=== PATIENT | female | born 1950 | race Caucasian/White ===

== ENCOUNTER 2017-11-04 18:48 | Inpatient (IN) | payer MEDICARE ==
[~2017-11-04] VITALS: Ht 162.6 cm; Wt 65.8 kg
[2017-11-04] MEDS ORDERED: ASPIRIN EC325 MG ORAL (19:16)
[2017-11-04] MEDS ORDERED: TRADJENTA5 MG PO (19:16)
[2017-11-04] MEDS ORDERED: DOCUSATE SODIU100 MG ORAL (19:16)
[2017-11-04] MEDS ORDERED: COREG3.125 MG ORAL (19:16)
[2017-11-04] MEDS ORDERED: LEXAPRO20 MG ORAL (19:16)
[2017-11-04] MEDS ORDERED: ATORVASTATIN CA20 MG ORAL (19:16)
[2017-11-04] MEDS ORDERED: HYDRALAZINE HCL25 M1 ORAL (19:16)
[2017-11-04] MEDS ORDERED: MAGNESIUM OXID400 M1 ORAL (19:16)
[2017-11-04] MEDS ORDERED: ADALAT10 MG ORAL (19:16)
[2017-11-04] MEDS ORDERED: ABILIFY2 MG ORAL (19:16)
[2017-11-04] MEDS ORDERED: FUROSEMIDE40 MG ORAL (19:16)
[2017-11-04] MEDS ORDERED: GLIPIZIDE5 MG ORAL (19:16)
[2017-11-04 19:30] VITALS: BP 182/81
[2017-11-04] MEDS ORDERED: Haloperidol 5mg/ml Inj IM ONE (19:45)
--- NOTE | 2017-11-04 19:51 | Emergency Room Report ---
History of Present Illness General Chief Complaint: Abnormal Labs Source: Patient Present Illness HPI Patient is a 67-year-old female sent in by primary care physician for increased blood sugar and agitation. Patient had been noted to have prior history of psychosis. Patient was markedly had been given Haldol Ativan Benadryl prior to arrival. Patient is normally poorly oriented. Allergies: Coded Allergies: No Known Allergies (Unverified , 11/04/17) Patient History Past Medical History: see triage record Reviewed Nursing Documentation: PMH: Agreed; PSxH: Agreed Nursing Documentation-PMH Hx Cardiac Problems: Yes Hx Hypertension: Yes Hx Diabetes: Yes Hx Cancer: No - UTI Hx Gastrointestinal Problems: No - MUSCLE WEAKNESS History Of Psychiatric Problem: Yes Hx Neurological Problems: Yes - DYSPHAGIA Review of Systems All Other Systems: limited - by mental status Physical Exam Vital Signs Date Time Temp Pulse Resp B/P (MAP) Pulse Ox O2 Delivery O2 Flow Rate FiO2 11/04/17 18:50 97.0 83 20 142/69 99 Room Air 97.0 Sp02 EP Interpretation: reviewed, normal General Appearance: normal inspection, Chronically Ill Head: atraumatic ENT: normal ENT inspection, hearing grossly normal, normal voice Neck: normal inspection, full range of motion, supple, no bony tend Respiratory: normal inspection, lungs clear, normal breath sounds, no respiratory distress, no retraction, no wheezing Cardiovascular #1: regular rate, rhythm, no edema Gastrointestinal: normal inspection, normal bowel sounds, non tender, soft, no guarding, no hernia Genitourinary: no CVA tenderness Musculoskeletal: normal inspection, back normal, normal range of motion Neurologic: alert, responsive, motor weakness Psychiatric: anxious Skin: normal inspection, normal color, no rash Medical Decision Making Diagnostic Impression: Primary Impression: Lactic acidosis Additional Impressions: Urinary tract infection Psychosis ER Course Patient present for abnormal laboratory testing. Differential diagnosis included wasn't limited to uncontrolled diabetes, sepsis, dehydration among others.Because of complexity of patient's case laboratory testing and imaging studies were ordered.Laboratory testing and old for elevated lactic acid level. The patient was noted to have some evidence of urinary tract infection was started on IV antibiotics as well as IV fluids. Dr. Zak Guaman was contacted for inpatient managment. Labs Test 11/04/17 19:40 White Blood Count 10.6 K/UL (4.8-10.8) Red Blood Count 4.15 M/UL (4.20-5.40) Hemoglobin 11.5 G/DL (12.0-16.0) Hematocrit 35.2 % (37.0-47.0) Mean Corpuscular Volume 85 FL (80-99) Mean Corpuscular Hemoglobin 27.6 PG (27.0-31.0) Mean Corpuscular Hemoglobin Concent 32.6 G/DL (32.0-36.0) Red Cell Distribution Width 13.7 % (11.6-14.8) Platelet Count 207 K/UL (150-450) Mean Platelet Volume 9.0 FL (6.5-10.1) Neutrophils (%) (Auto) 56.1 % (45.0-75.0) Lymphocytes (%) (Auto) 31.7 % (20.0-45.0) Monocytes (%) (Auto) 9.1 % (1.0-10.0) Eosinophils (%) (Auto) 1.8 % (0.0-3.0) Basophils (%) (Auto) 1.3 % (0.0-2.0) Urine Color Yellow Urine Appearance Slightly cloudy Urine pH 5 (4.5-8.0) Urine Specific [place] 1.020 (1.005-1.035) Urine Protein 4+ (NEGATIVE) Urine Glucose (UA) 3+ (NEGATIVE) Urine Ketones 1+ (NEGATIVE) Urine Occult Blood 3+ (NEGATIVE) Urine Nitrite Negative (NEGATIVE) Urine Bilirubin Negative (NEGATIVE) Urine Urobilinogen Normal MG/DL (0.0-1.0) Urine Leukocyte Esterase 3+ (NEGATIVE) Urine RBC 5-10 /HPF (0 - 2) Urine WBC 2-4 /HPF (0 - 2) Urine Squamous Epithelial Cells Few /LPF (NONE/OCC) Urine Bacteria Many /HPF (NONE) Sodium Level 140 MMOL/L (136-145) Potassium Level 4.8 MMOL/L (3.5-5.1) Chloride Level 102 MMOL/L (98-107) Carbon Dioxide Level 29 MMOL/L (21-32) Anion Gap 9 mmol/L (5-15) Blood Urea Nitrogen 42 mg/dL (7-18) Creatinine 1.9 MG/DL (0.55-1.30) Estimat Glomerular Filtration Rate 26.3 mL/min (>60) Glucose Level 242 MG/DL (74-106) Lactic Acid Level 2.10 mmol/L (0.66-2.22) Calcium Level 10.7 MG/DL (8.5-10.1) Total Bilirubin 0.7 MG/DL (0.2-1.0) Aspartate Amino Transf (AST/SGOT) 32 U/L (15-37) Alanine Aminotransferase (ALT/SGPT) 40 U/L (12-78) Alkaline Phosphatase 110 U/L (46-116) Total Creatine Kinase 532 U/L (26-308) Creatine Kinase MB 2.7 NG/ML (0.0-3.6) Creatine Kinase MB Relative Index 0.5 Troponin I 0.016 ng/mL (0.000-0.056) Total Protein 7.3 G/DL (6.4-8.2) Albumin 3.8 G/DL (3.4-5.0) Globulin 3.5 g/dL Albumin/Globulin Ratio 1.1 (1.0-2.7) Last Vital Signs Date Time Temp Pulse Resp B/P (MAP) Pulse Ox O2 Delivery O2 Flow Rate FiO2 11/04/17 18:50 97.0 83 20 142/69 99 Room Air 97.0 Status: unchanged Disposition: ADMITTED INPATIENT Condition: Serious AngelCamilo November 04, 2017 19:51
[2017-11-04 20:20] LABS: BASOPHILS % (AUTO) 1.3 % (0.0-2.0); EOSINOPHILS % (AUTO) 1.8 % (0.0-3.0); HEMATOCRIT 35.2 % (37.0-47.0); HEMOGLOBIN 11.5 G/DL (12.0-16.0); LYMPHOCYTES % (AUTO) 31.7 % (20.0-45.0); MEAN CORPUSCULAR VOLUME 85 FL (80-99); MONOCYTES % (AUTO) 9.1 % (1.0-10.0); NEUTROPHILS % (AUTO) 56.1 % (45.0-75.0); PLATELET COUNT 207 K/UL (150-450); RED BLOOD COUNT 4.15 M/UL (4.20-5.40); RED CELL DISTRIBUTION WIDTH 13.7 % (11.6-14.8); WHITE BLOOD COUNT 10.6 K/UL (4.8-10.8)
[2017-11-04 20:21] LABS: APPEARANCE,URINE SLIGHTLY CLOUDY; BILIRUBIN, URINE NEGATIVE (NEGATIVE); GLUCOSE, URINE (UA) 3+ (NEGATIVE); KETONES,URINE 1+ (NEGATIVE); LEUKOCYTE ESTERASE ,URINE 3+ (NEGATIVE); NITRITE,URINE NEGATIVE (NEGATIVE); PH,URINE 5 (4.5-8.0); PROTEIN,URINE 4+ (NEGATIVE); UROBILINOGEN,URINE NORMAL MG/DL (0.0-1.0)
[2017-11-04 20:22] LABS: COLOR,URINE YELLOW
[2017-11-04 20:25] VITALS: BP 135/65
[2017-11-04 20:25] LABS: ANION GAP 9 mmol/L (5-15); BLOOD UREA NITROGEN 42 mg/dL (7-18); CALCIUM 10.7 MG/DL (8.5-10.1); CARBON DIOXIDE 29 MMOL/L (21-32); CHLORIDE 102 MMOL/L (98-107); CREATININE 1.9 MG/DL (0.55-1.30); POTASSIUM 4.8 MMOL/L (3.5-5.1); SODIUM 140 MMOL/L (136-145)
[2017-11-04 20:39] LABS: ALANINE AMINOTRANSFERASE 40 U/L (12-78); ALBUMIN 3.8 G/DL (3.4-5.0); ALBUMIN/GLOBULIN RATIO 1.1 (1.0-2.7); ALKALINE PHOSPHATASE 110 U/L (46-116); ASPARTATE AMINO TRANSFERASE 32 U/L (15-37); BILIRUBIN,TOTAL 0.7 MG/DL (0.2-1.0); CKMB 2.7 NG/ML (0.0-3.6); CREATINE KINASE 532 U/L (26-308)
[2017-11-04] MEDS ORDERED: cefTRIAXone 1 GM in NS 55 ML IVPB ONE (21:15)
[2017-11-04] MEDS ORDERED: cefTRIAXone 1 GM in D5W 55 ML IVPB ONE (21:15)
[2017-11-04 21:25] VITALS: BP 141/52
[2017-11-04 22:25] VITALS: BP 123/51
[2017-11-04] MEDS ORDERED: Miralax 17gm pkt ORAL PRN (22:45)
[2017-11-04] MEDS ORDERED: Nitroglycerin Subl 0.4mg tab SL PRN (22:45)
[2017-11-04] MEDS ORDERED: Mylanta II UD 30ml ORAL PRN (22:45)
[2017-11-04] MEDS ORDERED: Albuterol/Ipratropium 3ml neb HHN PRN (22:45)
[2017-11-04] MEDS: HydrALAZINE 25mg tab ORAL SCH (23:35)
[2017-11-05] VITALS: BP 131/61
[2017-11-05] MEDS ORDERED: ATIVAN1 MG ORAL (01:22)
[2017-11-05 04:00] VITALS: BP 148/75
[2017-11-05] MEDS: NovoLOG Insulin Flexpen SUBQ SCH ×4 (06:30→21:40)
[2017-11-05 07:29] LABS: BASOPHILS % (AUTO) 0.9 % (0.0-2.0); EOSINOPHILS % (AUTO) 4.8 % (0.0-3.0); HEMATOCRIT 31.7 % (37.0-47.0); HEMOGLOBIN 10.6 G/DL (12.0-16.0); LYMPHOCYTES % (AUTO) 31.5 % (20.0-45.0); MEAN CORPUSCULAR VOLUME 85 FL (80-99); MONOCYTES % (AUTO) 9.4 % (1.0-10.0); NEUTROPHILS % (AUTO) 53.4 % (45.0-75.0); PLATELET COUNT 176 K/UL (150-450); RED BLOOD COUNT 3.72 M/UL (4.20-5.40); WHITE BLOOD COUNT 6.9 K/UL (4.8-10.8)
[2017-11-05 07:44] LABS: ALANINE AMINOTRANSFERASE 27 U/L (12-78); ALBUMIN 2.7 G/DL (3.4-5.0); ALBUMIN/GLOBULIN RATIO 0.8 (1.0-2.7); ALKALINE PHOSPHATASE 85 U/L (46-116); ANION GAP 9 mmol/L (5-15); ASPARTATE AMINO TRANSFERASE 33 U/L (15-37); BILIRUBIN,TOTAL 0.6 MG/DL (0.2-1.0); BLOOD UREA NITROGEN 36 mg/dL (7-18); CALCIUM 9.5 MG/DL (8.5-10.1); CARBON DIOXIDE 25 MMOL/L (21-32); CHLORIDE 110 MMOL/L (98-107); CHOLESTEROL 178 MG/DL (< 200); CREATININE 1.5 MG/DL (0.55-1.30); HDL CHOLESTEROL 55 MG/DL (40-60); POTASSIUM 3.9 MMOL/L (3.5-5.1); SODIUM 144 MMOL/L (136-145); TRIGLYCERIDES 102 MG/DL (30-150)
[2017-11-05 08:00] VITALS: BP 138/67
--- NOTE | 2017-11-05 08:40 | General Progress Note ---
Progress Note Progress Note [id number] full note dictated BELTRAN CISNEROS November 05, 2017 08:40
[2017-11-05] MEDS ORDERED: Aspirin EC 325mg tab ORAL SCH (09:00)
--- NOTE | 2017-11-05 09:50 | Diagnostic Imaging Report ---
Indication: Dyspnea Comparison: None A single view chest radiograph was obtained. Findings: Suggestion of mild bronchial wall thickening and slightly increased reticular markings in the perihilar regions of both lungs. No consolidation or pneumonia identified. Heart size is normal. The bones are osteopenic. Aorta is calcified. IMPRESSION: Bronchitis
[2017-11-05] MEDS: GlipiZIDE 10mg tab ORAL SCH ×2 (10:25→17:30)
[2017-11-05] MEDS: HydrALAZINE 25mg tab ORAL SCH ×2 (10:26→17:30)
[2017-11-05] MEDS: sitaGLIPtin 50mg tab ORAL SCH (10:26)
[2017-11-05] MEDS: Heparin 5000 units/ml inj SUBQ SCH ×2 (10:29→21:30)
[2017-11-05] MEDS: Aspirin EC 81mg tab ORAL SCH (10:30)
--- NOTE | 2017-11-05 11:15 | Consultation ---
DATE OF CONSULTATION: 11/05/2017 NEPHROLOGY CONSULTATION CONSULTING PHYSICIAN: Cindy Damon M.D. REFERRING PHYSICIAN: Zak Guaman D.O. REASON FOR CONSULTATION: Acute renal failure. HISTORY OF PRESENT ILLNESS: The patient is an unfortunate 67-year-old female with past medical history significant for history of schizophrenia, hypertension, diabetes, diabetic neuropathy, and history of agitation, who was brought in to [facility] for evaluation of the blood sugar and acute renal failure. The patient also had an increased agitation, so the patient was heavily dosed with Haldol, Ativan, and Benadryl upon arrival, so she was not able to provide any history in the ER. At this point, this morning, the patient is opening her eyes with verbal stimuli, following simple commands, but not able to provide appropriate answer to my question. Upon arrival in the ER, the patient found to have blood pressure of 142/69, pulse of 83, the patient also found to have a creatinine of 1.9. Consequently, the patient was admitted and I was called for management of renal disease and electrolyte imbalance. PAST MEDICAL HISTORY: 1. History of hypertension. 2. History of diabetes. 3. History of schizophrenia. 4. History of muscle weakness. FAMILY HISTORY: Unable to obtain. SOCIAL HISTORY: She lives at shelter. There is no known history of tobacco, alcohol, or drug use. MEDICATION: Medication reconciliation was reviewed. REVIEW OF SYSTEMS: Unable to obtain due to the patient's condition and mental status. PHYSICAL EXAMINATION: VITAL SIGNS: The patient has temperature of 98, blood pressure 141/52, pulse rate of 66, and respiratory rate of 18. HEAD AND NECK: No JVP. No LAD. No thyromegaly. Extraocular movement intact. Pupils are reactive to light and accommodation. LUNGS: Clear to auscultation. CARDIAC: Regular rate and rhythm. S1 and S2. No murmur. No rub. ABDOMEN: Soft, nontender, and nondistended. EXTREMITIES: Trace edema. No clubbing. No cyanosis. LABORATORY AND DIAGNOSTIC DATA: Laboratory values revealed WBC count of 6.9, hemoglobin of 10.6, hematocrit of 31, and platelet count of 176. Chemistry on admission revealed sodium 140, potassium 4.8, chloride 102, bicarbonate 29, BUN was 42, creatinine 1.9, glucose was 242, and calcium was 10.7. AST of 32, ALT of . Total CPK of 532. Troponin was negative. Albumin was 3.8. UA revealed specific gravity of 1.020, protein 4+, glucose 3+, ketone 1+, blood 3+, leukocyte esterase 3+, rbc of 5 to 10, and wbc 2 to 4. ASSESSMENT: 1. Acute renal failure. The etiology of acute renal failure is ATN and prerenal azotemia. The patient may have some degree of chronic kidney disease due to diabetic nephropathy. Had 4+ protein in the urine, which need to be evaluated for nephrotic-range proteinuria. 2. Uncontrolled diabetes. 3. Hypercalcemia. 4. Hematuria and urinary tract infection. 5. Uncontrolled hypertension. PLAN: Plan for the patient to obtain UA. Check the random urine protein creatinine ratio to calculate the proteinuria. Check the microalbumin level and I would also continue with current IV. I would continue monitor renal function. May need to have an ultrasound of the kidneys to rule out obstruction. I would recommend to check the A1c. Recommended A1c 6 to 7. Avoid any NSAID and nephrotoxic. At the end, I would like to thank, Dr. Zak Guaman, for allowing me to participate in the care of this patient. Joanna Chamorro JOB#: [id number] CC:
[2017-11-05 12:00] VITALS: BP 154/77
--- NOTE | 2017-11-05 13:07 | Consultation ---
History of Present Illness General Date patient seen: November 05, 2017 Chief Complaint: Abnormal Labs Present Illness HPI 67-year-old female with hx of DM, schizophrenia, skilled nursing resident sent in to ER for increased blood sugar and agitation. Patient was markedly sedated on arrival since she had been given Haldol Ativan Benadryl. She is admitted for acute encephalopathy, uncontrolled DM and UTI. Apparently pt sleeps most of the day. She wakes up to eat and falls back to sleep again. Allergies: Coded Allergies: No Known Allergies (Unverified , 11/04/17) Medication History Scheduled Aripiprazole* (Abilify*), 30 MG ORAL DAILY, (Reported) Aspirin* (Aspirin Ec*), 81 MG ORAL DAILY, (Reported) Atorvastatin Calcium* (Atorvastatin Calcium*), 20 MG ORAL BEDTIME, (Reported) Carvedilol (Coreg), 3.125 MG ORAL EVERY 12 HOURS, (Reported) Docusate Sodium* (Docusate Sodium*), 100 MG ORAL TWICE A DAY, (Reported) Escitalopram Oxalate* (Lexapro*), 20 MG ORAL DAILY, (Reported) Furosemide* (Lasix*), 40 MG ORAL TWICE A DAY, (Reported) Glipizide* (Glipizide*), 10 MG ORAL BIDAC, (Reported) Hydralazine Hcl* (Hydralazine Hcl*), 25 MG ORAL BID, (Reported) Linagliptin (Tradjenta), 5 MG PO DAILY, (Reported) Magnesium Oxide (Magnesium Oxide), 400 MG ORAL BID, (Reported) Nifedipine (Nifedipine*), 30 MG ORAL DAILY, (Reported) Scheduled PRN Lorazepam* (Ativan*), 1 MG ORAL Q8HR PRN for For Anxiety, (Reported) Patient History Healthcare decision maker Resuscitation status Full Code Advanced Directive on File Past Medical/Surgical History Past Medical/Surgical History: (1) Diabetes mellitus (2) Psychosis Review of Systems Constitutional: Reports: malaise, weakness All Other Systems: negative except mentioned in HPI Physical Exam General Appearance: WD/WN Lines, tubes and drains: peripheral HEENT: normocephalic, atraumatic Neck: non-tender, normal alignment Respiratory/Chest: chest wall non-tender, lungs clear Cardiovascular/Chest: normal peripheral pulses, normal rate Abdomen: normal bowel sounds Genitourinary/Rectal: normal genital exam Last 24 Hour Vital Signs Date Time Temp Pulse Resp B/P (MAP) Pulse Ox O2 Delivery O2 Flow Rate FiO2 11/05/17 12:00 97.2 75 20 154/77 96 97.2 11/05/17 10:26 138/67 11/05/17 10:26 73 138/67 11/05/17 10:25 73 138/67 11/05/17 08:00 97.5 73 17 138/67 95 97.5 11/05/17 04:00 Room Air 11/05/17 04:00 97.3 68 18 148/75 99 97.3 11/05/17 00:00 Room Air 11/05/17 00:00 97.4 58 18 131/61 100 97.4 11/04/17 23:35 131/61 11/04/17 23:10 98.0 61 17 123/51 98 Room Air 98.0 11/04/17 22:25 98.0 61 17 123/51 98 Room Air 98.0 11/04/17 21:25 98.0 66 18 141/52 98 Room Air 98.0 11/04/17 20:25 97.8 82 16 135/65 97 Room Air 97.8 11/04/17 19:30 97.0 93 20 182/81 97 Room Air 97.0 11/04/17 18:50 97.0 83 20 142/69 99 Room Air 97.0 Intake and Output 11/04/17 11/05/17 19:00 07:00 Intake Total 1705 ml Balance 1705 ml Intake IV Total 1705 ml # Voids 2 Laboratory Tests Test 11/04/17 19:40 11/04/17 22:30 11/05/17 06:00 White Blood Count 10.6 K/UL (4.8-10.8) 6.9 K/UL (4.8-10.8) Red Blood Count 4.15 M/UL (4.20-5.40) L 3.72 M/UL (4.20-5.40) L Hemoglobin 11.5 G/DL (12.0-16.0) L 10.6 G/DL (12.0-16.0) L Hematocrit 35.2 % (37.0-47.0) L 31.7 % (37.0-47.0) L Mean Corpuscular Volume 85 FL (80-99) 85 FL (80-99) Mean Corpuscular Hemoglobin 27.6 PG (27.0-31.0) 28.4 PG (27.0-31.0) Mean Corpuscular Hemoglobin Concent 32.6 G/DL (32.0-36.0) 33.3 G/DL (32.0-36.0) Red Cell Distribution Width 13.7 % (11.6-14.8) 14.0 % (11.6-14.8) Platelet Count 207 K/UL (150-450) 176 K/UL (150-450) Mean Platelet Volume 9.0 FL (6.5-10.1) 9.4 FL (6.5-10.1) Neutrophils (%) (Auto) 56.1 % (45.0-75.0) 53.4 % (45.0-75.0) Lymphocytes (%) (Auto) 31.7 % (20.0-45.0) 31.5 % (20.0-45.0) Monocytes (%) (Auto) 9.1 % (1.0-10.0) 9.4 % (1.0-10.0) Eosinophils (%) (Auto) 1.8 % (0.0-3.0) 4.8 % (0.0-3.0) H Basophils (%) (Auto) 1.3 % (0.0-2.0) 0.9 % (0.0-2.0) Urine Color Yellow Urine Appearance Slightly cloudy Urine pH 5 (4.5-8.0) Urine Specific [place] 1.020 (1.005-1.035) Urine Protein 4+ (NEGATIVE) H Urine Glucose (UA) 3+ (NEGATIVE) H Urine Ketones 1+ (NEGATIVE) H Urine Occult Blood 3+ (NEGATIVE) H Urine Nitrite Negative (NEGATIVE) Urine Bilirubin Negative (NEGATIVE) Urine Urobilinogen Normal MG/DL (0.0-1.0) Urine Leukocyte Esterase 3+ (NEGATIVE) H Urine RBC 5-10 /HPF (0 - 2) H Urine WBC 2-4 /HPF (0 - 2) Urine Squamous Epithelial Cells Few /LPF (NONE/OCC) Urine Bacteria Many /HPF (NONE) H Sodium Level 140 MMOL/L (136-145) 144 MMOL/L (136-145) Potassium Level 4.8 MMOL/L (3.5-5.1) 3.9 MMOL/L (3.5-5.1) Chloride Level 102 MMOL/L (98-107) 110 MMOL/L (98-107) H Carbon Dioxide Level 29 MMOL/L (21-32) 25 MMOL/L (21-32) Anion Gap 9 mmol/L (5-15) 9 mmol/L (5-15) Blood Urea Nitrogen 42 mg/dL (7-18) H 36 mg/dL (7-18) H Creatinine 1.9 MG/DL (0.55-1.30) H 1.5 MG/DL (0.55-1.30) H Estimat Glomerular Filtration Rate 26.3 mL/min (>60) 34.7 mL/min (>60) Glucose Level 242 MG/DL (74-106) H 112 MG/DL (74-106) #H Lactic Acid Level 2.10 mmol/L (0.66-2.22) 0.90 mmol/L (0.66-2.22) Calcium Level 10.7 MG/DL (8.5-10.1) H 9.5 MG/DL (8.5-10.1) Total Bilirubin 0.7 MG/DL (0.2-1.0) 0.6 MG/DL (0.2-1.0) Aspartate Amino Transf (AST/SGOT) 32 U/L (15-37) 33 U/L (15-37) Alanine Aminotransferase (ALT/SGPT) 40 U/L (12-78) 27 U/L (12-78) Alkaline Phosphatase 110 U/L (46-116) 85 U/L (46-116) Total Creatine Kinase 532 U/L (26-308) H Creatine Kinase MB 2.7 NG/ML (0.0-3.6) Creatine Kinase MB Relative Index 0.5 Troponin I 0.016 ng/mL (0.000-0.056) Total Protein 7.3 G/DL (6.4-8.2) 6.1 G/DL (6.4-8.2) L Albumin 3.8 G/DL (3.4-5.0) 2.7 G/DL (3.4-5.0) L Globulin 3.5 g/dL 3.4 g/dL Albumin/Globulin Ratio 1.1 (1.0-2.7) 0.8 (1.0-2.7) L Hemoglobin A1c 8.1 % (4.3-6.0) H Triglycerides Level 102 MG/DL (30-150) Cholesterol Level 178 MG/DL (< 200) LDL Cholesterol 109 mg/dL (<100) H HDL Cholesterol 55 MG/DL (40-60) Cholesterol/HDL Ratio 3.2 (3.3-4.4) L Thyroid Stimulating Hormone (TSH) 0.595 uiU/mL (0.358-3.740) Height (Feet): 5 Height (Inches): 4.00 Weight (Pounds): 145 Medications Current Medications Medications (Trade) Dose Ordered Sig/Arely Route PRN Reason Start Time Stop Time Status Last Admin Dose Admin Acetaminophen (Tylenol) 650 mg Q4H PRN ORAL fever 11/04/17 22:45 12/04/17 22:44 Al Hydroxide/Mg Hydroxide (Mylanta II) 30 ml Q6H PRN ORAL dyspepsia 11/04/17 22:45 12/04/17 22:44 Albuterol/ Ipratropium (Albuterol/ Ipratropium) 3 ml EVERY 4 HOURS PRN HHN Shortness of Breath 11/04/17 22:45 11/09/17 22:44 Aripiprazole (Abilify) 30 mg DAILY ORAL 11/05/17 09:00 12/05/17 08:59 11/05/17 10:26 Aspirin (Ecotrin) 81 mg DAILY ORAL 11/05/17 10:30 12/05/17 10:29 Atorvastatin Calcium (Lipitor) 20 mg BEDTIME ORAL 11/05/17 21:00 12/05/17 20:59 Carvedilol (Coreg) 3.125 mg EVERY 12 HOURS ORAL 11/05/17 09:00 12/05/17 08:59 11/05/17 10:26 Clonidine HCl (Catapres Tab) 0.1 mg EVERY 4 HOURS PRN ORAL sbp more than 160 11/04/17 22:45 12/04/17 22:44 Dextrose (Dextrose 50%) 25 ml STAT PRN IV Hypoglycemia 11/04/17 22:45 12/04/17 22:44 Dextrose (Dextrose 50%) 50 ml STAT PRN IV Hypoglycemia 11/04/17 22:45 12/04/17 22:44 Glipizide (Glucotrol) 10 mg BIAC ORAL 11/05/17 08:30 12/05/17 08:29 11/05/17 10:25 Heparin Sodium (Porcine) (Heparin 5000 units/ml) 5,000 units EVERY 12 HOURS SUBQ 11/05/17 09:00 12/05/17 08:59 11/05/17 10:29 Hydralazine HCl (Apresoline) 25 mg BID ORAL 11/04/17 23:35 12/04/17 23:34 11/05/17 10:26 Insulin Aspart (NovoLOG) BEFORE MEALS AND HS SUBQ 11/05/17 06:30 12/05/17 06:29 11/05/17 12:39 Nifedipine (Procardia XL) 30 mg DAILY ORAL 11/05/17 09:00 12/05/17 08:59 11/05/17 10:25 Nitroglycerin (Ntg) 0.4 mg Q5M X 3 DOSES PRN SL Prn Chest Pain 11/04/17 22:45 12/04/17 22:44 Ondansetron HCl (Zofran) 4 mg Q6H PRN IVP Nausea & Vomiting 11/04/17 22:45 12/04/17 22:44 Polyethylene Glycol (Miralax) 17 gm HSPRN PRN ORAL Constipation 11/04/17 22:45 12/04/17 22:44 Sitagliptin Phosphate (Januvia) 50 mg ACBREAKFAST ORAL 11/05/17 08:30 12/05/17 08:29 11/05/17 10:26 Sodium Chloride 1,000 ml @ 100 mls/hr Q10H IVLG 11/04/17 22:40 12/04/17 22:39 11/05/17 10:01 Temazepam (Restoril) 15 mg HSPRN PRN ORAL Insomnia 11/04/17 22:45 11/11/17 22:44 Assessment/Plan Problem List: (1) Acute encephalopathy ICD Codes: G93.40 - Encephalopathy, unspecified SNOMED: 06142588, 028547193 (2) ATN (acute tubular necrosis) ICD Codes: N17.0 - Acute kidney failure with tubular necrosis SNOMED: 07629254 (3) Urinary tract infection ICD Codes: N39.0 - Urinary tract infection, site not specified SNOMED: 97627853 (4) Diabetes mellitus ICD Codes: E11.9 - Type 2 diabetes mellitus without complications SNOMED: 86089890 Assessment/Plan iv fluids sliding scale renal w/u psych f/u check electrolytes check urine cultures symptomatic treatment dvt prophylaxis. Randa Vigil MD November 05, 2017 13:06
--- NOTE | 2017-11-05 14:59 | Consultation ---
History of Present Illness General Date patient seen: November 05, 2017 Chief Complaint: Abnormal Labs Present Illness HPI 67 y/o F with hx of HTN, DM2 w/ neuropathy, dysphagia, schizophrenia/psychosis, [facility] resident presents to ED on 11/04 with agitation and hyperglycemia. She was found to have BART. Afebrile, no leukocytosis, u/a with no pyuria and CXR with no consolidations Allergies: Coded Allergies: No Known Allergies (Unverified , 11/04/17) Medication History Scheduled Aripiprazole* (Abilify*), 30 MG ORAL DAILY, (Reported) Aspirin* (Aspirin Ec*), 81 MG ORAL DAILY, (Reported) Atorvastatin Calcium* (Atorvastatin Calcium*), 20 MG ORAL BEDTIME, (Reported) Carvedilol (Coreg), 3.125 MG ORAL EVERY 12 HOURS, (Reported) Docusate Sodium* (Docusate Sodium*), 100 MG ORAL TWICE A DAY, (Reported) Escitalopram Oxalate* (Lexapro*), 20 MG ORAL DAILY, (Reported) Furosemide* (Lasix*), 40 MG ORAL TWICE A DAY, (Reported) Glipizide* (Glipizide*), 10 MG ORAL BIDAC, (Reported) Hydralazine Hcl* (Hydralazine Hcl*), 25 MG ORAL BID, (Reported) Linagliptin (Tradjenta), 5 MG PO DAILY, (Reported) Magnesium Oxide (Magnesium Oxide), 400 MG ORAL BID, (Reported) Nifedipine (Nifedipine*), 30 MG ORAL DAILY, (Reported) Scheduled PRN Lorazepam* (Ativan*), 1 MG ORAL Q8HR PRN for For Anxiety, (Reported) Patient History Healthcare decision maker Resuscitation status Full Code Advanced Directive on File Patient History Narrative PMHx: as above Shx: She lives at [facility]. There is no known history of tobacco, alcohol, or drug use Fhx: non contributory Physical Exam Physical Exam Narrative HEAD AND NECK: No JVP. No LAD. No thyromegaly. Extraocular movement intact. Pupils are reactive to light and accommodation. LUNGS: Clear to auscultation. CARDIAC: Regular rate and rhythm. S1 and S2. No murmur. No rub. ABDOMEN: Soft, nontender, and nondistended. EXTREMITIES: Trace edema. No clubbing. No cyanosis. Skin: multiple bruises- refer to wound care notes and pics Last 24 Hour Vital Signs Date Time Temp Pulse Resp B/P (MAP) Pulse Ox O2 Delivery O2 Flow Rate FiO2 11/05/17 12:00 97.2 75 20 154/77 96 97.2 11/05/17 10:26 138/67 11/05/17 10:26 73 138/67 11/05/17 10:25 73 138/67 11/05/17 08:00 97.5 73 17 138/67 95 97.5 11/05/17 04:00 Room Air 11/05/17 04:00 97.3 68 18 148/75 99 97.3 11/05/17 00:00 Room Air 11/05/17 00:00 97.4 58 18 131/61 100 97.4 11/04/17 23:35 131/61 11/04/17 23:10 98.0 61 17 123/51 98 Room Air 98.0 11/04/17 22:25 98.0 61 17 123/51 98 Room Air 98.0 11/04/17 21:25 98.0 66 18 141/52 98 Room Air 98.0 11/04/17 20:25 97.8 82 16 135/65 97 Room Air 97.8 11/04/17 19:30 97.0 93 20 182/81 97 Room Air 97.0 11/04/17 18:50 97.0 83 20 142/69 99 Room Air 97.0 Intake and Output 11/04/17 11/05/17 19:00 07:00 Intake Total 1705 ml Balance 1705 ml Intake IV Total 1705 ml # Voids 2 Laboratory Tests Test 11/04/17 19:40 11/04/17 22:30 11/05/17 06:00 White Blood Count 10.6 K/UL (4.8-10.8) 6.9 K/UL (4.8-10.8) Red Blood Count 4.15 M/UL (4.20-5.40) L 3.72 M/UL (4.20-5.40) L Hemoglobin 11.5 G/DL (12.0-16.0) L 10.6 G/DL (12.0-16.0) L Hematocrit 35.2 % (37.0-47.0) L 31.7 % (37.0-47.0) L Mean Corpuscular Volume 85 FL (80-99) 85 FL (80-99) Mean Corpuscular Hemoglobin 27.6 PG (27.0-31.0) 28.4 PG (27.0-31.0) Mean Corpuscular Hemoglobin Concent 32.6 G/DL (32.0-36.0) 33.3 G/DL (32.0-36.0) Red Cell Distribution Width 13.7 % (11.6-14.8) 14.0 % (11.6-14.8) Platelet Count 207 K/UL (150-450) 176 K/UL (150-450) Mean Platelet Volume 9.0 FL (6.5-10.1) 9.4 FL (6.5-10.1) Neutrophils (%) (Auto) 56.1 % (45.0-75.0) 53.4 % (45.0-75.0) Lymphocytes (%) (Auto) 31.7 % (20.0-45.0) 31.5 % (20.0-45.0) Monocytes (%) (Auto) 9.1 % (1.0-10.0) 9.4 % (1.0-10.0) Eosinophils (%) (Auto) 1.8 % (0.0-3.0) 4.8 % (0.0-3.0) H Basophils (%) (Auto) 1.3 % (0.0-2.0) 0.9 % (0.0-2.0) Urine Color Yellow Urine Appearance Slightly cloudy Urine pH 5 (4.5-8.0) Urine Specific Cecil 1.020 (1.005-1.035) Urine Protein 4+ (NEGATIVE) H Urine Glucose (UA) 3+ (NEGATIVE) H Urine Ketones 1+ (NEGATIVE) H Urine Occult Blood 3+ (NEGATIVE) H Urine Nitrite Negative (NEGATIVE) Urine Bilirubin Negative (NEGATIVE) Urine Urobilinogen Normal MG/DL (0.0-1.0) Urine Leukocyte Esterase 3+ (NEGATIVE) H Urine RBC 5-10 /HPF (0 - 2) H Urine WBC 2-4 /HPF (0 - 2) Urine Squamous Epithelial Cells Few /LPF (NONE/OCC) Urine Bacteria Many /HPF (NONE) H Sodium Level 140 MMOL/L (136-145) 144 MMOL/L (136-145) Potassium Level 4.8 MMOL/L (3.5-5.1) 3.9 MMOL/L (3.5-5.1) Chloride Level 102 MMOL/L (98-107) 110 MMOL/L (98-107) H Carbon Dioxide Level 29 MMOL/L (21-32) 25 MMOL/L (21-32) Anion Gap 9 mmol/L (5-15) 9 mmol/L (5-15) Blood Urea Nitrogen 42 mg/dL (7-18) H 36 mg/dL (7-18) H Creatinine 1.9 MG/DL (0.55-1.30) H 1.5 MG/DL (0.55-1.30) H Estimat Glomerular Filtration Rate 26.3 mL/min (>60) 34.7 mL/min (>60) Glucose Level 242 MG/DL (74-106) H 112 MG/DL (74-106) #H Lactic Acid Level 2.10 mmol/L (0.66-2.22) 0.90 mmol/L (0.66-2.22) Calcium Level 10.7 MG/DL (8.5-10.1) H 9.5 MG/DL (8.5-10.1) Total Bilirubin 0.7 MG/DL (0.2-1.0) 0.6 MG/DL (0.2-1.0) Aspartate Amino Transf (AST/SGOT) 32 U/L (15-37) 33 U/L (15-37) Alanine Aminotransferase (ALT/SGPT) 40 U/L (12-78) 27 U/L (12-78) Alkaline Phosphatase 110 U/L (46-116) 85 U/L (46-116) Total Creatine Kinase 532 U/L (26-308) H Creatine Kinase MB 2.7 NG/ML (0.0-3.6) Creatine Kinase MB Relative Index 0.5 Troponin I 0.016 ng/mL (0.000-0.056) Total Protein 7.3 G/DL (6.4-8.2) 6.1 G/DL (6.4-8.2) L Albumin 3.8 G/DL (3.4-5.0) 2.7 G/DL (3.4-5.0) L Globulin 3.5 g/dL 3.4 g/dL Albumin/Globulin Ratio 1.1 (1.0-2.7) 0.8 (1.0-2.7) L Hemoglobin A1c 8.1 % (4.3-6.0) H Triglycerides Level 102 MG/DL (30-150) Cholesterol Level 178 MG/DL (< 200) LDL Cholesterol 109 mg/dL (<100) H HDL Cholesterol 55 MG/DL (40-60) Cholesterol/HDL Ratio 3.2 (3.3-4.4) L Thyroid Stimulating Hormone (TSH) 0.595 uiU/mL (0.358-3.740) Height (Feet): 5 Height (Inches): 4.00 Weight (Pounds): 145 Medications Current Medications Medications (Trade) Dose Ordered Sig/Arely Route PRN Reason Start Time Stop Time Status Last Admin Dose Admin Acetaminophen (Tylenol) 650 mg Q4H PRN ORAL fever 11/04/17 22:45 12/04/17 22:44 Al Hydroxide/Mg Hydroxide (Mylanta II) 30 ml Q6H PRN ORAL dyspepsia 11/04/17 22:45 12/04/17 22:44 Albuterol/ Ipratropium (Albuterol/ Ipratropium) 3 ml EVERY 4 HOURS PRN HHN Shortness of Breath 11/04/17 22:45 11/09/17 22:44 Aripiprazole (Abilify) 30 mg DAILY ORAL 11/05/17 09:00 12/05/17 08:59 11/05/17 10:26 Aspirin (Ecotrin) 81 mg DAILY ORAL 11/05/17 10:30 12/05/17 10:29 Atorvastatin Calcium (Lipitor) 20 mg BEDTIME ORAL 11/05/17 21:00 12/05/17 20:59 Carvedilol (Coreg) 3.125 mg EVERY 12 HOURS ORAL 11/05/17 09:00 12/05/17 08:59 11/05/17 10:26 Clonidine HCl (Catapres Tab) 0.1 mg EVERY 4 HOURS PRN ORAL sbp more than 160 11/04/17 22:45 12/04/17 22:44 Dextrose (Dextrose 50%) 25 ml STAT PRN IV Hypoglycemia 11/04/17 22:45 12/04/17 22:44 Dextrose (Dextrose 50%) 50 ml STAT PRN IV Hypoglycemia 11/04/17 22:45 12/04/17 22:44 Glipizide (Glucotrol) 10 mg BIAC ORAL 11/05/17 08:30 12/05/17 08:29 11/05/17 10:25 Heparin Sodium (Porcine) (Heparin 5000 units/ml) 5,000 units EVERY 12 HOURS SUBQ 11/05/17 09:00 12/05/17 08:59 11/05/17 10:29 Hydralazine HCl (Apresoline) 25 mg BID ORAL 11/04/17 23:35 12/04/17 23:34 11/05/17 10:26 Insulin Aspart (NovoLOG) BEFORE MEALS AND HS SUBQ 11/05/17 06:30 12/05/17 06:29 11/05/17 12:39 Nifedipine (Procardia XL) 30 mg DAILY ORAL 11/05/17 09:00 12/05/17 08:59 11/05/17 10:25 Nitroglycerin (Ntg) 0.4 mg Q5M X 3 DOSES PRN SL Prn Chest Pain 11/04/17 22:45 12/04/17 22:44 Ondansetron HCl (Zofran) 4 mg Q6H PRN IVP Nausea & Vomiting 11/04/17 22:45 12/04/17 22:44 Polyethylene Glycol (Miralax) 17 gm HSPRN PRN ORAL Constipation 11/04/17 22:45 12/04/17 22:44 Sitagliptin Phosphate (Januvia) 50 mg ACBREAKFAST ORAL 11/05/17 08:30 12/05/17 08:29 11/05/17 10:26 Sodium Chloride 1,000 ml @ 100 mls/hr Q10H IVLG 11/04/17 22:40 12/04/17 22:39 11/05/17 10:01 Temazepam (Restoril) 15 mg HSPRN PRN ORAL Insomnia 11/04/17 22:45 11/11/17 22:44 Assessment/Plan Assessment/Plan Abx: Ceftriaxone x1 11/04 Assessment: Acute encephalopathy- no evidence of infectious process -CXR: Suggestion of mild bronchial wall thickening and slightly increased reticular markings in the perihilar regions of both lungs. No consolidation or pneumonia identified. -u/a no pyuria Afebrile, no leukocytosis Hyperglycemia, improving BART, improving HTN DM2 w/ neuropathy dysphagia schizophrenia/psychosis [facility] resident Plan: -Continue to monitor off abx unless febrile, increasing leukocytosis, and/or HD instability. -f/u cx -Monitor CBC/BMP, temperatures -aspiration precautions -wound care/prevention per hosp protocol. Thank you for this consultation. Will continue to follow along with you. Discussed with SALVADOR. Lana Noble M.D. November 05, 2017 14:59
[2017-11-05 16:00] VITALS: BP 106/49
[2017-11-05 20:10] VITALS: BP 145/65
--- NOTE | 2017-11-05 21:30 | History and Physical Report ---
DATE OF ADMISSION: 11/04/2017 TIME: At 2 p.m. CONSULTANTS: 1. Ramya Vieira M.D. 2. Randa Vigil M.D. 3. Ruddy Story M.D. 4. Cindy Damon M.D. CHIEF COMPLAINT: Increased confusion, UTI, hyperglycemia, and renal insufficiency. BRIEF HISTORY: This is a 67-year-old female from [facility], presented to [facility] yesterday with increased confusion and lethargy, diagnosed with UTI, sepsis, and hyperglycemia, and admitted to the medical floor for further treatment. Currently, confused in bed, sleepy, refusing to answer questions. PAST MEDICAL HISTORY: Diabetes, schizophrenia, and renal insufficiency. PAST SURGICAL HISTORY: Unknown. MEDICATIONS: Lipitor, Ecotrin, Abilify, Coreg, Procardia, Glucotrol, heparin, Januvia, NovoLog, albuterol, MiraLAX, Zofran, Zestril, nitroglycerin, and Catapres. ALLERGIES: Denies. SOCIAL HISTORY: Unable to obtain secondary to the patient's condition. REVIEW OF SYSTEMS: Unavailable. PHYSICAL EXAMINATION: GENERAL: Lethargic in bed, refusing to answer questions. VITAL SIGNS: Temperature is 97 degrees, pulse 75, respirations 20, and blood pressure 154/77. CARDIOVASCULAR: No murmurs. LUNGS: Poor exchange. ABDOMEN: Bowel sounds distant. EXTREMITIES: No cyanosis, clubbing, or edema. NEUROLOGIC: The patient moves all extremities, but slightly weak. LABORATORY AND DIAGNOSTIC DATA: Labs at this time show hemoglobin 10.6, otherwise CBC is normal. BMP shows chloride 110, BUN and creatinine are 36 and 1.5, and glucose 112. Total protein 2.7. Urinalysis show 3+ leukocyte esterase. ASSESSMENT: 1. Urinary tract infection. 2. Sepsis. 3. Renal insufficiency. 4. Weakness. 5. Schizophrenia. 6. Anemia. 7. Diabetes. 8. Hyperglycemia. 9. Encephalopathy. PLAN: 1. Continue previous meds. 2. OT, PT, and dietary evaluation. 3. CBC and BMP in the morning. 4. Resume home medications. 5. Blood pressure and blood sugar control. 6. Dietary followup. 7. We will continue to follow the patient. Zak Guaman D.O. DR: SHAINA JOB#: [id number] CC:
[2017-11-06 00:03] VITALS: BP 118/56
[2017-11-06 04:00] VITALS: BP 151/63
[2017-11-06 04:48] LABS: BASOPHILS % (AUTO) 1.1 % (0.0-2.0); EOSINOPHILS % (AUTO) 3.9 % (0.0-3.0); HEMATOCRIT 30.1 % (37.0-47.0); HEMOGLOBIN 10.1 G/DL (12.0-16.0); LYMPHOCYTES % (AUTO) 39.1 % (20.0-45.0); MEAN CORPUSCULAR VOLUME 86 FL (80-99); MONOCYTES % (AUTO) 7.9 % (1.0-10.0); NEUTROPHILS % (AUTO) 48.1 % (45.0-75.0); PLATELET COUNT 175 K/UL (150-450); RED BLOOD COUNT 3.49 M/UL (4.20-5.40); RED CELL DISTRIBUTION WIDTH 13.9 % (11.6-14.8); WHITE BLOOD COUNT 6.6 K/UL (4.8-10.8)
[2017-11-06 05:20] LABS: ANION GAP 7 mmol/L (5-15); BLOOD UREA NITROGEN 26 mg/dL (7-18); CALCIUM 9.2 MG/DL (8.5-10.1); CARBON DIOXIDE 23 MMOL/L (21-32); CHLORIDE 111 MMOL/L (98-107); CREATININE 1.1 MG/DL (0.55-1.30); POTASSIUM 3.9 MMOL/L (3.5-5.1); SODIUM 141 MMOL/L (136-145)
[2017-11-06] MEDS: NovoLOG Insulin Flexpen SUBQ SCH ×4 (06:30→21:18)
[2017-11-06] MEDS: sitaGLIPtin 50mg tab ORAL SCH (06:30)
--- NOTE | 2017-11-06 07:11 | General Progress Note ---
Assessment/Plan Problem List: (1) Diabetes mellitus ICD Codes: E11.9 - Type 2 diabetes mellitus without complications SNOMED: 21496578 (2) Acute encephalopathy ICD Codes: G93.40 - Encephalopathy, unspecified SNOMED: 06215803, 315040102 Assessment/Plan DC Glipizide continue Januvia continue NISS Subjective ROS Limited/Unobtainable: Yes Allergies: Coded Allergies: No Known Allergies (Unverified , 11/04/17) Subjective events noted hypoglycemia last night - I was notified by RN - Glipizide was DC'ed Objective Last 24 Hour Vital Signs Date Time Temp Pulse Resp B/P (MAP) Pulse Ox O2 Delivery O2 Flow Rate FiO2 11/06/17 04:00 98.2 57 16 151/63 98 98.2 11/06/17 00:03 98.2 59 16 118/56 100 98.2 11/05/17 21:31 76 145/65 11/05/17 20:10 99.4 76 17 145/65 96 99.4 11/05/17 19:08 76 22 Room Air 21 11/05/17 17:30 126/83 11/05/17 16:00 98.6 68 16 106/49 97 98.6 11/05/17 12:00 97.2 75 20 154/77 96 97.2 11/05/17 10:26 138/67 11/05/17 10:26 73 138/67 11/05/17 10:25 73 138/67 11/05/17 08:00 97.5 73 17 138/67 95 97.5 Intake and Output 11/05/17 11/06/17 19:00 07:00 Intake Total 300 ml 900 ml Balance 300 ml 900 ml Intake Oral 200 ml IV Total 100 ml 900 ml # Voids 1 1 Laboratory Tests 11/05/17 17:10: Urine Eosinophils None seen, Urine Random Creatinine [Pending], Urine Random Microalbumin [Pending], Urine Random Total Protein 118H, Urine Random Sodium 36 , Urine Creatinine 106.4, Urine Microalbumin/Creatinine Ratio [Pending] 11/06/17 04:10: White Blood Count 6.6, Red Blood Count 3.49L, Hemoglobin 10.1L, Hematocrit 30.1L , Mean Corpuscular Volume 86, Mean Corpuscular Hemoglobin 28.8, Mean Corpuscular Hemoglobin Concent 33.4, Red Cell Distribution Width 13.9, Platelet Count 175, Mean Platelet Volume 9.2, Neutrophils (%) (Auto) 48.1, Lymphocytes (% ) (Auto) 39.1, Monocytes (%) (Auto) 7.9, Eosinophils (%) (Auto) 3.9H, Basophils (%) (Auto) 1.1, Sodium Level 141, Potassium Level 3.9, Chloride Level 111H, Carbon Dioxide Level 23, Anion Gap 7, Blood Urea Nitrogen 26H, Creatinine 1.1, Estimat Glomerular Filtration Rate 49.6, Glucose Level 52L, Calcium Level 9.2 Height (Feet): 5 Height (Inches): 4.00 Weight (Pounds): 145 General Appearance: no apparent distress Neck: normal alignment Cardiovascular: normal rate Respiratory/Chest: lungs clear Abdomen: normal bowel sounds Pelvis: normal external exam Objective Current Medications Medications (Trade) Dose Ordered Sig/Arely Route PRN Reason Start Time Stop Time Status Last Admin Dose Admin Acetaminophen (Tylenol) 650 mg Q4H PRN ORAL fever 11/04/17 22:45 12/04/17 22:44 Al Hydroxide/Mg Hydroxide (Mylanta II) 30 ml Q6H PRN ORAL dyspepsia 11/04/17 22:45 12/04/17 22:44 Albuterol/ Ipratropium (Albuterol/ Ipratropium) 3 ml EVERY 4 HOURS PRN HHN Shortness of Breath 11/04/17 22:45 11/09/17 22:44 Aripiprazole (Abilify) 30 mg DAILY ORAL 11/05/17 09:00 12/05/17 08:59 11/05/17 10:26 Aspirin (Ecotrin) 81 mg DAILY ORAL 11/05/17 10:30 12/05/17 10:29 Atorvastatin Calcium (Lipitor) 20 mg BEDTIME ORAL 11/05/17 21:00 12/05/17 20:59 11/05/17 21:29 Carvedilol (Coreg) 3.125 mg EVERY 12 HOURS ORAL 11/05/17 09:00 12/05/17 08:59 11/05/17 21:31 Clonidine HCl (Catapres Tab) 0.1 mg EVERY 4 HOURS PRN ORAL sbp more than 160 11/04/17 22:45 12/04/17 22:44 Dextrose (Dextrose 50%) 25 ml STAT PRN IV Hypoglycemia 11/04/17 22:45 12/04/17 22:44 11/05/17 21:39 Dextrose (Dextrose 50%) 50 ml STAT PRN IV Hypoglycemia 11/04/17 22:45 12/04/17 22:44 Heparin Sodium (Porcine) (Heparin 5000 units/ml) 5,000 units EVERY 12 HOURS SUBQ 11/05/17 09:00 12/05/17 08:59 11/05/17 21:30 Hydralazine HCl (Apresoline) 25 mg BID ORAL 11/04/17 23:35 12/04/17 23:34 11/05/17 17:30 Insulin Aspart (NovoLOG) BEFORE MEALS AND HS SUBQ 11/05/17 06:30 12/05/17 06:29 11/05/17 16:53 Nifedipine (Procardia XL) 30 mg DAILY ORAL 11/05/17 09:00 12/05/17 08:59 11/05/17 10:25 Nitroglycerin (Ntg) 0.4 mg Q5M X 3 DOSES PRN SL Prn Chest Pain 11/04/17 22:45 12/04/17 22:44 Ondansetron HCl (Zofran) 4 mg Q6H PRN IVP Nausea & Vomiting 11/04/17 22:45 12/04/17 22:44 Polyethylene Glycol (Miralax) 17 gm HSPRN PRN ORAL Constipation 11/04/17 22:45 12/04/17 22:44 Sitagliptin Phosphate (Januvia) 50 mg ACBREAKFAST ORAL 11/05/17 08:30 12/05/17 08:29 11/05/17 10:26 Sodium Chloride 1,000 ml @ 100 mls/hr Q10H IVLG 11/04/17 22:40 12/04/17 22:39 11/06/17 04:02 Temazepam (Restoril) 15 mg HSPRN PRN ORAL Insomnia 11/04/17 22:45 11/11/17 22:44 Item Value Date Time Bedside Blood Glucose 69 mg/dl L 11/06/17 0630 Bedside Blood Glucose 129 mg/dl H 11/05/17 2150 Bedside Blood Glucose 205 mg/dl H 11/05/17 1653 Bedside Blood Glucose 221 mg/dl H 11/05/17 1239 LEANNA BOWDEN November 06, 2017 07:11
[2017-11-06 07:43] VITALS: BP 118/71
--- NOTE | 2017-11-06 08:15 | Consultation ---
DATE OF CONSULTATION: 11/05/2017 ENDOCRINOLOGY CONSULTATION CONSULTING PHYSICIAN: Ryley Vasquez M.D. REFERRING PHYSICIAN: Zak Guaman D.O. REASON FOR CONSULTATION: Diabetes management . HISTORY OF PRESENT ILLNESS: It is important to note that history was obtained mostly from review of the chart and medical records since the patient is a poor historian. The patient is a 67-year-old female sent to the emergency room with increased blood sugar, and agitation. She has prior history of psychosis. The patient was markedly agitated and given Haldol, Ativan, and Benadryl prior to the arrival, which made her somnolent, poorly oriented. PAST MEDICAL HISTORY: 1. Type 2 diabetes. 2. Psychiatric illness. 3. Hypertension. 4. Hyperlipidemia. MEDICATIONS: As an outpatient: 1. Abilify. 2. Aspirin. 3. Atorvastatin. 4. Carvedilol. 5. Colace. 6. Lexapro. 7. Lasix. 8. Glipizide. 9. Hydralazine. 10. Linagliptin. 11. Lorazepam. 12. Magnesium. 13. Nifedipine. PAST SURGICAL HISTORY: Unknown. SOCIAL HISTORY: No smoking, alcohol, or drug use. REVIEW OF SYSTEMS: Difficult to obtain. FAMILY HISTORY: Noncontributory. LABORATORY VALUES: Sodium 140, potassium 4.6, chloride 102, bicarbonate 29, BUN 42, creatinine 1.9, and glucose of 342. Calcium 10.7. CK of 532. TSH is pending. CBC shows a WBC of 10.6, hemoglobin 11.5, hematocrit 35.2, and platelets of 207,000. PHYSICAL EXAMINATION: GENERAL: The patient is somnolent. VITAL SIGNS: Blood pressure is 148/75, heart rate 68, temperature 97.3 degrees, respiratory rate of 18. HEENT: Pupils are equal and reactive to light. Sclerae anicteric. NECK: No JVD. No thyromegaly. LUNGS: Clear. HEART: Regular rate and rhythm. ABDOMEN: Positive bowel sounds. EXTREMITIES: Positive for trace edema. DIAGNOSES: 1. Diabetes, out of control. 2. Acute kidney injury. 3. Psychosis. PLAN: 1. Resume glipizide 10 mg b.i.d. 2. Will start with Januvia 50 mg daily. 3. NovoLog insulin sliding scale before meals and at bedtime. 4. Further adjustment of glucose according to blood glucose values. 5. Follow hemoglobin A1c. Thank you, Dr. Guaman, for the courtesy of this consultation. I will follow along the patient during this stay. Ryley Vasquez M.D. DR: MARKEL JOB#: [id number] CC: JAMES
[2017-11-06] MEDS: HydrALAZINE 25mg tab ORAL SCH ×2 (09:11→18:00)
[2017-11-06] MEDS: Aspirin EC 81mg tab ORAL SCH (09:11)
[2017-11-06] MEDS: Heparin 5000 units/ml inj SUBQ SCH ×2 (09:12→21:17)
[2017-11-06 12:06] VITALS: BP 131/61
--- NOTE | 2017-11-06 12:10 | Nephrology Progress Note ---
Assessment/Plan Assessment 1. Acute renal failure. 2. Uncontrolled diabetes. 3. Hypercalcemia. 4. Hematuria and urinary tract infection. 5. Uncontrolled hypertension. Plan plan continue ivf monitoring renal function avoid nsaid replace electrolyte Subjective ROS Limited/Unobtainable: Yes Constitutional: Reports: no symptoms HEENT: Reports: no symptoms Genitourinary: Reports: no symptoms Neurologic/Psychiatric: Reports: no symptoms Subjective continue to be confused Objective Objective Last 24 Hour Vital Signs Date Time Temp Pulse Resp B/P (MAP) Pulse Ox O2 Delivery O2 Flow Rate FiO2 11/06/17 09:11 118/71 11/06/17 09:11 84 118/71 11/06/17 07:43 97.3 84 18 118/71 97.3 11/06/17 04:00 98.2 57 16 151/63 98 98.2 11/06/17 00:03 98.2 59 16 118/56 100 98.2 11/05/17 21:31 76 145/65 11/05/17 20:10 99.4 76 17 145/65 96 99.4 11/05/17 19:08 76 22 Room Air 21 11/05/17 17:30 126/83 11/05/17 16:00 98.6 68 16 106/49 97 98.6 Intake and Output 11/05/17 11/06/17 19:00 07:00 Intake Total 300 ml 900 ml Balance 300 ml 900 ml Intake Oral 200 ml IV Total 100 ml 900 ml # Voids 1 1 Laboratory Tests 11/05/17 17:10: Urine Eosinophils None seen, Urine Random Creatinine [Pending], Urine Random Microalbumin [Pending], Urine Random Total Protein 118H, Urine Random Sodium 36 , Urine Creatinine 106.4, Urine Microalbumin/Creatinine Ratio [Pending] 11/06/17 04:10: White Blood Count 6.6, Red Blood Count 3.49L, Hemoglobin 10.1L, Hematocrit 30.1L , Mean Corpuscular Volume 86, Mean Corpuscular Hemoglobin 28.8, Mean Corpuscular Hemoglobin Concent 33.4, Red Cell Distribution Width 13.9, Platelet Count 175, Mean Platelet Volume 9.2, Neutrophils (%) (Auto) 48.1, Lymphocytes (% ) (Auto) 39.1, Monocytes (%) (Auto) 7.9, Eosinophils (%) (Auto) 3.9H, Basophils (%) (Auto) 1.1, Sodium Level 141, Potassium Level 3.9, Chloride Level 111H, Carbon Dioxide Level 23, Anion Gap 7, Blood Urea Nitrogen 26H, Creatinine 1.1, Estimat Glomerular Filtration Rate 49.6, Glucose Level 52L, Calcium Level 9.2 Height (Feet): 5 Height (Inches): 4.00 Weight (Pounds): 145 Objective HEAD AND NECK: No JVP. No LAD. No thyromegaly. Extraocular movement intact. Pupils are reactive to light and accommodation. LUNGS: Clear to auscultation. CARDIAC: Regular rate and rhythm. S1 and S2. No murmur. No rub. ABDOMEN: Soft, nontender, and nondistended. EXTREMITIES: Trace edema. No clubbing. No cyanosis. BELTRAN CISNEROS November 06, 2017 12:09
[2017-11-06] MEDS ORDERED: LORazepam 0.5mg tab ORAL PRN (12:15)
--- NOTE | 2017-11-06 12:25 | Consultation ---
History of Present Illness General Date patient seen: November 05, 2017 Chief Complaint: Abnormal Labs Present Illness Allergies: Coded Allergies: No Known Allergies (Unverified , 11/04/17) Medication History Scheduled Aripiprazole* (Abilify*), 30 MG ORAL DAILY, (Reported) Aspirin* (Aspirin Ec*), 81 MG ORAL DAILY, (Reported) Atorvastatin Calcium* (Atorvastatin Calcium*), 20 MG ORAL BEDTIME, (Reported) Carvedilol (Coreg), 3.125 MG ORAL EVERY 12 HOURS, (Reported) Docusate Sodium* (Docusate Sodium*), 100 MG ORAL TWICE A DAY, (Reported) Escitalopram Oxalate* (Lexapro*), 20 MG ORAL DAILY, (Reported) Furosemide* (Lasix*), 40 MG ORAL TWICE A DAY, (Reported) Glipizide* (Glipizide*), 10 MG ORAL BIDAC, (Reported) Hydralazine Hcl* (Hydralazine Hcl*), 25 MG ORAL BID, (Reported) Linagliptin (Tradjenta), 5 MG PO DAILY, (Reported) Magnesium Oxide (Magnesium Oxide), 400 MG ORAL BID, (Reported) Nifedipine (Nifedipine*), 30 MG ORAL DAILY, (Reported) Scheduled PRN Lorazepam* (Ativan*), 1 MG ORAL Q8HR PRN for For Anxiety, (Reported) Patient History Healthcare decision maker Resuscitation status Full Code Advanced Directive on File Physical Exam Last 24 Hour Vital Signs Date Time Temp Pulse Resp B/P (MAP) Pulse Ox O2 Delivery O2 Flow Rate FiO2 11/06/17 12:06 98.1 64 18 131/61 98.1 11/06/17 09:11 118/71 11/06/17 09:11 84 118/71 11/06/17 07:43 97.3 84 18 118/71 97.3 11/06/17 04:00 98.2 57 16 151/63 98 98.2 11/06/17 00:03 98.2 59 16 118/56 100 98.2 11/05/17 21:31 76 145/65 11/05/17 20:10 99.4 76 17 145/65 96 99.4 11/05/17 19:08 76 22 Room Air 21 11/05/17 17:30 126/83 11/05/17 16:00 98.6 68 16 106/49 97 98.6 Intake and Output 11/05/17 11/06/17 19:00 07:00 Intake Total 300 ml 900 ml Balance 300 ml 900 ml Intake Oral 200 ml IV Total 100 ml 900 ml # Voids 1 1 Laboratory Tests Test 11/05/17 17:10 11/06/17 04:10 Urine Eosinophils None seen Urine Random Creatinine Pending Urine Random Microalbumin Pending Urine Random Total Protein 118 MG/DL (< 11.9) H Urine Random Sodium 36 mmol/L (20-110) Urine Creatinine 106.4 MG/DL (30.0-125.0) Urine Microalbumin/Creatinine Ratio Pending White Blood Count 6.6 K/UL (4.8-10.8) Red Blood Count 3.49 M/UL (4.20-5.40) L Hemoglobin 10.1 G/DL (12.0-16.0) L Hematocrit 30.1 % (37.0-47.0) L Mean Corpuscular Volume 86 FL (80-99) Mean Corpuscular Hemoglobin 28.8 PG (27.0-31.0) Mean Corpuscular Hemoglobin Concent 33.4 G/DL (32.0-36.0) Red Cell Distribution Width 13.9 % (11.6-14.8) Platelet Count 175 K/UL (150-450) Mean Platelet Volume 9.2 FL (6.5-10.1) Neutrophils (%) (Auto) 48.1 % (45.0-75.0) Lymphocytes (%) (Auto) 39.1 % (20.0-45.0) Monocytes (%) (Auto) 7.9 % (1.0-10.0) Eosinophils (%) (Auto) 3.9 % (0.0-3.0) H Basophils (%) (Auto) 1.1 % (0.0-2.0) Sodium Level 141 MMOL/L (136-145) Potassium Level 3.9 MMOL/L (3.5-5.1) Chloride Level 111 MMOL/L (98-107) H Carbon Dioxide Level 23 MMOL/L (21-32) Anion Gap 7 mmol/L (5-15) Blood Urea Nitrogen 26 mg/dL (7-18) H Creatinine 1.1 MG/DL (0.55-1.30) Estimat Glomerular Filtration Rate 49.6 mL/min (>60) Glucose Level 52 MG/DL (74-106) L Calcium Level 9.2 MG/DL (8.5-10.1) Height (Feet): 5 Height (Inches): 4.00 Weight (Pounds): 145 Medications Current Medications Medications (Trade) Dose Ordered Sig/Arely Route PRN Reason Start Time Stop Time Status Last Admin Dose Admin Acetaminophen (Tylenol) 650 mg Q4H PRN ORAL fever 11/04/17 22:45 12/04/17 22:44 Al Hydroxide/Mg Hydroxide (Mylanta II) 30 ml Q6H PRN ORAL dyspepsia 11/04/17 22:45 12/04/17 22:44 Albuterol/ Ipratropium (Albuterol/ Ipratropium) 3 ml EVERY 4 HOURS PRN HHN Shortness of Breath 11/04/17 22:45 11/09/17 22:44 Aripiprazole (Abilify) 30 mg DAILY ORAL 11/05/17 09:00 12/05/17 08:59 11/06/17 09:11 Aspirin (Ecotrin) 81 mg DAILY ORAL 11/05/17 10:30 12/05/17 10:29 11/06/17 09:11 Atorvastatin Calcium (Lipitor) 20 mg BEDTIME ORAL 11/05/17 21:00 12/05/17 20:59 11/05/17 21:29 Carvedilol (Coreg) 3.125 mg EVERY 12 HOURS ORAL 11/06/17 21:00 12/05/17 08:59 Clonidine HCl (Catapres Tab) 0.1 mg EVERY 4 HOURS PRN ORAL sbp more than 160 11/04/17 22:45 12/04/17 22:44 Dextrose (Dextrose 50%) 25 ml STAT PRN IV Hypoglycemia 11/04/17 22:45 12/04/17 22:44 11/05/17 21:39 Dextrose (Dextrose 50%) 50 ml STAT PRN IV Hypoglycemia 11/04/17 22:45 12/04/17 22:44 Haloperidol Lactate 5 mg/ Dextrose 56 ml @ 224 mls/hr EVERY 6 HOURS PRN IVPB agitation 11/06/17 12:30 12/06/17 12:29 UNV Heparin Sodium (Porcine) (Heparin 5000 units/ml) 5,000 units EVERY 12 HOURS SUBQ 11/05/17 09:00 12/05/17 08:59 11/06/17 09:12 Hydralazine HCl (Apresoline) 25 mg BID ORAL 11/06/17 18:00 12/04/17 23:34 Insulin Aspart (NovoLOG) BEFORE MEALS AND HS SUBQ 11/05/17 06:30 12/05/17 06:29 11/05/17 16:53 Lorazepam (Ativan 2mg/ml 1ml) 0.5 mg Q4H PRN IVP For Anxiety 11/06/17 12:15 11/13/17 12:14 Nifedipine (Procardia XL) 30 mg DAILY ORAL 11/07/17 09:00 12/05/17 08:59 Nitroglycerin (Ntg) 0.4 mg Q5M X 3 DOSES PRN SL Prn Chest Pain 11/04/17 22:45 12/04/17 22:44 Ondansetron HCl (Zofran) 4 mg Q6H PRN IVP Nausea & Vomiting 11/04/17 22:45 12/04/17 22:44 Polyethylene Glycol (Miralax) 17 gm HSPRN PRN ORAL Constipation 11/04/17 22:45 12/04/17 22:44 Quetiapine Fumarate (SEROquel) 25 mg Q12HR ORAL 11/06/17 12:30 12/06/17 12:29 UNV Sitagliptin Phosphate (Januvia) 50 mg ACBREAKFAST ORAL 11/05/17 08:30 12/05/17 08:29 11/05/17 10:26 Temazepam (Restoril) 15 mg HSPRN PRN ORAL Insomnia 11/04/17 22:45 11/11/17 22:44 Nalini Miller M.D. November 06, 2017 12:25
[2017-11-06] MEDS ORDERED: Haloperidol Lactate 5 MG in D5W 55 ML IVPB PRN (12:30)
[2017-11-06] MEDS: LORazepam Inj 2mg/ml 1ml IVP PRN ×2 (12:40→17:40)
--- NOTE | 2017-11-06 13:21 | General Progress Note ---
Assessment/Plan Problem List: (1) HTN (hypertension) ICD Codes: I10 - Essential (primary) hypertension SNOMED: 19769782 (2) Renal insufficiency ICD Codes: N28.9 - Disorder of kidney and ureter, unspecified SNOMED: 453835385, 172908689 (3) Anemia ICD Codes: D64.9 - Anemia, unspecified SNOMED: 910778521 (4) Weak ICD Codes: R53.1 - Weakness SNOMED: 82515466 (5) Urinary tract infection ICD Codes: N39.0 - Urinary tract infection, site not specified SNOMED: 12169494 (6) Psychosis ICD Codes: F29 - Unspecified psychosis not due to a substance or known physiological condition SNOMED: 90308712 (7) Diabetes mellitus ICD Codes: E11.9 - Type 2 diabetes mellitus without complications SNOMED: 06995723 (8) Acute encephalopathy ICD Codes: G93.40 - Encephalopathy, unspecified SNOMED: 53009715, 959767335 Status: unchanged Assessment/Plan ot pt diet abx psyc tx cbc bmp am Subjective Allergies: Coded Allergies: No Known Allergies (Unverified , 11/04/17) All Systems: reviewed and negative except above Subjective calm confused Objective Last 24 Hour Vital Signs Date Time Temp Pulse Resp B/P (MAP) Pulse Ox O2 Delivery O2 Flow Rate FiO2 11/06/17 12:06 98.1 64 18 131/61 98.1 11/06/17 09:11 118/71 11/06/17 09:11 84 118/71 11/06/17 07:43 97.3 84 18 118/71 97.3 11/06/17 04:00 98.2 57 16 151/63 98 98.2 11/06/17 00:03 98.2 59 16 118/56 100 98.2 11/05/17 21:31 76 145/65 11/05/17 20:10 99.4 76 17 145/65 96 99.4 11/05/17 19:08 76 22 Room Air 21 11/05/17 17:30 126/83 11/05/17 16:00 98.6 68 16 106/49 97 98.6 Intake and Output 11/05/17 11/06/17 19:00 07:00 Intake Total 300 ml 900 ml Balance 300 ml 900 ml Intake Oral 200 ml IV Total 100 ml 900 ml # Voids 1 1 Laboratory Tests 11/05/17 17:10: Urine Eosinophils None seen, Urine Random Creatinine [Pending], Urine Random Microalbumin [Pending], Urine Random Total Protein 118H, Urine Random Sodium 36 , Urine Creatinine 106.4, Urine Microalbumin/Creatinine Ratio [Pending] 11/06/17 04:10: White Blood Count 6.6, Red Blood Count 3.49L, Hemoglobin 10.1L, Hematocrit 30.1L , Mean Corpuscular Volume 86, Mean Corpuscular Hemoglobin 28.8, Mean Corpuscular Hemoglobin Concent 33.4, Red Cell Distribution Width 13.9, Platelet Count 175, Mean Platelet Volume 9.2, Neutrophils (%) (Auto) 48.1, Lymphocytes (% ) (Auto) 39.1, Monocytes (%) (Auto) 7.9, Eosinophils (%) (Auto) 3.9H, Basophils (%) (Auto) 1.1, Sodium Level 141, Potassium Level 3.9, Chloride Level 111H, Carbon Dioxide Level 23, Anion Gap 7, Blood Urea Nitrogen 26H, Creatinine 1.1, Estimat Glomerular Filtration Rate 49.6, Glucose Level 52L, Calcium Level 9.2 Height (Feet): 5 Height (Inches): 4.00 Weight (Pounds): 145 General Appearance: lethargic, confused EENT: normal ENT inspection Neck: normal alignment Cardiovascular: normal peripheral pulses, normal rate, regular rhythm Respiratory/Chest: chest wall non-tender, lungs clear, normal breath sounds Abdomen: normal bowel sounds, non tender, soft Extremities: normal inspection Edema: no edema noted Arm (L), no edema noted Arm (R), no edema noted Leg (L), no edema noted Leg (R), no edema noted Pedal (L), no edema noted Pedal (R), no edema noted Generalized Neurologic: motor weakness Skin: normal pigmentation, warm/dry AGUSTÍN CHUA November 06, 2017 13:21
--- NOTE | 2017-11-06 15:02 | Infectious Diseases Prog Note ---
Assessment/Plan Assessment/Plan Abx: Ceftriaxone x1 11/04 Assessment: Acute encephalopathy- no evidence of infectious process -CXR: Suggestion of mild bronchial wall thickening and slightly increased reticular markings in the perihilar regions of both lungs. No consolidation or pneumonia identified. -u/a no pyuria; UCx >100K GNR (assymptomatic bacteriuria) Afebrile, no leukocytosis Hyperglycemia, improving BART, improving HTN DM2 w/ neuropathy dysphagia schizophrenia/psychosis snf resident Plan: -Continue to monitor off abx unless febrile, increasing leukocytosis, and/or HD instability. -f/u cx -Monitor CBC/BMP, temperatures -aspiration precautions -wound care/prevention per hosp protocol. Thank you for this consultation. Will continue to follow along with you. Discussed with RN. Subjective Allergies: Coded Allergies: No Known Allergies (Unverified , 11/04/17) Subjective afebrile no leukocytosis off abx Objective Vital Signs Last 24 Hour Vital Signs Date Time Temp Pulse Resp B/P (MAP) Pulse Ox O2 Delivery O2 Flow Rate FiO2 11/06/17 12:06 98.1 64 18 131/61 98.1 11/06/17 09:11 118/71 11/06/17 09:11 84 118/71 11/06/17 07:43 97.3 84 18 118/71 97.3 11/06/17 04:00 98.2 57 16 151/63 98 98.2 11/06/17 00:03 98.2 59 16 118/56 100 98.2 11/05/17 21:31 76 145/65 11/05/17 20:10 99.4 76 17 145/65 96 99.4 11/05/17 19:08 76 22 Room Air 21 11/05/17 17:30 126/83 11/05/17 16:00 98.6 68 16 106/49 97 98.6 Height (Feet): 5 Height (Inches): 4.00 Weight (Pounds): 145 Objective HEAD AND NECK: No thyromegaly. Extraocular movement intact. Pupils are reactive to light and accommodation. LUNGS: Clear to auscultation. CARDIAC: Regular rate and rhythm. S1 and S2. No murmur. No rub. ABDOMEN: Soft, nontender, and nondistended. EXTREMITIES: Trace edema. No clubbing. No cyanosis. Skin: multiple bruises- refer to wound care notes and pics Microbiology Date/Time Source Procedure Growth Status 11/04/17 19:40 Blood Blood Culture - Preliminary NO GROWTH AFTER 24 HOURS Resulted 11/04/17 19:25 Blood Blood Culture - Preliminary NO GROWTH AFTER 24 HOURS Resulted 11/04/17 19:40 Urine,Clean Catch Urine Culture - Preliminary Gram Negative Bacillus 1 Resulted Laboratory Tests Test 11/05/17 17:10 11/06/17 04:10 Urine Eosinophils None seen Urine Random Creatinine Pending Urine Random Microalbumin Pending Urine Random Total Protein 118 MG/DL (< 11.9) H Urine Random Sodium 36 mmol/L (20-110) Urine Creatinine 106.4 MG/DL (30.0-125.0) Urine Microalbumin/Creatinine Ratio Pending White Blood Count 6.6 K/UL (4.8-10.8) Red Blood Count 3.49 M/UL (4.20-5.40) L Hemoglobin 10.1 G/DL (12.0-16.0) L Hematocrit 30.1 % (37.0-47.0) L Mean Corpuscular Volume 86 FL (80-99) Mean Corpuscular Hemoglobin 28.8 PG (27.0-31.0) Mean Corpuscular Hemoglobin Concent 33.4 G/DL (32.0-36.0) Red Cell Distribution Width 13.9 % (11.6-14.8) Platelet Count 175 K/UL (150-450) Mean Platelet Volume 9.2 FL (6.5-10.1) Neutrophils (%) (Auto) 48.1 % (45.0-75.0) Lymphocytes (%) (Auto) 39.1 % (20.0-45.0) Monocytes (%) (Auto) 7.9 % (1.0-10.0) Eosinophils (%) (Auto) 3.9 % (0.0-3.0) H Basophils (%) (Auto) 1.1 % (0.0-2.0) Sodium Level 141 MMOL/L (136-145) Potassium Level 3.9 MMOL/L (3.5-5.1) Chloride Level 111 MMOL/L (98-107) H Carbon Dioxide Level 23 MMOL/L (21-32) Anion Gap 7 mmol/L (5-15) Blood Urea Nitrogen 26 mg/dL (7-18) H Creatinine 1.1 MG/DL (0.55-1.30) Estimat Glomerular Filtration Rate 49.6 mL/min (>60) Glucose Level 52 MG/DL (74-106) L Calcium Level 9.2 MG/DL (8.5-10.1) Current Medications Medications (Trade) Dose Ordered Sig/Arely Route PRN Reason Start Time Stop Time Status Last Admin Dose Admin Acetaminophen (Tylenol) 650 mg Q4H PRN ORAL fever 11/04/17 22:45 12/04/17 22:44 Al Hydroxide/Mg Hydroxide (Mylanta II) 30 ml Q6H PRN ORAL dyspepsia 11/04/17 22:45 12/04/17 22:44 Albuterol/ Ipratropium (Albuterol/ Ipratropium) 3 ml EVERY 4 HOURS PRN HHN Shortness of Breath 11/04/17 22:45 11/09/17 22:44 Aripiprazole (Abilify) 30 mg DAILY ORAL 11/05/17 09:00 12/05/17 08:59 11/06/17 09:11 Aspirin (Ecotrin) 81 mg DAILY ORAL 11/05/17 10:30 12/05/17 10:29 11/06/17 09:11 Atorvastatin Calcium (Lipitor) 20 mg BEDTIME ORAL 11/05/17 21:00 12/05/17 20:59 11/05/17 21:29 Carvedilol (Coreg) 3.125 mg EVERY 12 HOURS ORAL 11/06/17 21:00 12/05/17 08:59 Clonidine HCl (Catapres Tab) 0.1 mg EVERY 4 HOURS PRN ORAL sbp more than 160 11/04/17 22:45 12/04/17 22:44 Dextrose (Dextrose 50%) 25 ml STAT PRN IV Hypoglycemia 11/04/17 22:45 12/04/17 22:44 11/05/17 21:39 Dextrose (Dextrose 50%) 50 ml STAT PRN IV Hypoglycemia 11/04/17 22:45 12/04/17 22:44 Haloperidol Lactate 5 mg/ Dextrose 56 ml @ 224 mls/hr EVERY 6 HOURS PRN IVPB agitation 11/06/17 12:30 12/06/17 12:29 UNV Heparin Sodium (Porcine) (Heparin 5000 units/ml) 5,000 units EVERY 12 HOURS SUBQ 11/05/17 09:00 12/05/17 08:59 11/06/17 09:12 Hydralazine HCl (Apresoline) 25 mg BID ORAL 11/06/17 18:00 12/04/17 23:34 Insulin Aspart (NovoLOG) BEFORE MEALS AND HS SUBQ 11/05/17 06:30 12/05/17 06:29 11/05/17 16:53 Lorazepam (Ativan 2mg/ml 1ml) 0.5 mg Q4H PRN IVP For Anxiety 11/06/17 12:15 11/13/17 12:14 11/06/17 12:40 Nifedipine (Procardia XL) 30 mg DAILY ORAL 11/07/17 09:00 12/05/17 08:59 Nitroglycerin (Ntg) 0.4 mg Q5M X 3 DOSES PRN SL Prn Chest Pain 11/04/17 22:45 12/04/17 22:44 Ondansetron HCl (Zofran) 4 mg Q6H PRN IVP Nausea & Vomiting 11/04/17 22:45 12/04/17 22:44 Polyethylene Glycol (Miralax) 17 gm HSPRN PRN ORAL Constipation 11/04/17 22:45 12/04/17 22:44 Quetiapine Fumarate (SEROquel) 25 mg Q12HR ORAL 11/06/17 13:00 12/06/17 12:59 Sitagliptin Phosphate (Januvia) 50 mg ACBREAKFAST ORAL 11/05/17 08:30 12/05/17 08:29 11/05/17 10:26 Temazepam (Restoril) 15 mg HSPRN PRN ORAL Insomnia 11/04/17 22:45 11/11/17 22:44 Lana Noble M.D. November 06, 2017 15:02
--- NOTE | 2017-11-06 15:16 | Pulmonology Progress Note ---
Assessment/Plan Problems: (1) Acute encephalopathy (2) ATN (acute tubular necrosis) (3) Urinary tract infection (4) Diabetes mellitus Assessment/Plan improving psych f/u check urine cultures, GNB so far continue abx Subjective ROS Limited/Unobtainable: No HEENT: Repors: no symptoms Respiratory: Reports: no symptoms Allergies: Coded Allergies: No Known Allergies (Unverified , 11/04/17) Objective Last 24 Hour Vital Signs Date Time Temp Pulse Resp B/P (MAP) Pulse Ox O2 Delivery O2 Flow Rate FiO2 11/06/17 12:06 98.1 64 18 131/61 98.1 11/06/17 09:11 118/71 11/06/17 09:11 84 118/71 11/06/17 07:43 97.3 84 18 118/71 97.3 11/06/17 04:00 98.2 57 16 151/63 98 98.2 11/06/17 00:03 98.2 59 16 118/56 100 98.2 11/05/17 21:31 76 145/65 11/05/17 20:10 99.4 76 17 145/65 96 99.4 11/05/17 19:08 76 22 Room Air 21 11/05/17 17:30 126/83 11/05/17 16:00 98.6 68 16 106/49 97 98.6 Intake and Output 11/05/17 11/06/17 19:00 07:00 Intake Total 300 ml 900 ml Balance 300 ml 900 ml Intake Oral 200 ml IV Total 100 ml 900 ml # Voids 1 1 General Appearance: WD/WN, no acute distress HEENT: normocephalic Respiratory/Chest: chest wall non-tender, lungs clear Breasts: no masses Cardiovascular: normal peripheral pulses Abdomen: normal bowel sounds, soft, non tender Genitourinary: normal external genitalia Extremities: no cyanosis 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/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 Microbiology Date/Time Source Procedure Growth Status 11/04/17 19:40 Blood Blood Culture - Preliminary NO GROWTH AFTER 24 HOURS Resulted 11/04/17 19:25 Blood Blood Culture - Preliminary NO GROWTH AFTER 24 HOURS Resulted 11/04/17 19:40 Urine,Clean Catch Urine Culture - Preliminary Gram Negative Bacillus 1 Resulted Laboratory Tests 11/05/17 17:10: Urine Eosinophils None seen, Urine Random Creatinine [Pending], Urine Random Microalbumin [Pending], Urine Random Total Protein 118H, Urine Random Sodium 36 , Urine Creatinine 106.4, Urine Microalbumin/Creatinine Ratio [Pending] 11/06/17 04:10: White Blood Count 6.6, Red Blood Count 3.49L, Hemoglobin 10.1L, Hematocrit 30.1L , Mean Corpuscular Volume 86, Mean Corpuscular Hemoglobin 28.8, Mean Corpuscular Hemoglobin Concent 33.4, Red Cell Distribution Width 13.9, Platelet Count 175, Mean Platelet Volume 9.2, Neutrophils (%) (Auto) 48.1, Lymphocytes (% ) (Auto) 39.1, Monocytes (%) (Auto) 7.9, Eosinophils (%) (Auto) 3.9H, Basophils (%) (Auto) 1.1, Sodium Level 141, Potassium Level 3.9, Chloride Level 111H, Carbon Dioxide Level 23, Anion Gap 7, Blood Urea Nitrogen 26H, Creatinine 1.1, Estimat Glomerular Filtration Rate 49.6, Glucose Level 52L, Calcium Level 9.2 Current Medications Medications (Trade) Dose Ordered Sig/Arely Route PRN Reason Start Time Stop Time Status Last Admin Dose Admin Acetaminophen (Tylenol) 650 mg Q4H PRN ORAL fever 11/04/17 22:45 12/04/17 22:44 Al Hydroxide/Mg Hydroxide (Mylanta II) 30 ml Q6H PRN ORAL dyspepsia 11/04/17 22:45 12/04/17 22:44 Albuterol/ Ipratropium (Albuterol/ Ipratropium) 3 ml EVERY 4 HOURS PRN HHN Shortness of Breath 11/04/17 22:45 11/09/17 22:44 Aripiprazole (Abilify) 30 mg DAILY ORAL 11/05/17 09:00 12/05/17 08:59 11/06/17 09:11 Aspirin (Ecotrin) 81 mg DAILY ORAL 11/05/17 10:30 12/05/17 10:29 11/06/17 09:11 Atorvastatin Calcium (Lipitor) 20 mg BEDTIME ORAL 11/05/17 21:00 12/05/17 20:59 11/05/17 21:29 Carvedilol (Coreg) 3.125 mg EVERY 12 HOURS ORAL 11/06/17 21:00 12/05/17 08:59 Clonidine HCl (Catapres Tab) 0.1 mg EVERY 4 HOURS PRN ORAL sbp more than 160 11/04/17 22:45 12/04/17 22:44 Dextrose (Dextrose 50%) 25 ml STAT PRN IV Hypoglycemia 11/04/17 22:45 12/04/17 22:44 11/05/17 21:39 Dextrose (Dextrose 50%) 50 ml STAT PRN IV Hypoglycemia 11/04/17 22:45 12/04/17 22:44 Haloperidol Lactate 5 mg/ Dextrose 56 ml @ 224 mls/hr EVERY 6 HOURS PRN IVPB agitation 11/06/17 12:30 12/06/17 12:29 UNV Heparin Sodium (Porcine) (Heparin 5000 units/ml) 5,000 units EVERY 12 HOURS SUBQ 11/05/17 09:00 12/05/17 08:59 11/06/17 09:12 Hydralazine HCl (Apresoline) 25 mg BID ORAL 11/06/17 18:00 12/04/17 23:34 Insulin Aspart (NovoLOG) BEFORE MEALS AND HS SUBQ 11/05/17 06:30 12/05/17 06:29 11/05/17 16:53 Lorazepam (Ativan 2mg/ml 1ml) 0.5 mg Q4H PRN IVP For Anxiety 11/06/17 12:15 11/13/17 12:14 11/06/17 12:40 Nifedipine (Procardia XL) 30 mg DAILY ORAL 11/07/17 09:00 12/05/17 08:59 Nitroglycerin (Ntg) 0.4 mg Q5M X 3 DOSES PRN SL Prn Chest Pain 11/04/17 22:45 12/04/17 22:44 Ondansetron HCl (Zofran) 4 mg Q6H PRN IVP Nausea & Vomiting 11/04/17 22:45 12/04/17 22:44 Polyethylene Glycol (Miralax) 17 gm HSPRN PRN ORAL Constipation 11/04/17 22:45 12/04/17 22:44 Quetiapine Fumarate (SEROquel) 25 mg Q12HR ORAL 11/06/17 13:00 12/06/17 12:59 Sitagliptin Phosphate (Januvia) 50 mg ACBREAKFAST ORAL 5/3/18 08:30 12/05/17 08:29 11/05/17 10:26 Temazepam (Restoril) 15 mg HSPRN PRN ORAL Insomnia 11/04/17 22:45 11/11/17 22:44 Randa Vigil MD November 06, 2017 15:16
--- NOTE | 2017-11-06 15:22 | Cardiology Report ---
APPROVED REPORT EKG Measurement Heart [id number] Sinus tachycardia with 1st degree AV block Incomplete right bundle branch block Left anterior fascicular block Possible Anterior infarct, age undetermined Abnormal ECG
[2017-11-06 16:15] VITALS: BP 123/92
[2017-11-06 20:24] VITALS: BP 125/80
--- NOTE | 2017-11-06 23:30 | Consultation ---
DATE OF CONSULTATION: 11/05/2017 PSYCHOTHERAPY CONSULTATION PROGRESS NOTE CONSULTING PHYSICIAN: Luis Ty M.D. TREATING ATTENDING PHYSICIAN: Zak Guaman D.O. HISTORY OF PRESENT ILLNESS: This patient is a 67-year-old female patient from [facility]. The patient brought into the hospital with confusion and UTI as well as sepsis. The patient has been disorganized and for these reasons, she was referred for psychotherapeutic services. The patient has a history of schizoaffective disorder. This clinician assessed this patient. The patient is a very poor historian and is very withdrawn, lethargic, tired, keeping to herself, smiling, yes or no. Denies having any suicidal or homicidal thoughts of ideation, auditory or visual hallucinations. She is very helpless, hopeless, and depressed. PAST MEDICAL HISTORY: Includes renal insufficiency and diabetes. ALLERGIES: The patient has no known drug allergies. SUBSTANCE ABUSE HISTORY: There is no indication of alcohol use or illicit substance use. PSYCHIATRIC HISTORY: The patient has a history of schizophrenia, treated with psychotropic medications in the past. SOCIAL HISTORY: The patient is a 67-year-old female patient from [facility],, financially sustained through [employer]. MENTAL STATUS EXAMINATION: The patient is alert and oriented to person and place. Mood is dysphoric. Affect is blunted. Thought process is disorganized. Assessed this patient and provided the patient with reality orientation, provided the patient with supportive psychotherapy. DIAGNOSES: [place] I Schizoaffective disorder, bipolar type. [place] II Deferred. [place] III Per History and Physical. [place] IV Psychosocial stressors. [place] V PLAN: Continue with behavioral management. This clinician has reviewed the patient's chart and discussed the treatment with the nursing staff. Luis Ty PsyD. DR: GAMAL JOB#: [id number] CC:
[2017-11-07] VITALS (7 sets, daily range): BP systolic 127–155; BP diastolic 55–74
[2017-11-07] MEDS: NovoLOG Insulin Flexpen SUBQ SCH ×4 (06:32→21:33)
[2017-11-07] MEDS: sitaGLIPtin 50mg tab ORAL SCH (06:33)
--- NOTE | 2017-11-07 07:50 | Pulmonology Progress Note ---
Assessment/Plan Assessment/Plan ASSESSMENT acute encephalopathy likely secondary to urinary tract infection and acute renal failure Acute renal failure secondary to acute tubular necrosis and prerenal azotemia due to dehydration, resolved Urinary tract infection with Escherichia coli ESBL Diabetes mellitus Bronchitis Anemia diabetic nephropathy Hypertension schizoaffective disorde PLAN OF CARE Medical surgical floor status post IV fluids general counsel follows closely monitor renal parameters and electrolytes closely monitored. correct electrolytes as needed. 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 blood sugar management with the Januvia and sliding scale of insulin Hemoglobin A1c -8.1 ,not at goal patient needs further optimization of anti-glycemic regimen as outpatient Urine culture with Escherichia coli ESBL blood culture negative ID consult as per primary care provider for antibiotics ( needs Ertapenem, only ID can prescribe) CXR with suggestion of mild bronchial wall thickening , slightly increased reticular markings in the perihilar regions both lungs , no consolidation or pneumonia identified findings consistent with bronchitis Supplemental oxygen as needed to keep pulse oximetry above 92% Pulmonary toilet as needed no cough, likely chronic bronchitis no evidence of resp distress Blood pressure management with beta gus, calcium channel gus and hydralazine, currently stable Continue aspirin and statin lipid panel with LDL of 109 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 diabetic low-fat low-cholesterol diet bowel regimen instituted DVT prophylaxis monitor counts with goal to keep hemoglobin above 7, currently stable psychiatrist followed Psychiatric medication as per psychiatrist Sitter at the bedside for safety case discussed and evaluated by supervising physician Subjective Allergies: Coded Allergies: No Known Allergies (Unverified , 11/04/17) Subjective denies SOB, chest pain, no cough afebrile, no leukocytosis Objective Last 24 Hour Vital Signs Date Time Temp Pulse Resp B/P (MAP) Pulse Ox O2 Delivery O2 Flow Rate FiO2 11/07/17 04:02 97.2 65 19 134/65 99 97.2 11/07/17 00:00 97.2 68 19 135/65 100 97.2 11/06/17 21:00 70 125/80 11/06/17 20:24 97.9 70 17 125/80 96 97.9 11/06/17 19:20 69 18 Room Air 21 11/06/17 18:00 86/74 11/06/17 16:15 69 18 123/92 Room Air 11/06/17 12:06 98.1 64 18 131/61 98.1 11/06/17 09:11 118/71 11/06/17 09:11 84 118/71 Intake and Output 11/06/17 11/07/17 19:00 07:00 Intake Total 1580 ml 680 ml Balance 1580 ml 680 ml Intake Oral 580 ml 180 ml Other 1000 ml 500 ml # Voids 5 2 # Bowel Movements 2 1 General Appearance: no acute distress, other - bedridden HEENT: normocephalic, atraumatic, anicteric Respiratory/Chest: chest wall non-tender, normal breath sounds, no accessory muscle use Cardiovascular: normal peripheral pulses, normal rate Abdomen: normal bowel sounds Extremities: no edema, pedal pulses normal Neurologic/Psychiatric: abnormal gait - bedridden Microbiology Date/Time Source Procedure Growth Status 11/04/17 19:40 Blood Blood Culture - Preliminary NO GROWTH AFTER 48 HOURS Resulted 11/04/17 19:25 Blood Blood Culture - Preliminary NO GROWTH AFTER 48 HOURS Resulted 11/04/17 19:40 Urine,Clean Catch Urine Culture - Final Escherichia Coli - Esbl Complete Current Medications Medications (Trade) Dose Ordered Sig/Arely Route PRN Reason Start Time Stop Time Status Last Admin Dose Admin Acetaminophen (Tylenol) 650 mg Q4H PRN ORAL fever 11/04/17 22:45 12/04/17 22:44 Al Hydroxide/Mg Hydroxide (Mylanta II) 30 ml Q6H PRN ORAL dyspepsia 11/04/17 22:45 12/04/17 22:44 Albuterol/ Ipratropium (Albuterol/ Ipratropium) 3 ml EVERY 4 HOURS PRN HHN Shortness of Breath 11/04/17 22:45 11/09/17 22:44 Aripiprazole (Abilify) 30 mg DAILY ORAL 11/05/17 09:00 12/05/17 08:59 11/06/17 09:11 Aspirin (Ecotrin) 81 mg DAILY ORAL 11/05/17 10:30 12/05/17 10:29 11/06/17 09:11 Atorvastatin Calcium (Lipitor) 20 mg BEDTIME ORAL 11/05/17 21:00 12/05/17 20:59 11/06/17 21:12 Carvedilol (Coreg) 3.125 mg EVERY 12 HOURS ORAL 11/06/17 21:00 12/05/17 08:59 Clonidine HCl (Catapres Tab) 0.1 mg EVERY 4 HOURS PRN ORAL sbp more than 160 11/04/17 22:45 12/04/17 22:44 Dextrose (Dextrose 50%) 25 ml STAT PRN IV Hypoglycemia 11/04/17 22:45 12/04/17 22:44 11/05/17 21:39 Dextrose (Dextrose 50%) 50 ml STAT PRN IV Hypoglycemia 11/04/17 22:45 12/04/17 22:44 Haloperidol Lactate 5 mg/ Dextrose 56 ml @ 224 mls/hr EVERY 6 HOURS PRN IVPB agitation 11/06/17 12:30 12/06/17 12:29 UNV Heparin Sodium (Porcine) (Heparin 5000 units/ml) 5,000 units EVERY 12 HOURS SUBQ 11/05/17 09:00 12/05/17 08:59 11/06/17 21:17 Hydralazine HCl (Apresoline) 25 mg BID ORAL 11/06/17 18:00 12/04/17 23:34 Insulin Aspart (NovoLOG) BEFORE MEALS AND HS SUBQ 11/05/17 06:30 12/05/17 06:29 11/07/17 06:32 Lorazepam (Ativan 2mg/ml 1ml) 0.5 mg Q4H PRN IVP For Anxiety 11/06/17 12:15 11/13/17 12:14 11/06/17 17:40 Nifedipine (Procardia XL) 30 mg DAILY ORAL 11/07/17 09:00 12/05/17 08:59 Nitroglycerin (Ntg) 0.4 mg Q5M X 3 DOSES PRN SL Prn Chest Pain 11/04/17 22:45 12/04/17 22:44 Ondansetron HCl (Zofran) 4 mg Q6H PRN IVP Nausea & Vomiting 11/04/17 22:45 12/04/17 22:44 Polyethylene Glycol (Miralax) 17 gm HSPRN PRN ORAL Constipation 11/04/17 22:45 12/04/17 22:44 Quetiapine Fumarate (SEROquel) 25 mg Q12HR ORAL 11/06/17 13:00 12/06/17 12:59 11/06/17 21:12 Sitagliptin Phosphate (Januvia) 50 mg ACBREAKFAST ORAL 11/05/17 08:30 12/05/17 08:29 11/07/17 06:33 Temazepam (Restoril) 15 mg HSPRN PRN ORAL Insomnia 11/04/17 22:45 11/11/17 22:44 Carl ([facility])Joann NP November 07, 2017 07:50
[2017-11-07 08:36] LABS: BASOPHILS % (AUTO) 0.9 % (0.0-2.0); EOSINOPHILS % (AUTO) 4.8 % (0.0-3.0); HEMATOCRIT 30.5 % (37.0-47.0); LYMPHOCYTES % (AUTO) 39.5 % (20.0-45.0); MEAN CORPUSCULAR VOLUME 86 FL (80-99); MONOCYTES % (AUTO) 9.5 % (1.0-10.0); NEUTROPHILS % (AUTO) 45.3 % (45.0-75.0); PLATELET COUNT 178 K/UL (150-450); RED BLOOD COUNT 3.53 M/UL (4.20-5.40); RED CELL DISTRIBUTION WIDTH 14.2 % (11.6-14.8); WHITE BLOOD COUNT 5.7 K/UL (4.8-10.8)
[2017-11-07] MEDS: Aspirin EC 81mg tab ORAL SCH (08:41)
[2017-11-07] MEDS: Heparin 5000 units/ml inj SUBQ SCH ×2 (08:44→21:32)
[2017-11-07 08:52] LABS: ANION GAP 6 mmol/L (5-15); BLOOD UREA NITROGEN 16 mg/dL (7-18); CALCIUM 9.5 MG/DL (8.5-10.1); CARBON DIOXIDE 25 MMOL/L (21-32); CHLORIDE 111 MMOL/L (98-107); POTASSIUM 4.2 MMOL/L (3.5-5.1); SODIUM 142 MMOL/L (136-145)
--- NOTE | 2017-11-07 08:59 | General Progress Note ---
Assessment/Plan Problem List: (1) HTN (hypertension) ICD Codes: I10 - Essential (primary) hypertension SNOMED: 87747641 (2) Renal insufficiency ICD Codes: N28.9 - Disorder of kidney and ureter, unspecified SNOMED: 490539832, 524643772 (3) Anemia ICD Codes: D64.9 - Anemia, unspecified SNOMED: 110675604 (4) Weak ICD Codes: R53.1 - Weakness SNOMED: 90752651 (5) Urinary tract infection ICD Codes: N39.0 - Urinary tract infection, site not specified SNOMED: 03153799 (6) Psychosis ICD Codes: F29 - Unspecified psychosis not due to a substance or known physiological condition SNOMED: 64197396 (7) Diabetes mellitus ICD Codes: E11.9 - Type 2 diabetes mellitus without complications SNOMED: 84315826 (8) Acute encephalopathy ICD Codes: G93.40 - Encephalopathy, unspecified SNOMED: 77806838, 783379036 Status: stable, progressing, tolerating diet Assessment/Plan ot pt diet abx psyc tx cbc bmp am psyc transfer if clear Subjective Constitutional: Reports: weakness Allergies: Coded Allergies: No Known Allergies (Unverified , 11/04/17) All Systems: reviewed and negative except above Subjective calm confused Objective Last 24 Hour Vital Signs Date Time Temp Pulse Resp B/P (MAP) Pulse Ox O2 Delivery O2 Flow Rate FiO2 11/07/17 08:21 73 16 Room Air 21 11/07/17 07:51 97.7 71 18 127/68 Room Air 97.7 11/07/17 04:02 97.2 65 19 134/65 99 97.2 11/07/17 00:00 97.2 68 19 135/65 100 97.2 11/06/17 21:00 70 125/80 11/06/17 20:24 97.9 70 17 125/80 96 97.9 11/06/17 19:20 69 18 Room Air 21 11/06/17 18:00 86/74 11/06/17 16:15 69 18 123/92 Room Air 11/06/17 12:06 98.1 64 18 131/61 98.1 11/06/17 09:11 118/71 11/06/17 09:11 84 118/71 Intake and Output 11/06/17 11/07/17 19:00 07:00 Intake Total 1580 ml 680 ml Balance 1580 ml 680 ml Intake Oral 580 ml 180 ml Other 1000 ml 500 ml # Voids 5 2 # Bowel Movements 2 1 Laboratory Tests 11/07/17 06:08: White Blood Count 5.7, Red Blood Count 3.53L, Hemoglobin 10.0L, Hematocrit 30.5L , Mean Corpuscular Volume 86, Mean Corpuscular Hemoglobin 28.4, Mean Corpuscular Hemoglobin Concent 32.9, Red Cell Distribution Width 14.2, Platelet Count 178, Mean Platelet Volume 9.2, Neutrophils (%) (Auto) 45.3, Lymphocytes (% ) (Auto) 39.5, Monocytes (%) (Auto) 9.5, Eosinophils (%) (Auto) 4.8H, Basophils (%) (Auto) 0.9, Sodium Level 142, Potassium Level 4.2, Chloride Level 111H, Carbon Dioxide Level 25, Anion Gap 6, Blood Urea Nitrogen 16, Creatinine 1.0, Estimat Glomerular Filtration Rate 55.3, Glucose Level 122H, Calcium Level 9.5 Height (Feet): 5 Height (Inches): 4.00 Weight (Pounds): 145 General Appearance: lethargic EENT: normal ENT inspection Neck: normal alignment Cardiovascular: normal peripheral pulses, normal rate, regular rhythm Respiratory/Chest: chest wall non-tender, lungs clear, normal breath sounds Abdomen: normal bowel sounds, non tender, soft Extremities: normal inspection Edema: no edema noted Arm (L), no edema noted Arm (R), no edema noted Leg (L), no edema noted Leg (R), no edema noted Pedal (L), no edema noted Pedal (R), no edema noted Generalized Neurologic: motor weakness Skin: normal pigmentation, warm/dry AGUSTÍN CHUA November 07, 2017 08:59
[2017-11-07] MEDS: HydrALAZINE 25mg tab ORAL SCH ×2 (09:00→18:28)
--- NOTE | 2017-11-07 10:32 | General Progress Note ---
Assessment/Plan Problem List: (1) Diabetes mellitus ICD Codes: E11.9 - Type 2 diabetes mellitus without complications SNOMED: 83440454 (2) Acute encephalopathy ICD Codes: G93.40 - Encephalopathy, unspecified SNOMED: 21320898, 706840341 Assessment/Plan continue Januvia continue NISS Subjective ROS Limited/Unobtainable: Yes Allergies: Coded Allergies: No Known Allergies (Unverified , 11/04/17) Subjective events noted BG values are stable eating well Objective Last 24 Hour Vital Signs Date Time Temp Pulse Resp B/P (MAP) Pulse Ox O2 Delivery O2 Flow Rate FiO2 11/07/17 09:00 73 127/68 11/07/17 09:00 127/68 11/07/17 09:00 73 127/68 11/07/17 08:21 73 16 Room Air 21 11/07/17 07:51 97.7 71 18 127/68 Room Air 97.7 11/07/17 04:02 97.2 65 19 134/65 99 97.2 11/07/17 00:00 97.2 68 19 135/65 100 97.2 11/06/17 21:00 70 125/80 11/06/17 20:24 97.9 70 17 125/80 96 97.9 11/06/17 19:20 69 18 Room Air 21 11/06/17 18:00 86/74 11/06/17 16:15 69 18 123/92 Room Air 11/06/17 12:06 98.1 64 18 131/61 98.1 Intake and Output 11/06/17 11/07/17 19:00 07:00 Intake Total 1580 ml 680 ml Balance 1580 ml 680 ml Intake Oral 580 ml 180 ml Other 1000 ml 500 ml # Voids 5 2 # Bowel Movements 2 1 Laboratory Tests 11/07/17 06:08: White Blood Count 5.7, Red Blood Count 3.53L, Hemoglobin 10.0L, Hematocrit 30.5L , Mean Corpuscular Volume 86, Mean Corpuscular Hemoglobin 28.4, Mean Corpuscular Hemoglobin Concent 32.9, Red Cell Distribution Width 14.2, Platelet Count 178, Mean Platelet Volume 9.2, Neutrophils (%) (Auto) 45.3, Lymphocytes (% ) (Auto) 39.5, Monocytes (%) (Auto) 9.5, Eosinophils (%) (Auto) 4.8H, Basophils (%) (Auto) 0.9, Sodium Level 142, Potassium Level 4.2, Chloride Level 111H, Carbon Dioxide Level 25, Anion Gap 6, Blood Urea Nitrogen 16, Creatinine 1.0, Estimat Glomerular Filtration Rate 55.3, Glucose Level 122H, Calcium Level 9.5 Height (Feet): 5 Height (Inches): 4.00 Weight (Pounds): 145 General Appearance: no apparent distress Neck: normal alignment Cardiovascular: normal rate Respiratory/Chest: lungs clear Abdomen: normal bowel sounds Objective Current Medications Medications (Trade) Dose Ordered Sig/Arely Route PRN Reason Start Time Stop Time Status Last Admin Dose Admin Acetaminophen (Tylenol) 650 mg Q4H PRN ORAL fever 11/04/17 22:45 12/04/17 22:44 Al Hydroxide/Mg Hydroxide (Mylanta II) 30 ml Q6H PRN ORAL dyspepsia 11/04/17 22:45 12/04/17 22:44 Albuterol/ Ipratropium (Albuterol/ Ipratropium) 3 ml EVERY 4 HOURS PRN HHN Shortness of Breath 11/04/17 22:45 11/09/17 22:44 Aripiprazole (Abilify) 30 mg DAILY ORAL 11/05/17 09:00 12/05/17 08:59 11/07/17 08:41 Aspirin (Ecotrin) 81 mg DAILY ORAL 11/05/17 10:30 12/05/17 10:29 11/07/17 08:41 Atorvastatin Calcium (Lipitor) 20 mg BEDTIME ORAL 11/05/17 21:00 12/05/17 20:59 11/06/17 21:12 Carvedilol (Coreg) 3.125 mg EVERY 12 HOURS ORAL 11/06/17 21:00 12/05/17 08:59 Clonidine HCl (Catapres Tab) 0.1 mg EVERY 4 HOURS PRN ORAL sbp more than 160 11/04/17 22:45 12/04/17 22:44 Dextrose (Dextrose 50%) 25 ml STAT PRN IV Hypoglycemia 11/04/17 22:45 12/04/17 22:44 11/05/17 21:39 Dextrose (Dextrose 50%) 50 ml STAT PRN IV Hypoglycemia 11/04/17 22:45 12/04/17 22:44 Haloperidol Lactate 5 mg/ Dextrose 56 ml @ 224 mls/hr EVERY 6 HOURS PRN IVPB agitation 11/06/17 12:30 12/06/17 12:29 UNV Heparin Sodium (Porcine) (Heparin 5000 units/ml) 5,000 units EVERY 12 HOURS SUBQ 11/05/17 09:00 12/05/17 08:59 11/07/17 08:44 Hydralazine HCl (Apresoline) 25 mg BID ORAL 11/06/17 18:00 12/04/17 23:34 Insulin Aspart (NovoLOG) BEFORE MEALS AND HS SUBQ 11/05/17 06:30 12/05/17 06:29 11/07/17 06:32 Lorazepam (Ativan 2mg/ml 1ml) 0.5 mg Q4H PRN IVP For Anxiety 11/06/17 12:15 11/13/17 12:14 11/06/17 17:40 Nifedipine (Procardia XL) 30 mg DAILY ORAL 11/07/17 09:00 12/05/17 08:59 Nitroglycerin (Ntg) 0.4 mg Q5M X 3 DOSES PRN SL Prn Chest Pain 11/04/17 22:45 12/04/17 22:44 Ondansetron HCl (Zofran) 4 mg Q6H PRN IVP Nausea & Vomiting 11/04/17 22:45 12/04/17 22:44 Polyethylene Glycol (Miralax) 17 gm HSPRN PRN ORAL Constipation 11/04/17 22:45 12/04/17 22:44 Quetiapine Fumarate (SEROquel) 25 mg Q12HR ORAL 11/06/17 13:00 12/06/17 12:59 11/07/17 08:40 Sitagliptin Phosphate (Januvia) 50 mg ACBREAKFAST ORAL 11/05/17 08:30 12/05/17 08:29 11/07/17 06:33 Temazepam (Restoril) 15 mg HSPRN PRN ORAL Insomnia 11/04/17 22:45 11/11/17 22:44 Item Value Date Time Bedside Blood Glucose 120 mg/dl 11/07/17 0632 Bedside Blood Glucose 168 mg/dl H 11/06/178 Bedside Blood Glucose 69 mg/dl L 11/06/17 0630 LEANNA BOWDEN November 07, 2017 10:31
--- NOTE | 2017-11-07 11:59 | Infectious Diseases Prog Note ---
Assessment/Plan Assessment/Plan Abx: Ceftriaxone x1 11/04 Assessment: Acute encephalopathy- no evidence of infectious process -CXR: Suggestion of mild bronchial wall thickening and slightly increased reticular markings in the perihilar regions of both lungs. No consolidation or pneumonia identified. -u/a no pyuria; UCx >100K E.coli ESBL, S zosyn,nitrofrauntoni (assymptomatic bacteriuria)- no pyuria, afebrile, no leukocytosis, no symptoms Afebrile, no leukocytosis Hyperglycemia, improving BART, improving HTN DM2 w/ neuropathy dysphagia schizophrenia/psychosis senior living resident Plan: -Continue to monitor off abx unless febrile, increasing leukocytosis, and/or HD instability. -will not treat ESBL E,coli in urine as is colonizer unless any of above -f/u cx -Monitor CBC/BMP, temperatures -aspiration precautions -wound care/prevention per hosp protocol. Thank you for this consultation. Will continue to follow along with you. Discussed with RN and pulmonary team. Subjective Allergies: Coded Allergies: No Known Allergies (Unverified , 11/04/17) Subjective afebrile no leukocytosis off abx Objective Vital Signs Last 24 Hour Vital Signs Date Time Temp Pulse Resp B/P (MAP) Pulse Ox O2 Delivery O2 Flow Rate FiO2 11/07/17 09:00 73 127/68 11/07/17 09:00 127/68 11/07/17 09:00 73 127/68 11/07/17 08:21 73 16 Room Air 21 11/07/17 07:51 97.7 71 18 127/68 Room Air 97.7 11/07/17 04:02 97.2 65 19 134/65 99 97.2 11/07/17 00:00 97.2 68 19 135/65 100 97.2 11/06/17 21:00 70 125/80 11/06/17 20:24 97.9 70 17 125/80 96 97.9 11/06/17 19:20 69 18 Room Air 21 11/06/17 18:00 86/74 11/06/17 16:15 69 18 123/92 Room Air 11/06/17 12:06 98.1 64 18 131/61 98.1 Height (Feet): 5 Height (Inches): 4.00 Weight (Pounds): 145 Objective HEAD AND NECK: No thyromegaly. Extraocular movement intact. Pupils are reactive to light and accommodation. LUNGS: Clear to auscultation. CARDIAC: Regular rate and rhythm. S1 and S2. No murmur. No rub. ABDOMEN: Soft, nontender, and nondistended. EXTREMITIES: Trace edema. No clubbing. No cyanosis. Skin: multiple bruises- refer to wound care notes and pics Microbiology Date/Time Source Procedure Growth Status 11/04/17 19:40 Blood Blood Culture - Preliminary NO GROWTH AFTER 48 HOURS Resulted 11/04/17 19:25 Blood Blood Culture - Preliminary NO GROWTH AFTER 48 HOURS Resulted 11/04/17 19:40 Urine,Clean Catch Urine Culture - Final Escherichia Coli - Esbl Complete Laboratory Tests Test 11/07/17 06:08 White Blood Count 5.7 K/UL (4.8-10.8) Red Blood Count 3.53 M/UL (4.20-5.40) L Hemoglobin 10.0 G/DL (12.0-16.0) L Hematocrit 30.5 % (37.0-47.0) L Mean Corpuscular Volume 86 FL (80-99) Mean Corpuscular Hemoglobin 28.4 PG (27.0-31.0) Mean Corpuscular Hemoglobin Concent 32.9 G/DL (32.0-36.0) Red Cell Distribution Width 14.2 % (11.6-14.8) Platelet Count 178 K/UL (150-450) Mean Platelet Volume 9.2 FL (6.5-10.1) Neutrophils (%) (Auto) 45.3 % (45.0-75.0) Lymphocytes (%) (Auto) 39.5 % (20.0-45.0) Monocytes (%) (Auto) 9.5 % (1.0-10.0) Eosinophils (%) (Auto) 4.8 % (0.0-3.0) H Basophils (%) (Auto) 0.9 % (0.0-2.0) Sodium Level 142 MMOL/L (136-145) Potassium Level 4.2 MMOL/L (3.5-5.1) Chloride Level 111 MMOL/L (98-107) H Carbon Dioxide Level 25 MMOL/L (21-32) Anion Gap 6 mmol/L (5-15) Blood Urea Nitrogen 16 mg/dL (7-18) Creatinine 1.0 MG/DL (0.55-1.30) Estimat Glomerular Filtration Rate 55.3 mL/min (>60) Glucose Level 122 MG/DL (74-106) H Calcium Level 9.5 MG/DL (8.5-10.1) Current Medications Medications (Trade) Dose Ordered Sig/Arely Route PRN Reason Start Time Stop Time Status Last Admin Dose Admin Acetaminophen (Tylenol) 650 mg Q4H PRN ORAL fever 11/04/17 22:45 12/04/17 22:44 Al Hydroxide/Mg Hydroxide (Mylanta II) 30 ml Q6H PRN ORAL dyspepsia 11/04/17 22:45 12/04/17 22:44 Albuterol/ Ipratropium (Albuterol/ Ipratropium) 3 ml EVERY 4 HOURS PRN HHN Shortness of Breath 11/04/17 22:45 11/09/17 22:44 Aripiprazole (Abilify) 30 mg DAILY ORAL 11/05/17 09:00 12/05/17 08:59 11/07/17 08:41 Aspirin (Ecotrin) 81 mg DAILY ORAL 11/05/17 10:30 12/05/17 10:29 11/07/17 08:41 Atorvastatin Calcium (Lipitor) 20 mg BEDTIME ORAL 11/05/17 21:00 12/05/17 20:59 11/06/17 21:12 Carvedilol (Coreg) 3.125 mg EVERY 12 HOURS ORAL 11/06/17 21:00 12/05/17 08:59 Clonidine HCl (Catapres Tab) 0.1 mg EVERY 4 HOURS PRN ORAL sbp more than 160 11/04/17 22:45 12/04/17 22:44 Dextrose (Dextrose 50%) 25 ml STAT PRN IV Hypoglycemia 11/04/17 22:45 12/04/17 22:44 11/05/17 21:39 Dextrose (Dextrose 50%) 50 ml STAT PRN IV Hypoglycemia 11/04/17 22:45 12/04/17 22:44 Haloperidol Lactate 5 mg/ Dextrose 56 ml @ 224 mls/hr EVERY 6 HOURS PRN IVPB agitation 11/06/17 12:30 12/06/17 12:29 UNV Heparin Sodium (Porcine) (Heparin 5000 units/ml) 5,000 units EVERY 12 HOURS SUBQ 11/05/17 09:00 12/05/17 08:59 11/07/17 08:44 Hydralazine HCl (Apresoline) 25 mg BID ORAL 11/06/17 18:00 12/04/17 23:34 Insulin Aspart (NovoLOG) BEFORE MEALS AND HS SUBQ 11/05/17 06:30 12/05/17 06:29 11/07/17 06:32 Lorazepam (Ativan 2mg/ml 1ml) 0.5 mg Q4H PRN IVP For Anxiety 11/06/17 12:15 11/13/17 12:14 11/06/17 17:40 Nifedipine (Procardia XL) 30 mg DAILY ORAL 11/07/17 09:00 12/05/17 08:59 Nitroglycerin (Ntg) 0.4 mg Q5M X 3 DOSES PRN SL Prn Chest Pain 11/04/17 22:45 12/04/17 22:44 Ondansetron HCl (Zofran) 4 mg Q6H PRN IVP Nausea & Vomiting 11/04/17 22:45 12/04/17 22:44 Polyethylene Glycol (Miralax) 17 gm HSPRN PRN ORAL Constipation 11/04/17 22:45 12/04/17 22:44 Quetiapine Fumarate (SEROquel) 25 mg Q12HR ORAL 11/06/17 13:00 12/06/17 12:59 11/07/17 08:40 Sitagliptin Phosphate (Januvia) 50 mg ACBREAKFAST ORAL 11/05/17 08:30 12/05/17 08:29 11/07/17 06:33 Temazepam (Restoril) 15 mg HSPRN PRN ORAL Insomnia 11/04/17 22:45 11/11/17 22:44 Lana Noble M.D. November 07, 2017 11:59
[2017-11-07] MEDS ORDERED: Haloperidol 5mg/ml Inj IM PRN (13:01)
--- NOTE | 2017-11-07 17:19 | Nephrology Progress Note ---
Assessment/Plan Assessment 1. Acute renal failure. 2. Uncontrolled diabetes. 3. Hypercalcemia. 4. Hematuria and urinary tract infection. 5. Uncontrolled hypertension. Plan plan monitoring renal function avoid nsaid replace electrolyte Subjective Constitutional: Reports: no symptoms HEENT: Reports: no symptoms Genitourinary: Reports: no symptoms Neurologic/Psychiatric: Reports: no symptoms Subjective no acute events over night Objective Objective Last 24 Hour Vital Signs Date Time Temp Pulse Resp B/P (MAP) Pulse Ox O2 Delivery O2 Flow Rate FiO2 11/07/17 16:37 98.2 73 20 135/55 95 Room Air 98.2 11/07/17 12:00 98.0 77 18 135/70 93 Room Air 98.0 11/07/17 09:00 73 127/68 11/07/17 09:00 127/68 11/07/17 09:00 73 127/68 11/07/17 08:21 73 16 Room Air 21 11/07/17 07:51 97.7 71 18 127/68 Room Air 97.7 11/07/17 04:02 97.2 65 19 134/65 99 97.2 11/07/17 00:00 97.2 68 19 135/65 100 97.2 11/06/17 21:00 70 125/80 11/06/17 20:24 97.9 70 17 125/80 96 97.9 11/06/17 19:20 69 18 Room Air 21 11/06/17 18:00 86/74 Intake and Output 11/06/17 11/07/17 19:00 07:00 Intake Total 1580 ml 680 ml Balance 1580 ml 680 ml Intake Oral 580 ml 180 ml Other 1000 ml 500 ml # Voids 5 2 # Bowel Movements 2 1 Laboratory Tests 11/07/17 06:08: White Blood Count 5.7, Red Blood Count 3.53L, Hemoglobin 10.0L, Hematocrit 30.5L , Mean Corpuscular Volume 86, Mean Corpuscular Hemoglobin 28.4, Mean Corpuscular Hemoglobin Concent 32.9, Red Cell Distribution Width 14.2, Platelet Count 178, Mean Platelet Volume 9.2, Neutrophils (%) (Auto) 45.3, Lymphocytes (% ) (Auto) 39.5, Monocytes (%) (Auto) 9.5, Eosinophils (%) (Auto) 4.8H, Basophils (%) (Auto) 0.9, Sodium Level 142, Potassium Level 4.2, Chloride Level 111H, Carbon Dioxide Level 25, Anion Gap 6, Blood Urea Nitrogen 16, Creatinine 1.0, Estimat Glomerular Filtration Rate 55.3, Glucose Level 122H, Calcium Level 9.5 Height (Feet): 5 Height (Inches): 4.00 Weight (Pounds): 145 Objective HEAD AND NECK: No JVP. No LAD. No thyromegaly. Extraocular movement intact. Pupils are reactive to light and accommodation. LUNGS: Clear to auscultation. CARDIAC: Regular rate and rhythm. S1 and S2. No murmur. No rub. ABDOMEN: Soft, nontender, and nondistended. EXTREMITIES: Trace edema. No clubbing. No cyanosis. BELTRAN CISNEROS November 07, 2017 17:19
[2017-11-08] VITALS: BP 116/53
--- NOTE | 2017-11-08 01:00 | Consultation ---
DATE OF CONSULTATION: 11/07/2017 CONSULTING PHYSICIAN: Ramya Vieira M.D. HISTORY OF PRESENT ILLNESS: This is a 67-year-old female patient. She was admitted to the hospital at [facility] secondary to she has uncontrolled blood sugar or hyperglycemia and it caused her to have altered mental status and confusion. Because of her decline in cognition, agitation, mood lability, and decline in cognition, her attending physician has requested daily psychiatric consultation. That is why we are seeing the patient daily to prevent any further decline in her cognition. She was seen at bedside today. She has a sitter at bedside. She is confused and disorganized, seemed to be disoriented. I have seen this patient many times as she is also my patient at the longterm and multiple psychiatric admissions. She is very confused and disorganized. She medications, but realistically her medication regimen has been reduced significantly from prior hospitalizations. She has been having episodes of refusing treatment, refusing blood draw, and intermittent bouts of agitation as well, but she is actually relatively calmer on interview today. SOCIAL HISTORY: Lives in a longterm. Financially supported by [employer] and Medicare. SUBSTANCE ABUSE HISTORY: Denies any use of any drug or alcohol use. MEDICAL HISTORY: She does have a history of uncontrolled blood sugar, and also in addition to that, the patient does have a history of COPD, hyperlipidemia, and hypertension. ALLERGIES: No known drug allergies. PSYCHIATRIC HISTORY: Paranoid schizophrenia, rule out schizoaffective bipolar type, multiple psychiatric admissions. Last admission to [facility] under my service. FAMILY PSYCHIATRIC HISTORY: Denies. STRENGTHS: She is motivated to get better and she has a place to live. WEAKNESSES: She is impulsive and has no reliable support system. MENTAL STATUS EXAMINATION: This is a 67-year-old female. Appearance is disheveled. Attitude is irritable and agitated. Affect is guarded and restricted. Intellect is poor. Mood is depressed and anxious. Motor activity, psychomotor agitation. Attention span is poor. Orientation x2. Memory 2/3 able on three-word recall, so poor short-term memory. Long-term memory is poor. . Insight and judgment is poor. Denies suicidal or homicidal thoughts, but has auditory hallucinations and some paranoia. DIAGNOSES: 1. Paranoid schizophrenia with acute exacerbation, rule out dementia with psychosis. 2. Medical problems, chronic obstructive pulmonary disease, hyperglycemia, and hypertension. 3. Psychosocial stressors, financial. PLAN: I am going to continue treating this patient with a medication regimen consisting of Seroquel 25 mg p.o. q.12 hours as well as Abilify 30 mg p.o. daily as mood stabilizer, antipsychotics. A 20 minutes of supportive psychotherapy provided. Encouraged to interact appropriately with staff and other patients. Chart was reviewed and discussed with staff. Seen and assessed at bedside. The patient will continue to be followed daily throughout her hospital course to prevent any altered mental status and mood lability, which has worsened by the stress of her medical illness. I would like to thank, Dr. Zak Guaman, for this interesting consultation. Ramya Vieira M.D. DR: Petros JOB#: [id number] CC:
[2017-11-08 04:00] VITALS: BP 134/54
[2017-11-08] MEDS: sitaGLIPtin 50mg tab ORAL SCH (06:25)
[2017-11-08] MEDS: NovoLOG Insulin Flexpen SUBQ SCH ×4 (06:28→21:23)
--- NOTE | 2017-11-08 06:54 | General Progress Note ---
Assessment/Plan Problem List: (1) HTN (hypertension) ICD Codes: I10 - Essential (primary) hypertension SNOMED: 24709801 (2) Renal insufficiency ICD Codes: N28.9 - Disorder of kidney and ureter, unspecified SNOMED: 388844501, 560704356 (3) Anemia ICD Codes: D64.9 - Anemia, unspecified SNOMED: 361174110 (4) Weak ICD Codes: R53.1 - Weakness SNOMED: 82278583 (5) Urinary tract infection ICD Codes: N39.0 - Urinary tract infection, site not specified SNOMED: 38949723 (6) Psychosis ICD Codes: F29 - Unspecified psychosis not due to a substance or known physiological condition SNOMED: 24946556 (7) Diabetes mellitus ICD Codes: E11.9 - Type 2 diabetes mellitus without complications SNOMED: 35294583 (8) Acute encephalopathy ICD Codes: G93.40 - Encephalopathy, unspecified SNOMED: 33474117, 574186637 Status: stable, progressing, tolerating diet Assessment/Plan ot pt diet abx psyc tx cbc bmp am dc plan snf Subjective Constitutional: Reports: weakness Allergies: Coded Allergies: No Known Allergies (Unverified , 11/04/17) All Systems: reviewed and negative except above Subjective calm sleepy Objective Last 24 Hour Vital Signs Date Time Temp Pulse Resp B/P (MAP) Pulse Ox O2 Delivery O2 Flow Rate FiO2 11/08/17 04:00 96.9 67 16 134/54 95 Room Air 96.9 11/08/17 00:00 97.9 65 16 116/53 95 Room Air 97.9 11/07/17 21:30 83 152/73 11/07/17 20:00 97.7 82 20 155/73 96 Room Air 97.7 11/07/17 19:30 62 20 Room Air 21 11/07/17 18:28 155/74 11/07/17 18:19 62 155/74 11/07/17 16:37 98.2 73 20 135/55 95 Room Air 98.2 11/07/17 12:00 98.0 77 18 135/70 93 Room Air 98.0 11/07/17 09:00 73 127/68 11/07/17 09:00 127/68 11/07/17 09:00 73 127/68 11/07/17 08:21 73 16 Room Air 21 11/07/17 07:51 97.7 71 18 127/68 Room Air 97.7 Intake and Output 11/07/17 11/08/17 19:00 07:00 Intake Total 400 ml 1660 ml Output Total 0 ml 0 ml Balance 400 ml 1660 ml Intake Oral 400 ml 660 ml Other 1000 ml Output Stool Total 0 ml 0 ml # Voids 1 7 # Bowel Movements 1 1 Height (Feet): 5 Height (Inches): 4.00 Weight (Pounds): 145 General Appearance: lethargic EENT: normal ENT inspection Neck: normal alignment Cardiovascular: normal peripheral pulses, normal rate, regular rhythm Respiratory/Chest: chest wall non-tender, lungs clear, normal breath sounds Abdomen: normal bowel sounds, non tender, soft Extremities: normal inspection Edema: no edema noted Arm (L), no edema noted Arm (R), no edema noted Leg (L), no edema noted Leg (R), no edema noted Pedal (L), no edema noted Pedal (R), no edema noted Generalized Neurologic: motor weakness Skin: normal pigmentation, warm/dry AGUSTÍN CHUA November 08, 2017 06:54
[2017-11-08 07:58] VITALS: BP 132/65
[2017-11-08] MEDS: Aspirin EC 81mg tab ORAL SCH (09:04)
[2017-11-08] MEDS: HydrALAZINE 25mg tab ORAL SCH ×2 (09:05→17:30)
[2017-11-08] MEDS: Heparin 5000 units/ml inj SUBQ SCH ×2 (09:06→21:23)
[2017-11-08 09:37] LABS: BASOPHILS % (AUTO) 0.9 % (0.0-2.0); EOSINOPHILS % (AUTO) 4.5 % (0.0-3.0); HEMATOCRIT 31.2 % (37.0-47.0); HEMOGLOBIN 10.2 G/DL (12.0-16.0); LYMPHOCYTES % (AUTO) 39.9 % (20.0-45.0); MEAN CORPUSCULAR VOLUME 86 FL (80-99); MONOCYTES % (AUTO) 9.1 % (1.0-10.0); NEUTROPHILS % (AUTO) 45.6 % (45.0-75.0); PLATELET COUNT 191 K/UL (150-450); RED BLOOD COUNT 3.61 M/UL (4.20-5.40); RED CELL DISTRIBUTION WIDTH 14.1 % (11.6-14.8); WHITE BLOOD COUNT 5.6 K/UL (4.8-10.8)
[2017-11-08 10:30] LABS: ANION GAP 8 mmol/L (5-15); BLOOD UREA NITROGEN 17 mg/dL (7-18); CALCIUM 9.4 MG/DL (8.5-10.1); CARBON DIOXIDE 24 MMOL/L (21-32); CHLORIDE 108 MMOL/L (98-107); CREATININE 1.1 MG/DL (0.55-1.30); POTASSIUM 4.4 MMOL/L (3.5-5.1); SODIUM 140 MMOL/L (136-145)
--- NOTE | 2017-11-08 10:39 | Pulmonology Progress Note ---
Assessment/Plan Assessment/Plan ASSESSMENT acute encephalopathy likely secondary to acute renal failure Acute renal failure secondary to acute tubular necrosis and prerenal azotemia due to dehydration, resolved Asymptomatic bacteriuria with Escherichia coli ESBL Diabetes mellitus OOC Bronchitis, likely chronic Anemia diabetic nephropathy Hypertension paranoid schizophrenia with acute exacerbation PLAN OF CARE Medical surgical floor status post IV fluids line service technician follows closely monitor renal parameters and electrolytes closely monitored. correct electrolytes as needed. avoid nephrotoxics renal parameters down to normal, acute renal failure resolved with hydration Waste Disposal Leakage Tester follows blood sugar management with the Januvia and sliding scale of insulin Hemoglobin A1c -8.1 ,not at goal patient needs further optimization of anti-glycemic regimen as outpatient Urine culture with Escherichia coli ESBL blood culture negative ID follows, no treatment necessary as per ID, no urinary complaints, asymptomatic bacteriuria CXR with suggestion of mild bronchial wall thickening , slightly increased reticular markings in the perihilar regions both lungs , no consolidation or pneumonia identified findings consistent with bronchitis Supplemental oxygen as needed to keep pulse oximetry above 92% Pulmonary toilet as needed no cough, likely chronic bronchitis no evidence of resp distress Blood pressure management with beta gus, calcium channel gus and hydralazine, currently stable Continue aspirin and statin lipid panel with LDL of 109 psychotherapist counselor on diabetic low-fat low-cholesterol diet bowel regimen instituted DVT prophylaxis monitor counts with goal to keep hemoglobin above 7, currently stable psychiatrist followed Psychiatric medication as per psychiatrist Sitter at the bedside for safety case discussed and evaluated by supervising physician Subjective Allergies: Coded Allergies: No Known Allergies (Unverified , 11/04/17) Subjective denies SOB, chest pain, no cough afebrile, no leukocytosis Objective Last 24 Hour Vital Signs Date Time Temp Pulse Resp B/P (MAP) Pulse Ox O2 Delivery O2 Flow Rate FiO2 11/08/17 09:05 132/65 11/08/17 09:04 75 132/65 11/08/17 09:04 75 132/65 11/08/17 07:58 97.5 75 20 132/65 95 97.5 11/08/17 04:00 96.9 67 16 134/54 95 Room Air 96.9 11/08/17 00:00 97.9 65 16 116/53 95 Room Air 97.9 11/07/17 21:30 83 152/73 11/07/17 20:00 97.7 82 20 155/73 96 Room Air 97.7 11/07/17 19:30 62 20 Room Air 21 11/07/17 18:28 155/74 11/07/17 18:19 62 155/74 11/07/17 16:37 98.2 73 20 135/55 95 Room Air 98.2 11/07/17 12:00 98.0 77 18 135/70 93 Room Air 98.0 Intake and Output 11/07/17 11/08/17 19:00 07:00 Intake Total 400 ml 1660 ml Output Total 0 ml 0 ml Balance 400 ml 1660 ml Intake Oral 400 ml 660 ml Other 1000 ml Output Stool Total 0 ml 0 ml # Voids 1 7 # Bowel Movements 1 1 Objective General Appearance: no acute distress, bedridden HEENT: normocephalic, atraumatic, anicteric Respiratory/Chest: chest wall non-tender, normal breath sounds, no accessory muscle use Cardiovascular: normal peripheral pulses, normal rate Abdomen: normal bowel sounds Extremities: no edema, pedal pulses normal Neurologic/Psychiatric: abnormal gait/ bedridden Laboratory Tests 11/08/17 07:46: White Blood Count 5.6, Red Blood Count 3.61L, Hemoglobin 10.2L, Hematocrit 31.2L , Mean Corpuscular Volume 86, Mean Corpuscular Hemoglobin 28.3, Mean Corpuscular Hemoglobin Concent 32.7, Red Cell Distribution Width 14.1, Platelet Count 191, Mean Platelet Volume 9.2, Neutrophils (%) (Auto) 45.6, Lymphocytes (% ) (Auto) 39.9, Monocytes (%) (Auto) 9.1, Eosinophils (%) (Auto) 4.5H, Basophils (%) (Auto) 0.9, Sodium Level 140, Potassium Level 4.4, Chloride Level 108H, Carbon Dioxide Level 24, Anion Gap 8, Blood Urea Nitrogen 17, Creatinine 1.1, Estimat Glomerular Filtration Rate 49.6, Glucose Level 208H, Calcium Level 9.4 Current Medications Medications (Trade) Dose Ordered Sig/Arely Route PRN Reason Start Time Stop Time Status Last Admin Dose Admin Acetaminophen (Tylenol) 650 mg Q4H PRN ORAL fever 11/04/17 22:45 12/04/17 22:44 Al Hydroxide/Mg Hydroxide (Mylanta II) 30 ml Q6H PRN ORAL dyspepsia 11/04/17 22:45 12/04/17 22:44 Albuterol/ Ipratropium (Albuterol/ Ipratropium) 3 ml EVERY 4 HOURS PRN HHN Shortness of Breath 11/04/17 22:45 11/09/17 22:44 Aripiprazole (Abilify) 30 mg DAILY ORAL 11/05/17 09:00 12/05/17 08:59 11/08/17 09:05 Aspirin (Ecotrin) 81 mg DAILY ORAL 11/05/17 10:30 12/05/17 10:29 11/08/17 09:04 Atorvastatin Calcium (Lipitor) 20 mg BEDTIME ORAL 11/05/17 21:00 12/05/17 20:59 11/07/17 21:29 Carvedilol (Coreg) 3.125 mg EVERY 12 HOURS ORAL 11/06/17 21:00 12/05/17 08:59 11/08/17 09:04 Clonidine HCl (Catapres Tab) 0.1 mg EVERY 4 HOURS PRN ORAL sbp more than 160 11/04/17 22:45 12/04/17 22:44 Dextrose (Dextrose 50%) 25 ml STAT PRN IV Hypoglycemia 11/04/17 22:45 12/04/17 22:44 11/05/17 21:39 Dextrose (Dextrose 50%) 50 ml STAT PRN IV Hypoglycemia 11/04/17 22:45 12/04/17 22:44 Haloperidol Lactate (Haldol) 5 mg Q6H PRN IM Agitation 11/07/17 13:01 12/07/17 13:00 Heparin Sodium (Porcine) (Heparin 5000 units/ml) 5,000 units EVERY 12 HOURS SUBQ 11/05/17 09:00 12/05/17 08:59 11/08/17 09:06 Hydralazine HCl (Apresoline) 25 mg BID ORAL 11/06/17 18:00 12/04/17 23:34 11/08/17 09:05 Insulin Aspart (NovoLOG) BEFORE MEALS AND HS SUBQ 11/05/17 06:30 12/05/17 06:29 11/08/17 06:28 Lorazepam (Ativan 2mg/ml 1ml) 0.5 mg Q4H PRN IVP For Anxiety 11/06/17 12:15 11/13/17 12:14 11/06/17 17:40 Nifedipine (Procardia XL) 30 mg DAILY ORAL 11/07/17 09:00 12/05/17 08:59 11/08/17 09:04 Nitroglycerin (Ntg) 0.4 mg Q5M X 3 DOSES PRN SL Prn Chest Pain 11/04/17 22:45 12/04/17 22:44 Ondansetron HCl (Zofran) 4 mg Q6H PRN IVP Nausea & Vomiting 11/04/17 22:45 12/04/17 22:44 Polyethylene Glycol (Miralax) 17 gm HSPRN PRN ORAL Constipation 11/04/17 22:45 12/04/17 22:44 Quetiapine Fumarate (SEROquel) 25 mg Q12HR ORAL 11/06/17 13:00 12/06/17 12:59 11/08/17 09:04 Sitagliptin Phosphate (Januvia) 50 mg ACBREAKFAST ORAL 11/05/17 08:30 12/05/17 08:29 11/08/17 06:25 Temazepam (Restoril) 15 mg HSPRN PRN ORAL Insomnia 11/04/17 22:45 11/11/17 22:44 Carl ([facility])Joann NP November 08, 2017 10:38
--- NOTE | 2017-11-08 11:07 | General Progress Note ---
Assessment/Plan Problem List: (1) Diabetes mellitus ICD Codes: E11.9 - Type 2 diabetes mellitus without complications SNOMED: 01654585 (2) Acute encephalopathy ICD Codes: G93.40 - Encephalopathy, unspecified SNOMED: 13747855, 139656254 Assessment/Plan continue Januvia add Starlix 60 mg ac tid continue NISS Subjective ROS Limited/Unobtainable: Yes Allergies: Coded Allergies: No Known Allergies (Unverified , 11/04/17) Subjective events noted BG values are stable Objective Last 24 Hour Vital Signs Date Time Temp Pulse Resp B/P (MAP) Pulse Ox O2 Delivery O2 Flow Rate FiO2 11/08/17 09:05 132/65 11/08/17 09:04 75 132/65 11/08/17 09:04 75 132/65 11/08/17 07:58 97.5 75 20 132/65 95 97.5 11/08/17 04:00 96.9 67 16 134/54 95 Room Air 96.9 11/08/17 00:00 97.9 65 16 116/53 95 Room Air 97.9 11/07/17 21:30 83 152/73 11/07/17 20:00 97.7 82 20 155/73 96 Room Air 97.7 11/07/17 19:30 62 20 Room Air 21 11/07/17 18:28 155/74 11/07/17 18:19 62 155/74 11/07/17 16:37 98.2 73 20 135/55 95 Room Air 98.2 11/07/17 12:00 98.0 77 18 135/70 93 Room Air 98.0 Intake and Output 11/07/17 11/08/17 19:00 07:00 Intake Total 400 ml 1660 ml Output Total 0 ml 0 ml Balance 400 ml 1660 ml Intake Oral 400 ml 660 ml Other 1000 ml Output Stool Total 0 ml 0 ml # Voids 1 7 # Bowel Movements 1 1 Laboratory Tests 11/08/17 07:46: White Blood Count 5.6, Red Blood Count 3.61L, Hemoglobin 10.2L, Hematocrit 31.2L , Mean Corpuscular Volume 86, Mean Corpuscular Hemoglobin 28.3, Mean Corpuscular Hemoglobin Concent 32.7, Red Cell Distribution Width 14.1, Platelet Count 191, Mean Platelet Volume 9.2, Neutrophils (%) (Auto) 45.6, Lymphocytes (% ) (Auto) 39.9, Monocytes (%) (Auto) 9.1, Eosinophils (%) (Auto) 4.5H, Basophils (%) (Auto) 0.9, Sodium Level 140, Potassium Level 4.4, Chloride Level 108H, Carbon Dioxide Level 24, Anion Gap 8, Blood Urea Nitrogen 17, Creatinine 1.1, Estimat Glomerular Filtration Rate 49.6, Glucose Level 208H, Calcium Level 9.4 Height (Feet): 5 Height (Inches): 4.00 Weight (Pounds): 145 General Appearance: no apparent distress Neck: normal alignment Cardiovascular: regular rhythm Respiratory/Chest: lungs clear Abdomen: normal bowel sounds Objective Current Medications Medications (Trade) Dose Ordered Sig/Arely Route PRN Reason Start Time Stop Time Status Last Admin Dose Admin Acetaminophen (Tylenol) 650 mg Q4H PRN ORAL fever 11/04/17 22:45 12/04/17 22:44 Al Hydroxide/Mg Hydroxide (Mylanta II) 30 ml Q6H PRN ORAL dyspepsia 11/04/17 22:45 12/04/17 22:44 Albuterol/ Ipratropium (Albuterol/ Ipratropium) 3 ml EVERY 4 HOURS PRN HHN Shortness of Breath 11/04/17 22:45 11/09/17 22:44 Aripiprazole (Abilify) 30 mg DAILY ORAL 11/05/17 09:00 12/05/17 08:59 11/08/17 09:05 Aspirin (Ecotrin) 81 mg DAILY ORAL 11/05/17 10:30 12/05/17 10:29 11/08/17 09:04 Atorvastatin Calcium (Lipitor) 20 mg BEDTIME ORAL 11/05/17 21:00 12/05/17 20:59 11/07/17 21:29 Carvedilol (Coreg) 3.125 mg EVERY 12 HOURS ORAL 11/06/17 21:00 12/05/17 08:59 11/08/17 09:04 Clonidine HCl (Catapres Tab) 0.1 mg EVERY 4 HOURS PRN ORAL sbp more than 160 11/04/17 22:45 12/04/17 22:44 Dextrose (Dextrose 50%) 25 ml STAT PRN IV Hypoglycemia 11/04/17 22:45 12/04/17 22:44 11/05/17 21:39 Dextrose (Dextrose 50%) 50 ml STAT PRN IV Hypoglycemia 11/04/17 22:45 12/04/17 22:44 Haloperidol Lactate (Haldol) 5 mg Q6H PRN IM Agitation 11/07/17 13:01 12/07/17 13:00 Heparin Sodium (Porcine) (Heparin 5000 units/ml) 5,000 units EVERY 12 HOURS SUBQ 11/05/17 09:00 12/05/17 08:59 11/08/17 09:06 Hydralazine HCl (Apresoline) 25 mg BID ORAL 11/06/17 18:00 12/04/17 23:34 11/08/17 09:05 Insulin Aspart (NovoLOG) BEFORE MEALS AND HS SUBQ 11/05/17 06:30 12/05/17 06:29 11/08/17 06:28 Lorazepam (Ativan 2mg/ml 1ml) 0.5 mg Q4H PRN IVP For Anxiety 11/06/17 12:15 11/13/17 12:14 11/06/17 17:40 Nifedipine (Procardia XL) 30 mg DAILY ORAL 11/07/17 09:00 12/05/17 08:59 11/08/17 09:04 Nitroglycerin (Ntg) 0.4 mg Q5M X 3 DOSES PRN SL Prn Chest Pain 11/04/17 22:45 12/04/17 22:44 Ondansetron HCl (Zofran) 4 mg Q6H PRN IVP Nausea & Vomiting 11/04/17 22:45 12/04/17 22:44 Polyethylene Glycol (Miralax) 17 gm HSPRN PRN ORAL Constipation 11/04/17 22:45 12/04/17 22:44 Quetiapine Fumarate (SEROquel) 25 mg Q12HR ORAL 11/06/17 13:00 12/06/17 12:59 11/08/17 09:04 Sitagliptin Phosphate (Januvia) 50 mg ACBREAKFAST ORAL 11/05/17 08:30 12/05/17 08:29 11/08/17 06:25 Temazepam (Restoril) 15 mg HSPRN PRN ORAL Insomnia 11/04/17 22:45 11/11/17 22:44 Item Value Date Time Bedside Blood Glucose 125 mg/dl H 11/08/17 0628 Bedside Blood Glucose 197 mg/dl H 11/07/17 2133 Bedside Blood Glucose 172 mg/dl H 11/07/17 1624 Bedside Blood Glucose 222 mg/dl H 11/07/17 1207 LEANNA BOWDEN November 08, 2017 11:07
[2017-11-08 12:00] VITALS: BP 155/84
[2017-11-08] MEDS: Nateglinide 60mg tab ORAL SCH ×2 (12:05→17:28)
[2017-11-08 16:00] VITALS: BP 150/74
[2017-11-08] MEDS: LORazepam Inj 2mg/ml 1ml IVP PRN (17:44)
[2017-11-08 19:57] VITALS: BP 141/59
--- NOTE | 2017-11-08 21:00 | Progress Note ---
DATE: 11/08/2017 NOTE: INCOMPLETE DICTATION. SUBJECTIVE: This is a 67-year-old female patient. She has elevated blood sugar, but she still has altered mental status and confusion, one-to-one sitter. Still has altered mental status and confusion. . Ramya Vieira M.D. DR: MADELEINE JOB#: [id number] CC:
[2017-11-09] VITALS: BP 142/65
[2017-11-09 04:01] VITALS: BP 139/66
[2017-11-09] MEDS: sitaGLIPtin 50mg tab ORAL SCH (06:33)
[2017-11-09] MEDS: Nateglinide 60mg tab ORAL SCH ×3 (06:33→16:43)
[2017-11-09] MEDS: NovoLOG Insulin Flexpen SUBQ SCH ×3 (06:41→16:30)
--- NOTE | 2017-11-09 07:02 | General Progress Note ---
Assessment/Plan Problem List: (1) Diabetes mellitus ICD Codes: E11.9 - Type 2 diabetes mellitus without complications SNOMED: 44722483 (2) Acute encephalopathy ICD Codes: G93.40 - Encephalopathy, unspecified SNOMED: 99480258, 366649593 Assessment/Plan continue Januvia increase Starlix 60 to 120 mg ac tid continue NISS Subjective Allergies: Coded Allergies: No Known Allergies (Unverified , 11/04/17) All Systems: reviewed and negative except above Subjective events noted BG values are elevated Objective Last 24 Hour Vital Signs Date Time Temp Pulse Resp B/P (MAP) Pulse Ox O2 Delivery O2 Flow Rate FiO2 11/09/17 04:01 97.4 72 20 139/66 97 Room Air 97.4 11/09/17 00:00 98.2 65 18 142/65 96 Room Air 98.2 11/08/17 21:19 70 147/60 11/08/17 19:57 97.9 70 20 141/59 96 Room Air 97.9 11/08/17 19:30 70 20 Room Air 21 11/08/17 17:30 150/74 11/08/17 16:00 98.0 66 20 150/74 98 98.0 11/08/17 12:00 98.2 64 20 155/84 97 98.2 11/08/17 09:05 132/65 11/08/17 09:04 75 132/65 11/08/17 09:04 75 132/65 11/08/17 07:58 97.5 75 20 132/65 95 97.5 Intake and Output 11/08/17 11/09/17 19:00 07:00 Intake Total 1500 ml 240 ml Output Total 0 ml Balance 1500 ml 240 ml Intake Oral 1500 ml 240 ml Output Stool Total 0 ml # Voids 4 3 Laboratory Tests 11/08/17 07:46: White Blood Count 5.6, Red Blood Count 3.61L, Hemoglobin 10.2L, Hematocrit 31.2L , Mean Corpuscular Volume 86, Mean Corpuscular Hemoglobin 28.3, Mean Corpuscular Hemoglobin Concent 32.7, Red Cell Distribution Width 14.1, Platelet Count 191, Mean Platelet Volume 9.2, Neutrophils (%) (Auto) 45.6, Lymphocytes (% ) (Auto) 39.9, Monocytes (%) (Auto) 9.1, Eosinophils (%) (Auto) 4.5H, Basophils (%) (Auto) 0.9, Sodium Level 140, Potassium Level 4.4, Chloride Level 108H, Carbon Dioxide Level 24, Anion Gap 8, Blood Urea Nitrogen 17, Creatinine 1.1, Estimat Glomerular Filtration Rate 49.6, Glucose Level 208H, Calcium Level 9.4 Height (Feet): 5 Height (Inches): 4.00 Weight (Pounds): 145 General Appearance: no apparent distress Neck: normal alignment Cardiovascular: normal rate Respiratory/Chest: lungs clear Abdomen: non tender Pelvis: normal external exam Objective Current Medications Medications (Trade) Dose Ordered Sig/Arely Route PRN Reason Start Time Stop Time Status Last Admin Dose Admin Acetaminophen (Tylenol) 650 mg Q4H PRN ORAL fever 11/04/17 22:45 12/04/17 22:44 Al Hydroxide/Mg Hydroxide (Mylanta II) 30 ml Q6H PRN ORAL dyspepsia 11/04/17 22:45 12/04/17 22:44 Albuterol/ Ipratropium (Albuterol/ Ipratropium) 3 ml EVERY 4 HOURS PRN HHN Shortness of Breath 11/04/17 22:45 11/09/17 22:44 Aripiprazole (Abilify) 30 mg DAILY ORAL 11/05/17 09:00 12/05/17 08:59 11/08/17 09:05 Aspirin (Ecotrin) 81 mg DAILY ORAL 11/05/17 10:30 12/05/17 10:29 11/08/17 09:04 Atorvastatin Calcium (Lipitor) 20 mg BEDTIME ORAL 11/05/17 21:00 12/05/17 20:59 11/08/17 21:19 Carvedilol (Coreg) 3.125 mg EVERY 12 HOURS ORAL 11/06/17 21:00 12/05/17 08:59 11/08/17 21:19 Clonidine HCl (Catapres Tab) 0.1 mg EVERY 4 HOURS PRN ORAL sbp more than 160 11/04/17 22:45 12/04/17 22:44 Dextrose (Dextrose 50%) 25 ml STAT PRN IV Hypoglycemia 11/04/17 22:45 12/04/17 22:44 11/05/17 21:39 Dextrose (Dextrose 50%) 50 ml STAT PRN IV Hypoglycemia 11/04/17 22:45 12/04/17 22:44 Haloperidol Lactate (Haldol) 5 mg Q6H PRN IM Agitation 11/07/17 13:01 12/07/17 13:00 Heparin Sodium (Porcine) (Heparin 5000 units/ml) 5,000 units EVERY 12 HOURS SUBQ 11/05/17 09:00 12/05/17 08:59 11/08/17 21:23 Hydralazine HCl (Apresoline) 25 mg BID ORAL 11/06/17 18:00 12/04/17 23:34 11/08/17 17:30 Insulin Aspart (NovoLOG) BEFORE MEALS AND HS SUBQ 11/05/17 06:30 12/05/17 06:29 11/09/17 06:41 Lorazepam (Ativan 2mg/ml 1ml) 0.5 mg Q4H PRN IVP For Anxiety 11/06/17 12:15 11/13/17 12:14 11/08/17 17:44 Nateglinide (Starlix) 60 mg TIAC ORAL 11/08/17 11:30 12/08/17 11:29 11/09/17 06:33 Nifedipine (Procardia XL) 30 mg DAILY ORAL 11/07/17 09:00 12/05/17 08:59 11/08/17 09:04 Nitroglycerin (Ntg) 0.4 mg Q5M X 3 DOSES PRN SL Prn Chest Pain 11/04/17 22:45 12/04/17 22:44 Ondansetron HCl (Zofran) 4 mg Q6H PRN IVP Nausea & Vomiting 11/04/17 22:45 12/04/17 22:44 Polyethylene Glycol (Miralax) 17 gm HSPRN PRN ORAL Constipation 11/04/17 22:45 12/04/17 22:44 Quetiapine Fumarate (SEROquel) 25 mg Q12HR ORAL 11/06/17 13:00 12/06/17 12:59 11/08/17 21:19 Sitagliptin Phosphate (Januvia) 50 mg ACBREAKFAST ORAL 11/05/17 08:30 12/05/17 08:29 11/09/17 06:33 Temazepam (Restoril) 15 mg HSPRN PRN ORAL Insomnia 11/04/17 22:45 11/11/17 22:44 Item Value Date Time Bedside Blood Glucose 166 mg/dl H 11/09/17 0641 Bedside Blood Glucose 264 mg/dl H 11/08/17 2124 Bedside Blood Glucose 172 mg/dl H 11/08/17 1731 Bedside Blood Glucose 273 mg/dl H 11/08/17 1204 Bedside Blood Glucose 125 mg/dl H 11/08/17 0628 LEANNA BOWDEN November 09, 2017 07:02
[2017-11-09 08:00] VITALS: BP 134/54
[2017-11-09 08:27] LABS: BASOPHILS % (AUTO) 0.7 % (0.0-2.0); EOSINOPHILS % (AUTO) 4.3 % (0.0-3.0); HEMATOCRIT 29.5 % (37.0-47.0); HEMOGLOBIN 9.7 G/DL (12.0-16.0); LYMPHOCYTES % (AUTO) 40.1 % (20.0-45.0); MEAN CORPUSCULAR VOLUME 86 FL (80-99); NEUTROPHILS % (AUTO) 45.9 % (45.0-75.0); PLATELET COUNT 203 K/UL (150-450); RED BLOOD COUNT 3.43 M/UL (4.20-5.40); RED CELL DISTRIBUTION WIDTH 13.9 % (11.6-14.8); WHITE BLOOD COUNT 6.8 K/UL (4.8-10.8)
[2017-11-09 08:48] LABS: ANION GAP 8 mmol/L (5-15); BLOOD UREA NITROGEN 16 mg/dL (7-18); CALCIUM 9.6 MG/DL (8.5-10.1); CARBON DIOXIDE 24 MMOL/L (21-32); CHLORIDE 107 MMOL/L (98-107); POTASSIUM 4.7 MMOL/L (3.5-5.1); SODIUM 139 MMOL/L (136-145)
[2017-11-09] MEDS: HydrALAZINE 25mg tab ORAL SCH (09:07)
[2017-11-09] MEDS: Aspirin EC 81mg tab ORAL SCH (09:08)
[2017-11-09] MEDS: Heparin 5000 units/ml inj SUBQ SCH (09:12)
[2017-11-09 11:54] VITALS: BP 152/94
--- NOTE | 2017-11-09 12:20 | Nephrology Progress Note ---
Assessment/Plan Assessment 1. Acute renal failure. 2. Uncontrolled diabetes. 3. Hypercalcemia. 4. Hematuria and urinary tract infection. 5. Uncontrolled hypertension. Plan plan monitoring renal function avoid nsaid replace electrolyte Subjective Subjective no acute events over night Objective Objective Last 24 Hour Vital Signs Date Time Temp Pulse Resp B/P (MAP) Pulse Ox O2 Delivery O2 Flow Rate FiO2 11/09/17 11:54 97.3 78 20 152/94 96 Room Air 97.3 11/09/17 09:08 88 134/54 11/09/17 09:07 134/54 11/09/17 09:07 88 134/54 11/09/17 08:00 97.2 88 20 134/54 Room Air 97.2 11/09/17 04:01 97.4 72 20 139/66 97 Room Air 97.4 11/09/17 00:00 98.2 65 18 142/65 96 Room Air 98.2 11/08/17 21:19 70 147/60 11/08/17 19:57 97.9 70 20 141/59 96 Room Air 97.9 11/08/17 19:30 70 20 Room Air 21 11/08/17 17:30 150/74 11/08/17 16:00 98.0 66 20 150/74 98 98.0 Intake and Output 11/08/17 11/09/17 19:00 07:00 Intake Total 1500 ml 240 ml Output Total 0 ml Balance 1500 ml 240 ml Intake Oral 1500 ml 240 ml Output Stool Total 0 ml # Voids 4 3 Laboratory Tests 11/09/17 05:10: White Blood Count 6.8, Red Blood Count 3.43L, Hemoglobin 9.7L, Hematocrit 29.5L , Mean Corpuscular Volume 86, Mean Corpuscular Hemoglobin 28.4, Mean Corpuscular Hemoglobin Concent 33.1, Red Cell Distribution Width 13.9, Platelet Count 203, Mean Platelet Volume 8.8, Neutrophils (%) (Auto) 45.9, Lymphocytes (% ) (Auto) 40.1, Monocytes (%) (Auto) 9.0, Eosinophils (%) (Auto) 4.3H, Basophils (%) (Auto) 0.7, Sodium Level 139, Potassium Level 4.7, Chloride Level 107, Carbon Dioxide Level 24, Anion Gap 8, Blood Urea Nitrogen 16, Creatinine 1.0, Estimat Glomerular Filtration Rate 55.3, Glucose Level 162H, Calcium Level 9.6 Height (Feet): 5 Height (Inches): 4.00 Weight (Pounds): 145 Objective HEAD AND NECK: No JVP. No LAD. No thyromegaly. Extraocular movement intact. Pupils are reactive to light and accommodation. LUNGS: Clear to auscultation. CARDIAC: Regular rate and rhythm. S1 and S2. No murmur. No rub. ABDOMEN: Soft, nontender, and nondistended. EXTREMITIES: Trace edema. No clubbing. No cyanosis. BELTRAN CISNEROS November 09, 2017 12:20
--- NOTE | 2017-11-09 12:21 | Infectious Diseases Prog Note ---
Assessment/Plan Assessment/Plan Abx: Ceftriaxone x1 11/04 Assessment: Acute encephalopathy- no evidence of infectious process -CXR: Suggestion of mild bronchial wall thickening and slightly increased reticular markings in the perihilar regions of both lungs. No consolidation or pneumonia identified. -u/a no pyuria; UCx >100K E.coli ESBL, S zosyn,nitrofrauntoni (assymptomatic bacteriuria)- no pyuria, afebrile, no leukocytosis, no symptoms Afebrile, no leukocytosis Hyperglycemia, improving BART, improving HTN DM2 w/ neuropathy dysphagia schizophrenia/psychosis senior care resident Plan: -Continue to monitor off abx unless febrile, increasing leukocytosis, and/or HD instability. -will not treat ESBL E,coli in urine as is colonizer unless any of above -f/u cx -Monitor CBC/BMP, temperatures -aspiration precautions -wound care/prevention per hosp protocol. Thank you for this consultation. Will continue to follow along with you. Discussed with RN and pulmonary team. Subjective Allergies: Coded Allergies: No Known Allergies (Unverified , 11/04/17) Subjective afebrile no leukocytosis off abx Objective Vital Signs Last 24 Hour Vital Signs Date Time Temp Pulse Resp B/P (MAP) Pulse Ox O2 Delivery O2 Flow Rate FiO2 11/09/17 11:54 97.3 78 20 152/94 96 Room Air 97.3 11/09/17 09:08 88 134/54 11/09/17 09:07 134/54 11/09/17 09:07 88 134/54 11/09/17 08:00 97.2 88 20 134/54 Room Air 97.2 11/09/17 04:01 97.4 72 20 139/66 97 Room Air 97.4 11/09/17 00:00 98.2 65 18 142/65 96 Room Air 98.2 11/08/17 21:19 70 147/60 11/08/17 19:57 97.9 70 20 141/59 96 Room Air 97.9 11/08/17 19:30 70 20 Room Air 21 11/08/17 17:30 150/74 11/08/17 16:00 98.0 66 20 150/74 98 98.0 Height (Feet): 5 Height (Inches): 4.00 Weight (Pounds): 145 Objective HEAD AND NECK: No thyromegaly. Extraocular movement intact. Pupils are reactive to light and accommodation. LUNGS: Clear to auscultation. CARDIAC: Regular rate and rhythm. S1 and S2. No murmur. No rub. ABDOMEN: Soft, nontender, and nondistended. EXTREMITIES: Trace edema. No clubbing. No cyanosis. Skin: multiple bruises- refer to wound care notes and pics Laboratory Tests Test 11/09/17 05:10 White Blood Count 6.8 K/UL (4.8-10.8) Red Blood Count 3.43 M/UL (4.20-5.40) L Hemoglobin 9.7 G/DL (12.0-16.0) L Hematocrit 29.5 % (37.0-47.0) L Mean Corpuscular Volume 86 FL (80-99) Mean Corpuscular Hemoglobin 28.4 PG (27.0-31.0) Mean Corpuscular Hemoglobin Concent 33.1 G/DL (32.0-36.0) Red Cell Distribution Width 13.9 % (11.6-14.8) Platelet Count 203 K/UL (150-450) Mean Platelet Volume 8.8 FL (6.5-10.1) Neutrophils (%) (Auto) 45.9 % (45.0-75.0) Lymphocytes (%) (Auto) 40.1 % (20.0-45.0) Monocytes (%) (Auto) 9.0 % (1.0-10.0) Eosinophils (%) (Auto) 4.3 % (0.0-3.0) H Basophils (%) (Auto) 0.7 % (0.0-2.0) Sodium Level 139 MMOL/L (136-145) Potassium Level 4.7 MMOL/L (3.5-5.1) Chloride Level 107 MMOL/L (98-107) Carbon Dioxide Level 24 MMOL/L (21-32) Anion Gap 8 mmol/L (5-15) Blood Urea Nitrogen 16 mg/dL (7-18) Creatinine 1.0 MG/DL (0.55-1.30) Estimat Glomerular Filtration Rate 55.3 mL/min (>60) Glucose Level 162 MG/DL (74-106) H Calcium Level 9.6 MG/DL (8.5-10.1) Current Medications Medications (Trade) Dose Ordered Sig/Arely Route PRN Reason Start Time Stop Time Status Last Admin Dose Admin Acetaminophen (Tylenol) 650 mg Q4H PRN ORAL fever 11/04/17 22:45 12/04/17 22:44 Al Hydroxide/Mg Hydroxide (Mylanta II) 30 ml Q6H PRN ORAL dyspepsia 11/04/17 22:45 12/04/17 22:44 Albuterol/ Ipratropium (Albuterol/ Ipratropium) 3 ml EVERY 4 HOURS PRN HHN Shortness of Breath 11/04/17 22:45 11/09/17 22:44 Aripiprazole (Abilify) 30 mg DAILY ORAL 11/05/17 09:00 12/05/17 08:59 11/09/17 09:08 Aspirin (Ecotrin) 81 mg DAILY ORAL 11/05/17 10:30 12/05/17 10:29 11/09/17 09:08 Atorvastatin Calcium (Lipitor) 20 mg BEDTIME ORAL 11/05/17 21:00 12/05/17 20:59 11/08/17 21:19 Carvedilol (Coreg) 3.125 mg EVERY 12 HOURS ORAL 11/06/17 21:00 12/05/17 08:59 11/09/17 09:07 Clonidine HCl (Catapres Tab) 0.1 mg EVERY 4 HOURS PRN ORAL sbp more than 160 11/04/17 22:45 12/04/17 22:44 Dextrose (Dextrose 50%) 25 ml STAT PRN IV Hypoglycemia 11/04/17 22:45 12/04/17 22:44 11/05/17 21:39 Dextrose (Dextrose 50%) 50 ml STAT PRN IV Hypoglycemia 11/04/17 22:45 12/04/17 22:44 Haloperidol Lactate (Haldol) 5 mg Q6H PRN IM Agitation 11/07/17 13:01 12/07/17 13:00 11/09/17 12:12 Heparin Sodium (Porcine) (Heparin 5000 units/ml) 5,000 units EVERY 12 HOURS SUBQ 11/05/17 09:00 12/05/17 08:59 11/09/17 09:12 Hydralazine HCl (Apresoline) 25 mg BID ORAL 11/06/17 18:00 12/04/17 23:34 11/09/17 09:07 Insulin Aspart (NovoLOG) BEFORE MEALS AND HS SUBQ 11/05/17 06:30 12/05/17 06:29 11/09/17 12:11 Lorazepam (Ativan 2mg/ml 1ml) 0.5 mg Q4H PRN IVP For Anxiety 11/06/17 12:15 11/13/17 12:14 11/08/17 17:44 Nateglinide (Starlix) 120 mg TIAC ORAL 11/09/17 11:30 12/08/17 11:29 11/09/17 12:09 Nifedipine (Procardia XL) 30 mg DAILY ORAL 11/07/17 09:00 12/05/17 08:59 11/09/17 09:08 Nitroglycerin (Ntg) 0.4 mg Q5M X 3 DOSES PRN SL Prn Chest Pain 11/04/17 22:45 12/04/17 22:44 Ondansetron HCl (Zofran) 4 mg Q6H PRN IVP Nausea & Vomiting 11/04/17 22:45 12/04/17 22:44 Polyethylene Glycol (Miralax) 17 gm HSPRN PRN ORAL Constipation 11/04/17 22:45 12/04/17 22:44 Quetiapine Fumarate (SEROquel) 25 mg Q12HR ORAL 11/06/17 13:00 12/06/17 12:59 11/09/17 09:08 Sitagliptin Phosphate (Januvia) 50 mg ACBREAKFAST ORAL 11/05/17 08:30 12/05/17 08:29 11/09/17 06:33 Temazepam (Restoril) 15 mg HSPRN PRN ORAL Insomnia 11/04/17 22:45 11/11/17 22:44 Lana Noble M.D. November 09, 2017 12:21
--- NOTE | 2017-11-09 13:01 | Consultation ---
DATE OF CONSULTATION: 11/08/2017 CONSULTING PHYSICIAN: Ramya Vieira M.D. HISTORY: The patient is a 67-year-old female 00:03 mood labile, confused, disorganized. No logical plan for own self-care, 00:07. Attending physician has requested daily psychiatric consultation. 00:15 agitation. Decline in her cognition, has declined below baseline. 00:18 the patient appeared disheveled, agitated. Affect guarded and restricted. Intellect poor. Mood, depressed and anxious. Motor activity, psychomotor agitation. Attention span is poor. Orientation x2. Speech is pressured. Thought process, disorganized and illogical. Thought content, auditory hallucinations and paranoid delusions. Insight and judgment is poor. DIAGNOSIS: As far as the diagnosis 00:41. PLAN: Continue treatment with Abilify 00:43 mg at bedtime. 00:47. Chart is reviewed. Discussed with staff. The patient seen and assessed at the bedside. Ramya Vieira M.D. DR: ARNAUD JOB#: [id number] CC:
[2017-11-09] MEDS: LORazepam Inj 2mg/ml 1ml IVP PRN (13:52)
--- NOTE | 2017-11-09 14:16 | General Progress Note ---
Assessment/Plan Problem List: (1) HTN (hypertension) ICD Codes: I10 - Essential (primary) hypertension SNOMED: 29313284 (2) Renal insufficiency ICD Codes: N28.9 - Disorder of kidney and ureter, unspecified SNOMED: 790478333, 539903239 (3) Anemia ICD Codes: D64.9 - Anemia, unspecified SNOMED: 999061630 (4) Weak ICD Codes: R53.1 - Weakness SNOMED: 86658987 (5) Urinary tract infection ICD Codes: N39.0 - Urinary tract infection, site not specified SNOMED: 65293665 (6) Psychosis ICD Codes: F29 - Unspecified psychosis not due to a substance or known physiological condition SNOMED: 51517057 (7) Diabetes mellitus ICD Codes: E11.9 - Type 2 diabetes mellitus without complications SNOMED: 17499665 (8) Acute encephalopathy ICD Codes: G93.40 - Encephalopathy, unspecified SNOMED: 57589131, 040265515 Status: stable Assessment/Plan ot pt diet abx psyc tx dc to snf if clear Subjective Constitutional: Reports: weakness Allergies: Coded Allergies: No Known Allergies (Unverified , 11/04/17) All Systems: reviewed and negative except above Subjective calm sleepy Objective Last 24 Hour Vital Signs Date Time Temp Pulse Resp B/P (MAP) Pulse Ox O2 Delivery O2 Flow Rate FiO2 11/09/17 11:54 97.3 78 20 152/94 96 Room Air 97.3 11/09/17 09:29 60 20 Room Air 21 11/09/17 09:08 88 134/54 11/09/17 09:07 134/54 11/09/17 09:07 88 134/54 11/09/17 08:00 97.2 88 20 134/54 Room Air 97.2 11/09/17 04:01 97.4 72 20 139/66 97 Room Air 97.4 11/09/17 00:00 98.2 65 18 142/65 96 Room Air 98.2 11/08/17 21:19 70 147/60 11/08/17 19:57 97.9 70 20 141/59 96 Room Air 97.9 11/08/17 19:30 70 20 Room Air 21 11/08/17 17:30 150/74 11/08/17 16:00 98.0 66 20 150/74 98 98.0 Intake and Output 11/08/17 11/09/17 19:00 07:00 Intake Total 1500 ml 240 ml Output Total 0 ml Balance 1500 ml 240 ml Intake Oral 1500 ml 240 ml Output Stool Total 0 ml # Voids 4 3 Laboratory Tests 11/09/17 05:10: White Blood Count 6.8, Red Blood Count 3.43L, Hemoglobin 9.7L, Hematocrit 29.5L , Mean Corpuscular Volume 86, Mean Corpuscular Hemoglobin 28.4, Mean Corpuscular Hemoglobin Concent 33.1, Red Cell Distribution Width 13.9, Platelet Count 203, Mean Platelet Volume 8.8, Neutrophils (%) (Auto) 45.9, Lymphocytes (% ) (Auto) 40.1, Monocytes (%) (Auto) 9.0, Eosinophils (%) (Auto) 4.3H, Basophils (%) (Auto) 0.7, Sodium Level 139, Potassium Level 4.7, Chloride Level 107, Carbon Dioxide Level 24, Anion Gap 8, Blood Urea Nitrogen 16, Creatinine 1.0, Estimat Glomerular Filtration Rate 55.3, Glucose Level 162H, Calcium Level 9.6 Height (Feet): 5 Height (Inches): 4.00 Weight (Pounds): 145 General Appearance: lethargic, confused EENT: normal ENT inspection Neck: normal alignment Cardiovascular: normal peripheral pulses, normal rate, regular rhythm Respiratory/Chest: chest wall non-tender, lungs clear, normal breath sounds Abdomen: normal bowel sounds, non tender, soft Extremities: normal inspection Edema: no edema noted Arm (L), no edema noted Arm (R), no edema noted Leg (L), no edema noted Leg (R), no edema noted Pedal (L), no edema noted Pedal (R), no edema noted Generalized Neurologic: motor weakness Skin: normal pigmentation, warm/dry AGUSTÍN CHUA November 09, 2017 14:16
[2017-11-09] MEDS ORDERED: ACETAMINOPHEN325 M1 ORAL (14:39)
[2017-11-09] MEDS ORDERED: MYLANTA30 M1 GT (14:40)
[2017-11-09] MEDS ORDERED: DUONEB 0.5-3(2.53 ML HHN (14:40)
[2017-11-09] MEDS ORDERED: HEPARIN SO5000 UNIT2 SUBQ (14:41)
[2017-11-09] MEDS ORDERED: HALOPERIDOL1 MG ORAL (14:41)
[2017-11-09] MEDS ORDERED: HALOPERIDOL5 MG/1 ML IM (14:41)
[2017-11-09] MEDS ORDERED: ZOFRAN ODT8 MG ORAL (14:42)
[2017-11-09] MEDS ORDERED: STARLIX60 MG ORAL (14:42)
[2017-11-09] MEDS ORDERED: MIRALAX17 G2 ORAL (14:43)
[2017-11-09] MEDS ORDERED: ONDANSETRON ODT4 MG ORAL (14:43)
[2017-11-09] MEDS ORDERED: QUETIAPINE FUMA25 MG ORAL (14:43)
[2017-11-09] MEDS ORDERED: RESTORIL15 MG ORAL (14:43)
[2017-11-09] MEDS ORDERED: JANUVIA25 MG ORAL (14:44)
[2017-11-09] MEDS ORDERED: CATAPRES0.1 MG ORAL (14:44)
[2017-11-09] MEDS ORDERED: ATIVAN1 MG ORAL (14:47)
--- NOTE | 2017-11-09 15:45 | Progress Note ---
DATE: 11/09/2017 SUBJECTIVE: The patient is 67-year-old female patient. She admits . She has confusion and disorganized thought process. Mood lability also. Agitation, irritability and anxiety as well. Her cognition has declined below her baseline. That is why her attending has requested daily psychiatric consultation because of her mood lability and her overall decline in cognition. MENTAL STATUS EXAMINATION: This is a 67-year-old female. Appearance disheveled. Attitude is irritable and agitated. Affect is guarded and restricted. Intellect poor. Mood depressed and anxious. Motor activity, psychomotor agitation. Attention span is poor. Orientation x2. Speech is pressured. Thought process, disorganized. Thought content, auditory hallucinations and paranoid delusions. Insight and judgment are poor. DIAGNOSIS: Paranoid schizophrenia with acute exacerbation. PLAN: Plan is to continue treatment with Seroquel, but also Abilify 30 mg nightly. Provide 18 to 20 minutes supportive psychotherapy. Encouraged her to participate in groups. Encouraged her to participate in treatment and interact appropriately with staff. Chart reviewed and discussed with staff. Ramya Vieira M.D. DR: VIKTOR JOB#: [id number] CC:
[2017-11-09 15:48] VITALS: BP 143/68
[2017-11-09] MEDS ORDERED: NOVOLOG100 UNIT/3 SUBQ (16:18)
--- NOTE | 2017-11-09 19:29 | Pulmonology Progress Note ---
Assessment/Plan Problems: (1) Acute encephalopathy (2) ATN (acute tubular necrosis) (3) Urinary tract infection (4) Diabetes mellitus Assessment/Plan improving psych f/u ESBL uti improving sliding scale diabetic diet dc planing in progress Subjective ROS Limited/Unobtainable: No Constitutional: Reports: no symptoms HEENT: Repors: no symptoms Respiratory: Reports: no symptoms Allergies: Coded Allergies: No Known Allergies (Unverified , 11/04/17) Objective Last 24 Hour Vital Signs Date Time Temp Pulse Resp B/P (MAP) Pulse Ox O2 Delivery O2 Flow Rate FiO2 11/09/17 16:00 Room Air 11/09/17 15:48 97.9 56 20 143/68 96 97.9 11/09/17 11:54 97.3 78 20 152/94 96 Room Air 97.3 11/09/17 09:29 60 20 Room Air 21 11/09/17 09:08 88 134/54 11/09/17 09:07 134/54 11/09/17 09:07 88 134/54 11/09/17 08:00 97.2 88 20 134/54 Room Air 97.2 11/09/17 04:01 97.4 72 20 139/66 97 Room Air 97.4 11/09/17 00:00 98.2 65 18 142/65 96 Room Air 98.2 11/08/17 21:19 70 147/60 11/08/17 19:57 97.9 70 20 141/59 96 Room Air 97.9 11/08/17 19:30 70 20 Room Air 21 Intake and Output 11/08/17 11/09/17 19:00 07:00 Intake Total 1500 ml 240 ml Output Total 0 ml Balance 1500 ml 240 ml Intake Oral 1500 ml 240 ml Output Stool Total 0 ml # Voids 4 3 General Appearance: WD/WN HEENT: normocephalic, atraumatic Respiratory/Chest: chest wall non-tender, lungs clear Breasts: no masses Cardiovascular: normal peripheral pulses Abdomen: normal bowel sounds, soft, non tender Genitourinary: normal external genitalia Extremities: no cyanosis Skin: no rash Neurologic/Psychiatric: modeling agency manager II-XII grossly normal, no motor/sensory deficits Laboratory Tests 11/09/17 05:10: White Blood Count 6.8, Red Blood Count 3.43L, Hemoglobin 9.7L, Hematocrit 29.5L , Mean Corpuscular Volume 86, Mean Corpuscular Hemoglobin 28.4, Mean Corpuscular Hemoglobin Concent 33.1, Red Cell Distribution Width 13.9, Platelet Count 203, Mean Platelet Volume 8.8, Neutrophils (%) (Auto) 45.9, Lymphocytes (% ) (Auto) 40.1, Monocytes (%) (Auto) 9.0, Eosinophils (%) (Auto) 4.3H, Basophils (%) (Auto) 0.7, Sodium Level 139, Potassium Level 4.7, Chloride Level 107, Carbon Dioxide Level 24, Anion Gap 8, Blood Urea Nitrogen 16, Creatinine 1.0, Estimat Glomerular Filtration Rate 55.3, Glucose Level 162H, Calcium Level 9.6 Randa Vigil MD November 09, 2017 19:29
--- NOTE | 2017-11-09 23:22 | Geriatric Progress Note ---
Geriatric Geriatric Last 24 Hour Vital Signs Date Time Temp Pulse Resp B/P (MAP) Pulse Ox O2 Delivery O2 Flow Rate FiO2 11/09/17 16:00 Room Air 11/09/17 15:48 97.9 56 20 143/68 96 97.9 11/09/17 11:54 97.3 78 20 152/94 96 Room Air 97.3 11/09/17 09:29 60 20 Room Air 21 11/09/17 09:08 88 134/54 11/09/17 09:07 134/54 11/09/17 09:07 88 134/54 11/09/17 08:00 97.2 88 20 134/54 Room Air 97.2 11/09/17 04:01 97.4 72 20 139/66 97 Room Air 97.4 11/09/17 00:00 98.2 65 18 142/65 96 Room Air 98.2 Intake and Output 11/08/17 11/09/17 19:00 07:00 Intake Total 1500 ml 240 ml Output Total 0 ml Balance 1500 ml 240 ml Intake Oral 1500 ml 240 ml Output Stool Total 0 ml # Voids 4 3 Laboratory Tests Test 11/09/17 05:10 White Blood Count 6.8 K/UL (4.8-10.8) Red Blood Count 3.43 M/UL (4.20-5.40) L Hemoglobin 9.7 G/DL (12.0-16.0) L Hematocrit 29.5 % (37.0-47.0) L Mean Corpuscular Volume 86 FL (80-99) Mean Corpuscular Hemoglobin 28.4 PG (27.0-31.0) Mean Corpuscular Hemoglobin Concent 33.1 G/DL (32.0-36.0) Red Cell Distribution Width 13.9 % (11.6-14.8) Platelet Count 203 K/UL (150-450) Mean Platelet Volume 8.8 FL (6.5-10.1) Neutrophils (%) (Auto) 45.9 % (45.0-75.0) Lymphocytes (%) (Auto) 40.1 % (20.0-45.0) Monocytes (%) (Auto) 9.0 % (1.0-10.0) Eosinophils (%) (Auto) 4.3 % (0.0-3.0) H Basophils (%) (Auto) 0.7 % (0.0-2.0) Sodium Level 139 MMOL/L (136-145) Potassium Level 4.7 MMOL/L (3.5-5.1) Chloride Level 107 MMOL/L (98-107) Carbon Dioxide Level 24 MMOL/L (21-32) Anion Gap 8 mmol/L (5-15) Blood Urea Nitrogen 16 mg/dL (7-18) Creatinine 1.0 MG/DL (0.55-1.30) Estimat Glomerular Filtration Rate 55.3 mL/min (>60) Glucose Level 162 MG/DL (74-106) H Calcium Level 9.6 MG/DL (8.5-10.1) Height (Feet): 5 Height (Inches): 4.00 Weight (Pounds): 145 Nalini Miller M.D. November 09, 2017 23:22
--- NOTE | 2017-11-09 23:22 | General Progress Note ---
Assessment/Plan Status: stable, progressing Assessment/Plan anxiety d/o insomnia -Ativan prn Subjective Date patient seen: November 09, 2017 Neurologic/Psychiatric: Reports: anxiety, depressed, emotional problems Allergies: Coded Allergies: No Known Allergies (Unverified , 11/04/17) Objective Last 24 Hour Vital Signs Date Time Temp Pulse Resp B/P (MAP) Pulse Ox O2 Delivery O2 Flow Rate FiO2 11/09/17 16:00 Room Air 11/09/17 15:48 97.9 56 20 143/68 96 97.9 11/09/17 11:54 97.3 78 20 152/94 96 Room Air 97.3 11/09/17 09:29 60 20 Room Air 21 11/09/17 09:08 88 134/54 11/09/17 09:07 134/54 11/09/17 09:07 88 134/54 11/09/17 08:00 97.2 88 20 134/54 Room Air 97.2 11/09/17 04:01 97.4 72 20 139/66 97 Room Air 97.4 11/09/17 00:00 98.2 65 18 142/65 96 Room Air 98.2 Intake and Output 11/08/17 11/09/17 19:00 07:00 Intake Total 1500 ml 240 ml Output Total 0 ml Balance 1500 ml 240 ml Intake Oral 1500 ml 240 ml Output Stool Total 0 ml # Voids 4 3 Laboratory Tests 11/09/17 05:10: White Blood Count 6.8, Red Blood Count 3.43L, Hemoglobin 9.7L, Hematocrit 29.5L , Mean Corpuscular Volume 86, Mean Corpuscular Hemoglobin 28.4, Mean Corpuscular Hemoglobin Concent 33.1, Red Cell Distribution Width 13.9, Platelet Count 203, Mean Platelet Volume 8.8, Neutrophils (%) (Auto) 45.9, Lymphocytes (% ) (Auto) 40.1, Monocytes (%) (Auto) 9.0, Eosinophils (%) (Auto) 4.3H, Basophils (%) (Auto) 0.7, Sodium Level 139, Potassium Level 4.7, Chloride Level 107, Carbon Dioxide Level 24, Anion Gap 8, Blood Urea Nitrogen 16, Creatinine 1.0, Estimat Glomerular Filtration Rate 55.3, Glucose Level 162H, Calcium Level 9.6 Height (Feet): 5 Height (Inches): 4.00 Weight (Pounds): 145 General Appearance: no apparent distress, alert Neurologic: oriented x 3, responsive, depressed affect Nalini Miller M.D. November 09, 2017 23:22
--- NOTE | 2017-11-11 10:20 | Discharge Summary ---
Discharge Summary Discharge Summary Discharge Summary DATE OF ADMISSION: 11/05/2017 DATE OF DISCHARGE: 11/09/2017 REASON FOR ADMISSION: 67 years old female with a history of hypertension, diabetes , psychosis, was sent to emergency room for increased blood sugar and agitation. Prior to arrival patient was given cocktail with Haldol, Ativan and Benadryl. Upon evaluation in ED, noted no leukocytosis , mild anemia hemoglobin 11.5 hematocrit 35.2. Evidence of renal failure BUN 42 ,creatinine 1.9, lactic acid 2.1. Glucose 242. Calcium 10.7. Troponin negative, urinalysis with evidence of UTI. Patient was admitted with diagnosis of renal failure, encephalopathy , possible urinary tract infection, diabetes, anemia. CONSULTANTS: pulmonary Dr. Vigil ID specialist Dr. Story director digital catalogue Dr. Damon psychiatrist Dr. Vieira, Digital Circuit Designer Dr. Vasquez [facility] COURSE: Patient admitted. Patient started on the IV fluids. Renal parameters and electrolytes were closely monitored. Electrolytes were corrected as needed. Nephrotoxics were avoided. Newspaper Correspondent closely followed. After IV hydration renal parameters down to normal. Acute renal failure resolved with hydration. According to director digital catalogue, acute renal failure was secondary to acute tubular necrosis and prerenal azotemia due to dehydration. Patient also noted to have +4 protein in the urine, probable diabetic nephropathy. Random protein in the urine elevated, 118. Hypercalcemia resolved. Digital Circuit Designer followed. Hemoglobin A1c 8.1, not at goal. Blood sugar was managed with Januvia, Starlix and sliding scale of insulin as needed. Patient will need further optimization of anti-glycemic regimen as outpatient. Urine culture revealed Escherichia coli ESBL. Patient had no urinary complaints. Blood culture were negative. Infectious disease specialist followed. No treatment was necessary as per ID specialist Patient had asymptomatic bacteriuria ,urine culture colonized. No evidence of infectious process. No fever, no leukocytosis. Infectious disease specialist recommended to keep patient off antibiotic. Chest x-ray suggested mild bronchial wall thickening, slightly increased reticular markings in the perihilar regions bilateral lung, no consolidation. no pneumonia. Findings were consistent with bronchitis. Supplemental oxygen provided as needed to keep pulse oximetry above 92% , pulmonary toilet provided as needed. No cough, likely chronic bronchitis. No evidence of respiratory distress. Blood pressure was managed with beta gus, calcium channel gus and hydralazine. Aspirin and statins were continued. Lipid panel with LDL 109. Patient was counseled on diabetic low-fat low-cholesterol diet. Bowel regimen instituted. DVT prophylaxis provided. Counts were closely monitored with goal to keep hemoglobin above 7 . Hemoglobin and hematocrit remained at the baseline, no need for transfusion. Psychiatrist closely followed. Psychiatric medication regimen was optimized as per psychiatrist. Sitter was at the bedside for patient safety. Patient clinically improved, and subsequently was transferred to [facility] for further management FINAL DIAGNOSES: Acute encephalopathy likely secondary to acute renal failure Acute renal failure secondary to acute tubular necrosis and prerenal phosphatemia due to dehydration, resolved Asymptomatic bacteriuria with Escherichia coli ESBL Diabetes mellitus out of control Probable diabetic nephropathy Bronchitis, likely chronic Anemia Hypertension Paranoid schizophrenia with acute exacerbation Hypercalcemia Anxiety disorder DISCHARGE MEDICATIONS: See Medication Reconciliation list. DISCHARGE INSTRUCTIONS: Patient was discharged to long term facility. Follow up with medical doctor at the facility. Joann Henry NP ([place]) November 11, 2017 10:20
== END 2017-11-09 17:00 | DRG 682 ==
LOC: EDBD 18:48 → EMR 19:56 → 3E 20:05 → EDBEDREQ 21:10 → 3E 23:12 → 4W 11-07 16:54
DX: N17.0 Acute kidney failure with tubular necrosis (principal); G93.40 Encephalopathy, unspecified; F20.0 Paranoid schizophrenia; E86.0 Dehydration; E11.65 Type 2 diabetes mellitus with hyperglycemia; E11.21 Type 2 diabetes mellitus with diabetic nephropathy; J42 Unspecified chronic bronchitis; D64.9 Anemia, unspecified; I10 Essential (primary) hypertension; E83.52 Hypercalcemia; F41.9 Anxiety disorder, unspecified; R45.1 Restlessness and agitation; J44.9 Chronic obstructive pulmonary disease, unspecified
CPT/HCPCS: 36415; 71045; 80048; 80053; 80061; 81003; 82043; 82044; 82550; 82553; 82570; 82962; 83036; 83605; 84300; 84443; 84484; 85025; 87040; 87086; 87181; 89050; 93005; 94664; 97803; 99285; J1815

== ENCOUNTER 2018-08-09 13:38 | Inpatient (IN) | payer MEDICARE, OTHER ==
[~2018-08-09] VITALS: Ht 165.1 cm; Wt 61.7 kg
[~2018-08-09 13:38] MED LIST: ABILIFY2 MG ORAL; ACETAMINOPHEN325 M1 ORAL; ADALAT10 MG ORAL; ASPIRIN EC325 MG ORAL; ATIVAN1 MG ORAL; ATORVASTATIN CA20 MG ORAL; CATAPRES0.1 MG ORAL; COREG3.125 MG ORAL; DOCUSATE SODIU100 MG ORAL; DUONEB 0.5-3(2.53 ML HHN; FUROSEMIDE40 MG ORAL; GLIPIZIDE5 MG ORAL; HALOPERIDOL1 MG ORAL; HALOPERIDOL5 MG/1 ML IM; HEPARIN SO5000 UNIT2 SUBQ; HYDRALAZINE HCL25 M1 ORAL; JANUVIA25 MG ORAL; LEXAPRO20 MG ORAL; MAGNESIUM OXID400 M1 ORAL; MIRALAX17 G2 ORAL; MYLANTA30 M1 GT; NOVOLOG100 UNIT/3 SUBQ; ONDANSETRON ODT4 MG ORAL; QUETIAPINE FUMA25 MG ORAL; RESTORIL15 MG ORAL; STARLIX60 MG ORAL; TRADJENTA5 MG PO; ZOFRAN ODT8 MG ORAL
--- NOTE | 2018-08-09 14:03 | Emergency Room Report ---
History of Present Illness General Chief Complaint: Abnormal Labs Source: Medical Record, EMS Present Illness HPI Patient presents with reports of elevated white blood cell count from nursing facility Patient herself is not verbal Has significant underlying psychiatric condition Denies any chest pain there was no reports of cough there was no reports of vomiting or diarrhea Patient's white blood cell count is 14,000 Allergies: Coded Allergies: PALIPERIDONE (Unverified Allergy, Unknown, 08/09/18) Patient History Limited by: medical condition Past Medical History: see triage record Pertinent Family History: unable to obtain Reviewed Nursing Documentation: PMH: Agreed; PSxH: Agreed Nursing Documentation-PMH Hx Cardiac Problems: Yes - Heart failure Hx Hypertension: Yes - HTN Hx Diabetes: Yes - DM2 Hx Cancer: No - UTI Hx Dysphasia: Yes Hx Weakness: Yes Review of Systems All Other Systems: limited - Other than the ones mentioned in the history of present illness all others are reviewed however they do stay limited due to the patient's mental status Physical Exam Vital Signs Date Time Temp Pulse Resp B/P (MAP) Pulse Ox O2 Delivery O2 Flow Rate FiO2 08/09/18 13:32 97.5 80 20 117/70 97 Sp02 EP Interpretation: reviewed, normal General Appearance: no apparent distress Head: normocephalic, atraumatic Eyes: bilateral eye PERRL, bilateral eye EOMI ENT: normal pharynx Neck: supple, no meningismus Respiratory: lungs clear, no retraction, no accessory muscle use Cardiovascular #1: regular rate, rhythm, no edema Gastrointestinal: soft, no mass Musculoskeletal: normal inspection - No obvious focal deficit Neurologic: responsive Skin: no rash, warm/dry Lymphatic: no adenopathy Medical Decision Making Diagnostic Impression: Primary Impression: Dehydration Additional Impressions: UTI (urinary tract infection) Weak Renal insufficiency ER Course Multiple differentials considered Patient has blood work and imaging repeated for further evaluation there is evidence of kidney function disease Also UTI Patient is provided with further hydration Contact is made with primary physician who would like to admit the patient for further inpatient care Labs Test 08/09/18 14:10 White Blood Count 11.9 K/UL (4.8-10.8) Red Blood Count 4.18 M/UL (4.20-5.40) Hemoglobin 11.7 G/DL (12.0-16.0) Hematocrit 36.6 % (37.0-47.0) Mean Corpuscular Volume 88 FL (80-99) Mean Corpuscular Hemoglobin 28.0 PG (27.0-31.0) Mean Corpuscular Hemoglobin Concent 32.0 G/DL (32.0-36.0) Red Cell Distribution Width 12.6 % (11.6-14.8) Platelet Count 220 K/UL (150-450) Mean Platelet Volume 8.6 FL (6.5-10.1) Neutrophils (%) (Auto) 66.0 % (45.0-75.0) Lymphocytes (%) (Auto) 25.0 % (20.0-45.0) Monocytes (%) (Auto) 5.9 % (1.0-10.0) Eosinophils (%) (Auto) 2.3 % (0.0-3.0) Basophils (%) (Auto) 0.7 % (0.0-2.0) Urine Color Pale yellow Urine Appearance Very cloudy Urine pH 5 (4.5-8.0) Urine Specific [place] 1.020 (1.005-1.035) Urine Protein 4+ (NEGATIVE) Urine Glucose (UA) 4+ (NEGATIVE) Urine Ketones Negative (NEGATIVE) Urine Blood 3+ (NEGATIVE) Urine Nitrite Negative (NEGATIVE) Urine Bilirubin Negative (NEGATIVE) Urine Urobilinogen Normal MG/DL (0.0-1.0) Urine Leukocyte Esterase 3+ (NEGATIVE) Urine RBC 10-15 /HPF (0 - 2) Urine WBC Tntc /HPF (0 - 2) Urine Squamous Epithelial Cells Few /LPF (NONE/OCC) Urine Bacteria Moderate /HPF (NONE) Urine Yeast Many /HPF (NONE) Sodium Level 135 MMOL/L (136-145) Potassium Level 4.4 MMOL/L (3.5-5.1) Chloride Level 100 MMOL/L (98-107) Carbon Dioxide Level 27 MMOL/L (21-32) Anion Gap 8 mmol/L (5-15) Blood Urea Nitrogen 41 mg/dL (7-18) Creatinine 1.5 MG/DL (0.55-1.30) Estimat Glomerular Filtration Rate 34.5 mL/min (>60) Glucose Level 406 MG/DL (74-106) Calcium Level 10.1 MG/DL (8.5-10.1) Total Bilirubin 0.3 MG/DL (0.2-1.0) Aspartate Amino Transf (AST/SGOT) 18 U/L (15-37) Alanine Aminotransferase (ALT/SGPT) 31 U/L (12-78) Alkaline Phosphatase 124 U/L (46-116) Total Protein 6.2 G/DL (6.4-8.2) Albumin 2.8 G/DL (3.4-5.0) Globulin 3.4 g/dL Albumin/Globulin Ratio 0.8 (1.0-2.7) Rhythm Strip Diag. Results EP Interpretation: yes Rate: 88 Rhythm: NSR, no PVC's, no ectopy Chest X-Ray Diagnostic Results Chest X-Ray Diagnostic Results : Chest X-Ray Ordered: Yes # of Views/Limited/Complete: 1 View Indication: Chest Pain EP Interpretation: Yes Interpretation: no consolidation, no effusion, no pneumothorax Impression: No acute disease Electronically Signed by: Leanna Jasmine DO Last Vital Signs Date Time Temp Pulse Resp B/P (MAP) Pulse Ox O2 Delivery O2 Flow Rate FiO2 08/09/18 13:32 97.5 80 20 117/70 97 Status: improved Disposition: ADMITTED INPATIENT Condition: Serious Leanna Jasmine DO Aug 09, 2018 14:03
[2018-08-09 14:32] LABS: BASOPHILS % (AUTO) 0.7 % (0.0-2.0); EOSINOPHILS % (AUTO) 2.3 % (0.0-3.0); HEMATOCRIT 36.6 % (37.0-47.0); HEMOGLOBIN 11.7 G/DL (12.0-16.0); MEAN CORPUSCULAR VOLUME 88 FL (80-99); MONOCYTES % (AUTO) 5.9 % (1.0-10.0); PLATELET COUNT 220 K/UL (150-450); RED BLOOD COUNT 4.18 M/UL (4.20-5.40); RED CELL DISTRIBUTION WIDTH 12.6 % (11.6-14.8); WHITE BLOOD COUNT 11.9 K/UL (4.8-10.8)
[2018-08-09 14:35] LABS: APPEARANCE,URINE VERY CLOUDY; BILIRUBIN, URINE NEGATIVE (NEGATIVE); COLOR,URINE PALE YELLOW; GLUCOSE, URINE (UA) 4+ (NEGATIVE); KETONES,URINE NEGATIVE (NEGATIVE); LEUKOCYTE ESTERASE ,URINE 3+ (NEGATIVE); NITRITE,URINE NEGATIVE (NEGATIVE); PH,URINE 5 (4.5-8.0); PROTEIN,URINE 4+ (NEGATIVE); UROBILINOGEN,URINE NORMAL MG/DL (0.0-1.0)
[2018-08-09 14:47] LABS: ANION GAP 8 mmol/L (5-15); BLOOD UREA NITROGEN 41 mg/dL (7-18); CALCIUM 10.1 MG/DL (8.5-10.1); CARBON DIOXIDE 27 MMOL/L (21-32); CHLORIDE 100 MMOL/L (98-107); CREATININE 1.5 MG/DL (0.55-1.30); POTASSIUM 4.4 MMOL/L (3.5-5.1); SODIUM 135 MMOL/L (136-145)
[2018-08-09 14:52] LABS: ALANINE AMINOTRANSFERASE 31 U/L (12-78); ALBUMIN 2.8 G/DL (3.4-5.0); ALBUMIN/GLOBULIN RATIO 0.8 (1.0-2.7); ALKALINE PHOSPHATASE 124 U/L (46-116); ASPARTATE AMINO TRANSFERASE 18 U/L (15-37); BILIRUBIN,TOTAL 0.3 MG/DL (0.2-1.0)
[2018-08-09] MEDS ORDERED: cefTRIAXone 1 GM in NS 55 ML IVPB ONE (15:00)
[2018-08-09] MEDS ORDERED: FEOSOL1 TAB ORAL (15:45)
[2018-08-09] MEDS ORDERED: SENNA8.6 M2 PO ×2 (15:45→17:49)
[2018-08-09] MEDS ORDERED: PEDIA-LAX400 MG PO ×2 (15:45)
[2018-08-09] MEDS ORDERED: VITAMIN C500 M1 ORAL (15:45)
[2018-08-09] MEDS ORDERED: ZYPREXA7.5 MG ORAL (15:45)
[2018-08-09] MEDS ORDERED: LISINOPRIL5 MG ORAL (15:45)
[2018-08-09] MEDS ORDERED: PRO-STAT LIQUID30 ML ORAL (15:45)
[2018-08-09] MEDS ORDERED: LEVEMIR100 UNIT/1 SUBQ ×4 (15:45→17:49)
[2018-08-09] MEDS ORDERED: MULTIVITAMINS1 EA13 ORAL (15:45)
[2018-08-09 15:56] VITALS: BP 122/76
--- NOTE | 2018-08-09 16:24 | Diagnostic Imaging Report ---
Indication: Dyspnea Comparison: November 04, 2017 A single view chest radiograph was obtained. Findings: Lung volumes are low limiting evaluation. Heart is prominent size. Bones are slightly osteopenic. Aorta is mildly calcified IMPRESSION: No acute disease
[2018-08-09] MEDS ORDERED: ATORVASTATIN CA40 MG ORAL (17:49)
[2018-08-09] MEDS ORDERED: FERROUS SULFAT325 MG ORAL (17:49)
[2018-08-09] MEDS ORDERED: NOVOLIN R100 UNIT/1 SUBQ (17:49)
[2018-08-09] MEDS ORDERED: ACETAMINOPHEN325 M1 ORAL (17:49)
[2018-08-09] MEDS ORDERED: ZYPREXA5 MG ORAL (17:51)
[2018-08-09] MEDS: Sennosides 8.6mg tab ORAL SCH (22:00)
[2018-08-09] MEDS ORDERED: Heparin 5000 units/ml inj SUBQ SCH (23:30)
[2018-08-10 00:11] VITALS: BP 169/83
[2018-08-10 04:26] VITALS: BP 153/76
[2018-08-10] MEDS: NovoLOG Insulin Flexpen SUBQ SCH ×4 (06:30→21:22)
[2018-08-10 06:33] LABS: BASOPHILS % (AUTO) 0.7 % (0.0-2.0); EOSINOPHILS % (AUTO) 2.1 % (0.0-3.0); HEMATOCRIT 36.2 % (37.0-47.0); HEMOGLOBIN 11.7 G/DL (12.0-16.0); LYMPHOCYTES % (AUTO) 21.6 % (20.0-45.0); MEAN CORPUSCULAR VOLUME 88 FL (80-99); MONOCYTES % (AUTO) 6.2 % (1.0-10.0); NEUTROPHILS % (AUTO) 69.4 % (45.0-75.0); PLATELET COUNT 195 K/UL (150-450); RED BLOOD COUNT 4.13 M/UL (4.20-5.40); RED CELL DISTRIBUTION WIDTH 12.9 % (11.6-14.8); WHITE BLOOD COUNT 12.8 K/UL (4.8-10.8)
[2018-08-10 06:41] LABS: ANION GAP 6 mmol/L (5-15); BLOOD UREA NITROGEN 28 mg/dL (7-18); CALCIUM 9.7 MG/DL (8.5-10.1); CARBON DIOXIDE 27 MMOL/L (21-32); CHLORIDE 106 MMOL/L (98-107); CREATININE 1.2 MG/DL (0.55-1.30); POTASSIUM 4.9 MMOL/L (3.5-5.1); SODIUM 139 MMOL/L (136-145)
[2018-08-10] MEDS: Levemir Flexpen SUBQ SCH ×2 (09:00→21:23)
[2018-08-10] MEDS: Magnesium Oxide 400mg tab ORAL SCH ×2 (09:00→17:55)
[2018-08-10] MEDS: Docusate 100mg cap ORAL SCH ×2 (09:00→17:55)
[2018-08-10] MEDS: Lisinopril 10mg tab ORAL SCH (09:00)
[2018-08-10] MEDS: Ascorbic Acid 500mg tab ORAL SCH (09:00)
[2018-08-10] MEDS: Multivitamin w/Minerals tab ORAL SCH (09:00)
[2018-08-10] MEDS: Heparin 5000 units/ml inj SUBQ SCH ×2 (09:00→21:00)
[2018-08-10 12:00] VITALS: BP 144/83
--- NOTE | 2018-08-10 13:59 | History and Physical ---
History of Present Illness General Date patient seen: Aug 10, 2018 Reason for Hospitalization: Abnormal Labs Present Illness HPI 68 y/o female from snf sent last night for weakness, severe hypeglycemia and leukocytosis. Pt. noted to have pyuria and started on iv abx, hydration. She has refused most of the care today, psych eval has been requested. her appetite has been poor and she is unable to give significant history. Allergies: Coded Allergies: PALIPERIDONE (Unverified Allergy, Unknown, 08/09/18) Medication History Scheduled Amino Acids/Protein Hydrolys (Pro-Stat Liquid), 30 ML ORAL TWICE A DAY, ( Reported) Ascorbic Acid* (Vitamin C*), 500 MG ORAL DAILY, (Reported) Atorvastatin Calcium* (Atorvastatin Calcium*), 40 MG ORAL BEDTIME, (Reported) Docusate Sodium* (Docusate Sodium*), 100 MG ORAL TWICE A DAY, (Reported) Ferrous Sulfate* (Ferrous Sulfate*), 325 MG ORAL DAILY, (Reported) Insulin Detemir (Levemir), 16 UNITS SUBQ ACBREAKFAST, (Reported) Insulin Detemir (Levemir), 20 UNITS SUBQ BEDTIME, (Reported) Lisinopril (Lisinopril*), 10 MG ORAL DAILY, (Reported) Magnesium Hydroxide (Pedia-Lax), 800 MG PO BID, (Reported) Multivitamin with Minerals (Multivitamins with Minerals), 1 TAB ORAL DAILY, ( Reported) Olanzapine* (Zyprexa*), 5 MG ORAL TID, (Reported) Sennosides (Senna), 17.2 MG PO QHS, (Reported) Scheduled PRN Acetaminophen* (Acetaminophen 325MG Tablet*), 650 MG ORAL Q4H PRN for Mild Pain (Pain Scale 1-3), (Reported) Insulin Regular, Human* (Novolin R*), 0 SUBQ .SLIDING SCALE PRN for hyperglycemia, (Reported) Discontinued Medications Acetaminophen* (Acetaminophen 325MG Tablet*), 325 MG ORAL Q4H PRN for Mild Pain/ Temp > 100.5, (Reported) Discontinued Reason: Medication dose changed Al Hydroxide/mg Hydroxide (Mag-Al Liquid), 30 ML GT for HEARTBURN, (Reported) Discontinued Reason: Therapy completed Aripiprazole* (Abilify*), 30 MG ORAL DAILY, (Reported) Discontinued Reason: Therapy completed Aspirin* (Aspirin Ec*), 81 MG ORAL DAILY, (Reported) Discontinued Reason: Therapy completed Atorvastatin Calcium* (Atorvastatin Calcium*), 20 MG ORAL BEDTIME, (Reported) Discontinued Reason: Medication dose changed Carvedilol (Coreg), 3.125 MG ORAL EVERY 12 HOURS, (Reported) Discontinued Reason: Therapy completed Clonidine Hcl* (Catapres*), 0.1 MG ORAL EVERY 4 HOURS PRN for SBP>160, (Reported ) Discontinued Reason: Therapy completed Haloperidol Lactate (Haloperidol), 5 MG IM Q6HR PRN for For Anxiety, (Reported) Discontinued Reason: Therapy completed Heparin Sod (Porcine) (Heparin Sodium*), 5,000 UNITS SUBQ EVERY 12 HOURS, ( Reported) Discontinued Reason: Therapy completed Hydralazine Hcl* (Hydralazine Hcl*), 25 MG ORAL BID, (Reported) Discontinued Reason: Therapy completed Insulin Aspart* (Novolog*), 0 SUBQ AC+HS PRN for FOLLOW SLIDING SCALE, (Reported ) Discontinued Reason: Therapy completed Ipratropium/Albuterol Sulfate (DuoNeb 0.5-3(2.5)mg/3ml), 3 ML HHN Q4HR PRN for Shortness of Breath, (Reported) Discontinued Reason: Therapy completed Lorazepam* (Ativan*), 1 MG ORAL Q8HR, (Reported) Discontinued Reason: Therapy completed Magnesium Hydroxide (Pedia-Lax), 400 MG PO, (Reported) Discontinued Reason: MD discontinued med Nateglinide* (Starlix*), 120 MG ORAL BEFORE MEALS, (Reported) Discontinued Reason: Therapy completed Nifedipine (Nifedipine*), 30 MG ORAL DAILY, (Reported) Discontinued Reason: Therapy completed Olanzapine (Zyprexa), 5 MG ORAL DAILY, (Reported) Discontinued Reason: Medication dose changed Ondansetron Odt* (Zofran Odt*), 4 MG ORAL EVERY 6 HOURS PRN for Nausea & Vomiting, (Reported) Discontinued Reason: Therapy completed Polyethylene Glycol 3350* (Miralax*), 17 GM ORAL HS PRN for Constipation, ( Reported) Discontinued Reason: Therapy completed Quetiapine Fumarate* (Seroquel*), 25 MG ORAL Q12HR, (Reported) Discontinued Reason: Therapy completed Sitagliptin* (Januvia*), 50 MG ORAL ACBREAKFAST, (Reported) Discontinued Reason: Therapy completed Temazepam* (Restoril*), 15 MG ORAL BEDTIME PRN for Insomnia, (Reported) Discontinued Reason: Therapy completed Patient History Healthcare decision maker Resuscitation status Advanced Directive on File Social History Social History: (1) Non-tobacco user (2) detention resident Review of Systems Constitutional: Reports: malaise, weakness ENT: Denies: no symptoms, see HPI, ear pain, ear discharge, nose pain, nose congestion, throat pain, throat swelling, mouth pain, hearing loss, nasal discharge, other Respiratory: Reports: cough Cardiovascular: Denies: no symptoms, see HPI, chest pain, edema, palpitations, syncope, PND, other Gastrointestinal: Denies: no symptoms, see HPI, abdominal pain, constipation, diarrhea, nausea, vomiting, melena, hematemesis, other Genitourinary: Denies: no symptoms, see HPI, discharge, dysuria, frequency, hematuria, pain, retention, incontinence, urgency, vag bleed/dc, other Musculoskeletal: Reports: muscle stiffness Skin: Denies: no symptoms, see HPI, rash, change in color, change in hair/nails , dryness, lesions, other Psychiatric: Reports: anxiety, emotional problems, hallucinations Endocrine: Denies: no symptoms, see HPI, excessive sweating, flushing, intolerance to temperature, increased thirst, increased urine, unexplained weight loss, other Hematologic/Lymphatic: Denies: no symptoms, see HPI, anemia, blood clots, easy bleeding, easy bruising, swollen glands, diathesis, other Physical Exam General Appearance: lethargic, confused HEENT: normocephalic, atraumatic, EOMI, no JVD Neck: non-tender Respiratory/Chest: decreased breath sounds Breasts: no masses Cardiovascular/Chest: normal peripheral pulses Abdomen: normal bowel sounds, soft, no organomegaly, no mass Genitourinary/Rectal: normal genital exam Extremities: normal range of motion, non-tender, non-pitting, no edema, no cyanosis Skin Exam: no diaphoresis Neurologic: lapper II-XII grossly normal, no Babinski, disoriented Last 24 Hour Vital Signs Date Time Temp Pulse Resp B/P (MAP) Pulse Ox O2 Delivery O2 Flow Rate FiO2 08/10/18 09:00 Room Air 08/10/18 08:00 97.8 08/10/18 04:26 98.3 91 18 153/76 (101) 08/10/18 00:11 98.0 85 18 169/83 (111) 08/09/18 23:17 Room Air 08/09/18 23:13 Room Air 08/09/18 18:55 98.6 80 16 116/68 98 08/09/18 18:49 88 18 Room Air 08/09/18 15:56 98.0 88 18 122/76 98 Intake and Output 08/09/18 08/10/18 18:59 06:59 Intake Total 50 ml 240 ml Balance 50 ml 240 ml Intake IV Total 50 ml Other 240 ml # Voids 1 2 # Bowel Movements 2 Laboratory Tests Test 08/09/18 14:10 08/09/18 14:20 08/10/18 05:30 White Blood Count 11.9 K/UL (4.8-10.8) H 12.8 K/UL (4.8-10.8) H Red Blood Count 4.18 M/UL (4.20-5.40) L 4.13 M/UL (4.20-5.40) L Hemoglobin 11.7 G/DL (12.0-16.0) L 11.7 G/DL (12.0-16.0) L Hematocrit 36.6 % (37.0-47.0) L 36.2 % (37.0-47.0) L Mean Corpuscular Volume 88 FL (80-99) 88 FL (80-99) Mean Corpuscular Hemoglobin 28.0 PG (27.0-31.0) 28.2 PG (27.0-31.0) Mean Corpuscular Hemoglobin Concent 32.0 G/DL (32.0-36.0) 32.2 G/DL (32.0-36.0) Red Cell Distribution Width 12.6 % (11.6-14.8) 12.9 % (11.6-14.8) Platelet Count 220 K/UL (150-450) 195 K/UL (150-450) Mean Platelet Volume 8.6 FL (6.5-10.1) 8.0 FL (6.5-10.1) Neutrophils (%) (Auto) 66.0 % (45.0-75.0) 69.4 % (45.0-75.0) Lymphocytes (%) (Auto) 25.0 % (20.0-45.0) 21.6 % (20.0-45.0) Monocytes (%) (Auto) 5.9 % (1.0-10.0) 6.2 % (1.0-10.0) Eosinophils (%) (Auto) 2.3 % (0.0-3.0) 2.1 % (0.0-3.0) Basophils (%) (Auto) 0.7 % (0.0-2.0) 0.7 % (0.0-2.0) Urine Color Pale yellow Urine Appearance Very cloudy Urine pH 5 (4.5-8.0) Urine Specific [place] 1.020 (1.005-1.035) Urine Protein 4+ (NEGATIVE) H Urine Glucose (UA) 4+ (NEGATIVE) H Urine Ketones Negative (NEGATIVE) Urine Blood 3+ (NEGATIVE) H Urine Nitrite Negative (NEGATIVE) Urine Bilirubin Negative (NEGATIVE) Urine Urobilinogen Normal MG/DL (0.0-1.0) Urine Leukocyte Esterase 3+ (NEGATIVE) H Urine RBC 10-15 /HPF (0 - 2) H Urine WBC Tntc /HPF (0 - 2) H Urine Squamous Epithelial Cells Few /LPF (NONE/OCC) Urine Bacteria Moderate /HPF (NONE) H Urine Yeast Many /HPF (NONE) H Sodium Level 135 MMOL/L (136-145) L 139 MMOL/L (136-145) Potassium Level 4.4 MMOL/L (3.5-5.1) 4.9 MMOL/L (3.5-5.1) Chloride Level 100 MMOL/L (98-107) 106 MMOL/L (98-107) Carbon Dioxide Level 27 MMOL/L (21-32) 27 MMOL/L (21-32) Anion Gap 8 mmol/L (5-15) 6 mmol/L (5-15) Blood Urea Nitrogen 41 mg/dL (7-18) H 28 mg/dL (7-18) H Creatinine 1.5 MG/DL (0.55-1.30) H 1.2 MG/DL (0.55-1.30) Estimat Glomerular Filtration Rate 34.5 mL/min (>60) 44.7 mL/min (>60) Glucose Level 406 MG/DL (74-106) H 231 MG/DL (74-106) #H Calcium Level 10.1 MG/DL (8.5-10.1) 9.7 MG/DL (8.5-10.1) Total Bilirubin 0.3 MG/DL (0.2-1.0) Aspartate Amino Transf (AST/SGOT) 18 U/L (15-37) Alanine Aminotransferase (ALT/SGPT) 31 U/L (12-78) Alkaline Phosphatase 124 U/L (46-116) H Total Protein 6.2 G/DL (6.4-8.2) L Albumin 2.8 G/DL (3.4-5.0) L Globulin 3.4 g/dL Albumin/Globulin Ratio 0.8 (1.0-2.7) L Hemoglobin A1c 10.5 % (4.3-6.0) H Microbiology Date/Time Source Procedure Growth Status 08/09/18 14:10 Urine,Clean Catch Urine Culture - Preliminary NO GROWTH Resulted Height (Feet): 5 Height (Inches): 5.00 Weight (Pounds): 140 Medications Current Medications Medications (Trade) Dose Ordered Sig/Arely Route PRN Reason Start Time Stop Time Status Last Admin Dose Admin Acetaminophen (Tylenol) 650 mg Q4H PRN ORAL Mild Pain/Temp > 100.5 08/09/18 22:00 09/08/18 21:59 Ascorbic Acid (Vitamin C) 500 mg DAILY ORAL 08/10/18 09:00 09/09/18 08:59 Ceftriaxone Sodium 1 gm/ Dextrose 55 ml @ 110 mls/hr Q24H IVPB 08/10/18 15:00 08/17/18 14:59 Clonidine HCl (Catapres Tab) 0.1 mg Q6H PRN ORAL For High Blood Pressure 08/09/18 20:15 09/08/18 20:14 Dextrose (Dextrose 50%) 25 ml Q30M PRN IV Hypoglycemia 08/09/18 22:15 09/08/18 22:14 Dextrose (Dextrose 50%) 50 ml Q30M PRN IV Hypoglycemia 08/09/18 22:15 09/08/18 22:14 Docusate Sodium (Colace) 100 mg TWICE A DAY ORAL 08/10/18 09:00 09/09/18 08:59 Ferrous Sulfate (Feosol) 325 mg DAILY ORAL 08/10/18 09:00 09/09/18 08:59 Heparin Sodium (Porcine) (Heparin 5000 units/ml) 5,000 units EVERY 12 HOURS SUBQ 08/10/18 09:00 09/09/18 08:59 Insulin Aspart (NovoLOG) BEFORE MEALS AND HS SUBQ 08/10/18 06:30 09/09/18 06:29 Insulin Detemir (Levemir) 16 units DAILY SUBQ 08/10/18 09:00 09/09/18 08:59 Insulin Detemir (Levemir) 20 units BEDTIME SUBQ 08/10/18 21:00 09/09/18 20:59 Lisinopril (Zestril) 10 mg DAILY ORAL 08/10/18 09:00 09/09/18 08:59 Magnesium Oxide (Mag-Ox 400mg) 800 mg BID ORAL 08/10/18 09:00 09/09/18 08:59 Multivitamins Therapeutic (Therapeutic Multivitamin) 1 ea DAILY ORAL 08/10/18 09:00 09/09/18 08:59 Olanzapine (ZyPREXA) 5 mg TID ORAL 08/10/18 09:00 09/09/18 08:59 08/10/18 10:37 Sennosides (Senokot) 17.2 mg BEDTIME ORAL 08/09/18 22:00 09/08/18 21:59 Assessment/Plan Problem List: (1) Acute encephalopathy Assessment & Plan: -will ask for psych eval -may need meds for agitation -has metabolic causes for altered mental status ICD Codes: G93.40 - Encephalopathy, unspecified SNOMED: 98374300, 003373866 (2) Renal insufficiency Assessment & Plan: -better after ivf -likely vasomotor, adjust meds -watch volume status -check urine lytes if indicated ICD Codes: N28.9 - Disorder of kidney and ureter, unspecified SNOMED: 785388790, [id number] (3) Weak Assessment & Plan: - pt eval when more alert ICD Codes: R53.1 - Weakness SNOMED: 67800690 (4) HTN (hypertension) Assessment & Plan: -resume meds if agrees to take ICD Codes: I10 - Essential (primary) hypertension SNOMED: 24122678 (5) UTI (urinary tract infection) Assessment & Plan: -likley sepsis, watch cultures, iv abx, watch wbc count, consider id eval ICD Codes: N39.0 - Urinary tract infection, site not specified SNOMED: 20650499 (6) Diabetes mellitus Assessment & Plan: -bs better with levemir ICD Codes: E11.9 - Type 2 diabetes mellitus without complications SNOMED: 36415824 Qualifiers: Status: stable Henrry العراقي M.D. Aug 10, 2018 13:59
[2018-08-10] MEDS ORDERED: cefTRIAXone 1 GM in D5W 55 ML IVPB SCH (15:00)
[2018-08-10] MEDS: 1/2NS w/KCl 20mEq 1000ml 1,000 ML IV SCH (15:48)
[2018-08-10 16:00] VITALS: BP 160/81
[2018-08-10 20:00] VITALS: BP 128/101
[2018-08-10] MEDS: Sennosides 8.6mg tab ORAL SCH (21:00)
--- NOTE | 2018-08-10 22:04 | Consultation ---
History of Present Illness General Chief Complaint: Abnormal Labs Present Illness HPI 68 y/o female was sent to er for weakness, severe hypeglycemia and leukocytosis. the pt has severe agitation and is unable to provided any hx. the pt is unable to understand, process nor appreciate the information given to her. the pt is delusional and is not following staff redirection. the pt is yelling and pulling out IV access. Allergies: Coded Allergies: PALIPERIDONE (Unverified Allergy, Unknown, 08/09/18) Medication History Scheduled Amino Acids/Protein Hydrolys (Pro-Stat Liquid), 30 ML ORAL TWICE A DAY, ( Reported) Ascorbic Acid* (Vitamin C*), 500 MG ORAL DAILY, (Reported) Atorvastatin Calcium* (Atorvastatin Calcium*), 40 MG ORAL BEDTIME, (Reported) Docusate Sodium* (Docusate Sodium*), 100 MG ORAL TWICE A DAY, (Reported) Ferrous Sulfate* (Ferrous Sulfate*), 325 MG ORAL DAILY, (Reported) Insulin Detemir (Levemir), 16 UNITS SUBQ ACBREAKFAST, (Reported) Insulin Detemir (Levemir), 20 UNITS SUBQ BEDTIME, (Reported) Lisinopril (Lisinopril*), 10 MG ORAL DAILY, (Reported) Magnesium Hydroxide (Pedia-Lax), 800 MG PO BID, (Reported) Multivitamin with Minerals (Multivitamins with Minerals), 1 TAB ORAL DAILY, ( Reported) Olanzapine* (Zyprexa*), 5 MG ORAL TID, (Reported) Sennosides (Senna), 17.2 MG PO QHS, (Reported) Scheduled PRN Acetaminophen* (Acetaminophen 325MG Tablet*), 650 MG ORAL Q4H PRN for Mild Pain (Pain Scale 1-3), (Reported) Insulin Regular, Human* (Novolin R*), 0 SUBQ .SLIDING SCALE PRN for hyperglycemia, (Reported) Discontinued Medications Acetaminophen* (Acetaminophen 325MG Tablet*), 325 MG ORAL Q4H PRN for Mild Pain/ Temp > 100.5, (Reported) Discontinued Reason: Medication dose changed Al Hydroxide/mg Hydroxide (Mag-Al Liquid), 30 ML GT for HEARTBURN, (Reported) Discontinued Reason: Therapy completed Aripiprazole* (Abilify*), 30 MG ORAL DAILY, (Reported) Discontinued Reason: Therapy completed Aspirin* (Aspirin Ec*), 81 MG ORAL DAILY, (Reported) Discontinued Reason: Therapy completed Atorvastatin Calcium* (Atorvastatin Calcium*), 20 MG ORAL BEDTIME, (Reported) Discontinued Reason: Medication dose changed Carvedilol (Coreg), 3.125 MG ORAL EVERY 12 HOURS, (Reported) Discontinued Reason: Therapy completed Clonidine Hcl* (Catapres*), 0.1 MG ORAL EVERY 4 HOURS PRN for SBP>160, (Reported ) Discontinued Reason: Therapy completed Haloperidol Lactate (Haloperidol), 5 MG IM Q6HR PRN for For Anxiety, (Reported) Discontinued Reason: Therapy completed Heparin Sod (Porcine) (Heparin Sodium*), 5,000 UNITS SUBQ EVERY 12 HOURS, ( Reported) Discontinued Reason: Therapy completed Hydralazine Hcl* (Hydralazine Hcl*), 25 MG ORAL BID, (Reported) Discontinued Reason: Therapy completed Insulin Aspart* (Novolog*), 0 SUBQ AC+HS PRN for FOLLOW SLIDING SCALE, (Reported ) Discontinued Reason: Therapy completed Ipratropium/Albuterol Sulfate (DuoNeb 0.5-3(2.5)mg/3ml), 3 ML HHN Q4HR PRN for Shortness of Breath, (Reported) Discontinued Reason: Therapy completed Lorazepam* (Ativan*), 1 MG ORAL Q8HR, (Reported) Discontinued Reason: Therapy completed Magnesium Hydroxide (Pedia-Lax), 400 MG PO, (Reported) Discontinued Reason: MD discontinued med Nateglinide* (Starlix*), 120 MG ORAL BEFORE MEALS, (Reported) Discontinued Reason: Therapy completed Nifedipine (Nifedipine*), 30 MG ORAL DAILY, (Reported) Discontinued Reason: Therapy completed Olanzapine (Zyprexa), 5 MG ORAL DAILY, (Reported) Discontinued Reason: Medication dose changed Ondansetron Odt* (Zofran Odt*), 4 MG ORAL EVERY 6 HOURS PRN for Nausea & Vomiting, (Reported) Discontinued Reason: Therapy completed Polyethylene Glycol 3350* (Miralax*), 17 GM ORAL HS PRN for Constipation, ( Reported) Discontinued Reason: Therapy completed Quetiapine Fumarate* (Seroquel*), 25 MG ORAL Q12HR, (Reported) Discontinued Reason: Therapy completed Sitagliptin* (Januvia*), 50 MG ORAL ACBREAKFAST, (Reported) Discontinued Reason: Therapy completed Temazepam* (Restoril*), 15 MG ORAL BEDTIME PRN for Insomnia, (Reported) Discontinued Reason: Therapy completed Patient History Limited by: medical condition History Provided By: Medical Record, Caregiver, PMD Healthcare decision maker Resuscitation status Advanced Directive on File Past Medical/Surgical History Past Medical/Surgical History: (1) ATN (acute tubular necrosis) (2) Anemia (3) Dehydration (4) Renal insufficiency (5) Weak (6) UTI (urinary tract infection) (7) HTN (hypertension) (8) Acute encephalopathy (9) Diabetes mellitus Review of Systems Psychiatric: Reports: prior hx, anxiety, emotional problems, hallucinations Physical Exam General Appearance: alert, confused, severe distress, agitated, combative Last 24 Hour Vital Signs Date Time Temp Pulse Resp B/P (MAP) Pulse Ox O2 Delivery O2 Flow Rate FiO2 08/10/18 21:00 Room Air 08/10/18 20:00 98.2 85 18 128/101 (110) 96 08/10/18 16:00 98.9 76 17 160/81 (107) 100 08/10/18 12:00 97.6 95 19 144/83 (103) 08/10/18 09:00 Room Air 08/10/18 08:00 97.8 08/10/18 04:26 98.3 91 18 153/76 (101) 08/10/18 00:11 98.0 85 18 169/83 (111) 08/09/18 23:17 Room Air 08/09/18 23:13 Room Air Intake and Output 08/09/18 08/10/18 18:59 06:59 Intake Total 50 ml 240 ml Balance 50 ml 240 ml IV Total 50 ml Other 240 ml # Voids 1 2 # Bowel Movements 2 Laboratory Tests Test 08/10/18 05:30 White Blood Count 12.8 K/UL (4.8-10.8) H Red Blood Count 4.13 M/UL (4.20-5.40) L Hemoglobin 11.7 G/DL (12.0-16.0) L Hematocrit 36.2 % (37.0-47.0) L Mean Corpuscular Volume 88 FL (80-99) Mean Corpuscular Hemoglobin 28.2 PG (27.0-31.0) Mean Corpuscular Hemoglobin Concent 32.2 G/DL (32.0-36.0) Red Cell Distribution Width 12.9 % (11.6-14.8) Platelet Count 195 K/UL (150-450) Mean Platelet Volume 8.0 FL (6.5-10.1) Neutrophils (%) (Auto) 69.4 % (45.0-75.0) Lymphocytes (%) (Auto) 21.6 % (20.0-45.0) Monocytes (%) (Auto) 6.2 % (1.0-10.0) Eosinophils (%) (Auto) 2.1 % (0.0-3.0) Basophils (%) (Auto) 0.7 % (0.0-2.0) Sodium Level 139 MMOL/L (136-145) Potassium Level 4.9 MMOL/L (3.5-5.1) Chloride Level 106 MMOL/L (98-107) Carbon Dioxide Level 27 MMOL/L (21-32) Anion Gap 6 mmol/L (5-15) Blood Urea Nitrogen 28 mg/dL (7-18) H Creatinine 1.2 MG/DL (0.55-1.30) Estimat Glomerular Filtration Rate 44.7 mL/min (>60) Glucose Level 231 MG/DL (74-106) #H Calcium Level 9.7 MG/DL (8.5-10.1) Height (Feet): 5 Height (Inches): 5.00 Weight (Pounds): 140 Medications Current Medications Medications (Trade) Dose Ordered Sig/Arely Route PRN Reason Start Time Stop Time Status Last Admin Dose Admin Acetaminophen (Tylenol) 650 mg Q4H PRN ORAL Mild Pain/Temp > 100.5 08/09/18 22:00 09/08/18 21:59 Ascorbic Acid (Vitamin C) 500 mg DAILY ORAL 08/10/18 09:00 09/09/18 08:59 Ceftriaxone Sodium 1 gm/ Dextrose 55 ml @ 110 mls/hr Q24H IVPB 08/10/18 15:00 08/17/18 14:59 08/10/18 15:50 Clonidine HCl (Catapres Tab) 0.1 mg Q6H PRN ORAL For High Blood Pressure 08/09/18 20:15 09/08/18 20:14 Dextrose (Dextrose 50%) 25 ml Q30M PRN IV Hypoglycemia 08/09/18 22:15 09/08/18 22:14 Dextrose (Dextrose 50%) 50 ml Q30M PRN IV Hypoglycemia 08/09/18 22:15 09/08/18 22:14 Docusate Sodium (Colace) 100 mg TWICE A DAY ORAL 08/10/18 09:00 09/09/18 08:59 08/10/18 17:55 Heparin Sodium (Porcine) (Heparin 5000 units/ml) 5,000 units EVERY 12 HOURS SUBQ 08/10/18 09:00 09/09/18 08:59 Insulin Aspart (NovoLOG) BEFORE MEALS AND HS SUBQ 08/10/18 06:30 09/09/18 06:29 08/10/18 21:22 Insulin Detemir (Levemir) 16 units DAILY SUBQ 08/10/18 09:00 09/09/18 08:59 Insulin Detemir (Levemir) 20 units BEDTIME SUBQ 08/10/18 21:00 09/09/18 20:59 08/10/18 21:23 Lisinopril (Zestril) 10 mg DAILY ORAL 08/10/18 09:00 09/09/18 08:59 Magnesium Oxide (Mag-Ox 400mg) 800 mg BID ORAL 08/10/18 09:00 09/09/18 08:59 08/10/18 17:55 Multivitamins Therapeutic (Therapeutic Multivitamin) 1 ea DAILY ORAL 08/10/18 09:00 09/09/18 08:59 Olanzapine (ZyPREXA) 5 mg Q6H PRN ORAL For Anxiety 08/10/18 17:45 09/09/18 17:44 Olanzapine (ZyPREXA) 5 mg TID ORAL 08/10/18 09:00 09/09/18 08:59 08/10/18 17:55 Sennosides (Senokot) 17.2 mg BEDTIME ORAL 08/09/18 22:00 09/08/18 21:59 Sodium 1,000 ml @ 50 mls/hr Q20H IV 08/10/18 15:00 09/09/18 14:59 08/10/18 15:48 Assessment/Plan Problem List: (1) Acute encephalopathy ICD Codes: G93.40 - Encephalopathy, unspecified SNOMED: 18941441, 266619067 Assessment/Plan zyprexa 5mg po tid zyprexa prn soft restraints. Nalini Miller MD Aug 10, 2018 22:04
[2018-08-11 04:00] VITALS: BP 157/91
[2018-08-11] MEDS: NovoLOG Insulin Flexpen SUBQ SCH ×4 (06:30→20:58)
[2018-08-11 08:00] VITALS: BP 113/90
[2018-08-11] MEDS: Multivitamin w/Minerals tab ORAL SCH ×2 (08:27→08:47)
[2018-08-11] MEDS: Ascorbic Acid 500mg tab ORAL SCH ×2 (08:27→08:47)
[2018-08-11] MEDS: Magnesium Oxide 400mg tab ORAL SCH ×3 (08:27→17:21)
[2018-08-11] MEDS: Docusate 100mg cap ORAL SCH ×2 (08:32→17:21)
[2018-08-11] MEDS: Lisinopril 10mg tab ORAL SCH (08:32)
[2018-08-11] MEDS: Heparin 5000 units/ml inj SUBQ SCH ×2 (08:33→20:59)
[2018-08-11] MEDS: Levemir Flexpen SUBQ SCH ×2 (08:46→20:59)
--- NOTE | 2018-08-11 10:26 | Nephrology Progress Note ---
Assessment/Plan Problem List: (1) Acute encephalopathy Assessment: -appreciate psych eval -may need meds for agitation -has metabolic causes for altered mental status, treat uti (2) Renal insufficiency Assessment: -better after ivf -likely vasomotor, adjust meds -watch volume status -check urine lytes if indicated (3) Weak Assessment: - pt eval when more alert (4) HTN (hypertension) Assessment: -resume meds if agrees to take (5) UTI (urinary tract infection) Assessment: -likley sepsis, watch cultures, iv abx, watch wbc count, consider id eval (6) Diabetes mellitus Assessment: -bs better with levemir Subjective ROS Limited/Unobtainable: Yes Subjective pt. seen and examined appreciate psych eval less agitated bs noted refused labs good uop, cultures reviewed Objective Objective Last 24 Hour Vital Signs Date Time Temp Pulse Resp B/P (MAP) Pulse Ox O2 Delivery O2 Flow Rate FiO2 08/11/18 08:32 110/90 08/11/18 08:00 97.1 100 21 113/90 (98) 97 08/11/18 04:00 98.4 73 19 157/91 (113) 98 08/11/18 00:00 18 08/10/18 21:00 Room Air 08/10/18 20:00 98.2 85 18 128/101 (110) 96 08/10/18 16:00 98.9 76 17 160/81 (107) 100 08/10/18 12:00 97.6 95 19 144/83 (103) Intake and Output 08/10/18 08/11/18 19:00 07:00 Intake Total 460 ml Balance 460 ml Intake Oral 460 ml # Voids 2 Height (Feet): 5 Height (Inches): 5.00 Weight (Pounds): 136 General Appearance: no apparent distress, lethargic EENT: PERRL/EOMI, normal ENT inspection Neck: supple Cardiovascular: regular rhythm Respiratory/Chest: decreased breath sounds Abdomen: soft Extremities: non-pitting Neurologic: acid cutter II-XII grossly normal, abnormal gait Henrry العراقي M.D. Aug 11, 2018 10:25
[2018-08-11] MEDS ORDERED: LORazepam Inj 2mg/ml 1ml IM SCH (10:47)
[2018-08-11] MEDS ORDERED: DiphenhydrAMINE 50mg/ml Inj IM SCH (11:00)
[2018-08-11] MEDS: 1/2NS w/KCl 20mEq 1000ml 1,000 ML IV SCH (11:00)
[2018-08-11] MEDS ORDERED: Haloperidol 5mg/ml Inj IM SCH (11:00)
[2018-08-11 12:03] LABS: BASOPHILS % (AUTO) 0.6 % (0.0-2.0); EOSINOPHILS % (AUTO) 2.4 % (0.0-3.0); HEMATOCRIT 37.7 % (37.0-47.0); HEMOGLOBIN 12.2 G/DL (12.0-16.0); LYMPHOCYTES % (AUTO) 20.3 % (20.0-45.0); MEAN CORPUSCULAR VOLUME 87 FL (80-99); MONOCYTES % (AUTO) 5.7 % (1.0-10.0); PLATELET COUNT 201 K/UL (150-450); RED BLOOD COUNT 4.34 M/UL (4.20-5.40); RED CELL DISTRIBUTION WIDTH 12.9 % (11.6-14.8); WHITE BLOOD COUNT 9.8 K/UL (4.8-10.8)
--- NOTE | 2018-08-11 12:19 | General Progress Note ---
Assessment/Plan Problem List: (1) Acute encephalopathy ICD Codes: G93.40 - Encephalopathy, unspecified SNOMED: 44003732, 799429706 (2) UTI (urinary tract infection) ICD Codes: N39.0 - Urinary tract infection, site not specified SNOMED: 01291375 Assessment/Plan Zyprexa 5mg po tid Zyprexa prn administered IM cocktail Subjective Neurologic/Psychiatric: Reports: anxiety, depressed, emotional problems Allergies: Coded Allergies: PALIPERIDONE (Unverified Allergy, Unknown, 08/09/18) Subjective the pt is severely agitated and not taking her meds the pt was yelling and needs redirection the pt was coming out of the bed and attempting to leave the pt lacks capacity to make decisions Objective Last 24 Hour Vital Signs Date Time Temp Pulse Resp B/P (MAP) Pulse Ox O2 Delivery O2 Flow Rate FiO2 08/11/18 09:00 Room Air 08/11/18 08:32 110/90 08/11/18 08:00 97.1 100 21 113/90 (98) 97 08/11/18 04:00 98.4 73 19 157/91 (113) 98 08/11/18 00:00 18 08/10/18 21:00 Room Air 08/10/18 20:00 98.2 85 18 128/101 (110) 96 08/10/18 16:00 98.9 76 17 160/81 (107) 100 Intake and Output 08/10/18 08/11/18 19:00 07:00 Intake Total 460 ml Balance 460 ml Intake Oral 460 ml # Voids 2 Laboratory Tests 08/11/18 11:50: White Blood Count 9.8, Red Blood Count 4.34, Hemoglobin 12.2, Hematocrit 37.7, Mean Corpuscular Volume 87, Mean Corpuscular Hemoglobin 28.0, Mean Corpuscular Hemoglobin Concent 32.2, Red Cell Distribution Width 12.9, Platelet Count 201, Mean Platelet Volume 8.1, Neutrophils (%) (Auto) 71.0, Lymphocytes (%) (Auto) 20.3, Monocytes (%) (Auto) 5.7, Eosinophils (%) (Auto) 2.4, Basophils (%) (Auto ) 0.6, Sodium Level [Pending], Potassium Level [Pending], Chloride Level [ Pending], Carbon Dioxide Level [Pending], Blood Urea Nitrogen [Pending], Creatinine [Pending], Estimat Glomerular Filtration Rate [Pending], Glucose Level [Pending], Calcium Level [Pending], Thyroid Stimulating Hormone (TSH) [ Pending] Height (Feet): 5 Height (Inches): 5.00 Weight (Pounds): 136 General Appearance: alert, severe distress, agitated, combative Nalini Miller MD Aug 11, 2018 12:19
[2018-08-11 12:29] LABS: ANION GAP 6 mmol/L (5-15); BLOOD UREA NITROGEN 24 mg/dL (7-18); CALCIUM 9.5 MG/DL (8.5-10.1); CARBON DIOXIDE 26 MMOL/L (21-32); CHLORIDE 106 MMOL/L (98-107); CREATININE 1.3 MG/DL (0.55-1.30); POTASSIUM 4.5 MMOL/L (3.5-5.1); SODIUM 138 MMOL/L (136-145)
[2018-08-11] MEDS: OLANZapine 10mg tab ORAL SCH (17:19)
[2018-08-11] MEDS: Cephalexin 500mg cap ORAL SCH (17:19)
[2018-08-11 20:00] VITALS: BP 149/80
[2018-08-11] MEDS: Sennosides 8.6mg tab ORAL SCH (20:59)
[2018-08-12] VITALS: BP 114/72
[2018-08-12 04:00] VITALS: BP 133/64
[2018-08-12] MEDS: NovoLOG Insulin Flexpen SUBQ SCH ×3 (06:15→16:30)
[2018-08-12 06:45] LABS: BASOPHILS % (AUTO) 0.9 % (0.0-2.0); EOSINOPHILS % (AUTO) 4.2 % (0.0-3.0); HEMATOCRIT 34.3 % (37.0-47.0); HEMOGLOBIN 11.3 G/DL (12.0-16.0); LYMPHOCYTES % (AUTO) 36.9 % (20.0-45.0); MEAN CORPUSCULAR VOLUME 87 FL (80-99); MONOCYTES % (AUTO) 7.6 % (1.0-10.0); NEUTROPHILS % (AUTO) 50.5 % (45.0-75.0); PLATELET COUNT 207 K/UL (150-450); RED BLOOD COUNT 3.96 M/UL (4.20-5.40); RED CELL DISTRIBUTION WIDTH 12.5 % (11.6-14.8); WHITE BLOOD COUNT 9.1 K/UL (4.8-10.8)
[2018-08-12 07:13] LABS: ANION GAP 5 mmol/L (5-15); BLOOD UREA NITROGEN 31 mg/dL (7-18); CALCIUM 9.6 MG/DL (8.5-10.1); CARBON DIOXIDE 29 MMOL/L (21-32); CHLORIDE 109 MMOL/L (98-107); CREATININE 1.4 MG/DL (0.55-1.30); POTASSIUM 4.7 MMOL/L (3.5-5.1); SODIUM 143 MMOL/L (136-145)
[2018-08-12 08:00] VITALS: BP 111/88
[2018-08-12] MEDS: OLANZapine 10mg tab ORAL SCH (08:42)
[2018-08-12] MEDS: Docusate 100mg cap ORAL SCH ×2 (08:42→17:45)
[2018-08-12] MEDS: Lisinopril 10mg tab ORAL SCH (08:42)
[2018-08-12] MEDS: Ascorbic Acid 500mg tab ORAL SCH (08:42)
[2018-08-12] MEDS: Magnesium Oxide 400mg tab ORAL SCH ×2 (08:43→17:46)
[2018-08-12] MEDS: Heparin 5000 units/ml inj SUBQ SCH (08:43)
[2018-08-12] MEDS: Multivitamin w/Minerals tab ORAL SCH (08:43)
[2018-08-12] MEDS: Cephalexin 500mg cap ORAL SCH (08:43)
[2018-08-12] MEDS: Levemir Flexpen SUBQ SCH (08:51)
[2018-08-12 12:00] VITALS: BP 112/69
--- NOTE | 2018-08-12 12:42 | General Progress Note ---
Assessment/Plan Problem List: (1) Acute encephalopathy ICD Codes: G93.40 - Encephalopathy, unspecified SNOMED: 08866211, [id number] Assessment/Plan zyprexa 15mg po tid zyprexa prn soft restraints if needed Subjective Neurologic/Psychiatric: Reports: anxiety, depressed, emotional problems Allergies: Coded Allergies: PALIPERIDONE (Unverified Allergy, Unknown, 08/09/18) Subjective the pt is doing better still agitated at times took her meds Objective Last 24 Hour Vital Signs Date Time Temp Pulse Resp B/P (MAP) Pulse Ox O2 Delivery O2 Flow Rate FiO2 08/12/18 12:00 99.1 71 19 112/69 (83) 96 08/12/18 09:00 Room Air 08/12/18 08:00 98.0 78 20 111/88 (96) 96 08/12/18 04:00 98.5 71 20 133/64 (87) 96 08/12/18 00:00 98.5 82 18 114/72 (86) 97 08/11/18 21:00 Room Air 08/11/18 20:00 98.2 75 18 149/80 (103) 95 Intake and Output 08/11/18 08/12/18 19:00 07:00 Intake Total 720 ml Balance 720 ml Intake Oral 720 ml # Voids 4 2 # Bowel Movements 1 1 Laboratory Tests 08/12/18 05:35: White Blood Count 9.1, Red Blood Count 3.96L, Hemoglobin 11.3L, Hematocrit 34.3L , Mean Corpuscular Volume 87, Mean Corpuscular Hemoglobin 28.4, Mean Corpuscular Hemoglobin Concent 32.8, Red Cell Distribution Width 12.5, Platelet Count 207, Mean Platelet Volume 8.4, Neutrophils (%) (Auto) 50.5, Lymphocytes (% ) (Auto) 36.9, Monocytes (%) (Auto) 7.6, Eosinophils (%) (Auto) 4.2H, Basophils (%) (Auto) 0.9, Sodium Level 143, Potassium Level 4.7, Chloride Level 109H, Carbon Dioxide Level 29, Anion Gap 5, Blood Urea Nitrogen 31H, Creatinine 1.4H, Estimat Glomerular Filtration Rate 37.4, Glucose Level 76#, Calcium Level 9.6 Height (Feet): 5 Height (Inches): 5.00 Weight (Pounds): 136 General Appearance: alert, confused, agitated Nalini Miller MD Aug 12, 2018 12:42
[2018-08-12] MEDS ORDERED: KEFLEX500 M1 ORAL (14:39)
[2018-08-12] MEDS ORDERED: OLANZAPINE5 MG ORAL (14:39)
--- NOTE | 2018-08-12 14:43 | Discharge Summary ---
Discharge Summary Hospital Course Date of Admission Aug 09, 2018 at 17:13 Date of Discharge Admitting Diagnosis uti, dehydration HPI Dory Cooper is a 68 year old female who was admitted on Aug 09, 2018 at 17:13 for Urinary Tract Infection, Dehydration pt. treated with abx, had encephalopathy seen by psych, meds adjusted Discharge Condition Upon Discharge: stable Discharge Disposition Patient was discharged to snf Henrry العراقي M.D. Aug 12, 2018 14:43
== END 2018-08-12 18:22 | DRG 689 ==
LOC: EDBD 13:38 → EMR 16:59 → 4E 17:13 → EDBEDREQ 18:33 → 4E 22:51
DX: N39.0 Urinary tract infection, site not specified (principal); G93.41 Metabolic encephalopathy; I10 Essential (primary) hypertension; E11.65 Type 2 diabetes mellitus with hyperglycemia; F41.9 Anxiety disorder, unspecified; D72.829 Elevated white blood cell count, unspecified; Z79.4 Long term (current) use of insulin; E86.0 Dehydration; F32.89 Other specified depressive episodes
CPT/HCPCS: 36415; 71045; 80048; 80053; 81003; 82962; 83036; 84443; 85025; 87081; 87086; 96365; 99285; J1815; S5561

== ENCOUNTER 2018-12-29 15:56 | Inpatient (IN) | payer MEDICARE, OTHER ==
[~2018-12-29] VITALS: Ht 160 cm; Wt 68.0 kg
--- NOTE | 2018-12-29 07:33 | NUR ---
NURSE NOTES: Received report from SALVADOR Mead. On room air, no signs of distress or labored breathing. IV intact, patent, and saline locked. Patient sleeping. Will continue to monitor and contact MD for orders. Addendum: 12/30/18 at 0744 by Yancy Rai RN wrong time stamp.
[~2018-12-29 15:56] MED LIST changes: +ATORVASTATIN CA40 MG ORAL; +FEOSOL1 TAB ORAL; +FERROUS SULFAT325 MG ORAL; +KEFLEX500 M1 ORAL; +LEVEMIR100 UNIT/1 SUBQ; +LISINOPRIL5 MG ORAL; +MULTIVITAMINS1 EA13 ORAL; +NOVOLIN R100 UNIT/1 SUBQ; +OLANZAPINE5 MG ORAL; +PEDIA-LAX400 MG PO; +PRO-STAT LIQUID30 ML ORAL; +SENNA8.6 M2 PO; +VITAMIN C500 M1 ORAL; +ZYPREXA5 MG ORAL; +ZYPREXA7.5 MG ORAL
[2018-12-29] MEDS ORDERED: LORazepam Inj 2mg/ml 1ml ONE (16:06)
[2018-12-29] MEDS ORDERED: Haloperidol 5mg/ml Inj ONE (16:10)
[2018-12-29] MEDS ORDERED: DiphenhydrAMINE 50mg/ml Inj ONE (16:10)
[2018-12-29] MEDS ORDERED: DiphenhydrAMINE 50mg/ml Inj IM ONE (16:15)
[2018-12-29] MEDS ORDERED: Haloperidol 5mg/ml Inj IM ONE (16:15)
[2018-12-29] MEDS ORDERED: LORazepam Inj 2mg/ml 1ml IM ONE (16:15)
--- NOTE | 2018-12-29 16:15 | NUR ---
ED Nurse Note: Patient brought in by ambulance [facility], due to high blood sugar, per EMS, BS was 501 @1500. Patient is agitated, does not answer any questions at this time, unable to do accucheck, obtain vital signs at this time.
[2018-12-29] MEDS ORDERED: VITAMIN D1000 UNI1 ORAL (16:28)
[2018-12-29] MEDS ORDERED: VITAMIN C500 M1 ORAL (16:28)
[2018-12-29] MEDS ORDERED: TRADJENTA5 MG PO (16:28)
[2018-12-29] MEDS ORDERED: DEPAKOTE250 MG PO (16:30)
[2018-12-29] MEDS ORDERED: LEXAPRO10 MG ORAL (16:30)
[2018-12-29] MEDS ORDERED: ABILIFY15 MG ORAL (16:31)
[2018-12-29 16:41] VITALS: BP 171/74
--- NOTE | 2018-12-29 17:09 | Emergency Room Report ---
History of Present Illness General Chief Complaint: Abnormal Labs Source: Medical Record, EMS Present Illness HPI Patient is sent in from the [facility] facility for elevated blood sugar. She has a history of diabetes. She also has a history of dementia. Patient is unable to give a history. She is usually just oriented to self. The patient is on insulin. Patient admitted August for UTI and encephalopathy. Allergies: Coded Allergies: PALIPERIDONE (Unverified Allergy, Unknown, 08/09/18) Patient History Limited by: medical condition Past Medical History: see triage record Social History Narrative SNF Reviewed Nursing Documentation: PMH: Agreed; PSxH: Agreed Nursing Documentation-PM Past Medical History: No History, Except For Hx Cardiac Problems: Yes - Heart failure Hx Hypertension: Yes - HTN Hx Diabetes: Yes - DM2 Hx Cancer: No - UTI Hx Dysphasia: Yes Hx Weakness: Yes Review of Systems All Other Systems: limited Physical Exam Vital Signs Date Time Temp Pulse Resp B/P (MAP) Pulse Ox O2 Delivery O2 Flow Rate FiO2 12/29/18 16:41 97.2 65 16 171/74 Pulse oximetry 100% on room air Sp02 EP Interpretation: reviewed, normal General Appearance: mild distress, Chronically Ill Head: normocephalic Eyes: bilateral eye normal inspection, bilateral eye PERRL ENT: moist mucus membranes Neck: supple Respiratory: lungs clear, normal breath sounds Cardiovascular #1: regular rate, rhythm Cardiovascular #2: 2+ radial (R) Gastrointestinal: normal inspection, normal bowel sounds, non tender, no mass, non-distended Musculoskeletal: back normal, gait/station normal, normal range of motion Neurologic: alert, motor strength/tone normal, sensory intact, other - Agitated disoriented fighting with staff Psychiatric: other - Disoriented and agitated Skin: normal inspection, warm/dry Medical Decision Making Medical: Other Behavioral: Schizophrenia Reaction to Intervention: No change Restraint Reassesment I, Kranthi Ferreira MD, have personally evaluated this patient. Laboratory tests have been reviewed and addressed accordingly. The patient is deemed to present a danger to themselves and/or others. This is based on the exam, history provided EMS, facility and observed or reported behavior. Attempts for non-invasive measures have been considered and/or attempted, however, have been futile. It is in the best interest of the nursing staff, the patient, and others involved in this patient's care that behavioral restraints be applied. Patient evaluation reveals the following: moaning and fighting with staff, not responding to verbal commands Diagnostic Impression: Primary Impression: Hyperglycemia Additional Impressions: Dehydration Acute exacerbation of chronic schizophrenia Subthrapeutic valproic acid level Dementia Qualified Codes: F03.91 - Unspecified dementia with behavioral disturbance ER Course The patient presents with hyperglycemia. Differential includes acute myocardial infarction, occult infection, renal dysfunction, electrolyte imbalance, diabetic ketoacidosis amongst others. The patient will be evaluated with EKG, chest x-ray and labs. Patient will receive IV hydration and repeat Accu-Cheks. The patient is agitated needs to be sedated. None behavioral restraints are used initially. Solomon EKG, no injury. CXR, no infiltrate. Repeat accucheck improved. SQ insulin ordered. Mentation improved with sedation. (Valproic acid low.) Discussed with Dr. العراقي's associate who is OK with admission to Dr. Guaman. Laboratory Tests Test 12/29/18 16:27 White Blood Count 6.6 K/UL (4.8-10.8) Red Blood Count 4.25 M/UL (4.20-5.40) Hemoglobin 11.8 G/DL (12.0-16.0) L Hematocrit 36.2 % (37.0-47.0) L Mean Corpuscular Volume 85 FL (80-99) Mean Corpuscular Hemoglobin 27.7 PG (27.0-31.0) Mean Corpuscular Hemoglobin Concent 32.5 G/DL (32.0-36.0) Red Cell Distribution Width 12.5 % (11.6-14.8) Platelet Count 209 K/UL (150-450) Mean Platelet Volume 8.2 FL (6.5-10.1) Neutrophils (%) (Auto) 58.4 % (45.0-75.0) Lymphocytes (%) (Auto) 30.5 % (20.0-45.0) Monocytes (%) (Auto) 7.2 % (1.0-10.0) Eosinophils (%) (Auto) 2.8 % (0.0-3.0) Basophils (%) (Auto) 1.1 % (0.0-2.0) Prothrombin Time 9.6 SEC (9.30-11.50) Prothrombin Time INR 0.9 (0.9-1.1) PTT 25 SEC (23-33) Urine Color Pale yellow Urine Appearance Slightly cloudy Urine pH 6 (4.5-8.0) Urine Specific Gilbert 1.015 (1.005-1.035) Urine Protein 4+ (NEGATIVE) H Urine Glucose (UA) 4+ (NEGATIVE) H Urine Ketones Negative (NEGATIVE) Urine Blood 1+ (NEGATIVE) H Urine Nitrite Negative (NEGATIVE) Urine Bilirubin Negative (NEGATIVE) Urine Urobilinogen Normal MG/DL (0.0-1.0) Urine Leukocyte Esterase Negative (NEGATIVE) Urine RBC 2-4 /HPF (0 - 2) H Urine WBC 0-2 /HPF (0 - 2) Urine Squamous Epithelial Cells Many /LPF (NONE/OCC) H Urine Bacteria Few /HPF (NONE) Urine Mucus Few /LPF (NONE/OCC) H Sodium Level 136 MMOL/L (136-145) Potassium Level 4.6 MMOL/L (3.5-5.1) Chloride Level 100 MMOL/L (98-107) Carbon Dioxide Level 29 MMOL/L (21-32) Anion Gap 7 mmol/L (5-15) Blood Urea Nitrogen 35 mg/dL (7-18) H Creatinine 1.2 MG/DL (0.55-1.30) Estimate Glomerular Filtration Rate 44.7 mL/min (>60) Glucose Level 374 MG/DL (74-106) H Calcium Level 10.3 MG/DL (8.5-10.1) H Total Bilirubin 0.2 MG/DL (0.2-1.0) Aspartate Amino Transferase (AST) 11 U/L (15-37) L Alanine Aminotransferase (ALT) 14 U/L (12-78) Alkaline Phosphatase 83 U/L (46-116) Total Creatine Kinase 95 U/L (26-308) Troponin I 0.000 ng/mL (0.000-0.056) Pro-B-Type Natriuretic Peptide 351 pg/mL (0-125) H Total Protein 6.3 G/DL (6.4-8.2) L Albumin 3.1 G/DL (3.4-5.0) L Globulin 3.2 g/dL Albumin/Globulin Ratio 1.0 (1.0-2.7) Lipase 393 U/L (73-393) Urine Opiates Screen Negative (NEGATIVE) Urine Barbiturates Screen Negative (NEGATIVE) Valproic Acid Level 12 MCG/ML (50-100) L Phencyclidine (PCP) Screen Negative (NEGATIVE) Urine Amphetamines Screen Negative (NEGATIVE) Urine Benzodiazepines Screen Negative (NEGATIVE) Urine Cocaine Screen Negative (NEGATIVE) Urine Marijuana (THC) Screen Negative (NEGATIVE) EKG Diagnostic Results Rate: bradycardiac Rhythm: NSR ST Segments: no acute changes - LAD, pulm disease Rhythm Strip Diag. Results EP Interpretation: yes Rhythm: no PVC's, no ectopy, other - solomon 52 Chest X-Ray Diagnostic Results Chest X-Ray Diagnostic Results : Chest X-Ray Ordered: Yes # of Views/Limited/Complete: 1 View Indication: Other EP Interpretation: Yes Interpretation: no consolidation, no effusion, no pneumothorax Impression: No acute disease Electronically Signed by: Electronically signed by Kranthi Ferreira MD Status: improved Disposition: PLACE IN OBSERVATION Condition: Serious Kranthi Ferreira MD Dec 29, 2018 17:09
[2018-12-29 17:17] LABS: APPEARANCE,URINE SLIGHTLY CLOUDY; BILIRUBIN, URINE NEGATIVE (NEGATIVE); COLOR,URINE PALE YELLOW; GLUCOSE, URINE (UA) 4+ (NEGATIVE); KETONES,URINE NEGATIVE (NEGATIVE); LEUKOCYTE ESTERASE ,URINE NEGATIVE (NEGATIVE); NITRITE,URINE NEGATIVE (NEGATIVE); PH,URINE 6 (4.5-8.0); PROTEIN,URINE 4+ (NEGATIVE); UROBILINOGEN,URINE NORMAL MG/DL (0.0-1.0)
[2018-12-29 17:23] LABS: BASOPHILS % (AUTO) 1.1 % (0.0-2.0); EOSINOPHILS % (AUTO) 2.8 % (0.0-3.0); HEMATOCRIT 36.2 % (37.0-47.0); HEMOGLOBIN 11.8 G/DL (12.0-16.0); LYMPHOCYTES % (AUTO) 30.5 % (20.0-45.0); MEAN CORPUSCULAR VOLUME 85 FL (80-99); MONOCYTES % (AUTO) 7.2 % (1.0-10.0); NEUTROPHILS % (AUTO) 58.4 % (45.0-75.0); PLATELET COUNT 209 K/UL (150-450); RED BLOOD COUNT 4.25 M/UL (4.20-5.40); RED CELL DISTRIBUTION WIDTH 12.5 % (11.6-14.8); WHITE BLOOD COUNT 6.6 K/UL (4.8-10.8)
[2018-12-29 17:25] LABS: ANION GAP 7 mmol/L (5-15); BLOOD UREA NITROGEN 35 mg/dL (7-18); CALCIUM 10.3 MG/DL (8.5-10.1); CARBON DIOXIDE 29 MMOL/L (21-32); CHLORIDE 100 MMOL/L (98-107); CREATININE 1.2 MG/DL (0.55-1.30); POTASSIUM 4.6 MMOL/L (3.5-5.1); SODIUM 136 MMOL/L (136-145)
[2018-12-29 17:28] LABS: INR 0.9 (0.9-1.1)
[2018-12-29 17:37] LABS: ALANINE AMINOTRANSFERASE 14 U/L (12-78); ALBUMIN 3.1 G/DL (3.4-5.0); ALKALINE PHOSPHATASE 83 U/L (46-116); ASPARTATE AMINO TRANSFERASE 11 U/L (15-37); BILIRUBIN,TOTAL 0.2 MG/DL (0.2-1.0); CREATINE KINASE 95 U/L (26-308)
[2018-12-29] MEDS ORDERED: Insulin Human Regular 100units/ml 3ml SUBQ ONE (18:00)
--- NOTE | 2018-12-29 18:15 | NUR ---
ED Nurse Note: called [facility] and spoke with Asya FRANCO, ZANE Oshea is not in the desk at this time, no nurse assigned yet. will call back
[2018-12-29] MEDS ORDERED: Lisinopril 10mg tab ORAL ONE (18:30)
--- NOTE | 2018-12-29 18:30 | NUR ---
ED Nurse Note: non behavioral restraint has been discontinued per Dr. Ferreira
[2018-12-29 19:04] VITALS: BP 175/82
--- NOTE | 2018-12-29 19:06 | NUR ---
NURSE NOTES: I received report from SALVADOR Plunkett from ER. Patient arrived the unit at 1855 by christina accompanied by transported. Patient confused; IV LFA flushes well; belonging lists singed by receiving nurse and transported; patient couldn't able to sing the paper; vitals taken upon arrival to the unit; bed at lowest position, side rails x3 up, breaks engaged, bed alarm on; will keep monitoring.
--- NOTE | 2018-12-29 19:33 | NUR ---
NURSE NOTES: Received report from SALVADOR Mead. On room air, no signs of distress or labored breathing. IV intact, patent, and saline locked. Patient sleeping. Will continue to monitor and contact MD for orders.
--- NOTE | 2018-12-29 19:40 | NUR ---
HAND-OFF: Report given to SALVADOR Rai.
[2018-12-29] MEDS ORDERED: Nitroglycerin Subl 0.4mg tab SL PRN (20:00)
[2018-12-29] MEDS ORDERED: Albuterol/Ipratropium 3ml neb HHN PRN (20:00)
[2018-12-29] MEDS ORDERED: Miralax 17gm pkt ORAL PRN (20:00)
--- NOTE | 2018-12-29 20:41 | NUR ---
CASE MANAGEMENT: REVIEW 68Y/F WAYNEA FROM [facility] CC: ABNORMAL LABS . GLUCOSE 501 SI: HYPERGLYCEMIA T 97.2 HR 65 RR 16 BP 175/82 SAT 100% ROOM AIR BUN 35 GLUCOSE 374 AST 11 IS: NS IVF BOLUS X1 ATIVAN IV X1 NOVOLIN R 10 UNITS SQ X1 BENADRYL IM X1 HALDOL IM X1 PATIENT ADMITTED TO MED/SURG UNIT 12/29/2018 DCP: PATIENT IS FROM [facility]
[2018-12-29] MEDS: NovoLOG Insulin Flexpen SUBQ SCH (23:29)
[2018-12-29] MEDS: Heparin 5000 units/ml inj SUBQ SCH (23:29)
[2018-12-30] VITALS (7 sets, daily range): BP systolic 137–156; BP diastolic 61–92
--- NOTE | 2018-12-30 02:43 | NUR ---
NURSE NOTES: Called [facility] for pneumonia and flu shot date but was told to call again in the morning. They weren't able to find info at this time.
[2018-12-30] MEDS: NovoLOG Insulin Flexpen SUBQ SCH ×4 (06:06→20:54)
--- NOTE | 2018-12-30 07:28 | NUR ---
NURSE NOTES: Patient sleepy, on room air, no sign of distress and shortness of breath; no sing of chest pain; IV LFA running NS 100cc; side rails up x3, breaks engaged, bed at lowest position, bed alarm on; will keep monitoring.
--- NOTE | 2018-12-30 07:44 | NUR ---
NURSE NOTES: Received report from SALVADOR Mead. On room air, no signs of distress or labored breathing. IV intact, patent, and saline locked. Patient sleeping. Will continue to monitor and contact MD for orders. Addendum: 12/30/18 at 0744 by Yancy Rai RN loraine garvey
--- NOTE | 2018-12-30 07:46 | NUR ---
HAND-OFF: Report given to SALVADOR Mead.
[2018-12-30] MEDS: Heparin 5000 units/ml inj SUBQ SCH ×2 (08:34→20:40)
[2018-12-30] MEDS: Ziprasidone 20mg cap ORAL SCH ×2 (08:35→17:15)
[2018-12-30] MEDS ORDERED: OLANZapine 10mg tab ORAL SCH (09:00)
--- NOTE | 2018-12-30 09:00 | Consultation ---
DATE OF CONSULTATION: 12/30/2018 CONSULTING PHYSICIAN: Ramya Vieira M.D. HISTORY OF PRESENT ILLNESS: She is a 68-year-old female patient. She has got hyperglycemia, but she still has a lot of mood lability. She has overlying diagnosis of schizoaffective, bipolar type and she came into the hospital because apparently she had elevated blood sugar. She has a history of diabetes. She is disoriented when I saw her today. Stating she has some confusion, some disorganized thought process, and some mood lability worsened by stress of her medical illness. That is why, she does require inpatient treatment at this time. So, she does have some confusion and some disorganized thought process, and mood lability, worsened by stress of her medical illness, but she has a history of schizoaffective, bipolar type. She has had multiple psychiatric admissions, so because of her decline in cognition, her attending has requested daily psychiatric consultation to help stabilize her mood and help prevent any further decline in cognition. So, I saw and assessed at bedside today. She is still very poor historian. MEDICAL HISTORY: She has a history of diabetes and hypertension. ALLERGIES: She has allergies to Invega. PSYCHOTROPIC MEDICATIONS ON ADMISSION: She was on Zyprexa 15 mg twice a day and she was also on Lexapro 10 daily and Depakote 250 q.12 hours, but she developed hyperglycemia on their combination. SUBSTANCE ABUSE HISTORY: Denies. PAIN ASSESSMENT: 11/12. DEVELOPMENTAL PROBLEMS: Denies. FAMILY PSYCHIATRIC HISTORY: Unknown. SOCIAL HISTORY: The patient lives in [facility]. She is financially supported by [employer] and Medicare. STRENGTHS: She is motivated to get better and has a place to live. WEAKNESSES: She is impulsive and minimal support system. MENTAL STATUS EXAMINATION: This is a 68-year-old female patient. Appearance is disheveled. Attitude, irritable and agitated. Affect, guarded and restricted. Intellect poor. The patient does not know current events. She does not know the last four presidents. Mood, depressed and anxious. Motor activity, psychomotor agitation. Attention span is poor because she cannot do serial sevens or spell world backwards. Orientation x2. She is oriented to person and place, not time, situation. Speech is low volume, slurred. Thought process, disorganized and illogical. Thought content, auditory hallucinations and paranoid delusions. Perception is poor because she has perceptual disturbances such as auditory hallucinations and paranoid delusions. Abstract reasoning is poor because she does not understand proverbs, only has cognitive thinking. Insight is poor because she does not recognize having a psychiatric or medical condition. Judgment is poor because she cannot make medical decisions for herself clearly. No signs of any suicidal or homicidal ideations at this time. Short-term memory, 0/3 of 3-word recall, so poor short-term memory. Long-term memory is poor because she cannot remember long-term events in her life such as the high school that she went to. DIAGNOSES: 1. Schizoaffective, bipolar type. 2. MEDICAL: Hypertension and hyperlipidemia. 3. Psychosocial stressors: Financial. Function impairment is severe. PLAN: I am going to discontinue the patient's Zyprexa because of her metabolic problems and I am going to replace it with Geodon 60 mg twice a day since it has less metabolic side effects than the Zyprexa, which weight gain by increasing appetite and therefore causes increase in blood sugar. So, to reduce that risk I am going to put her on Geodon since it has less side effect. Continue Lexapro 10 daily and Depakote 250 twice a day as a mood stabilizer. Add Ativan 1 mg every 6 hours p.r.n. anxiety and agitation. Provided with 20 minutes of cognitive behavioral therapy to help her identify automatic negative thoughts, help her to convert her negative thoughts to more positive thoughts to reduce depression, anxiety, and mood lability. Chart reviewed. Discussed with staff. Seen and assessed at the bedside. Ramya Vieira M.D. DR: MADELEINE JOB#: [id number] CC:
[2018-12-30 09:17] LABS: EOSINOPHILS % (AUTO) 3.9 % (0.0-3.0); HEMOGLOBIN 10.6 G/DL (12.0-16.0); LYMPHOCYTES % (AUTO) 38.2 % (20.0-45.0); MEAN CORPUSCULAR VOLUME 83 FL (80-99); MONOCYTES % (AUTO) 6.2 % (1.0-10.0); NEUTROPHILS % (AUTO) 50.8 % (45.0-75.0); PLATELET COUNT 201 K/UL (150-450); RED BLOOD COUNT 3.85 M/UL (4.20-5.40); RED CELL DISTRIBUTION WIDTH 13.1 % (11.6-14.8); WHITE BLOOD COUNT 6.8 K/UL (4.8-10.8)
[2018-12-30 09:48] LABS: ALANINE AMINOTRANSFERASE 12 U/L (12-78); ALBUMIN 2.7 G/DL (3.4-5.0); ALBUMIN/GLOBULIN RATIO 0.9 (1.0-2.7); ALKALINE PHOSPHATASE 68 U/L (46-116); ANION GAP 7 mmol/L (5-15); ASPARTATE AMINO TRANSFERASE 12 U/L (15-37); BILIRUBIN,TOTAL 0.2 MG/DL (0.2-1.0); BLOOD UREA NITROGEN 27 mg/dL (7-18); CALCIUM 9.7 MG/DL (8.5-10.1); CARBON DIOXIDE 25 MMOL/L (21-32); CHLORIDE 112 MMOL/L (98-107); CHOLESTEROL 158 MG/DL (< 200); CREATININE 1.1 MG/DL (0.55-1.30); HDL CHOLESTEROL 46 MG/DL (40-60); POTASSIUM 4.5 MMOL/L (3.5-5.1); SODIUM 144 MMOL/L (136-145); TRIGLYCERIDES 119 MG/DL (30-150)
--- NOTE | 2018-12-30 09:50 | Diagnostic Imaging Report ---
Indication: Dyspnea Comparison: 08/09/2018 A single view chest radiograph was obtained. Findings: No definite infiltrate or pulmonary vascular congestion identified. The heart is borderline enlarged. The aorta is mildly enlarged consistent with atherosclerotic vascular disease. The bones are osteopenic. Impression: No acute disease
--- NOTE | 2018-12-30 12:45 | Consultation ---
DATE OF CONSULTATION: 12/30/2018 CONSULTING PHYSICIAN: Ramya Vieira M.D. HISTORY OF PRESENT ILLNESS: She is a 68-year-old female patient. She has got hyperglycemia, but she still has a lot of mood lability. She has overlying diagnosis of schizoaffective, bipolar type and she came into the hospital because apparently she had elevated blood sugar. She has a history of diabetes. She is disoriented when I saw her today, stating she has some confusion, some disorganized thought process, and some mood lability worsened by stress of her medical illness. That is why, she does require inpatient treatment at this time. So, she does have some confusion and some disorganized thought process, and mood lability, worsened by stress of her medical illness, but she has a history of schizoaffective, bipolar type. She has had multiple psychiatric admissions, so because of her decline in cognition, her attending has requested daily psychiatric consultation to help stabilize her mood and help prevent any further decline in cognition. So, I saw and assessed at bedside today. She is still very poor historian. MEDICAL HISTORY: She has a history of diabetes and hypertension. ALLERGIES: She has allergies to Invega. PSYCHOTROPIC MEDICATIONS ON ADMISSION: She was on Zyprexa 15 mg twice a day and she was also on Lexapro 10 daily and Depakote 250 q.12 hours, but she developed hyperglycemia on the combination. SUBSTANCE ABUSE HISTORY: Denies. PAIN ASSESSMENT: A 11/12. DEVELOPMENTAL PROBLEMS: Denies. FAMILY PSYCHIATRIC HISTORY: Unknown. SOCIAL HISTORY: The patient lives in [facility]. She is financially supported by [employer] and Medicare. STRENGTHS: She is motivated to get better and has a place to live. WEAKNESSES: She is impulsive and minimal support system. MENTAL STATUS EXAMINATION: This is a 68-year-old female patient. Appearance is disheveled. Attitude, irritable and agitated. Affect, guarded and restricted. Intellect poor because she does not know current events. She does not know the last four presidents. Mood, depressed and anxious. Motor activity, psychomotor agitation. Attention span is poor because she cannot do serial 7's or spell world backwards. Orientation x2. She is oriented to person and place, not time, situation. Speech is low volume, slurred. Thought process, disorganized and illogical. Thought content, auditory hallucinations and paranoid delusions. Perception is poor because she has perceptual disturbances such as auditory hallucinations and paranoid delusions. Abstract reasoning is poor because she does not understand proverbs, only has concrete thinking. Insight is poor because she does not recognize having psychiatric or medical condition. Judgment is poor because she cannot make medical decisions for herself clearly. No signs of any suicidal or homicidal ideations at this time. Short-term memory, 0/3 of 3-word recall, so poor short-term memory. Long-term memory is poor because she cannot remember long-term events in her life such as the high school that she went to. DIAGNOSES: 1. Schizoaffective, bipolar type. 2. MEDICAL: Hypertension and hyperlipidemia. 3. Psychosocial stressors: Financial. Function impairment is severe. PLAN: I am going to discontinue the patient's Zyprexa because of her metabolic problems and I am going to replace it with Geodon 60 mg twice a day since it has less metabolic side effects than the Zyprexa, which weight gain by increasing appetite and therefore causes increase in blood sugar. So, to reduce that risk I am going to put her on Geodon since it has less side effect. Continue Lexapro 10 daily and Depakote 250 twice a day as a mood stabilizer. Add Ativan 1 mg every 6 hours p.r.n. anxiety and agitation. Provided with 20 minutes of cognitive behavioral therapy to help her identify automatic negative thoughts, help her to convert her negative thoughts to more positive thoughts to reduce depression, anxiety, and mood lability. Chart reviewed. Discussed with staff. Seen and assessed at the bedside. Ramya Vieira M.D. DR: MADELEINE JOB#: [id number] CC:
--- NOTE | 2018-12-30 13:18 | Consultation ---
History of Present Illness General Date patient seen: Dec 30, 2018 Chief Complaint: Abnormal Labs Present Illness HPI 68 year old female with hx of DM, HTN, dementia, psychiatric history is sent in from the group home facility for elevated blood sugar. Patient is unable to give a history. She is usually just oriented to self. she was admitted last night for uncontrolled diabetes. Allergies: Coded Allergies: PALIPERIDONE (Unverified Allergy, Unknown, 08/09/18) Medication History Scheduled Amino Acids/Protein Hydrolys (Pro-Stat Liquid), 30 ML ORAL TWICE A DAY, ( Reported) Aripiprazole* (Abilify*), 7.5 MG ORAL DAILY, (Reported) Ascorbic Acid* (Vitamin C*), 500 MG ORAL DAILY, (Reported) Ascorbic Acid* (Vitamin C*), 500 MG ORAL DAILY, (Reported) Atorvastatin Calcium* (Atorvastatin Calcium*), 40 MG ORAL BEDTIME, (Reported) Cephalexin (Cephalexin), 500 MG ORAL Q12HR Cholecalciferol (Vitamin D3)* (Vitamin D*), 1,000 UNIT ORAL DAILY, (Reported) Divalproex Sodium* (Depakote*), 250 MG PO Q12HR, (Reported) Docusate Sodium* (Docusate Sodium*), 100 MG ORAL TWICE A DAY, (Reported) Escitalopram Oxalate* (Lexapro*), 10 MG ORAL DAILY, (Reported) Ferrous Sulfate* (Ferrous Sulfate*), 325 MG ORAL DAILY, (Reported) Insulin Detemir (Levemir), 16 UNITS SUBQ ACBREAKFAST, (Reported) Insulin Detemir (Levemir), 20 UNITS SUBQ BID, (Reported) Linagliptin (Tradjenta), 5 MG PO DAILY, (Reported) Lisinopril (Lisinopril*), 10 MG ORAL DAILY, (Reported) Magnesium Hydroxide (Pedia-Lax), 800 MG PO BID, (Reported) Multivitamin with Minerals (Multivitamins with Minerals), 1 TAB ORAL DAILY, ( Reported) Olanzapine (Olanzapine), 15 MG ORAL BID Sennosides (Senna), 17.2 MG PO QHS, (Reported) Scheduled PRN Acetaminophen* (Acetaminophen 325MG Tablet*), 650 MG ORAL Q4H PRN for Mild Pain (Pain Scale 1-3), (Reported) Insulin Regular, Human* (Novolin R*), 0 SUBQ .SLIDING SCALE PRN for hyperglycemia, (Reported) Patient History Healthcare decision maker Resuscitation status Full Code Advanced Directive on File Past Medical/Surgical History Past Medical/Surgical History: (1) Dementia (2) History of hypertension (3) Anemia (4) Diabetes mellitus Review of Systems All Other Systems: negative except mentioned in HPI Physical Exam General Appearance: WD/WN Lines, tubes and drains: peripheral HEENT: normocephalic, atraumatic, anicteric Neck: non-tender, normal alignment, supple, limited range of motion Respiratory/Chest: chest wall non-tender, lungs clear, no respiratory distress Cardiovascular/Chest: normal peripheral pulses, normal rate, regular rhythm Abdomen: normal bowel sounds, non tender Genitourinary/Rectal: normal genital exam, normal rectal exam Extremities: normal range of motion, non-tender Skin Exam: normal pigmentation Neurologic: produce service team member II-XII grossly normal Last 24 Hour Vital Signs Date Time Temp Pulse Resp B/P (MAP) Pulse Ox O2 Delivery O2 Flow Rate FiO2 12/30/18 12:00 98.8 70 18 150/63 (92) 96 12/30/18 08:00 97.9 73 19 138/70 (92) 96 12/30/18 04:00 97.4 58 18 137/61 (86) 98 12/30/18 00:00 97.8 62 18 144/68 (93) 100 12/29/18 19:04 97.2 69 16 175/82 (113) 100 12/29/18 19:04 Room Air 12/29/18 18:49 97.2 65 16 171/74 12/29/18 18:47 171/74 12/29/18 18:38 171/74 12/29/18 16:41 97.2 65 16 171/74 Intake and Output 12/29/18 12/30/18 18:59 06:59 # Voids 2 Laboratory Tests Test 12/29/18 16:27 12/30/18 08:50 White Blood Count 6.6 K/UL (4.8-10.8) 6.8 K/UL (4.8-10.8) Red Blood Count 4.25 M/UL (4.20-5.40) 3.85 M/UL (4.20-5.40) L Hemoglobin 11.8 G/DL (12.0-16.0) L 10.6 G/DL (12.0-16.0) L Hematocrit 36.2 % (37.0-47.0) L 32.0 % (37.0-47.0) L Mean Corpuscular Volume 85 FL (80-99) 83 FL (80-99) Mean Corpuscular Hemoglobin 27.7 PG (27.0-31.0) 27.5 PG (27.0-31.0) Mean Corpuscular Hemoglobin Concent 32.5 G/DL (32.0-36.0) 33.1 G/DL (32.0-36.0) Red Cell Distribution Width 12.5 % (11.6-14.8) 13.1 % (11.6-14.8) Platelet Count 209 K/UL (150-450) 201 K/UL (150-450) Mean Platelet Volume 8.2 FL (6.5-10.1) 8.5 FL (6.5-10.1) Neutrophils (%) (Auto) 58.4 % (45.0-75.0) 50.8 % (45.0-75.0) Lymphocytes (%) (Auto) 30.5 % (20.0-45.0) 38.2 % (20.0-45.0) Monocytes (%) (Auto) 7.2 % (1.0-10.0) 6.2 % (1.0-10.0) Eosinophils (%) (Auto) 2.8 % (0.0-3.0) 3.9 % (0.0-3.0) H Basophils (%) (Auto) 1.1 % (0.0-2.0) 1.0 % (0.0-2.0) Prothrombin Time 9.6 SEC (9.30-11.50) Prothromb Time International Ratio 0.9 (0.9-1.1) Activated Partial Thromboplast Time 25 SEC (23-33) Urine Color Pale yellow Urine Appearance Slightly cloudy Urine pH 6 (4.5-8.0) Urine Specific [place] 1.015 (1.005-1.035) Urine Protein 4+ (NEGATIVE) H Urine Glucose (UA) 4+ (NEGATIVE) H Urine Ketones Negative (NEGATIVE) Urine Blood 1+ (NEGATIVE) H Urine Nitrite Negative (NEGATIVE) Urine Bilirubin Negative (NEGATIVE) Urine Urobilinogen Normal MG/DL (0.0-1.0) Urine Leukocyte Esterase Negative (NEGATIVE) Urine RBC 2-4 /HPF (0 - 2) H Urine WBC 0-2 /HPF (0 - 2) Urine Squamous Epithelial Cells Many /LPF (NONE/OCC) H Urine Bacteria Few /HPF (NONE) Urine Mucus Few /LPF (NONE/OCC) H Sodium Level 136 MMOL/L (136-145) 144 MMOL/L (136-145) Potassium Level 4.6 MMOL/L (3.5-5.1) 4.5 MMOL/L (3.5-5.1) Chloride Level 100 MMOL/L (98-107) 112 MMOL/L (98-107) H Carbon Dioxide Level 29 MMOL/L (21-32) 25 MMOL/L (21-32) Anion Gap 7 mmol/L (5-15) 7 mmol/L (5-15) Blood Urea Nitrogen 35 mg/dL (7-18) H 27 mg/dL (7-18) H Creatinine 1.2 MG/DL (0.55-1.30) 1.1 MG/DL (0.55-1.30) Estimat Glomerular Filtration Rate 44.7 mL/min (>60) 49.4 mL/min (>60) Glucose Level 374 MG/DL (74-106) H 175 MG/DL (74-106) #H Calcium Level 10.3 MG/DL (8.5-10.1) H 9.7 MG/DL (8.5-10.1) Total Bilirubin 0.2 MG/DL (0.2-1.0) 0.2 MG/DL (0.2-1.0) Aspartate Amino Transf (AST/SGOT) 11 U/L (15-37) L 12 U/L (15-37) L Alanine Aminotransferase (ALT/SGPT) 14 U/L (12-78) 12 U/L (12-78) Alkaline Phosphatase 83 U/L (46-116) 68 U/L (46-116) Total Creatine Kinase 95 U/L (26-308) Troponin I 0.000 ng/mL (0.000-0.056) Pro-B-Type Natriuretic Peptide 351 pg/mL (0-125) H Total Protein 6.3 G/DL (6.4-8.2) L 5.6 G/DL (6.4-8.2) L Albumin 3.1 G/DL (3.4-5.0) L 2.7 G/DL (3.4-5.0) L Globulin 3.2 g/dL 2.9 g/dL Albumin/Globulin Ratio 1.0 (1.0-2.7) 0.9 (1.0-2.7) L Lipase 393 U/L (73-393) Urine Opiates Screen Negative (NEGATIVE) Urine Barbiturates Screen Negative (NEGATIVE) Valproic Acid (Depakene) Level 12 MCG/ML (50-100) L Phencyclidine (PCP) Screen Negative (NEGATIVE) Urine Amphetamines Screen Negative (NEGATIVE) Urine Benzodiazepines Screen Negative (NEGATIVE) Urine Cocaine Screen Negative (NEGATIVE) Urine Marijuana (THC) Screen Negative (NEGATIVE) Hemoglobin A1c 8.1 % (4.3-6.0) H Triglycerides Level 119 MG/DL (30-150) Cholesterol Level 158 MG/DL (< 200) LDL Cholesterol 89 mg/dL (<100) HDL Cholesterol 46 MG/DL (40-60) Cholesterol/HDL Ratio 3.4 (3.3-4.4) Thyroid Stimulating Hormone (TSH) 1.611 uiU/mL (0.358-3.740) Microbiology Date/Time Source Procedure Growth Status 12/29/18 16:27 Rectum Received Height (Feet): 5 Height (Inches): 3.00 Weight (Pounds): 150 Medications Current Medications Medications (Trade) Dose Ordered Sig/Arely Route PRN Reason Start Time Stop Time Status Last Admin Dose Admin Acetaminophen (Tylenol) 650 mg Q4H PRN ORAL fever (temp>100.5 F) 12/29/18 20:00 01/28/19 19:59 Albuterol/ Ipratropium (Albuterol/ Ipratropium) 3 ml Q4H PRN HHN Shortness of Breath 12/29/18 20:00 01/03/19 19:59 Aripiprazole (Abilify) 7.5 mg DAILY ORAL 12/30/18 09:00 01/29/19 08:59 12/30/18 08:35 Clonidine HCl (Catapres Tab) 0.1 mg Q4H PRN ORAL sbp more than 160 12/29/18 20:00 01/28/19 19:59 Dextrose (Dextrose 50%) 25 ml Q30M PRN IV Hypoglycemia 12/29/18 20:00 01/28/19 19:59 Dextrose (Dextrose 50%) 50 ml Q30M PRN IV Hypoglycemia 12/29/18 20:00 01/28/19 19:59 Divalproex Sodium (Depakote) 250 mg Q12HR ORAL 12/29/18 21:00 01/28/19 20:59 12/30/18 08:35 Escitalopram Oxalate (Lexapro) 10 mg DAILY ORAL 12/30/18 09:00 01/29/19 08:59 12/30/18 08:38 Heparin Sodium (Porcine) (Heparin 5000 units/ml) 5,000 units EVERY 12 HOURS SUBQ 12/29/18 21:00 01/28/19 20:59 12/30/18 08:34 Insulin Aspart (NovoLOG) BEFORE MEALS AND HS SUBQ 12/29/18 21:00 01/28/19 20:59 12/30/18 11:51 Lorazepam (Ativan) 1 mg Q6H PRN ORAL For Anxiety 12/30/18 05:15 01/06/19 05:14 Nitroglycerin (Ntg) 0.4 mg Q5M X 3 DOSES PRN SL Prn Chest Pain 12/29/18 20:00 01/28/19 19:59 Olanzapine (ZyPREXA) 15 mg BID ORAL 12/30/18 09:00 01/29/19 08:59 Ondansetron HCl (Zofran) 4 mg Q6H PRN IVP Nausea & Vomiting 12/29/18 20:00 01/28/19 19:59 Polyethylene Glycol (Miralax) 17 gm HSPRN PRN ORAL Constipation 12/29/18 20:00 01/28/19 19:59 Sodium Chloride 1,000 ml @ 100 mls/hr Q10H IVLG 12/29/18 20:15 01/28/19 20:14 12/30/18 06:58 Temazepam (Restoril) 15 mg HSPRN PRN ORAL Insomnia 12/29/18 20:00 01/05/19 19:59 Ziprasidone (Geodon) 60 mg TWICE A DAY ORAL 12/30/18 09:00 01/29/19 08:59 12/30/18 08:35 Assessment/Plan Problem List: (1) Uncontrolled diabetes mellitus ICD Codes: E11.65 - Type 2 diabetes mellitus with hyperglycemia SNOMED: 35202533, 746142381 (2) Anemia ICD Codes: D64.9 - Anemia, unspecified SNOMED: 036284356 (3) Dementia ICD Codes: F03.90 - Unspecified dementia without behavioral disturbance SNOMED: 99687062 (4) History of hypertension ICD Codes: Z86.79 - Personal history of other diseases of the circulatory system SNOMED: 306310582 Assessment/Plan: iv fluids sliding scale psych saw the pt already check HemA1c check urine cultures dvt prophylaxis. Randa Vigil MD Dec 30, 2018 13:18
--- NOTE | 2018-12-30 13:27 | NUR ---
CASE MANAGEMENT: REVIEW 12/30/2018 SI:HYPERGLYCEMIA. T 97.2 HR 65 RR 16 B/P 171/74 SATS 100% ON RA CL 112 BUN 27 GLU 175 HA1C 8.1 AST 12 IS: IVF @ 100 mL/HR GEODON PO BID ABILIFY PO QD LEXAPRO PO QD INSULIN ASPART SUBQ AC/HS DEPAKOTE PO Q12H MED/SURG STATUS PLAN OF CARE: IVF GLYCEMIC CONTROL AND MONITORING PSYCH>>>MED ADJUSTMENT Addendum: 12/30/18 at 1339 by Dora Griffith INTERQUAL
--- NOTE | 2018-12-30 15:10 | NUR ---
*-* NO INSURANCE INFORMATION IN THE BAR UNABLE TO SEND CLINICALS OR REVIEWS *-*
--- NOTE | 2018-12-30 18:34 | General Progress Note ---
Assessment/Plan Problem List: (1) Diabetes mellitus ICD Codes: E11.9 - Type 2 diabetes mellitus without complications SNOMED: 64725805 (2) History of hypertension ICD Codes: Z86.79 - Personal history of other diseases of the circulatory system SNOMED: 408670023 (3) Dementia ICD Codes: F03.90 - Unspecified dementia without behavioral disturbance SNOMED: 45113759 (4) Renal insufficiency ICD Codes: N28.9 - Disorder of kidney and ureter, unspecified SNOMED: 259554602, 496770206 Assessment/Plan: add Januvia 100 mg daily add Starlix 60 mg ac tid continue NISS ac / hs Subjective ROS Limited/Unobtainable: Yes Allergies: Coded Allergies: PALIPERIDONE (Unverified Allergy, Unknown, 08/09/18) Subjective Patient is sent in from the [place] [facility] facility for elevated blood sugar. She has a history of diabetes. She also has a history of dementia. Patient is unable to give a history. She is usually just oriented to self. The patient is on insulin. Patient admitted August for UTI and encephalopathy. Item Value Date Time Bedside Blood Glucose 114 mg/dl 12/30/18 1716 Bedside Blood Glucose 161 mg/dl H 12/30/18 1151 Bedside Blood Glucose 166 mg/dl H 12/30/18 0609 Bedside Blood Glucose 347 mg/dl H 12/29/18 1811 Objective Last 24 Hour Vital Signs Date Time Temp Pulse Resp B/P (MAP) Pulse Ox O2 Delivery O2 Flow Rate FiO2 12/30/18 16:00 97.2 78 19 152/72 (98) 97 12/30/18 12:00 98.8 70 18 150/63 (92) 96 12/30/18 08:00 97.9 73 19 138/70 (92) 96 12/30/18 04:00 97.4 58 18 137/61 (86) 98 12/30/18 00:00 97.8 62 18 144/68 (93) 100 12/29/18 19:04 97.2 69 16 175/82 (113) 100 12/29/18 19:04 Room Air 12/29/18 18:49 97.2 65 16 171/74 12/29/18 18:47 171/74 12/29/18 18:38 171/74 Intake and Output 12/29/18 12/30/18 19:00 07:00 # Voids 2 Laboratory Tests 12/30/18 08:50: White Blood Count 6.8, Red Blood Count 3.85L, Hemoglobin 10.6L, Hematocrit 32.0L , Mean Corpuscular Volume 83, Mean Corpuscular Hemoglobin 27.5, Mean Corpuscular Hemoglobin Concent 33.1, Red Cell Distribution Width 13.1, Platelet Count 201, Mean Platelet Volume 8.5, Neutrophils (%) (Auto) 50.8, Lymphocytes (% ) (Auto) 38.2, Monocytes (%) (Auto) 6.2, Eosinophils (%) (Auto) 3.9H, Basophils (%) (Auto) 1.0, Sodium Level 144, Potassium Level 4.5, Chloride Level 112H, Carbon Dioxide Level 25, Anion Gap 7, Blood Urea Nitrogen 27H, Creatinine 1.1, Estimat Glomerular Filtration Rate 49.4, Glucose Level 175#H, Hemoglobin A1c 8.1H, Calcium Level 9.7, Total Bilirubin 0.2, Aspartate Amino Transf (AST/SGOT) 12L, Alanine Aminotransferase (ALT/SGPT) 12, Alkaline Phosphatase 68, Total Protein 5.6L, Albumin 2.7L, Globulin 2.9, Albumin/Globulin Ratio 0.9L, Triglycerides Level 119, Cholesterol Level 158, LDL Cholesterol 89, HDL Cholesterol 46, Cholesterol/HDL Ratio 3.4, Thyroid Stimulating Hormone (TSH) 1.611 Height (Feet): 5 Height (Inches): 3.00 Weight (Pounds): 150 General Appearance: no apparent distress Neck: normal alignment Cardiovascular: normal rate Respiratory/Chest: lungs clear Abdomen: normal bowel sounds Edema: no edema noted Arm (L), no edema noted Arm (R), no edema noted Leg (L), no edema noted Leg (R), no edema noted Pedal (L), no edema noted Pedal (R), no edema noted Generalized Objective Current Medications Medications (Trade) Dose Ordered Sig/Arely Route PRN Reason Start Time Stop Time Status Last Admin Dose Admin Acetaminophen (Tylenol) 650 mg Q4H PRN ORAL fever (temp>100.5 F) 12/29/18 20:00 01/28/19 19:59 Albuterol/ Ipratropium (Albuterol/ Ipratropium) 3 ml Q4H PRN HHN Shortness of Breath 12/29/18 20:00 01/03/19 19:59 Aripiprazole (Abilify) 7.5 mg DAILY ORAL 12/30/18 09:00 01/29/19 08:59 12/30/18 08:35 Clonidine HCl (Catapres Tab) 0.1 mg Q4H PRN ORAL sbp more than 160 12/29/18 20:00 01/28/19 19:59 Dextrose (Dextrose 50%) 25 ml Q30M PRN IV Hypoglycemia 12/29/18 20:00 01/28/19 19:59 Dextrose (Dextrose 50%) 50 ml Q30M PRN IV Hypoglycemia 12/29/18 20:00 01/28/19 19:59 Divalproex Sodium (Depakote) 250 mg Q12HR ORAL 12/29/18 21:00 01/28/19 20:59 12/30/18 08:35 Escitalopram Oxalate (Lexapro) 10 mg DAILY ORAL 12/30/18 09:00 01/29/19 08:59 12/30/18 08:38 Heparin Sodium (Porcine) (Heparin 5000 units/ml) 5,000 units EVERY 12 HOURS SUBQ 12/29/18 21:00 01/28/19 20:59 12/30/18 08:34 Insulin Aspart (NovoLOG) BEFORE MEALS AND HS SUBQ 12/29/18 21:00 01/28/19 20:59 12/30/18 17:16 Lorazepam (Ativan) 1 mg Q6H PRN ORAL For Anxiety 12/30/18 05:15 01/06/19 05:14 Nitroglycerin (Ntg) 0.4 mg Q5M X 3 DOSES PRN SL Prn Chest Pain 12/29/18 20:00 01/28/19 19:59 Ondansetron HCl (Zofran) 4 mg Q6H PRN IVP Nausea & Vomiting 12/29/18 20:00 01/28/19 19:59 Polyethylene Glycol (Miralax) 17 gm HSPRN PRN ORAL Constipation 12/29/18 20:00 01/28/19 19:59 Sodium Chloride 1,000 ml @ 100 mls/hr Q10H IVLG 12/29/18 20:15 01/28/19 20:14 12/30/18 16:41 Temazepam (Restoril) 15 mg HSPRN PRN ORAL Insomnia 12/29/18 20:00 01/05/19 19:59 Ziprasidone (Geodon) 60 mg TWICE A DAY ORAL 12/30/18 09:00 01/29/19 08:59 12/30/18 17:15 Ryley Vasquez MD Dec 30, 2018 18:34
--- NOTE | 2018-12-30 19:50 | NUR ---
NURSE NOTES: patient received. patient in no acute distress at this time. patient complains of no pain at this time. patient awake alert and oriented x1. confused and agitated. patient IV intact patent and asymptomatic. bed in lowest position and locked. bed side rails are up bed alarm on. patient tries to get out of bed. MANUAL EQUIPMENT MECHANIC and nurse aware and currently monitoring patient. call light within reach. will continue to monitor.
--- NOTE | 2018-12-30 23:45 | History and Physical Report ---
DATE OF ADMISSION: 12/30/2018 CONSULTANTS: 1. Randa Vigil M.D. 2. Ryley Vasquez M.D. 3. Ramya Vieira M.D. CHIEF COMPLAINT: Diabetes, hyperglycemia, and confusion. BRIEF HISTORY: This is a 68-year-old female from [facility], who presented with increased hyperglycemia, sent to [place], diagnosed with the above, and admitted to medical floor for further treatment. Currently, confused, walking in the room, refusing to answer questions. REVIEW OF SYSTEMS: Unavailable. PAST MEDICAL HISTORY: Diabetes, dementia, hypertension, acute tubular necrosis, anemia, and renal insufficiency. PAST SURGICAL HISTORY: Unknown. MEDICATIONS: Abilify, Lexapro, Geodon, Ativan, Depakote, heparin, NovoLog, albuterol, Tylenol, Zofran, and hydralazine. ALLERGIES: Paliperidone. SOCIAL HISTORY: Unable to obtain secondary to the patient's condition. PHYSICAL EXAMINATION: GENERAL: Confused in room. She is oriented x3 and in no acute distress. VITAL SIGNS: Temperature is 98 degrees, pulse 70, respirations 18, and blood pressure 150/63. CARDIOVASCULAR: No murmurs. LUNGS: Distant and clear. ABDOMEN: Bowel sounds positive. Nontender. Nondistended. EXTREMITIES: No cyanosis or edema. NEUROLOGIC: The patient walks, but seems slightly weak. LABORATORY AND DIAGNOSTIC DATA: Labs, at this time, show hemoglobin and hematocrit are 10 and 32, otherwise CBC is normal. BMP shows chloride 112, BUN 27, and glucose 175. AST 12. Albumin 2.7. Urinalysis shows 1+ blood, many squamous cells, otherwise normal. INR is 0.9. PTT 25. Urine tox, valproic is 12. ASSESSMENT: 1. Diabetes. 2. Hyperglycemia. 3. Confusion. 4. Malnutrition. 5. Dementia. 6. Hypertension. 7. Acute tubular necrosis. 8. Anemia. 9. Renal insufficiency. PLAN: 1. PT and dietary evaluation. 2. Blood sugar control. 3. Psychiatric treatment. 4. Dietary followup. 5. Blood pressure and blood sugar control. 6. CBC and BMP in the morning. Zak Guaman D.O. DR: SHAINA JOB#: [id number] CC:
[2018-12-31 03:38] VITALS: BP 195/73
[2018-12-31 06:00] VITALS: BP 115/80
--- NOTE | 2018-12-31 06:00 | NUR ---
HAND-OFF: Report given to SALVADOR hoskins .
[2018-12-31] MEDS: Nateglinide 60mg tab ORAL SCH ×4 (06:28→17:22)
[2018-12-31] MEDS: NovoLOG Insulin Flexpen SUBQ SCH ×4 (06:31→20:43)
--- NOTE | 2018-12-31 06:35 | General Progress Note ---
Assessment/Plan Problem List: (1) Diabetes mellitus ICD Codes: E11.9 - Type 2 diabetes mellitus without complications SNOMED: 07263867 (2) History of hypertension ICD Codes: Z86.79 - Personal history of other diseases of the circulatory system SNOMED: 579223751 (3) Dementia ICD Codes: F03.90 - Unspecified dementia without behavioral disturbance SNOMED: 29904155 (4) Renal insufficiency ICD Codes: N28.9 - Disorder of kidney and ureter, unspecified SNOMED: 567491785, 805538233 Assessment/Plan: continue Januvia 100 mg daily continue Starlix 60 mg ac tid continue NISS ac / hs Subjective ROS Limited/Unobtainable: Yes Allergies: Coded Allergies: PALIPERIDONE (Unverified Allergy, Unknown, 08/09/18) Subjective events noted Item Value Date Time Bedside Blood Glucose 186 mg/dl H 12/31/18 0631 Bedside Blood Glucose 196 mg/dl H 12/30/18 2100 Bedside Blood Glucose 114 mg/dl 12/30/18 1716 Bedside Blood Glucose 161 mg/dl H 12/30/18 1151 Bedside Blood Glucose 166 mg/dl H 12/30/18 0609 Objective Last 24 Hour Vital Signs Date Time Temp Pulse Resp B/P (MAP) Pulse Ox O2 Delivery O2 Flow Rate FiO2 12/31/18 03:38 98.4 64 18 195/73 (113) 98 12/30/18 23:48 97.0 96 20 150/92 (111) 99 12/30/18 20:00 97.8 101 20 156/92 (113) 98 12/30/18 16:00 97.2 78 19 152/72 (98) 97 12/30/18 12:00 98.8 70 18 150/63 (92) 96 12/30/18 08:00 97.9 73 19 138/70 (92) 96 Intake and Output 12/30/18 12/31/18 19:00 07:00 Intake Total 1100 ml 700 ml Balance 1100 ml 700 ml Intake IV Total 1100 ml 700 ml # Voids 1 4 Laboratory Tests 12/30/18 08:50: White Blood Count 6.8, Red Blood Count 3.85L, Hemoglobin 10.6L, Hematocrit 32.0L , Mean Corpuscular Volume 83, Mean Corpuscular Hemoglobin 27.5, Mean Corpuscular Hemoglobin Concent 33.1, Red Cell Distribution Width 13.1, Platelet Count 201, Mean Platelet Volume 8.5, Neutrophils (%) (Auto) 50.8, Lymphocytes (% ) (Auto) 38.2, Monocytes (%) (Auto) 6.2, Eosinophils (%) (Auto) 3.9H, Basophils (%) (Auto) 1.0, Sodium Level 144, Potassium Level 4.5, Chloride Level 112H, Carbon Dioxide Level 25, Anion Gap 7, Blood Urea Nitrogen 27H, Creatinine 1.1, Estimat Glomerular Filtration Rate 49.4, Glucose Level 175#H, Hemoglobin A1c 8.1H, Calcium Level 9.7, Total Bilirubin 0.2, Aspartate Amino Transf (AST/SGOT) 12L, Alanine Aminotransferase (ALT/SGPT) 12, Alkaline Phosphatase 68, Total Protein 5.6L, Albumin 2.7L, Globulin 2.9, Albumin/Globulin Ratio 0.9L, Triglycerides Level 119, Cholesterol Level 158, LDL Cholesterol 89, HDL Cholesterol 46, Cholesterol/HDL Ratio 3.4, Thyroid Stimulating Hormone (TSH) 1.611 12/31/18 05:20: White Blood Count [Pending], Red Blood Count [Pending], Hemoglobin [Pending], Hematocrit [Pending], Mean Corpuscular Volume [Pending], Mean Corpuscular Hemoglobin [Pending], Mean Corpuscular Hemoglobin Concent [Pending], Red Cell Distribution Width [Pending], Platelet Count [Pending], Mean Platelet Volume [ Pending], Neutrophils (%) (Auto) [Pending], Lymphocytes (%) (Auto) [Pending], Monocytes (%) (Auto) [Pending], Eosinophils (%) (Auto) [Pending], Basophils (%) (Auto) [Pending], Sodium Level [Pending], Potassium Level [Pending], Chloride Level [Pending], Carbon Dioxide Level [Pending], Blood Urea Nitrogen [Pending], Creatinine [Pending], Estimat Glomerular Filtration Rate [Pending], Glucose Level [Pending], Calcium Level [Pending], Total Bilirubin [Pending], Aspartate Amino Transf (AST/SGOT) [Pending], Alanine Aminotransferase (ALT/SGPT) [Pending] , Alkaline Phosphatase [Pending], Total Protein [Pending], Albumin [Pending], Globulin [Pending], Erythrocyte Sedimentation Rate [Pending], Phosphorus Level [ Pending], Magnesium Level [Pending], C-Reactive Protein, Quantitative [Pending] Height (Feet): 5 Height (Inches): 3.00 Weight (Pounds): 150 General Appearance: no apparent distress Neck: normal alignment Cardiovascular: normal rate Respiratory/Chest: lungs clear Abdomen: normal bowel sounds Pelvis: normal external exam Objective Current Medications Medications (Trade) Dose Ordered Sig/Arely Route PRN Reason Start Time Stop Time Status Last Admin Dose Admin Acetaminophen (Tylenol) 650 mg Q4H PRN ORAL fever (temp>100.5 F) 12/29/18 20:00 01/28/19 19:59 Albuterol/ Ipratropium (Albuterol/ Ipratropium) 3 ml Q4H PRN HHN Shortness of Breath 12/29/18 20:00 01/03/19 19:59 Aripiprazole (Abilify) 7.5 mg DAILY ORAL 12/30/18 09:00 01/29/19 08:59 12/30/18 08:35 Clonidine HCl (Catapres Tab) 0.1 mg Q4H PRN ORAL sbp more than 160 12/29/18 20:00 01/28/19 19:59 Dextrose (Dextrose 50%) 25 ml Q30M PRN IV Hypoglycemia 12/29/18 20:00 01/28/19 19:59 Dextrose (Dextrose 50%) 50 ml Q30M PRN IV Hypoglycemia 12/29/18 20:00 01/28/19 19:59 Divalproex Sodium (Depakote) 250 mg Q12HR ORAL 12/29/18 21:00 01/28/19 20:59 12/30/18 20:39 Escitalopram Oxalate (Lexapro) 10 mg DAILY ORAL 12/30/18 09:00 01/29/19 08:59 12/30/18 08:38 Heparin Sodium (Porcine) (Heparin 5000 units/ml) 5,000 units EVERY 12 HOURS SUBQ 12/29/18 21:00 01/28/19 20:59 12/30/18 20:40 Insulin Aspart (NovoLOG) BEFORE MEALS AND HS SUBQ 12/29/18 21:00 01/28/19 20:59 12/31/18 06:31 Lorazepam (Ativan) 1 mg Q6H PRN ORAL For Anxiety 12/30/18 05:15 01/06/19 05:14 Nateglinide (Starlix) 60 mg TIAC ORAL 12/31/18 06:30 01/30/19 06:29 12/31/18 06:28 Nitroglycerin (Ntg) 0.4 mg Q5M X 3 DOSES PRN SL Prn Chest Pain 12/29/18 20:00 01/28/19 19:59 Ondansetron HCl (Zofran) 4 mg Q6H PRN IVP Nausea & Vomiting 12/29/18 20:00 01/28/19 19:59 Polyethylene Glycol (Miralax) 17 gm HSPRN PRN ORAL Constipation 12/29/18 20:00 01/28/19 19:59 Sitagliptin Phosphate (Januvia) 100 mg ACBREAKFAST ORAL 12/31/18 06:30 01/30/19 06:29 12/31/18 06:28 Sodium Chloride 1,000 ml @ 100 mls/hr Q10H IVLG 12/29/18 20:15 01/28/19 20:14 12/31/18 02:15 Temazepam (Restoril) 15 mg HSPRN PRN ORAL Insomnia 12/29/18 20:00 01/05/19 19:59 Ziprasidone (Geodon) 60 mg TWICE A DAY ORAL 12/30/18 09:00 01/29/19 08:59 12/30/18 17:15 Ryley Vasquez MD Dec 31, 2018 06:35
[2018-12-31 06:42] LABS: EOSINOPHILS % (AUTO) 5.8 % (0.0-3.0); HEMATOCRIT 32.9 % (37.0-47.0); HEMOGLOBIN 10.8 G/DL (12.0-16.0); MEAN CORPUSCULAR VOLUME 84 FL (80-99); MONOCYTES % (AUTO) 6.8 % (1.0-10.0); NEUTROPHILS % (AUTO) 42.5 % (45.0-75.0); PLATELET COUNT 203 K/UL (150-450); RED BLOOD COUNT 3.93 M/UL (4.20-5.40); RED CELL DISTRIBUTION WIDTH 13.4 % (11.6-14.8); WHITE BLOOD COUNT 8.3 K/UL (4.8-10.8)
[2018-12-31 07:05] LABS: ALANINE AMINOTRANSFERASE 16 U/L (12-78); ALBUMIN 2.6 G/DL (3.4-5.0); ALBUMIN/GLOBULIN RATIO 0.8 (1.0-2.7); ALKALINE PHOSPHATASE 71 U/L (46-116); ANION GAP 9 mmol/L (5-15); ASPARTATE AMINO TRANSFERASE 12 U/L (15-37); BILIRUBIN,TOTAL 0.4 MG/DL (0.2-1.0); BLOOD UREA NITROGEN 23 mg/dL (7-18); CARBON DIOXIDE 25 MMOL/L (21-32); CHLORIDE 113 MMOL/L (98-107); CREATININE 1.1 MG/DL (0.55-1.30); PHOSPHORUS 2.7 MG/DL (2.5-4.9); POTASSIUM 4.4 MMOL/L (3.5-5.1); SODIUM 146 MMOL/L (136-145)
[2018-12-31 08:00] VITALS: BP 115/80
[2018-12-31] MEDS: Ziprasidone 20mg cap ORAL SCH ×3 (08:18→17:22)
[2018-12-31] MEDS: Heparin 5000 units/ml inj SUBQ SCH ×2 (08:24→20:43)
--- NOTE | 2018-12-31 08:32 | General Progress Note ---
Assessment/Plan Problem List: (1) Dementia ICD Codes: F03.90 - Unspecified dementia without behavioral disturbance SNOMED: 15274173 (2) History of hypertension ICD Codes: Z86.79 - Personal history of other diseases of the circulatory system SNOMED: 847248535 (3) Uncontrolled diabetes mellitus ICD Codes: E11.65 - Type 2 diabetes mellitus with hyperglycemia SNOMED: 87606888, 966901988 (4) Acute encephalopathy ICD Codes: G93.40 - Encephalopathy, unspecified SNOMED: 92592969, 977002575 (5) Diabetes mellitus ICD Codes: E11.9 - Type 2 diabetes mellitus without complications SNOMED: 06916497 (6) Anemia ICD Codes: D64.9 - Anemia, unspecified SNOMED: 931734845 (7) Renal insufficiency ICD Codes: N28.9 - Disorder of kidney and ureter, unspecified SNOMED: 271262442, 733686930 (8) Hyperglycemia ICD Codes: R73.9 - Hyperglycemia, unspecified SNOMED: 54660500 Status: unchanged Assessment/Plan: pt diet bs control cbc bmp am psyc transfer Subjective Constitutional: Reports: weakness Allergies: Coded Allergies: PALIPERIDONE (Unverified Allergy, Unknown, 08/09/18) All Systems: reviewed and negative except above Subjective sleepy calm Objective Last 24 Hour Vital Signs Date Time Temp Pulse Resp B/P (MAP) Pulse Ox O2 Delivery O2 Flow Rate FiO2 12/31/18 08:00 98.5 70 18 115/80 (92) 98 12/31/18 06:00 98.5 70 18 115/80 (92) 95 12/31/18 03:38 98.4 64 18 195/73 (113) 98 12/30/18 23:48 97.0 96 20 150/92 (111) 99 12/30/18 20:00 97.8 101 20 156/92 (113) 98 12/30/18 16:00 97.2 78 19 152/72 (98) 97 12/30/18 12:00 98.8 70 18 150/63 (92) 96 Intake and Output 12/30/18 12/31/18 19:00 07:00 Intake Total 1100 ml 700 ml Balance 1100 ml 700 ml Intake IV Total 1100 ml 700 ml # Voids 1 4 Laboratory Tests 12/30/18 08:50: White Blood Count 6.8, Red Blood Count 3.85L, Hemoglobin 10.6L, Hematocrit 32.0L , Mean Corpuscular Volume 83, Mean Corpuscular Hemoglobin 27.5, Mean Corpuscular Hemoglobin Concent 33.1, Red Cell Distribution Width 13.1, Platelet Count 201, Mean Platelet Volume 8.5, Neutrophils (%) (Auto) 50.8, Lymphocytes (% ) (Auto) 38.2, Monocytes (%) (Auto) 6.2, Eosinophils (%) (Auto) 3.9H, Basophils (%) (Auto) 1.0, Sodium Level 144, Potassium Level 4.5, Chloride Level 112H, Carbon Dioxide Level 25, Anion Gap 7, Blood Urea Nitrogen 27H, Creatinine 1.1, Estimat Glomerular Filtration Rate 49.4, Glucose Level 175#H, Hemoglobin A1c 8.1H, Calcium Level 9.7, Total Bilirubin 0.2, Aspartate Amino Transf (AST/SGOT) 12L, Alanine Aminotransferase (ALT/SGPT) 12, Alkaline Phosphatase 68, Total Protein 5.6L, Albumin 2.7L, Globulin 2.9, Albumin/Globulin Ratio 0.9L, Triglycerides Level 119, Cholesterol Level 158, LDL Cholesterol 89, HDL Cholesterol 46, Cholesterol/HDL Ratio 3.4, Thyroid Stimulating Hormone (TSH) 1.611 12/31/18 05:20: White Blood Count 8.3, Red Blood Count 3.93L, Hemoglobin 10.8L, Hematocrit 32.9L , Mean Corpuscular Volume 84, Mean Corpuscular Hemoglobin 27.5, Mean Corpuscular Hemoglobin Concent 32.8, Red Cell Distribution Width 13.4, Platelet Count 203, Mean Platelet Volume 8.6, Neutrophils (%) (Auto) 42.5L, Lymphocytes ( %) (Auto) 44.0, Monocytes (%) (Auto) 6.8, Eosinophils (%) (Auto) 5.8H, Basophils (%) (Auto) 1.0, Sodium Level 146H, Potassium Level 4.4, Chloride Level 113H, Carbon Dioxide Level 25, Anion Gap 9, Blood Urea Nitrogen 23H, Creatinine 1.1, Estimat Glomerular Filtration Rate 49.4, Glucose Level 188H, Calcium Level 10.0, Total Bilirubin 0.4, Aspartate Amino Transf (AST/SGOT) 12L, Alanine Aminotransferase (ALT/SGPT) 16, Alkaline Phosphatase 71, Total Protein 6.0L, Albumin 2.6L, Globulin 3.4, Albumin/Globulin Ratio 0.8L, Erythrocyte Sedimentation Rate [Pending], Phosphorus Level 2.7, Magnesium Level 1.2L, C- Reactive Protein, Quantitative < 0.4 Height (Feet): 5 Height (Inches): 3.00 Weight (Pounds): 150 General Appearance: lethargic, confused EENT: normal ENT inspection Neck: normal alignment Cardiovascular: normal peripheral pulses, normal rate, regular rhythm Respiratory/Chest: chest wall non-tender, lungs clear, normal breath sounds Abdomen: normal bowel sounds, non tender, soft Extremities: normal inspection Edema: no edema noted Arm (L), no edema noted Arm (R), no edema noted Leg (L), no edema noted Leg (R), no edema noted Pedal (L), no edema noted Pedal (R), no edema noted Generalized Neurologic: motor weakness Skin: normal pigmentation, warm/dry Zak Guaman DO Dec 31, 2018 08:32
[2018-12-31] MEDS: LORazepam 1mg tab ORAL PRN (11:13)
[2018-12-31 12:00] VITALS: BP 171/68
--- NOTE | 2018-12-31 12:43 | Pulmonology Progress Note ---
Assessment/Plan Problems: (1) Uncontrolled diabetes mellitus (2) Anemia (3) Dementia (4) History of hypertension Assessment/Plan still aggressive iv fluids sliding scale psych saw the pt already check HemA1c check urine cultures dvt prophylaxis. Subjective ROS Limited/Unobtainable: No Constitutional: Reports: no symptoms HEENT: Repors: no symptoms Respiratory: Reports: no symptoms Allergies: Coded Allergies: PALIPERIDONE (Unverified Allergy, Unknown, 08/09/18) Objective Last 24 Hour Vital Signs Date Time Temp Pulse Resp B/P (MAP) Pulse Ox O2 Delivery O2 Flow Rate FiO2 12/31/18 12:29 171/68 12/31/18 12:00 98.3 58 18 171/68 (102) 98 12/31/18 08:00 98.5 70 18 115/80 (92) 98 12/31/18 06:00 98.5 70 18 115/80 (92) 95 12/31/18 03:38 98.4 64 18 195/73 (113) 98 12/30/18 23:48 97.0 96 20 150/92 (111) 99 12/30/18 20:00 97.8 101 20 156/92 (113) 98 12/30/18 16:00 97.2 78 19 152/72 (98) 97 Intake and Output 12/30/18 12/31/18 18:59 06:59 Intake Total 1000 ml 800 ml Balance 1000 ml 800 ml IV Total 1000 ml 800 ml # Voids 1 4 General Appearance: WD/WN HEENT: normocephalic, atraumatic Respiratory/Chest: chest wall non-tender, normal breath sounds Breasts: no masses Cardiovascular: normal rate Abdomen: normal bowel sounds, no organomegaly, no scars Extremities: no clubbing Microbiology Date/Time Source Procedure Growth Status 12/29/18 16:27 Rectum Received Laboratory Tests 12/31/18 05:20: White Blood Count 8.3, Red Blood Count 3.93L, Hemoglobin 10.8L, Hematocrit 32.9L , Mean Corpuscular Volume 84, Mean Corpuscular Hemoglobin 27.5, Mean Corpuscular Hemoglobin Concent 32.8, Red Cell Distribution Width 13.4, Platelet Count 203, Mean Platelet Volume 8.6, Neutrophils (%) (Auto) 42.5L, Lymphocytes ( %) (Auto) 44.0, Monocytes (%) (Auto) 6.8, Eosinophils (%) (Auto) 5.8H, Basophils (%) (Auto) 1.0, Erythrocyte Sedimentation Rate 49H, Sodium Level 146H , Potassium Level 4.4, Chloride Level 113H, Carbon Dioxide Level 25, Anion Gap 9 , Blood Urea Nitrogen 23H, Creatinine 1.1, Estimat Glomerular Filtration Rate 49.4, Glucose Level 188H, Calcium Level 10.0, Phosphorus Level 2.7, Magnesium Level 1.2L, Total Bilirubin 0.4, Aspartate Amino Transf (AST/SGOT) 12L, Alanine Aminotransferase (ALT/SGPT) 16, Alkaline Phosphatase 71, C-Reactive Protein, Quantitative < 0.4, Total Protein 6.0L, Albumin 2.6L, Globulin 3.4, Albumin/ Globulin Ratio 0.8L Current Medications Medications (Trade) Dose Ordered Sig/Arely Route PRN Reason Start Time Stop Time Status Last Admin Dose Admin Acetaminophen (Tylenol) 650 mg Q4H PRN ORAL fever (temp>100.5 F) 12/29/18 20:00 01/28/19 19:59 Albuterol/ Ipratropium (Albuterol/ Ipratropium) 3 ml Q4H PRN HHN Shortness of Breath 12/29/18 20:00 01/03/19 19:59 Aripiprazole (Abilify) 7.5 mg DAILY ORAL 12/30/18 09:00 01/29/19 08:59 12/30/18 08:35 Clonidine HCl (Catapres Tab) 0.1 mg Q4H PRN ORAL sbp more than 160 12/29/18 20:00 01/28/19 19:59 12/31/18 12:29 Dextrose (Dextrose 50%) 25 ml Q30M PRN IV Hypoglycemia 12/29/18 20:00 01/28/19 19:59 Dextrose (Dextrose 50%) 50 ml Q30M PRN IV Hypoglycemia 12/29/18 20:00 01/28/19 19:59 Divalproex Sodium (Depakote) 250 mg Q12HR ORAL 12/29/18 21:00 01/28/19 20:59 12/30/18 20:39 Escitalopram Oxalate (Lexapro) 10 mg DAILY ORAL 12/30/18 09:00 01/29/19 08:59 12/30/18 08:38 Heparin Sodium (Porcine) (Heparin 5000 units/ml) 5,000 units EVERY 12 HOURS SUBQ 12/29/18 21:00 01/28/19 20:59 12/30/18 20:40 Insulin Aspart (NovoLOG) BEFORE MEALS AND HS SUBQ 12/29/18 21:00 01/28/19 20:59 12/31/18 11:15 Lorazepam (Ativan) 1 mg Q6H PRN ORAL For Anxiety 12/30/18 05:15 01/06/19 05:14 12/31/18 11:13 Nateglinide (Starlix) 60 mg TIAC ORAL 12/31/18 06:30 01/30/19 06:29 12/31/18 11:13 Nitroglycerin (Ntg) 0.4 mg Q5M X 3 DOSES PRN SL Prn Chest Pain 12/29/18 20:00 01/28/19 19:59 Ondansetron HCl (Zofran) 4 mg Q6H PRN IVP Nausea & Vomiting 12/29/18 20:00 01/28/19 19:59 Polyethylene Glycol (Miralax) 17 gm HSPRN PRN ORAL Constipation 12/29/18 20:00 01/28/19 19:59 Sitagliptin Phosphate (Januvia) 100 mg ACBREAKFAST ORAL 12/31/18 06:30 01/30/19 06:29 Sodium Chloride 1,000 ml @ 100 mls/hr Q10H IVLG 12/29/18 20:15 01/28/19 20:14 12/31/18 02:15 Temazepam (Restoril) 15 mg HSPRN PRN ORAL Insomnia 12/29/18 20:00 01/05/19 19:59 Ziprasidone (Geodon) 60 mg TWICE A DAY ORAL 12/30/18 09:00 01/29/19 08:59 12/30/18 17:15 Randa Vigil MD Dec 31, 2018 12:43
--- NOTE | 2018-12-31 15:16 | NUR ---
CASE MANAGEMENT: REVIEW 12/31/2018 SI:HYPERGLYCEMIA. T 98.3 HR 58 RR 18 B/P 171/68 SATS 98% ON RA NA 146 CL 113 BUN 23 GLU 188 MG 1.2 AST 12 IS: IVF @ 100 mL/HR GEODON PO BID ABILIFY PO QD LEXAPRO PO QD INSULIN ASPART SUBQ AC/HS DEPAKOTE PO Q12H MED/SURG STATUS PLAN OF CARE: IVF GLYCEMIC CONTROL AND MONITORING PSYCH>>>TRANSFER TO PSYCH
--- NOTE | 2018-12-31 15:21 | NUR ---
DISCHARGE PLANNING: NOTE CM ORDER FOR TRANSFER TO PSYCH. CM MADE SSW AWARE.
--- NOTE | 2018-12-31 15:26 | NUR ---
Social Work This Sw contacted [facility], who will evaluate patient (chart information sent to: . .
--- NOTE | 2018-12-31 15:38 | NUR ---
P.T NOTE: P.T EVALUATION COMPLETED. PATIENT IS ALERT, HIGHLY CONFUSED NOT FOLLOWING COMMANDS. PATIENT IS INDEPENDENT WITH BED MOBILITY AND TRANSFERS HOWEVER REQUIRES SBA/HAND IN HAND A FOR AMBULATION DUE TO SAFETY AND COGNITIVE ISSUE. PATIENT IS CURRENTLY AT BASELINE AND NOT A CANDIDATE FOR SKILLED P.T SERVICES. RECOMMEND D/C PRIOR LIVING ARRANGEMENT. [place] [facility]. THANK YOU FOR THIS REFERRAL.
[2018-12-31 16:00] VITALS: BP 139/58
--- NOTE | 2018-12-31 16:00 | Cardiology Report ---
APPROVED REPORT EKG Measurement Heart [id number] Sinus bradycardia with 1st degree AV block Left axis deviation Pulmonary disease pattern Septal infarct, age undetermined Abnormal ECG
--- NOTE | 2018-12-31 16:25 | NUR ---
*-* NO INSURANCE INFORMATION IN THE BAR UNABLE TO SEND CLINICALS OR REVIEWS *-*
--- NOTE | 2018-12-31 18:15 | Progress Note ---
DATE: 12/31/2018 SUBJECTIVE: This is a 68-year-old female patient with hyperglycemia. She continues to be confused, disorganized. She has got no logical plan for her own self-care. She has racing thoughts, pressured speech, and mood lability. Still very agitated, irritable, intermittently noncompliant with treatment. MENTAL STATUS EXAMINATION: This is a 68-year-old female. Appearance is disheveled. Attitude, irritable and agitated. Affect, guarded and restricted. Intellect poor. Mood, depressed. Motor activity, psychomotor agitation. Attention span is poor. Orientation x2. Speech is low volume, slurred. Thought process, disorganized and illogical. Insight and judgment is poor. DIAGNOSIS: Schizoaffective, bipolar type. PLAN: Treat her with Depakote 250 twice a day, Geodon 60 twice a day, Lexapro 10 mg daily, Ativan 1 mg every 6 hours p.r.n. anxiety and agitation. Provide her with 20 minutes of reality based supportive psychotherapy. Chart reviewed. Discussed with staff. Seen and assessed in her room. Ramya Vieira M.D. DR: MARÍA JOB#: [id number] CC:
--- NOTE | 2018-12-31 19:30 | NUR ---
HAND-OFF: Report given to RENETTA Cline.
[2018-12-31 20:00] VITALS: BP 166/77
--- NOTE | 2018-12-31 20:00 | NUR ---
NURSE NOTES: RECEIVED PATIENT LYING IN BED, AWAKE, ALERT/ORIENTED TO SELF, REALITY ORIENTATION PROVIDED DURING ASSESSMENT, REQUIRE REPETITIVE INTERVENTION. NO SIGNS AND SYMPTOMS OF ACUTE CARDIO RESPIRATORY DISTRESS/SHORTNESS OF BREATH, DENIES CHEST PAIN, NO EDEMA NOTED. NO REPORT OF GI DISCOMFORT, NO N/V/D. ASSISTED WITH PM CARE. BILATERAL WRIST RESTRAINT INTACT TO PREVENT PATIENT FROM CLIMBING OUT OF BED, INITIATED 12/31/18. SIDE RAILS UP X3/BED IN LOWEST POSITION FOR SAFETY. FREQUENT ROUNDS FOR SAFETY/NEEDS. NAD.
--- NOTE | 2018-12-31 20:25 | NUR ---
NURSE NOTES: TOLERATED PM SNACK, CONSUMED 100%.
[2019-01-01] VITALS (10 sets, daily range): BP systolic 96–170; BP diastolic 56–88
--- NOTE | 2019-01-01 04:16 | Consultation ---
DATE OF CONSULTATION: 12/30/2018 NOTE: POOR AUDIO PSYCHOTHERAPY CONSULTATION PROGRESS NOTE CONSULTING PHYSICIAN: Luis Ty PsyD. TREATING ATTENDING PHYSICIAN: Zak Guaman D.O HISTORY OF PRESENT ILLNESS: This is a 68-year-old female patient. [facility] The patient was brought into the hospital for hyperglycemia. The patient has a history of schizophrenia. She has been very confused, helpless, hopeless, depressed, and for this reason, she was referred for psychotherapeutic services. When this clinician assessed the patient, the patient hospitalization. The patient is able to respond; however, she is confused and depressed. She denies suicidal or homicidal thoughts of ideation. She states that she feels weak and helpless, hopeless, and could not recall why she was brought into the hospital. She is depressed. She is alert and oriented to person and place. PAST MEDICAL HISTORY: Includes a history of hypertension, diabetes, anemia, and renal insufficiency. ALLERGIES: The patient is allergic to paliperidone. SUBSTANCE USE HISTORY: There is no indication of alcohol use, illicit drug use, and illicit substance use. PSYCHIATRIC HISTORY: The patient has a history of schizophrenia and has been treated with psychotropic medications in the past. SOCIAL HISTORY: The patient SSI. MENTAL STATUS EXAMINATION: Alert and oriented to person. Mood is dysphoric. Affect is congruent. Thought process, disorganized with poor attention and concentration. Poor insight, judgment, and impulse control. PLAN: I provided the patient with: 1. Supportive psychotherapy, which is focused on . The patient is able to process his thoughts and feelings in session. 2. Reality orientation which is focused on improving cognitive functioning. The patient is very confused and disoriented. to person, place, time, and situation. concentration and focus. 3. Psychoeducation provided to the patient on mental health symptoms, , medication compliance, and positive coping skills. Psychotherapy provided to this patient, 15 minutes. This clinician has reviewed the patient's chart. Discussed treatment with treatment team. Luis yT PsyD. DR: SERENITY JOB#: [id number] CC:
[2019-01-01] MEDS: Nateglinide 60mg tab ORAL SCH ×3 (06:03→17:05)
[2019-01-01] MEDS: NovoLOG Insulin Flexpen SUBQ SCH ×4 (06:06→21:35)
[2019-01-01 06:27] LABS: ANION GAP 5 mmol/L (5-15); BLOOD UREA NITROGEN 24 mg/dL (7-18); CALCIUM 9.4 MG/DL (8.5-10.1); CARBON DIOXIDE 26 MMOL/L (21-32); CHLORIDE 107 MMOL/L (98-107); CREATININE 1.2 MG/DL (0.55-1.30); POTASSIUM 4.5 MMOL/L (3.5-5.1); SODIUM 138 MMOL/L (136-145)
[2019-01-01 06:28] LABS: BASOPHILS % (AUTO) 1.8 % (0.0-2.0); EOSINOPHILS % (AUTO) 5.1 % (0.0-3.0); HEMATOCRIT 34.2 % (37.0-47.0); HEMOGLOBIN 10.9 G/DL (12.0-16.0); LYMPHOCYTES % (AUTO) 43.8 % (20.0-45.0); MEAN CORPUSCULAR VOLUME 87 FL (80-99); NEUTROPHILS % (AUTO) 43.3 % (45.0-75.0); PLATELET COUNT 220 K/UL (150-450); RED BLOOD COUNT 3.92 M/UL (4.20-5.40); RED CELL DISTRIBUTION WIDTH 13.5 % (11.6-14.8); WHITE BLOOD COUNT 7.8 K/UL (4.8-10.8)
--- NOTE | 2019-01-01 06:32 | NUR ---
NURSE NOTES: MONITORED BLOOD GLUCOSE LEVEL VIA GLUCOMETER WITH RESULT 176MG/DL, ADM. 4 UNITS NOVOLOG INSULIN SUBCUT, TOLERATED WELL, NO ADVERSE REACTION NOTED AFTER 15 MINUTES. NAD.
--- NOTE | 2019-01-01 07:49 | Pulmonology Progress Note ---
Assessment/Plan Problems: (1) Uncontrolled diabetes mellitus (2) Anemia (3) Dementia (4) History of hypertension Assessment/Plan still aggressive iv fluids sliding scale psych saw the pt already check HemA1c check urine cultures dvt prophylaxis. Subjective ROS Limited/Unobtainable: No Constitutional: Reports: no symptoms HEENT: Repors: no symptoms Respiratory: Reports: no symptoms Allergies: Coded Allergies: PALIPERIDONE (Unverified Allergy, Unknown, 08/09/18) Objective Last 24 Hour Vital Signs Date Time Temp Pulse Resp B/P (MAP) Pulse Ox O2 Delivery O2 Flow Rate FiO2 01/01/19 06:15 151/62 (91) 01/01/19 06:07 174/75 01/01/19 04:00 98.1 62 18 166/65 (98) 97 01/01/19 00:00 98.1 52 18 156/61 (92) 99 12/31/18 21:00 Room Air 12/31/18 20:00 98.1 52 18 166/77 (106) 99 12/31/18 19:53 69 18 97 Room Air 21 12/31/18 16:00 97.8 68 18 139/58 (85) 96 12/31/18 12:29 171/68 12/31/18 12:00 98.3 58 18 171/68 (102) 98 12/31/18 08:00 98.5 70 18 115/80 (92) 98 Intake and Output 12/31/18 01/01/19 19:00 07:00 Intake Total 850 ml 720 ml Balance 850 ml 720 ml Intake Oral 850 ml 720 ml # Voids 3 General Appearance: WD/WN HEENT: normocephalic, atraumatic Respiratory/Chest: chest wall non-tender, lungs clear Cardiovascular: normal peripheral pulses Abdomen: soft, non tender, no organomegaly Genitourinary: normal external genitalia Extremities: no clubbing Microbiology Date/Time Source Procedure Growth Status 12/29/18 16:27 Nasal Nares MRSA Culture - Final Staphylococcus Aureus - Mrsa Complete 12/29/18 17:01 Rectum VRE Culture - Final NO VANCOMYCIN RESISTANT ENTEROCOCCUS ... Complete 12/29/18 16:27 Rectum - Final NO CARBAPENEM-RESISTANT ENTEROBACTERI... Complete Laboratory Tests 01/01/19 05:24: White Blood Count 7.8, Red Blood Count 3.92L, Hemoglobin 10.9L, Hematocrit 34.2L , Mean Corpuscular Volume 87, Mean Corpuscular Hemoglobin 27.9, Mean Corpuscular Hemoglobin Concent 32.0, Red Cell Distribution Width 13.5, Platelet Count 220, Mean Platelet Volume 7.4, Neutrophils (%) (Auto) 43.3L, Lymphocytes ( %) (Auto) 43.8, Monocytes (%) (Auto) 6.0, Eosinophils (%) (Auto) 5.1H, Basophils (%) (Auto) 1.8, Sodium Level 138, Potassium Level 4.5, Chloride Level 107, Carbon Dioxide Level 26, Anion Gap 5, Blood Urea Nitrogen 24H, Creatinine 1.2, Estimat Glomerular Filtration Rate 44.7, Glucose Level 180H, Calcium Level 9.4 Current Medications Medications (Trade) Dose Ordered Sig/Arely Route PRN Reason Start Time Stop Time Status Last Admin Dose Admin Acetaminophen (Tylenol) 650 mg Q4H PRN ORAL fever (temp>100.5 F) 12/29/18 20:00 01/28/19 19:59 Albuterol/ Ipratropium (Albuterol/ Ipratropium) 3 ml Q4H PRN HHN Shortness of Breath 12/29/18 20:00 01/03/19 19:59 Aripiprazole (Abilify) 7.5 mg DAILY ORAL 12/30/18 09:00 01/29/19 08:59 12/30/18 08:35 Clonidine HCl (Catapres Tab) 0.1 mg Q4H PRN ORAL sbp more than 160 12/29/18 20:00 01/28/19 19:59 01/01/19 06:07 Dextrose (Dextrose 50%) 25 ml Q30M PRN IV Hypoglycemia 12/29/18 20:00 01/28/19 19:59 Dextrose (Dextrose 50%) 50 ml Q30M PRN IV Hypoglycemia 12/29/18 20:00 01/28/19 19:59 Divalproex Sodium (Depakote) 250 mg Q12HR ORAL 12/29/18 21:00 01/28/19 20:59 12/31/18 20:42 Escitalopram Oxalate (Lexapro) 10 mg DAILY ORAL 12/30/18 09:00 01/29/19 08:59 12/30/18 08:38 Heparin Sodium (Porcine) (Heparin 5000 units/ml) 5,000 units EVERY 12 HOURS SUBQ 12/29/18 21:00 01/28/19 20:59 12/31/18 20:43 Insulin Aspart (NovoLOG) BEFORE MEALS AND HS SUBQ 12/29/18 21:00 01/28/19 20:59 01/01/19 06:06 Lorazepam (Ativan) 1 mg Q6H PRN ORAL For Anxiety 12/30/18 05:15 01/06/19 05:14 12/31/18 11:13 Nateglinide (Starlix) 60 mg TIAC ORAL 12/31/18 06:30 01/30/19 06:29 01/01/19 06:03 Nitroglycerin (Ntg) 0.4 mg Q5M X 3 DOSES PRN SL Prn Chest Pain 12/29/18 20:00 01/28/19 19:59 Ondansetron HCl (Zofran) 4 mg Q6H PRN IVP Nausea & Vomiting 12/29/18 20:00 01/28/19 19:59 Polyethylene Glycol (Miralax) 17 gm HSPRN PRN ORAL Constipation 12/29/18 20:00 01/28/19 19:59 Sitagliptin Phosphate (Januvia) 100 mg ACBREAKFAST ORAL 12/31/18 06:30 01/30/19 06:29 01/01/19 06:03 Temazepam (Restoril) 15 mg HSPRN PRN ORAL Insomnia 12/29/18 20:00 01/05/19 19:59 Ziprasidone (Geodon) 60 mg TWICE A DAY ORAL 12/30/18 09:00 01/29/19 08:59 12/31/18 17:22 Randa Vigil MD Jan 01, 2019 07:49
[2019-01-01] MEDS: Ziprasidone 20mg cap ORAL SCH ×2 (08:22→17:05)
[2019-01-01] MEDS: Heparin 5000 units/ml inj SUBQ SCH ×2 (08:24→20:35)
--- NOTE | 2019-01-01 09:43 | General Progress Note ---
Assessment/Plan Problem List: (1) Dementia ICD Codes: F03.90 - Unspecified dementia without behavioral disturbance SNOMED: 52518676 Qualifiers: Qualified Codes: F03.91 - Unspecified dementia with behavioral disturbance (2) History of hypertension ICD Codes: Z86.79 - Personal history of other diseases of the circulatory system SNOMED: 423418862 (3) Uncontrolled diabetes mellitus ICD Codes: E11.65 - Type 2 diabetes mellitus with hyperglycemia SNOMED: 15557059, 417907432 (4) Acute encephalopathy ICD Codes: G93.40 - Encephalopathy, unspecified SNOMED: 03652233, 663087915 (5) Diabetes mellitus ICD Codes: E11.9 - Type 2 diabetes mellitus without complications SNOMED: 18969617 (6) Anemia ICD Codes: D64.9 - Anemia, unspecified SNOMED: 291258471 (7) Renal insufficiency ICD Codes: N28.9 - Disorder of kidney and ureter, unspecified SNOMED: 320008796, 634048079 (8) Hyperglycemia ICD Codes: R73.9 - Hyperglycemia, unspecified SNOMED: 48011818 Status: unchanged Assessment/Plan: pt diet bs control cbc bmp am psyc transfer Subjective Constitutional: Reports: weakness Allergies: Coded Allergies: PALIPERIDONE (Unverified Allergy, Unknown, 08/09/18) All Systems: reviewed and negative except above Subjective sleepy calm Objective Last 24 Hour Vital Signs Date Time Temp Pulse Resp B/P (MAP) Pulse Ox O2 Delivery O2 Flow Rate FiO2 01/01/19 08:00 97.7 79 19 166/88 (114) 96 01/01/19 07:45 58 18 97 Room Air 21 01/01/19 06:15 151/62 (91) 01/01/19 06:07 174/75 01/01/19 04:00 98.1 62 18 166/65 (98) 97 01/01/19 00:00 98.1 52 18 156/61 (92) 99 12/31/18 21:00 Room Air 12/31/18 20:00 98.1 52 18 166/77 (106) 99 12/31/18 19:53 69 18 97 Room Air 21 12/31/18 16:00 97.8 68 18 139/58 (85) 96 12/31/18 12:29 171/68 12/31/18 12:00 98.3 58 18 171/68 (102) 98 Intake and Output 12/31/18 01/01/19 19:00 07:00 Intake Total 850 ml 720 ml Balance 850 ml 720 ml Intake Oral 850 ml 720 ml # Voids 3 Laboratory Tests 01/01/19 05:24: White Blood Count 7.8, Red Blood Count 3.92L, Hemoglobin 10.9L, Hematocrit 34.2L , Mean Corpuscular Volume 87, Mean Corpuscular Hemoglobin 27.9, Mean Corpuscular Hemoglobin Concent 32.0, Red Cell Distribution Width 13.5, Platelet Count 220, Mean Platelet Volume 7.4, Neutrophils (%) (Auto) 43.3L, Lymphocytes ( %) (Auto) 43.8, Monocytes (%) (Auto) 6.0, Eosinophils (%) (Auto) 5.1H, Basophils (%) (Auto) 1.8, Sodium Level 138, Potassium Level 4.5, Chloride Level 107, Carbon Dioxide Level 26, Anion Gap 5, Blood Urea Nitrogen 24H, Creatinine 1.2, Estimat Glomerular Filtration Rate 44.7, Glucose Level 180H, Calcium Level 9.4 Height (Feet): 5 Height (Inches): 3.00 Weight (Pounds): 150 General Appearance: lethargic, confused EENT: normal ENT inspection Neck: normal alignment Cardiovascular: normal peripheral pulses, normal rate, regular rhythm Respiratory/Chest: chest wall non-tender, lungs clear, normal breath sounds Abdomen: normal bowel sounds, non tender, soft Extremities: normal inspection Edema: no edema noted Arm (L), no edema noted Arm (R), no edema noted Leg (L), no edema noted Leg (R), no edema noted Pedal (L), no edema noted Pedal (R), no edema noted Generalized Neurologic: motor weakness Skin: normal pigmentation, warm/dry Zak Guaman DO Jan 01, 2019 09:43
--- NOTE | 2019-01-01 10:00 | NUR ---
NURSE NOTES: received patient A/A/OX1, confused, agitated and resistive. patient not able to express needs. Patient appears depress and cries suddenly. No acute resp distress noted at this time. patient IV intact patent and intact. bed in lowest position and locked. bed side rails are up bed alarm on. patient atempted to get out of bed. siderails are up x3 and bed alarm activated @ all times. call light within reach. will continue to monitor.
[2019-01-01] MEDS: LORazepam 1mg tab ORAL PRN (11:41)
--- NOTE | 2019-01-01 12:02 | General Progress Note ---
Assessment/Plan Problem List: (1) Diabetes mellitus ICD Codes: E11.9 - Type 2 diabetes mellitus without complications SNOMED: 62445561 (2) History of hypertension ICD Codes: Z86.79 - Personal history of other diseases of the circulatory system SNOMED: 178442766 (3) Dementia ICD Codes: F03.90 - Unspecified dementia without behavioral disturbance SNOMED: 73832435 Qualifiers: Qualified Codes: F03.91 - Unspecified dementia with behavioral disturbance (4) Renal insufficiency ICD Codes: N28.9 - Disorder of kidney and ureter, unspecified SNOMED: 106636288, 867632023 Status: unchanged Assessment/Plan: continue Januvia 100 mg daily continue Starlix 60 mg ac tid continue NISS ac / hs Subjective ROS Limited/Unobtainable: Yes Allergies: Coded Allergies: PALIPERIDONE (Unverified Allergy, Unknown, 08/09/18) Subjective events noted Item Value Date Time Bedside Blood Glucose 133 mg/dl H 01/01/19 1142 Bedside Blood Glucose 176 mg/dl H 01/01/19 0629 Bedside Blood Glucose 222 mg/dl H 12/31/18 2048 Bedside Blood Glucose 200 mg/dl H 12/31/18 1724 Objective Last 24 Hour Vital Signs Date Time Temp Pulse Resp B/P (MAP) Pulse Ox O2 Delivery O2 Flow Rate FiO2 01/01/19 08:15 56 121/58 (79) 01/01/19 08:00 97.7 79 19 166/88 (114) 96 01/01/19 07:45 58 18 97 Room Air 21 01/01/19 06:15 151/62 (91) 01/01/19 06:07 174/75 01/01/19 04:00 98.1 62 18 166/65 (98) 97 01/01/19 00:00 98.1 52 18 156/61 (92) 99 12/31/18 21:00 Room Air 12/31/18 20:00 98.1 52 18 166/77 (106) 99 12/31/18 19:53 69 18 97 Room Air 21 12/31/18 16:00 97.8 68 18 139/58 (85) 96 12/31/18 12:29 171/68 Intake and Output 12/31/18 01/01/19 19:00 07:00 Intake Total 850 ml 720 ml Balance 850 ml 720 ml Intake Oral 850 ml 720 ml # Voids 3 Laboratory Tests 01/01/19 05:24: White Blood Count 7.8, Red Blood Count 3.92L, Hemoglobin 10.9L, Hematocrit 34.2L , Mean Corpuscular Volume 87, Mean Corpuscular Hemoglobin 27.9, Mean Corpuscular Hemoglobin Concent 32.0, Red Cell Distribution Width 13.5, Platelet Count 220, Mean Platelet Volume 7.4, Neutrophils (%) (Auto) 43.3L, Lymphocytes ( %) (Auto) 43.8, Monocytes (%) (Auto) 6.0, Eosinophils (%) (Auto) 5.1H, Basophils (%) (Auto) 1.8, Sodium Level 138, Potassium Level 4.5, Chloride Level 107, Carbon Dioxide Level 26, Anion Gap 5, Blood Urea Nitrogen 24H, Creatinine 1.2, Estimat Glomerular Filtration Rate 44.7, Glucose Level 180H, Calcium Level 9.4 Height (Feet): 5 Height (Inches): 3.00 Weight (Pounds): 150 General Appearance: no apparent distress Neck: normal alignment Cardiovascular: normal rate Respiratory/Chest: decreased breath sounds Edema: no edema noted Arm (L), no edema noted Arm (R), no edema noted Leg (L), no edema noted Leg (R), no edema noted Pedal (L), no edema noted Pedal (R), no edema noted Generalized Objective Current Medications Medications (Trade) Dose Ordered Sig/Arely Route PRN Reason Start Time Stop Time Status Last Admin Dose Admin Acetaminophen (Tylenol) 650 mg Q4H PRN ORAL fever (temp>100.5 F) 12/29/18 20:00 01/28/19 19:59 Albuterol/ Ipratropium (Albuterol/ Ipratropium) 3 ml Q4H PRN HHN Shortness of Breath 12/29/18 20:00 01/03/19 19:59 Aripiprazole (Abilify) 7.5 mg DAILY ORAL 12/30/18 09:00 01/29/19 08:59 01/01/19 08:22 Clonidine HCl (Catapres Tab) 0.1 mg Q4H PRN ORAL sbp more than 160 12/29/18 20:00 01/28/19 19:59 01/01/19 06:07 Dextrose (Dextrose 50%) 25 ml Q30M PRN IV Hypoglycemia 12/29/18 20:00 01/28/19 19:59 Dextrose (Dextrose 50%) 50 ml Q30M PRN IV Hypoglycemia 12/29/18 20:00 01/28/19 19:59 Divalproex Sodium (Depakote) 250 mg Q12HR ORAL 12/29/18 21:00 01/28/19 20:59 01/01/19 08:22 Escitalopram Oxalate (Lexapro) 10 mg DAILY ORAL 12/30/18 09:00 01/29/19 08:59 01/01/19 08:22 Heparin Sodium (Porcine) (Heparin 5000 units/ml) 5,000 units EVERY 12 HOURS SUBQ 12/29/18 21:00 01/28/19 20:59 01/01/19 08:24 Insulin Aspart (NovoLOG) BEFORE MEALS AND HS SUBQ 12/29/18 21:00 01/28/19 20:59 01/01/19 11:42 Lorazepam (Ativan) 1 mg Q6H PRN ORAL For Anxiety 12/30/18 05:15 01/06/19 05:14 01/01/19 11:41 Nateglinide (Starlix) 60 mg TIAC ORAL 12/31/18 06:30 01/30/19 06:29 01/01/19 11:46 Nitroglycerin (Ntg) 0.4 mg Q5M X 3 DOSES PRN SL Prn Chest Pain 12/29/18 20:00 01/28/19 19:59 Ondansetron HCl (Zofran) 4 mg Q6H PRN IVP Nausea & Vomiting 12/29/18 20:00 01/28/19 19:59 Polyethylene Glycol (Miralax) 17 gm HSPRN PRN ORAL Constipation 12/29/18 20:00 01/28/19 19:59 Sitagliptin Phosphate (Januvia) 100 mg ACBREAKFAST ORAL 12/31/18 06:30 01/30/19 06:29 01/01/19 06:03 Temazepam (Restoril) 15 mg HSPRN PRN ORAL Insomnia 12/29/18 20:00 01/05/19 19:59 Ziprasidone (Geodon) 60 mg TWICE A DAY ORAL 6/27/19 09:00 01/29/19 08:59 01/01/19 08:22 Ryley Vasqeuz MD Jan 01, 2019 12:02
--- NOTE | 2019-01-01 16:19 | NUR ---
DISCHARGE PLANNING: NOTE PER [facility] THEY CANNOT ACCOMMODATE THIS PATIENT TODAY
--- NOTE | 2019-01-01 16:21 | NUR ---
CASE MANAGEMENT: REVIEW 01/01/2019 SI:HYPERGLYCEMIA. T 98.8 HR 82 RR 19 B/P 148/78 SATS 97% ON RA BUN 24 GLU 180 IS: IVF @ 100 mL/HR GEODON PO BID ABILIFY PO QD LEXAPRO PO QD INSULIN ASPART SUBQ AC/HS DEPAKOTE PO Q12H MED/SURG STATUS PLAN OF CARE: IVF GLYCEMIC CONTROL AND MONITORING PSYCH>>>TRANSFER TO PSYCH
--- NOTE | 2019-01-01 19:07 | NUR ---
HAND-OFF: Report given to Priti.
--- NOTE | 2019-01-01 19:30 | NUR ---
NURSE NOTES: RECEIVED PATIENT LYING IN BED, AWAKE, ALERT/ORIENTED TO PERSON, REALITY ORIENTATION PROVIDED DURING ASSESSMENT, DENIES PAIN. NO SIGNS AND SYMPTOMS OF ACUTE CARDIO RESPIRATORY DISTRESS/SHORTNESS OF BREATH, NO PERIPHERAL EDEMA NOTED. BILATERAL WRIST RESTRAINTS INTACT TO PREVENT PATIENT FROM REMOVING DEVICES/CLIMBING OUT OF BED. PM CARE PROVIDED. SIDE RAILS UP X3/BED IN LOWEST POSITION FOR SAFETY. CALL LIGHT WITHIN REACH. FREQUENT ROUNDING FOR SAFETY/NEEDS. CONTINUE WITH CURRENT PLAN OF CARE. NAD.
--- NOTE | 2019-01-01 23:30 | Progress Note ---
DATE: 01/01/2019 NOTE: "POOR AUDIO QUALITY" SUBJECTIVE: The patient is a 68-year-old female patient with hyperglycemia, seems to have some confusion, some disorganized thought process, and some decline in cognition below baseline. That is why, her attending has requested daily psychiatric consultation. She has got feelings of helplessness and hopelessness, low energy, poor appetite, loss of interest in activity. She has mood lability. She has got hyperglycemia, but she has extreme agitation and mood lability on the unit, intermittently noncompliant with treatment. That is why, she has daily psychiatric consultation to help stabilize her mood lability and agitation. MENTAL STATUS EXAMINATION: A 68-year-old female. Appearance is disheveled. Attitude, irritable and agitated. Affect, guarded and restricted. Intellect poor. Mood, depressed and anxious. Motor activity, psychomotor agitation. Attention span is poor. Orientation x2. Speech is pressured. Thought process, disorganized and illogical. Thought content, auditory hallucinations and paranoid delusions. Insight and judgment is poor. DIAGNOSIS: Paranoid schizophrenia with acute exacerbation. PLAN: Plan for this patient is to treat her with a medication regimen consisting of Depakote 250 twice a day, Geodon 60 mg twice a day, Lexapro 10 mg a day, and Ativan 1 mg every 6 hours p.r.n. anxiety. Provided with 20 minutes of cognitive behavioral therapy to help her identify automatic negative thoughts and help her convert negative thoughts to more positive thoughts to reduce depression, anxiety, and mood lability. Seen and assessed at bedside. Twenty minutes of cognitive behavioral therapy provided. Chart reviewed. Discussed with staff. Seen and assessed in the room. Ramya Vieira M.D. DR: MARBELLA JOB#: [id number] CC:
[2019-01-02] VITALS (7 sets, daily range): BP systolic 134–163; BP diastolic 56–85
--- NOTE | 2019-01-02 06:26 | NUR ---
NURSE NOTES: BLOOD GLUCOSE LEVEL MONITORED VIA GLUCOMETER WITH RESULT 222MG/DL, ASYMPTOMATIC, ADM. 6 UNITS NOVOLOG INSULIN SUBCUT, TOLERATED WELL, NO ADVERSE REACTION NOTED AFTER 15 MINUTES. NAD.
[2019-01-02] MEDS: Nateglinide 60mg tab ORAL SCH ×3 (06:33→17:31)
[2019-01-02] MEDS: NovoLOG Insulin Flexpen SUBQ SCH ×4 (06:33→21:30)
--- NOTE | 2019-01-02 07:14 | Pulmonology Progress Note ---
Assessment/Plan Problems: (1) Uncontrolled diabetes mellitus (2) Anemia (3) Dementia (4) History of hypertension Assessment/Plan still aggressive iv fluids sliding scale psych saw the pt already check HemA1c check urine cultures dvt prophylaxis. Subjective ROS Limited/Unobtainable: No Constitutional: Reports: no symptoms HEENT: Repors: no symptoms Respiratory: Reports: no symptoms Allergies: Coded Allergies: PALIPERIDONE (Unverified Allergy, Unknown, 08/09/18) Objective Last 24 Hour Vital Signs Date Time Temp Pulse Resp B/P (MAP) Pulse Ox O2 Delivery O2 Flow Rate FiO2 01/02/19 04:00 97.7 52 19 161/56 (91) 98 01/02/19 00:00 97.3 53 18 153/59 (90) 96 01/01/19 21:36 56 148/56 (86) 01/01/19 21:10 64 18 98 Room Air 21 01/01/19 21:02 48 170/86 (114) 01/01/19 21:00 Room Air 01/01/19 20:00 97.6 69 19 96/62 (73) 96 01/01/19 16:00 98.3 60 19 138/73 (94) 97 01/01/19 12:00 98.8 82 19 148/78 (101) 97 01/01/19 08:15 56 121/58 (79) 01/01/19 08:00 97.7 79 19 166/88 (114) 96 01/01/19 07:45 58 18 97 Room Air 21 Intake and Output 01/01/19 01/02/19 19:00 07:00 Intake Total 3280 ml Balance 3280 ml Intake Oral 1680 ml Other 1600 ml # Voids 6 # Bowel Movements 1 General Appearance: WD/WN, no acute distress HEENT: normocephalic Respiratory/Chest: chest wall non-tender, lungs clear Cardiovascular: normal rate Abdomen: normal bowel sounds, no organomegaly Genitourinary: normal external genitalia Extremities: no clubbing Laboratory Tests 01/02/19 05:55: White Blood Count [Pending], Red Blood Count [Pending], Hemoglobin [Pending], Hematocrit [Pending], Mean Corpuscular Volume [Pending], Mean Corpuscular Hemoglobin [Pending], Mean Corpuscular Hemoglobin Concent [Pending], Red Cell Distribution Width [Pending], Platelet Count [Pending], Mean Platelet Volume [ Pending], Neutrophils (%) (Auto) [Pending], Lymphocytes (%) (Auto) [Pending], Monocytes (%) (Auto) [Pending], Eosinophils (%) (Auto) [Pending], Basophils (%) (Auto) [Pending], Sodium Level [Pending], Potassium Level [Pending], Chloride Level [Pending], Carbon Dioxide Level [Pending], Blood Urea Nitrogen [Pending], Creatinine [Pending], Estimat Glomerular Filtration Rate [Pending], Glucose Level [Pending], Calcium Level [Pending] Current Medications Medications (Trade) Dose Ordered Sig/Arely Route PRN Reason Start Time Stop Time Status Last Admin Dose Admin Acetaminophen (Tylenol) 650 mg Q4H PRN ORAL fever (temp>100.5 F) 12/29/18 20:00 01/28/19 19:59 Albuterol/ Ipratropium (Albuterol/ Ipratropium) 3 ml Q4H PRN HHN Shortness of Breath 12/29/18 20:00 01/03/19 19:59 Aripiprazole (Abilify) 7.5 mg DAILY ORAL 12/30/18 09:00 01/29/19 08:59 01/01/19 08:22 Clonidine HCl (Catapres Tab) 0.1 mg Q4H PRN ORAL sbp more than 160 12/29/18 20:00 01/28/19 19:59 01/01/19 06:07 Dextrose (Dextrose 50%) 25 ml Q30M PRN IV Hypoglycemia 12/29/18 20:00 01/28/19 19:59 Dextrose (Dextrose 50%) 50 ml Q30M PRN IV Hypoglycemia 12/29/18 20:00 01/28/19 19:59 Divalproex Sodium (Depakote) 250 mg Q12HR ORAL 12/29/18 21:00 01/28/19 20:59 01/01/19 20:34 Escitalopram Oxalate (Lexapro) 10 mg DAILY ORAL 12/30/18 09:00 01/29/19 08:59 01/01/19 08:22 Heparin Sodium (Porcine) (Heparin 5000 units/ml) 5,000 units EVERY 12 HOURS SUBQ 6/26/19 21:00 01/28/19 20:59 01/01/19 20:35 Insulin Aspart (NovoLOG) BEFORE MEALS AND HS SUBQ 12/29/18 21:00 01/28/19 20:59 01/02/19 06:33 Lorazepam (Ativan) 1 mg Q6H PRN ORAL For Anxiety 12/30/18 05:15 01/06/19 05:14 01/01/19 11:41 Nateglinide (Starlix) 60 mg TIAC ORAL 12/31/18 06:30 01/30/19 06:29 01/02/19 06:33 Nitroglycerin (Ntg) 0.4 mg Q5M X 3 DOSES PRN SL Prn Chest Pain 12/29/18 20:00 01/28/19 19:59 Ondansetron HCl (Zofran) 4 mg Q6H PRN IVP Nausea & Vomiting 12/29/18 20:00 01/28/19 19:59 Polyethylene Glycol (Miralax) 17 gm HSPRN PRN ORAL Constipation 12/29/18 20:00 01/28/19 19:59 Sitagliptin Phosphate (Januvia) 100 mg ACBREAKFAST ORAL 12/31/18 06:30 01/30/19 06:29 01/02/19 06:33 Temazepam (Restoril) 15 mg HSPRN PRN ORAL Insomnia 12/29/18 20:00 01/05/19 19:59 Ziprasidone (Geodon) 60 mg TWICE A DAY ORAL 12/30/18 09:00 01/29/19 08:59 01/01/19 17:05 Randa Vigil MD Jan 02, 2019 07:14
[2019-01-02 07:23] LABS: BASOPHILS % (AUTO) 1.2 % (0.0-2.0); EOSINOPHILS % (AUTO) 5.4 % (0.0-3.0); HEMATOCRIT 36.2 % (37.0-47.0); HEMOGLOBIN 11.5 G/DL (12.0-16.0); LYMPHOCYTES % (AUTO) 41.2 % (20.0-45.0); MEAN CORPUSCULAR VOLUME 87 FL (80-99); MONOCYTES % (AUTO) 6.6 % (1.0-10.0); NEUTROPHILS % (AUTO) 45.6 % (45.0-75.0); PLATELET COUNT 213 K/UL (150-450); RED BLOOD COUNT 4.17 M/UL (4.20-5.40); RED CELL DISTRIBUTION WIDTH 13.4 % (11.6-14.8); WHITE BLOOD COUNT 7.5 K/UL (4.8-10.8)
[2019-01-02 07:27] LABS: ANION GAP 9 mmol/L (5-15); BLOOD UREA NITROGEN 29 mg/dL (7-18); CALCIUM 9.8 MG/DL (8.5-10.1); CARBON DIOXIDE 25 MMOL/L (21-32); CHLORIDE 110 MMOL/L (98-107); CREATININE 1.2 MG/DL (0.55-1.30); POTASSIUM 4.5 MMOL/L (3.5-5.1); SODIUM 144 MMOL/L (136-145)
--- NOTE | 2019-01-02 07:41 | General Progress Note ---
Assessment/Plan Problem List: (1) Dementia ICD Codes: F03.90 - Unspecified dementia without behavioral disturbance SNOMED: 95954747 Qualifiers: Qualified Codes: F03.91 - Unspecified dementia with behavioral disturbance (2) History of hypertension ICD Codes: Z86.79 - Personal history of other diseases of the circulatory system SNOMED: 149822711 (3) Uncontrolled diabetes mellitus ICD Codes: E11.65 - Type 2 diabetes mellitus with hyperglycemia SNOMED: 23964433, 170217799 (4) Acute encephalopathy ICD Codes: G93.40 - Encephalopathy, unspecified SNOMED: 60561966, 467767850 (5) Diabetes mellitus ICD Codes: E11.9 - Type 2 diabetes mellitus without complications SNOMED: 21164599 (6) Anemia ICD Codes: D64.9 - Anemia, unspecified SNOMED: 399729811 (7) Renal insufficiency ICD Codes: N28.9 - Disorder of kidney and ureter, unspecified SNOMED: 397778662, 383021359 (8) Hyperglycemia ICD Codes: R73.9 - Hyperglycemia, unspecified SNOMED: 87791989 Status: unchanged Assessment/Plan: pt diet bs control cbc bmp am psyc transfer Subjective Constitutional: Reports: weakness Allergies: Coded Allergies: PALIPERIDONE (Unverified Allergy, Unknown, 08/09/18) All Systems: reviewed and negative except above Subjective sleepy calm Objective Last 24 Hour Vital Signs Date Time Temp Pulse Resp B/P (MAP) Pulse Ox O2 Delivery O2 Flow Rate FiO2 01/02/19 04:00 97.7 52 19 161/56 (91) 98 01/02/19 00:00 97.3 53 18 153/59 (90) 96 01/01/19 21:36 56 148/56 (86) 01/01/19 21:10 64 18 98 Room Air 21 01/01/19 21:02 48 170/86 (114) 01/01/19 21:00 Room Air 01/01/19 20:00 97.6 69 19 96/62 (73) 96 01/01/19 16:00 98.3 60 19 138/73 (94) 97 01/01/19 12:00 98.8 82 19 148/78 (101) 97 01/01/19 08:15 56 121/58 (79) 01/01/19 08:00 97.7 79 19 166/88 (114) 96 01/01/19 07:45 58 18 97 Room Air 21 Intake and Output 01/01/19 01/02/19 19:00 07:00 Intake Total 3280 ml Balance 3280 ml Intake Oral 1680 ml Other 1600 ml # Voids 6 # Bowel Movements 1 Laboratory Tests 01/02/19 05:55: White Blood Count 7.5, Red Blood Count 4.17L, Hemoglobin 11.5L, Hematocrit 36.2L , Mean Corpuscular Volume 87, Mean Corpuscular Hemoglobin 27.6, Mean Corpuscular Hemoglobin Concent 31.8L, Red Cell Distribution Width 13.4, Platelet Count 213, Mean Platelet Volume 8.1, Neutrophils (%) (Auto) 45.6, Lymphocytes (%) (Auto) 41.2, Monocytes (%) (Auto) 6.6, Eosinophils (%) (Auto) 5.4H, Basophils (%) (Auto) 1.2, Sodium Level 144, Potassium Level 4.5, Chloride Level 110H, Carbon Dioxide Level 25, Anion Gap 9, Blood Urea Nitrogen 29H, Creatinine 1.2, Estimat Glomerular Filtration Rate 44.7, Glucose Level 246H, Calcium Level 9.8 Height (Feet): 5 Height (Inches): 3.00 Weight (Pounds): 150 General Appearance: lethargic EENT: normal ENT inspection Neck: normal alignment Cardiovascular: normal peripheral pulses, normal rate, regular rhythm Respiratory/Chest: chest wall non-tender, lungs clear, normal breath sounds Abdomen: normal bowel sounds, non tender, soft Extremities: normal inspection Edema: no edema noted Arm (L), no edema noted Arm (R), no edema noted Leg (L), no edema noted Leg (R), no edema noted Pedal (L), no edema noted Pedal (R), no edema noted Generalized Neurologic: motor weakness Skin: normal pigmentation, warm/dry Zak Guaman DO Jan 02, 2019 07:41
--- NOTE | 2019-01-02 08:30 | NUR ---
NURSE NOTES: received patient A/A/OX1, confused, agitated and calm at times. patient not able to express needs. Patient appears depress and cries intermittently. No acute resp distress noted at this time. patient IV access patent and intact. bed in lowest position and locked. bed side rails are up bed alarm on. patient attempted to get out of bed. bilateral soft wrists restraints inplaced. siderails are up x3 and bed alarm activated @ all times. call light within reach. will continue to monitor.
[2019-01-02] MEDS: Ziprasidone 20mg cap ORAL SCH ×2 (08:38→17:32)
[2019-01-02] MEDS: Heparin 5000 units/ml inj SUBQ SCH ×2 (08:41→21:03)
--- NOTE | 2019-01-02 17:00 | Progress Note ---
DATE: 01/02/2019 SUBJECTIVE: The patient is a 68-year-old female with hyperglycemia, but she is extremely mood labile, irritable, agitated, and intermittently refusing treatment, verbally abusive. That is why her attending has requested daily psychiatric consultation. DIAGNOSIS: Schizoaffective, bipolar type. PLAN: Treat her with Geodon 60 mg twice a day, Lexapro 10 mg daily, Depakote 250 mg twice a day, and Ativan 1 every 6 hours. Transfer to psych when medically cleared. 20 minutes of cognitive behavioral therapy provided to help her identify automatic negative thoughts and help her convert her negative thoughts to more positive thoughts. A 20 minutes of cognitive behavioral therapy provided. Seen and assessed in her room. Ramya Vieira M.D. DR: IRENE JOB#: [id number] CC:
--- NOTE | 2019-01-02 18:57 | NUR ---
HAND-OFF: Report given to Priti.
--- NOTE | 2019-01-02 19:06 | NUR ---
NURSE NOTES: RECEIVED PATIENT LYING IN BED, AWAKE, ALERT/ORIENTED TO PERSON, DENIES PAIN, NO SIGNS AND SYMPTOMS OF ACUTE CARDIO RESPIRATORY DISTRESS/SHORTNESS OF BREATH, DENIES CHEST PAIN, NO PERIPHERAL EDEMA NOTED. HEPLOCK INTACT TO LEFT FOREARM/GAUGE 20, NO REDNESS/SWELLING NOTED. NO REPORT OF GI DISCOMFORT, ADEQUATE PO INTAKE, NO N/V/D. PM CARE PROVIDED, TOLERATED WELL. SIDE RAILS UP X3/BED IN LOWEST POSITION FOR SAFETY, BED ALARM ACTIVATED. NAD.
[2019-01-03] VITALS: BP 150/60
--- NOTE | 2019-01-03 03:17 | NUR ---
HAND-OFF: Report given to SALVADOR GUERRERO.
--- NOTE | 2019-01-03 03:45 | Progress Note ---
DATE: 01/01/2019 PSYCHOTHERAPY CONSULTATION PROGRESS NOTE SUBJECTIVE: The patient is a 68-year-old female patient from [facility]. The patient has been dysphoric, depressed. She has been confused and anxious. She denies suicidal or homicidal thoughts of ideation. thoughts and helpless. Alert and oriented to person and place. Mood is depressed. Affect congruent. Thought process is disorganized. The patient requires encouragement and support. She is able to participate in treatment. The patient was provided one-on-one interaction. I ASSESSED THE PATIENT. PROVIDED THE PATIENT WITH: Supportive psychotherapy emotional distress. reality orientation due to confusion and disorientation current living and concentration poor. PLAN: To maintain medication compliance stabilized mood, thoughts, and behavior. Psychotherapy was provided to the patient 20 minutes. This clinician has reviewed the patient's chart. Discussed treatment with treatment team. Luis Ty PsyD. DR: ELIUD JOB#: [id number] CC:
[2019-01-03 04:00] VITALS: BP 169/78
[2019-01-03] MEDS: NovoLOG Insulin Flexpen SUBQ SCH ×4 (05:44→20:51)
[2019-01-03] MEDS: Nateglinide 60mg tab ORAL SCH ×5 (05:45→17:28)
--- NOTE | 2019-01-03 06:17 | General Progress Note ---
Assessment/Plan Problem List: (1) Diabetes mellitus ICD Codes: E11.9 - Type 2 diabetes mellitus without complications SNOMED: 31575046 (2) History of hypertension ICD Codes: Z86.79 - Personal history of other diseases of the circulatory system SNOMED: 629508076 (3) Dementia ICD Codes: F03.90 - Unspecified dementia without behavioral disturbance SNOMED: 84696899 Qualifiers: Qualified Codes: F03.91 - Unspecified dementia with behavioral disturbance (4) Renal insufficiency ICD Codes: N28.9 - Disorder of kidney and ureter, unspecified SNOMED: 331501359, 760080160 Status: unchanged Assessment/Plan: add Levemir 10 units daily continue Januvia 100 mg daily continue Starlix 60 mg ac tid continue NISS ac / hs Subjective Allergies: Coded Allergies: PALIPERIDONE (Unverified Allergy, Unknown, 08/09/18) All Systems: reviewed and negative except above Subjective events noted glucose elevated after she refused both Starlix and Januvia Item Value Date Time Bedside Blood Glucose 219 mg/dl H 01/03/19 0544 Bedside Blood Glucose 199 mg/dl H 01/02/19 2130 Bedside Blood Glucose 160 mg/dl H 01/02/19 1737 Bedside Blood Glucose 309 mg/dl H 01/02/19 1217 Bedside Blood Glucose 222 mg/dl H 01/02/19 0635 Objective Last 24 Hour Vital Signs Date Time Temp Pulse Resp B/P (MAP) Pulse Ox O2 Delivery O2 Flow Rate FiO2 01/03/19 04:00 97.5 55 17 169/78 (108) 99 01/03/19 00:00 97.3 58 18 150/60 (90) 100 01/02/19 21:00 Room Air 01/02/19 20:29 67 18 97 Room Air 21 01/02/19 20:00 97.6 55 20 151/65 (93) 97 01/02/19 16:00 98.9 64 17 134/84 (101) 96 01/02/19 14:06 78 18 98 Room Air 21 01/02/19 12:30 66 136/67 (90) 01/02/19 12:00 97.5 79 18 163/65 (97) 98 01/02/19 08:00 97.9 76 18 149/85 (106) 98 Intake and Output 01/02/19 01/03/19 19:00 07:00 Intake Total 900 ml 360 ml Balance 900 ml 360 ml Intake Oral 360 ml Other 900 ml # Voids 1 Height (Feet): 5 Height (Inches): 3.00 Weight (Pounds): 150 General Appearance: no apparent distress Neck: normal alignment Cardiovascular: normal rate Respiratory/Chest: decreased breath sounds Abdomen: normal bowel sounds Objective Current Medications Medications (Trade) Dose Ordered Sig/Arely Route PRN Reason Start Time Stop Time Status Last Admin Dose Admin Acetaminophen (Tylenol) 650 mg Q4H PRN ORAL fever (temp>100.5 F) 12/29/18 20:00 01/28/19 19:59 Albuterol/ Ipratropium (Albuterol/ Ipratropium) 3 ml Q4H PRN HHN Shortness of Breath 12/29/18 20:00 01/03/19 19:59 Aripiprazole (Abilify) 7.5 mg DAILY ORAL 12/30/18 09:00 01/29/19 08:59 01/02/19 08:37 Clonidine HCl (Catapres Tab) 0.1 mg Q4H PRN ORAL sbp more than 160 12/29/18 20:00 01/28/19 19:59 01/01/19 06:07 Dextrose (Dextrose 50%) 25 ml Q30M PRN IV Hypoglycemia 12/29/18 20:00 01/28/19 19:59 Dextrose (Dextrose 50%) 50 ml Q30M PRN IV Hypoglycemia 12/29/18 20:00 01/28/19 19:59 Divalproex Sodium (Depakote) 250 mg Q12HR ORAL 12/29/18 21:00 01/28/19 20:59 01/02/19 21:01 Escitalopram Oxalate (Lexapro) 10 mg DAILY ORAL 12/30/18 09:00 01/29/19 08:59 01/02/19 08:37 Heparin Sodium (Porcine) (Heparin 5000 units/ml) 5,000 units EVERY 12 HOURS SUBQ 12/29/18 21:00 01/28/19 20:59 01/02/19 21:03 Insulin Aspart (NovoLOG) BEFORE MEALS AND HS SUBQ 12/29/18 21:00 01/28/19 20:59 01/03/19 05:44 Lorazepam (Ativan) 1 mg Q6H PRN ORAL For Anxiety 12/30/18 05:15 01/06/19 05:14 01/01/19 11:41 Nateglinide (Starlix) 60 mg TIAC ORAL 12/31/18 06:30 01/30/19 06:29 01/02/19 17:31 Nitroglycerin (Ntg) 0.4 mg Q5M X 3 DOSES PRN SL Prn Chest Pain 12/29/18 20:00 01/28/19 19:59 Ondansetron HCl (Zofran) 4 mg Q6H PRN IVP Nausea & Vomiting 12/29/18 20:00 01/28/19 19:59 Polyethylene Glycol (Miralax) 17 gm HSPRN PRN ORAL Constipation 12/29/18 20:00 01/28/19 19:59 01/03/19 05:46 Sitagliptin Phosphate (Januvia) 100 mg ACBREAKFAST ORAL 12/31/18 06:30 01/30/19 06:29 01/02/19 06:33 Temazepam (Restoril) 15 mg HSPRN PRN ORAL Insomnia 12/29/18 20:00 01/05/19 19:59 Ziprasidone (Geodon) 60 mg TWICE A DAY ORAL 12/30/18 09:00 01/29/19 08:59 01/02/19 17:32 Ryley Vasquez MD Jan 03, 2019 06:17
--- NOTE | 2019-01-03 07:10 | NUR ---
NURSE NOTES: Handoff received from SALVADOR Harden
--- NOTE | 2019-01-03 07:41 | NUR ---
HAND-OFF: Report given to Baldev FRANCO.
--- NOTE | 2019-01-03 08:22 | General Progress Note ---
Assessment/Plan Problem List: (1) Dementia ICD Codes: F03.90 - Unspecified dementia without behavioral disturbance SNOMED: 44560583 Qualifiers: Qualified Codes: F03.91 - Unspecified dementia with behavioral disturbance (2) History of hypertension ICD Codes: Z86.79 - Personal history of other diseases of the circulatory system SNOMED: 138265769 (3) Uncontrolled diabetes mellitus ICD Codes: E11.65 - Type 2 diabetes mellitus with hyperglycemia SNOMED: 67081480, 091389837 (4) Acute encephalopathy ICD Codes: G93.40 - Encephalopathy, unspecified SNOMED: 79429526, 654749535 (5) Diabetes mellitus ICD Codes: E11.9 - Type 2 diabetes mellitus without complications SNOMED: 24450036 (6) Anemia ICD Codes: D64.9 - Anemia, unspecified SNOMED: 009829265 (7) Renal insufficiency ICD Codes: N28.9 - Disorder of kidney and ureter, unspecified SNOMED: 724912181, 742959315 (8) Hyperglycemia ICD Codes: R73.9 - Hyperglycemia, unspecified SNOMED: 14512695 Status: unchanged Assessment/Plan: pt diet bs control cbc bmp am psyc transfer Subjective Constitutional: Reports: weakness Allergies: Coded Allergies: PALIPERIDONE (Unverified Allergy, Unknown, 08/09/18) Subjective confused crying Objective Last 24 Hour Vital Signs Date Time Temp Pulse Resp B/P (MAP) Pulse Ox O2 Delivery O2 Flow Rate FiO2 01/03/19 04:00 97.5 55 17 169/78 (108) 99 01/03/19 00:00 97.3 58 18 150/60 (90) 100 01/02/19 21:00 Room Air 01/02/19 20:29 67 18 97 Room Air 21 01/02/19 20:00 97.6 55 20 151/65 (93) 97 01/02/19 16:00 98.9 64 17 134/84 (101) 96 01/02/19 14:06 78 18 98 Room Air 21 01/02/19 12:30 66 136/67 (90) 01/02/19 12:00 97.5 79 18 163/65 (97) 98 Intake and Output 01/02/19 01/03/19 19:00 07:00 Intake Total 900 ml 860 ml Balance 900 ml 860 ml Intake Oral 860 ml Other 900 ml # Voids 5 Height (Feet): 5 Height (Inches): 3.00 Weight (Pounds): 150 General Appearance: lethargic, confused EENT: normal ENT inspection Neck: normal alignment Cardiovascular: normal peripheral pulses, normal rate, regular rhythm Respiratory/Chest: chest wall non-tender, lungs clear, normal breath sounds Abdomen: normal bowel sounds, non tender, soft Extremities: normal inspection Edema: no edema noted Arm (L), no edema noted Arm (R), no edema noted Leg (L), no edema noted Leg (R), no edema noted Pedal (L), no edema noted Pedal (R), no edema noted Generalized Neurologic: motor weakness Skin: normal pigmentation, warm/dry Zak Guaman DO Jan 03, 2019 08:22
[2019-01-03] MEDS ORDERED: Levemir Flexpen SUBQ SCH (09:00)
[2019-01-03] MEDS: Ziprasidone 20mg cap ORAL SCH ×4 (09:00→18:00)
[2019-01-03] MEDS: Heparin 5000 units/ml inj SUBQ SCH ×2 (09:50→20:53)
[2019-01-03 09:55] LABS: EOSINOPHILS % (AUTO) 5.1 % (0.0-3.0); HEMATOCRIT 35.7 % (37.0-47.0); HEMOGLOBIN 11.5 G/DL (12.0-16.0); LYMPHOCYTES % (AUTO) 46.9 % (20.0-45.0); MEAN CORPUSCULAR VOLUME 86 FL (80-99); MONOCYTES % (AUTO) 5.3 % (1.0-10.0); NEUTROPHILS % (AUTO) 41.6 % (45.0-75.0); PLATELET COUNT 207 K/UL (150-450); RED BLOOD COUNT 4.14 M/UL (4.20-5.40); RED CELL DISTRIBUTION WIDTH 13.4 % (11.6-14.8); WHITE BLOOD COUNT 8.4 K/UL (4.8-10.8)
[2019-01-03 10:17] LABS: ANION GAP 7 mmol/L (5-15); BLOOD UREA NITROGEN 26 mg/dL (7-18); CALCIUM 10.1 MG/DL (8.5-10.1); CARBON DIOXIDE 25 MMOL/L (21-32); CHLORIDE 110 MMOL/L (98-107); CREATININE 1.2 MG/DL (0.55-1.30); POTASSIUM 4.9 MMOL/L (3.5-5.1); SODIUM 142 MMOL/L (136-145)
[2019-01-03] MEDS: LORazepam 1mg tab ORAL PRN (12:36)
[2019-01-03 16:00] VITALS: BP 185/68
--- NOTE | 2019-01-03 16:13 | Pulmonology Progress Note ---
Assessment/Plan Problems: (1) Uncontrolled diabetes mellitus (2) Anemia (3) Dementia (4) History of hypertension Assessment/Plan doing better iv fluids sliding scale psych saw the pt already check HemA1c check urine cultures dvt prophylaxis. Subjective ROS Limited/Unobtainable: No Constitutional: Reports: no symptoms HEENT: Repors: no symptoms Allergies: Coded Allergies: PALIPERIDONE (Unverified Allergy, Unknown, 08/09/18) Objective Last 24 Hour Vital Signs Date Time Temp Pulse Resp B/P (MAP) Pulse Ox O2 Delivery O2 Flow Rate FiO2 01/03/19 08:23 74 18 98 Room Air 21 01/03/19 04:00 97.5 55 17 169/78 (108) 99 01/03/19 00:00 97.3 58 18 150/60 (90) 100 01/02/19 21:00 Room Air 01/02/19 20:29 67 18 97 Room Air 21 01/02/19 20:00 97.6 55 20 151/65 (93) 97 Intake and Output 01/02/19 01/03/19 19:00 07:00 Intake Total 900 ml 860 ml Balance 900 ml 860 ml Intake Oral 860 ml Other 900 ml # Voids 5 General Appearance: WD/WN HEENT: normocephalic, atraumatic Respiratory/Chest: chest wall non-tender, lungs clear Cardiovascular: normal peripheral pulses, normal rate Abdomen: normal bowel sounds, soft, non tender Genitourinary: normal external genitalia Extremities: no clubbing Neurologic/Psychiatric: signal worker helper II-XII grossly normal Laboratory Tests 01/03/19 07:45: White Blood Count 8.4, Red Blood Count 4.14L, Hemoglobin 11.5L, Hematocrit 35.7L , Mean Corpuscular Volume 86, Mean Corpuscular Hemoglobin 27.8, Mean Corpuscular Hemoglobin Concent 32.2, Red Cell Distribution Width 13.4, Platelet Count 207, Mean Platelet Volume 7.9, Neutrophils (%) (Auto) 41.6L, Lymphocytes ( %) (Auto) 46.9H, Monocytes (%) (Auto) 5.3, Eosinophils (%) (Auto) 5.1H, Basophils (%) (Auto) 1.0, Sodium Level 142, Potassium Level 4.9, Chloride Level 110H, Carbon Dioxide Level 25, Anion Gap 7, Blood Urea Nitrogen 26H, Creatinine 1.2, Estimat Glomerular Filtration Rate 44.7, Glucose Level 217H, Calcium Level 10.1 Current Medications Medications (Trade) Dose Ordered Sig/Arely Route PRN Reason Start Time Stop Time Status Last Admin Dose Admin Acetaminophen (Tylenol) 650 mg Q4H PRN ORAL fever (temp>100.5 F) 12/29/18 20:00 01/28/19 19:59 Albuterol/ Ipratropium (Albuterol/ Ipratropium) 3 ml Q4H PRN HHN Shortness of Breath 12/29/18 20:00 01/03/19 19:59 Aripiprazole (Abilify) 7.5 mg DAILY ORAL 12/30/18 09:00 01/29/19 08:59 01/02/19 08:37 Clonidine HCl (Catapres Tab) 0.1 mg Q4H PRN ORAL sbp more than 160 12/29/18 20:00 01/28/19 19:59 01/01/19 06:07 Dextrose (Dextrose 50%) 25 ml Q30M PRN IV Hypoglycemia 01/03/19 06:30 02/02/19 06:29 Dextrose (Dextrose 50%) 50 ml Q30M PRN IV Hypoglycemia 01/03/19 06:30 02/02/19 06:29 Divalproex Sodium (Depakote) 250 mg Q12HR ORAL 12/29/18 21:00 01/28/19 20:59 01/02/19 21:01 Escitalopram Oxalate (Lexapro) 10 mg DAILY ORAL 12/30/18 09:00 01/29/19 08:59 01/02/19 08:37 Heparin Sodium (Porcine) (Heparin 5000 units/ml) 5,000 units EVERY 12 HOURS SUBQ 12/29/18 21:00 01/28/19 20:59 01/03/19 09:50 Insulin Aspart (NovoLOG) BEFORE MEALS AND HS SUBQ 12/29/18 21:00 01/28/19 20:59 01/03/19 12:42 Insulin Detemir (Levemir) 10 units DAILY SUBQ 01/03/19 09:00 02/02/19 08:59 01/03/19 09:45 Lorazepam (Ativan) 1 mg Q6H PRN ORAL For Anxiety 12/30/18 05:15 7/4/19 05:14 01/03/19 12:36 Nateglinide (Starlix) 60 mg TIAC ORAL 12/31/18 06:30 01/30/19 06:29 01/03/19 12:36 Nitroglycerin (Ntg) 0.4 mg Q5M X 3 DOSES PRN SL Prn Chest Pain 12/29/18 20:00 01/28/19 19:59 Ondansetron HCl (Zofran) 4 mg Q6H PRN IVP Nausea & Vomiting 12/29/18 20:00 01/28/19 19:59 Polyethylene Glycol (Miralax) 17 gm HSPRN PRN ORAL Constipation 12/29/18 20:00 01/28/19 19:59 01/03/19 05:46 Sitagliptin Phosphate (Januvia) 100 mg ACBREAKFAST ORAL 12/31/18 06:30 01/30/19 06:29 01/02/19 06:33 Temazepam (Restoril) 15 mg HSPRN PRN ORAL Insomnia 12/29/18 20:00 01/05/19 19:59 Ziprasidone (Geodon) 60 mg TWICE A DAY ORAL 12/30/18 09:00 01/29/19 08:59 01/02/19 17:32 Randa Vigil MD Jan 03, 2019 16:12
--- NOTE | 2019-01-03 18:30 | Progress Note ---
DATE: 01/03/2019 SUBJECTIVE: This is a 68-year-old female patient with hyperglycemia. She is confused, disorganized mood labile, irritable, agitated, worsened by her medical illness. That is why, her attending physician has requested daily psychiatric consultation at this time. MENTAL STATUS EXAMINATION: This is a 68-year-old female. Appearance is disheveled. Attitude, irritable and agitated. Affect, guarded and restricted. Intellect poor. Mood, depressed and anxious. Motor activity, psychomotor agitation. Attention span is poor. Orientation x2. Speech is pressured. Thought process, disorganized and illogical. Insight and judgment is poor. DIAGNOSIS: Schizoaffective, bipolar type. PLAN: Treat her with medication regimen consisting of Depakote 250 mg twice a day Ativan 1 mg every 6 hours p.r.n. anxiety and agitation. Provided with 20 minutes of cognitive behavioral therapy to help her identify automatic negative thoughts and help her convert her negative thoughts to more positive thoughts to reduce depression, anxiety, and mood lability. Chart reviewed. Discussed with staff. Seen and assessed at the bedside. . Ramya Vieira M.D. DR: MADELEINE JOB#: [id number] CC:
--- NOTE | 2019-01-03 19:31 | NUR ---
HAND-OFF: Report given to SALVADOR Edwards.
--- NOTE | 2019-01-03 19:57 | NUR ---
NURSE NOTES: Received patient in bed, alert, oriented x2, confused, on room air, with non behavioral bilateral wrist restraints, turned and repositioned every 2 hours, no acute distress noted, VSS stable with elevated blood pressure and bradycardia MD aware). Call light is within reach, bed is locked, in low position, alarm is on. Will continue to monitor for safety and comfort.
[2019-01-03 20:00] VITALS: BP 182/67
[2019-01-04] VITALS: BP 180/79
[2019-01-04 04:49] VITALS: BP 157/72
[2019-01-04] MEDS: NovoLOG Insulin Flexpen SUBQ SCH ×4 (06:23→20:45)
[2019-01-04] MEDS: Nateglinide 60mg tab ORAL SCH ×3 (06:23→17:49)
--- NOTE | 2019-01-04 06:23 | NUR ---
NURSE NOTES: Patient has refused her 0600 medications and accu check. CN was made aware, will endorse to am shift.
--- NOTE | 2019-01-04 06:47 | General Progress Note ---
Assessment/Plan Problem List: (1) Diabetes mellitus ICD Codes: E11.9 - Type 2 diabetes mellitus without complications SNOMED: 97820047 (2) History of hypertension ICD Codes: Z86.79 - Personal history of other diseases of the circulatory system SNOMED: 498965945 (3) Dementia ICD Codes: F03.90 - Unspecified dementia without behavioral disturbance SNOMED: 16730146 Qualifiers: Qualified Codes: F03.91 - Unspecified dementia with behavioral disturbance (4) Renal insufficiency ICD Codes: N28.9 - Disorder of kidney and ureter, unspecified SNOMED: 604074489, 352821552 Status: unchanged Assessment/Plan: increase Levemir to 14 units daily continue Januvia 100 mg daily continue Starlix 60 mg ac tid continue NISS ac / hs Subjective ROS Limited/Unobtainable: Yes Allergies: Coded Allergies: PALIPERIDONE (Unverified Allergy, Unknown, 08/09/18) Subjective events noted refusing most medications Item Value Date Time Bedside Blood Glucose 225 mg/dl H 01/03/19 2100 Bedside Blood Glucose 232 mg/dl H 01/03/19 1741 Bedside Blood Glucose 168 mg/dl H 01/03/19 1242 Bedside Blood Glucose 219 mg/dl H 01/03/19 0945 Bedside Blood Glucose 219 mg/dl H 01/03/19 0631 Objective Last 24 Hour Vital Signs Date Time Temp Pulse Resp B/P (MAP) Pulse Ox O2 Delivery O2 Flow Rate FiO2 01/04/19 04:49 97.4 48 18 157/72 (100) 01/04/19 01:52 180/75 01/04/19 00:00 97.4 49 20 180/79 (112) 01/03/19 21:00 Room Air 01/03/19 20:00 97.8 49 19 182/67 (105) 01/03/19 19:33 64 18 98 Room Air 21 01/03/19 17:28 185/68 01/03/19 16:00 97.4 48 18 185/68 (107) 98 01/03/19 08:23 74 18 98 Room Air 21 Intake and Output 01/03/19 01/04/19 19:00 07:00 Intake Total 320 ml Balance 320 ml Intake Oral 320 ml # Voids 1 Laboratory Tests 01/03/19 07:45: White Blood Count 8.4, Red Blood Count 4.14L, Hemoglobin 11.5L, Hematocrit 35.7L , Mean Corpuscular Volume 86, Mean Corpuscular Hemoglobin 27.8, Mean Corpuscular Hemoglobin Concent 32.2, Red Cell Distribution Width 13.4, Platelet Count 207, Mean Platelet Volume 7.9, Neutrophils (%) (Auto) 41.6L, Lymphocytes ( %) (Auto) 46.9H, Monocytes (%) (Auto) 5.3, Eosinophils (%) (Auto) 5.1H, Basophils (%) (Auto) 1.0, Sodium Level 142, Potassium Level 4.9, Chloride Level 110H, Carbon Dioxide Level 25, Anion Gap 7, Blood Urea Nitrogen 26H, Creatinine 1.2, Estimat Glomerular Filtration Rate 44.7, Glucose Level 217H, Calcium Level 10.1 Height (Feet): 5 Height (Inches): 3.00 Weight (Pounds): 150 General Appearance: no apparent distress Neck: normal alignment Cardiovascular: normal rate Respiratory/Chest: decreased breath sounds Abdomen: normal bowel sounds Pelvis: normal external exam Objective Current Medications Medications (Trade) Dose Ordered Sig/Arely Route PRN Reason Start Time Stop Time Status Last Admin Dose Admin Acetaminophen (Tylenol) 650 mg Q4H PRN ORAL fever (temp>100.5 F) 12/29/18 20:00 01/28/19 19:59 Aripiprazole (Abilify) 7.5 mg DAILY ORAL 12/30/18 09:00 01/29/19 08:59 01/02/19 08:37 Clonidine HCl (Catapres Tab) 0.1 mg Q4H PRN ORAL sbp more than 160 12/29/18 20:00 01/28/19 19:59 01/04/19 01:52 Dextrose (Dextrose 50%) 25 ml Q30M PRN IV Hypoglycemia 01/03/19 06:30 02/02/19 06:29 Dextrose (Dextrose 50%) 50 ml Q30M PRN IV Hypoglycemia 01/03/19 06:30 02/02/19 06:29 Divalproex Sodium (Depakote) 250 mg Q12HR ORAL 12/29/18 21:00 01/28/19 20:59 01/03/19 20:52 Escitalopram Oxalate (Lexapro) 10 mg DAILY ORAL 12/30/18 09:00 01/29/19 08:59 01/02/19 08:37 Heparin Sodium (Porcine) (Heparin 5000 units/ml) 5,000 units EVERY 12 HOURS SUBQ 12/29/18 21:00 01/28/19 20:59 01/03/19 20:53 Insulin Aspart (NovoLOG) BEFORE MEALS AND HS SUBQ 12/29/18 21:00 01/28/19 20:59 01/03/19 20:51 Insulin Detemir (Levemir) 10 units DAILY SUBQ 01/03/19 09:00 02/02/19 08:59 01/03/19 09:45 Lorazepam (Ativan) 1 mg Q6H PRN ORAL For Anxiety 12/30/18 05:15 01/06/19 05:14 01/03/19 12:36 Nateglinide (Starlix) 60 mg TIAC ORAL 12/31/18 06:30 01/30/19 06:29 01/03/19 12:36 Nitroglycerin (Ntg) 0.4 mg Q5M X 3 DOSES PRN SL Prn Chest Pain 12/29/18 20:00 01/28/19 19:59 Ondansetron HCl (Zofran) 4 mg Q6H PRN IVP Nausea & Vomiting 12/29/18 20:00 01/28/19 19:59 Polyethylene Glycol (Miralax) 17 gm HSPRN PRN ORAL Constipation 12/29/18 20:00 01/28/19 19:59 01/03/19 05:46 Sitagliptin Phosphate (Januvia) 100 mg ACBREAKFAST ORAL 12/31/18 06:30 01/30/19 06:29 01/02/19 06:33 Temazepam (Restoril) 15 mg HSPRN PRN ORAL Insomnia 12/29/18 20:00 01/05/19 19:59 Ziprasidone (Geodon) 60 mg TWICE A DAY ORAL 12/30/18 09:00 01/29/19 08:59 01/02/19 17:32 Ryley Vasquez MD Jan 04, 2019 06:47
--- NOTE | 2019-01-04 07:22 | NUR ---
HAND-OFF: Report given to Sera FRANCO/Guanako FRANCO.
--- NOTE | 2019-01-04 07:52 | NUR ---
NURSE NOTES: Received patient in bed. AO x 2.On room air. Non behavioral restraints, skin is intact. No s/s distress/pain noted. Bed in the lowest, locked, and alarm on. Call light within reach. Will continue to monitor
[2019-01-04 08:00] VITALS: BP 128/80
[2019-01-04 08:47] LABS: BASOPHILS % (AUTO) 0.9 % (0.0-2.0); HEMATOCRIT 38.2 % (37.0-47.0); HEMOGLOBIN 12.2 G/DL (12.0-16.0); LYMPHOCYTES % (AUTO) 38.1 % (20.0-45.0); MEAN CORPUSCULAR VOLUME 87 FL (80-99); MONOCYTES % (AUTO) 5.7 % (1.0-10.0); NEUTROPHILS % (AUTO) 51.3 % (45.0-75.0); PLATELET COUNT 207 K/UL (150-450); RED CELL DISTRIBUTION WIDTH 13.4 % (11.6-14.8); WHITE BLOOD COUNT 7.3 K/UL (4.8-10.8)
[2019-01-04] MEDS: Levemir Flexpen SUBQ SCH (09:00)
[2019-01-04] MEDS: Heparin 5000 units/ml inj SUBQ SCH ×3 (09:00→20:31)
[2019-01-04] MEDS: Ziprasidone 20mg cap ORAL SCH ×2 (09:00→18:00)
[2019-01-04 09:06] LABS: ANION GAP 8 mmol/L (5-15); BLOOD UREA NITROGEN 24 mg/dL (7-18); CALCIUM 10.6 MG/DL (8.5-10.1); CARBON DIOXIDE 26 MMOL/L (21-32); CHLORIDE 110 MMOL/L (98-107); SODIUM 144 MMOL/L (136-145)
--- NOTE | 2019-01-04 10:07 | NUR ---
COLLEGE PRESIDENTORDER WORKER SI:HYPERGLYCEMIA . UNCONTROLLED HYPERTENSION VS: BP 180/79, P 48, T 97.5, RR 20, SpO2 100 RBC 4.14, H&H 11.5/35.7, BUN 26, GLUCOSE 226 IS:ABILIFY 7.5mG LEVEMIR SUBQ CLONIDINE 0.1mg DEPAKOTE 250mg LEXAPRO 10mg HEPARIN SUBQ GEODON 60mg JANUVIA 100mg MED/SURG STATUS
--- NOTE | 2019-01-04 10:23 | NUR ---
NURSE NOTES: Patient refused all PO medication and Levemir. Patient started crying, agitated, and moved a lot. Explained risk and benefits of medication.
--- NOTE | 2019-01-04 11:50 | General Progress Note ---
Assessment/Plan Problem List: (1) Dementia ICD Codes: F03.90 - Unspecified dementia without behavioral disturbance SNOMED: 12623171 Qualifiers: Qualified Codes: F03.91 - Unspecified dementia with behavioral disturbance (2) History of hypertension ICD Codes: Z86.79 - Personal history of other diseases of the circulatory system SNOMED: 112533038 (3) Uncontrolled diabetes mellitus ICD Codes: E11.65 - Type 2 diabetes mellitus with hyperglycemia SNOMED: 69176723, 479242699 (4) Acute encephalopathy ICD Codes: G93.40 - Encephalopathy, unspecified SNOMED: 80673127, 673110877 (5) Diabetes mellitus ICD Codes: E11.9 - Type 2 diabetes mellitus without complications SNOMED: 73140322 (6) Anemia ICD Codes: D64.9 - Anemia, unspecified SNOMED: 125122643 (7) Renal insufficiency ICD Codes: N28.9 - Disorder of kidney and ureter, unspecified SNOMED: 657096432, 491776905 (8) Hyperglycemia ICD Codes: R73.9 - Hyperglycemia, unspecified SNOMED: 16096939 Status: unchanged Assessment/Plan: pt diet bs control cbc bmp am psyc transfer Subjective Constitutional: Reports: weakness Allergies: Coded Allergies: PALIPERIDONE (Unverified Allergy, Unknown, 08/09/18) All Systems: reviewed and negative except above Subjective confused sleepy Objective Last 24 Hour Vital Signs Date Time Temp Pulse Resp B/P (MAP) Pulse Ox O2 Delivery O2 Flow Rate FiO2 01/04/19 09:00 Room Air 01/04/19 08:00 97.5 51 18 128/80 (96) 100 01/04/19 04:49 97.4 48 18 157/72 (100) 01/04/19 01:52 180/75 01/04/19 00:00 97.4 49 20 180/79 (112) 01/03/19 21:00 Room Air 01/03/19 20:00 97.8 49 19 182/67 (105) 01/03/19 19:33 64 18 98 Room Air 21 01/03/19 17:28 185/68 01/03/19 16:00 97.4 48 18 185/68 (107) 98 Intake and Output 01/03/19 01/04/19 19:00 07:00 Intake Total 320 ml Balance 320 ml Intake Oral 320 ml # Voids 1 Laboratory Tests 01/04/19 08:14: White Blood Count 7.3, Red Blood Count 4.40, Hemoglobin 12.2, Hematocrit 38.2, Mean Corpuscular Volume 87, Mean Corpuscular Hemoglobin 27.8, Mean Corpuscular Hemoglobin Concent 32.0, Red Cell Distribution Width 13.4, Platelet Count 207, Mean Platelet Volume 8.4, Neutrophils (%) (Auto) 51.3, Lymphocytes (%) (Auto) 38.1, Monocytes (%) (Auto) 5.7, Eosinophils (%) (Auto) 4.0H, Basophils (%) (Auto ) 0.9, Sodium Level 144, Potassium Level 5.0, Chloride Level 110H, Carbon Dioxide Level 26, Anion Gap 8, Blood Urea Nitrogen 24H, Creatinine 1.0, Estimat Glomerular Filtration Rate 55.1, Glucose Level 226H, Calcium Level 10.6H Height (Feet): 5 Height (Inches): 3.00 Weight (Pounds): 150 General Appearance: lethargic, confused EENT: normal ENT inspection Neck: normal alignment Cardiovascular: normal peripheral pulses, normal rate, regular rhythm Respiratory/Chest: chest wall non-tender, lungs clear, normal breath sounds Abdomen: normal bowel sounds, non tender, soft Extremities: normal inspection Edema: no edema noted Arm (L), no edema noted Arm (R), no edema noted Leg (L), no edema noted Leg (R), no edema noted Pedal (L), no edema noted Pedal (R), no edema noted Generalized Neurologic: motor weakness Skin: normal pigmentation, warm/dry Zak Guaman DO Jan 04, 2019 11:50
[2019-01-04 12:00] VITALS: BP_SYST 129; BP_SYST 170; BP_DIAS 71; BP_DIAS 99
--- NOTE | 2019-01-04 12:00 | NUR ---
NURSE NOTES: Patient refused to BS check and refused to take starlix. When RN offered BS check and medications she started crying and said " No". RN offered x3 but refused.Rn tried to explained the risks and benefits but patient did not listen.
--- NOTE | 2019-01-04 13:23 | NUR ---
SS note This Sw spoke with marcellus Pettit at [facility] who explains they do not have a bed for this patient.
--- NOTE | 2019-01-04 13:34 | CDS Physician Query ---
Clarification is required for compliance, coding accuracy, and to reflect severity of illness for this patient Dear Dr. Zak Guaman Date: 01/04/2019 Director Of District Office/CDS Name: Tracey Jimenez P states: 68-year-old female... presented with increased hyperglycemia, sent to [facility], diagnosed with the above, and admitted to medical floor for further treatment. Currently, confused, walking in the room, refusing to answer questions. 01/04 note: Acute Encephalopathy Please indicate the nature and chronicity of the condition below: [] Metabolic Encephalopathy [] Toxic Encephalopathy [] Encephalopathy, Other [] Dementia with delirium [] Other: [] Not Applicable Present on Admission: [] Yes [] No [] Clinically Undetermined Physician signature Date Please also document in your Progress Notes and/or Discharge Summary and indicate if the condition was present on admission. MTDD
--- NOTE | 2019-01-04 14:10 | Pulmonology Progress Note ---
Assessment/Plan Problems: (1) Uncontrolled diabetes mellitus (2) Anemia (3) Dementia (4) History of hypertension Assessment/Plan doing better no new complains iv fluids sliding scale psych saw the pt already check HemA1c check urine cultures dvt prophylaxis. Subjective ROS Limited/Unobtainable: No Constitutional: Reports: no symptoms HEENT: Repors: no symptoms Respiratory: Reports: no symptoms Allergies: Coded Allergies: PALIPERIDONE (Unverified Allergy, Unknown, 08/09/18) Objective Last 24 Hour Vital Signs Date Time Temp Pulse Resp B/P (MAP) Pulse Ox O2 Delivery O2 Flow Rate FiO2 01/04/19 12:00 97.3 50 20 129/99 (109) 96 01/04/19 09:00 Room Air 01/04/19 08:00 97.5 51 18 128/80 (96) 100 01/04/19 04:49 97.4 48 18 157/72 (100) 01/04/19 01:52 180/75 01/04/19 00:00 97.4 49 20 180/79 (112) 01/03/19 21:00 Room Air 01/03/19 20:00 97.8 49 19 182/67 (105) 01/03/19 19:33 64 18 98 Room Air 21 01/03/19 17:28 185/68 01/03/19 16:00 97.4 48 18 185/68 (107) 98 Intake and Output 01/03/19 01/04/19 19:00 07:00 Intake Total 320 ml Balance 320 ml Intake Oral 320 ml # Voids 1 General Appearance: WD/WN HEENT: normocephalic, anicteric Respiratory/Chest: chest wall non-tender, lungs clear Cardiovascular: normal peripheral pulses, normal rate, no JVD Abdomen: soft, non tender, non distended Genitourinary: normal external genitalia Extremities: no clubbing Skin: no rash Laboratory Tests 01/04/19 08:14: White Blood Count 7.3, Red Blood Count 4.40, Hemoglobin 12.2, Hematocrit 38.2, Mean Corpuscular Volume 87, Mean Corpuscular Hemoglobin 27.8, Mean Corpuscular Hemoglobin Concent 32.0, Red Cell Distribution Width 13.4, Platelet Count 207, Mean Platelet Volume 8.4, Neutrophils (%) (Auto) 51.3, Lymphocytes (%) (Auto) 38.1, Monocytes (%) (Auto) 5.7, Eosinophils (%) (Auto) 4.0H, Basophils (%) (Auto ) 0.9, Sodium Level 144, Potassium Level 5.0, Chloride Level 110H, Carbon Dioxide Level 26, Anion Gap 8, Blood Urea Nitrogen 24H, Creatinine 1.0, Estimat Glomerular Filtration Rate 55.1, Glucose Level 226H, Calcium Level 10.6H Current Medications Medications (Trade) Dose Ordered Sig/Arely Route PRN Reason Start Time Stop Time Status Last Admin Dose Admin Acetaminophen (Tylenol) 650 mg Q4H PRN ORAL fever (temp>100.5 F) 12/29/18 20:00 01/28/19 19:59 Aripiprazole (Abilify) 7.5 mg DAILY ORAL 12/30/18 09:00 01/29/19 08:59 01/04/19 09:46 Clonidine HCl (Catapres Tab) 0.1 mg Q4H PRN ORAL sbp more than 160 12/29/18 20:00 01/28/19 19:59 01/04/19 01:52 Dextrose (Dextrose 50%) 25 ml Q30M PRN IV Hypoglycemia 01/03/19 06:30 02/02/19 06:29 Dextrose (Dextrose 50%) 50 ml Q30M PRN IV Hypoglycemia 01/03/19 06:30 02/02/19 06:29 Divalproex Sodium (Depakote) 250 mg Q12HR ORAL 12/29/18 21:00 01/28/19 20:59 01/03/19 20:52 Escitalopram Oxalate (Lexapro) 10 mg DAILY ORAL 12/30/18 09:00 01/29/19 08:59 01/02/19 08:37 Heparin Sodium (Porcine) (Heparin 5000 units/ml) 5,000 units EVERY 12 HOURS SUBQ 12/29/18 21:00 01/28/19 20:59 01/03/19 20:53 Insulin Aspart (NovoLOG) BEFORE MEALS AND HS SUBQ 12/29/18 21:00 01/28/19 20:59 01/03/19 20:51 Insulin Detemir (Levemir) 14 units DAILY SUBQ 01/04/19 09:00 02/02/19 08:59 01/04/19 09:00 Lorazepam (Ativan) 1 mg Q6H PRN ORAL For Anxiety 12/30/18 05:15 01/06/19 05:14 01/03/19 12:36 Nateglinide (Starlix) 60 mg TIAC ORAL 12/31/18 06:30 01/30/19 06:29 01/03/19 12:36 Nitroglycerin (Ntg) 0.4 mg Q5M X 3 DOSES PRN SL Prn Chest Pain 12/29/18 20:00 01/28/19 19:59 Ondansetron HCl (Zofran) 4 mg Q6H PRN IVP Nausea & Vomiting 12/29/18 20:00 01/28/19 19:59 Polyethylene Glycol (Miralax) 17 gm HSPRN PRN ORAL Constipation 12/29/18 20:00 01/28/19 19:59 01/03/19 05:46 Sitagliptin Phosphate (Januvia) 100 mg ACBREAKFAST ORAL 12/31/18 06:30 01/30/19 06:29 01/02/19 06:33 Temazepam (Restoril) 15 mg HSPRN PRN ORAL Insomnia 12/29/18 20:00 01/05/19 19:59 Ziprasidone (Geodon) 60 mg TWICE A DAY ORAL 12/30/18 09:00 01/29/19 08:59 01/02/19 17:32 Randa Vigil MD Jan 04, 2019 14:10
--- NOTE | 2019-01-04 14:16 | NUR ---
NURSE NOTES: Patient noted with episodes of trying to remove IV and getting out of the bed without assistance. Diversional intervention done and offered water, incontinent care done but still patient noted with episodes mentioned earlier. Received renewal of restraints from Dr. Vieira. Will continue to monitor.
--- NOTE | 2019-01-04 15:08 | NUR ---
RD ASSESSMENT & RECOMMENDATIONS SEE CARE ACTIVITY FOR COMPLETE ASSESSMENT DAILY ESTIMATED NEEDS: Needs based on DM/ 58kg abw 25-30 kcals/kg 7234-6645 total kcals 1-1.5 g protein/kg 58-87 g total protein 25-30 mL/kg 9253-9089 total fluid mLs NUTRITION DIAGNOSIS: Altered nutrition related lab values r/t diabetes as evidenced by A1C 8.1, w/ POC glu ([phone] 219) [facility] med PO DIET RECOMMENDATIONS: [facility] LOW ADDITIONAL RECOMMENDATIONS: * Calibrated bedscale wt * Monitor BGs- refusing oral DM meds at this time . .
--- NOTE | 2019-01-04 15:38 | NUR ---
DISCHARGE PLANING FAXED REFERRAL TO [facility] F [phone] AND f [phone]. VERIFIED NUMBERS WITH [facility] IN ADMISSIONS OFFICE. WHEN FOLLOWED UP ADMISSIONS WOULDN'T ANSWER MY CALL X 3.
[2019-01-04 16:00] VITALS: BP 164/87
--- NOTE | 2019-01-04 17:00 | NUR ---
NURSE NOTES: Per charge nurse, LAYA got a bed for the patient in [facility].RN followed up with Dr. Vieira to get the clearance for discharge said to send patient to [facility]. Dr. Vieira will follow up [facility].
--- NOTE | 2019-01-04 17:20 | NUR ---
NURSE NOTES: RN received phone call from Nicolasa from [place]. She will get the bed and will inform clinician for the evaluation and call back [facility].
--- NOTE | 2019-01-04 17:21 | NUR ---
NURSE NOTES: Nicolasa scott phone # [phone]
--- NOTE | 2019-01-04 17:40 | NUR ---
NURSE NOTES: Given clonidine 0.1 for elevated blood pressure of 164/87 pulse was 76.Will continue to monitor.
--- NOTE | 2019-01-04 17:45 | Progress Note ---
DATE: 01/04/2019 SUBJECTIVE: This is a 68-year-old female patient with hyperglycemia. This patient is still confused, disorganized, has lot of mood lability, worsened by stress of her medical illness. mood lability. Continues to be very agitated. She has lot of mood lability, confusion, disorganized thought process, and decline in cognition below her baseline. That is why attending physician has requested daily psychiatric consultation at this time. MENTAL STATUS EXAMINATION: This is a 68-year-old female. Appearance is disheveled. Attitude, irritable and agitated. Affect, guarded and restricted. Intellect, poor. Mood, depressed and anxious. Motor activity, psychomotor agitation. Attention span is poor. Orientation x2. Speech is low volume, slow. Thought process, disorganized and illogical. Insight and judgment is poor. DIAGNOSIS: Schizoaffective, bipolar type. PLAN: Treat her with Geodon 60 mg twice a day, Depakote 250 mg twice a day, Celexa 20 mg a day, and Ativan 1 every 6 hours p.r.n. anxiety and agitation. Provided with 20 minutes of cognitive behavioral therapy to help her identify automatic negative thoughts and help convert negative thoughts to more positive thoughts to reduce depression, anxiety, and mood lability. Chart reviewed. Discussed with staff. Seen and assessed in the room. Ramya Vieira M.D. DR: IRENE JOB#: [id number] CC:
--- NOTE | 2019-01-04 18:00 | NUR ---
NURSE NOTES: Patient refused Geodon,explained the risks and benefits.
--- NOTE | 2019-01-04 18:29 | NUR ---
NURSE NOTES: Patient refused BP check.Will follow up.
--- NOTE | 2019-01-04 19:09 | NUR ---
HAND-OFF: Report given to Grace and endorsed about possible transfer.
--- NOTE | 2019-01-04 19:32 | NUR ---
NURSE NOTES: Received patient in bed, asleep, eyes closed, confused, disoriented, intermittent crying noted, no acute distress noted, VSS, afebrile, call light is within reach, bed is in low position, locked and alarm is on. Non behavioral bilateral wrist restraints are in place. Will continue to monitor for safety and comfort.
[2019-01-04 20:00] VITALS: BP 155/72
[2019-01-05] VITALS: BP_SYST 120; BP_SYST 122; BP_DIAS 72; BP_DIAS 76
[2019-01-05 04:00] VITALS: BP 122/72
[2019-01-05] MEDS: Nateglinide 60mg tab ORAL SCH ×3 (06:26→16:30)
[2019-01-05] MEDS: NovoLOG Insulin Flexpen SUBQ SCH ×4 (06:29→21:00)
--- NOTE | 2019-01-05 07:10 | NUR ---
HAND-OFF: Report given to Sera FRANCO/Guanako FRANCO.
--- NOTE | 2019-01-05 07:44 | NUR ---
NURSE NOTES: Received pt in bed. Sleeping. No s/s pain/distress noted. Non-behavioral wrist restraints are in place. Bed in the lowest position, locked, and alarm on. Will continue to monitor.
[2019-01-05 08:00] VITALS: BP 153/56
--- NOTE | 2019-01-05 08:40 | General Progress Note ---
Assessment/Plan Problem List: (1) Dementia ICD Codes: F03.90 - Unspecified dementia without behavioral disturbance SNOMED: 08721356 Qualifiers: Qualified Codes: F03.91 - Unspecified dementia with behavioral disturbance (2) History of hypertension ICD Codes: Z86.79 - Personal history of other diseases of the circulatory system SNOMED: 552502784 (3) Uncontrolled diabetes mellitus ICD Codes: E11.65 - Type 2 diabetes mellitus with hyperglycemia SNOMED: 92835402, 176890177 (4) Acute encephalopathy ICD Codes: G93.40 - Encephalopathy, unspecified SNOMED: 71155899, 286003480 (5) Diabetes mellitus ICD Codes: E11.9 - Type 2 diabetes mellitus without complications SNOMED: 38742513 (6) Anemia ICD Codes: D64.9 - Anemia, unspecified SNOMED: 268334989 (7) Renal insufficiency ICD Codes: N28.9 - Disorder of kidney and ureter, unspecified SNOMED: 936166615, 978083048 (8) Hyperglycemia ICD Codes: R73.9 - Hyperglycemia, unspecified SNOMED: 98516449 Status: unchanged Assessment/Plan: pt diet bs control cbc bmp am psyc transfer Subjective Allergies: Coded Allergies: PALIPERIDONE (Unverified Allergy, Unknown, 08/09/18) All Systems: reviewed and negative except above Subjective confused sleepy Objective Last 24 Hour Vital Signs Date Time Temp Pulse Resp B/P (MAP) Pulse Ox O2 Delivery O2 Flow Rate FiO2 01/05/19 06:43 64 16 98 Room Air 21 01/05/19 04:00 98.2 78 18 122/72 (89) 01/05/19 00:00 98.5 57 20 120/76 (91) 01/05/19 00:00 98.2 78 18 122/72 (89) 01/04/19 21:00 Room Air 01/04/19 20:00 98.1 53 20 155/72 (99) 01/04/19 17:40 164/87 01/04/19 16:00 97.6 76 20 164/87 (112) 96 01/04/19 12:00 97.3 50 20 129/99 (109) 96 01/04/19 09:00 Room Air Intake and Output 01/04/19 01/05/19 19:00 07:00 Intake Total 360 ml Balance 360 ml Intake Oral 360 ml # Voids 3 3 Laboratory Tests 01/05/19 07:07: White Blood Count [Pending], Red Blood Count [Pending], Hemoglobin [Pending], Hematocrit [Pending], Mean Corpuscular Volume [Pending], Mean Corpuscular Hemoglobin [Pending], Mean Corpuscular Hemoglobin Concent [Pending], Red Cell Distribution Width [Pending], Platelet Count [Pending], Mean Platelet Volume [ Pending], Neutrophils (%) (Auto) [Pending], Lymphocytes (%) (Auto) [Pending], Monocytes (%) (Auto) [Pending], Eosinophils (%) (Auto) [Pending], Basophils (%) (Auto) [Pending], Sodium Level [Pending], Potassium Level [Pending], Chloride Level [Pending], Carbon Dioxide Level [Pending], Blood Urea Nitrogen [Pending], Creatinine [Pending], Estimat Glomerular Filtration Rate [Pending], Glucose Level [Pending], Calcium Level [Pending] Height (Feet): 5 Height (Inches): 3.00 Weight (Pounds): 150 General Appearance: lethargic, confused EENT: normal ENT inspection Neck: normal alignment Cardiovascular: normal peripheral pulses, normal rate, regular rhythm Respiratory/Chest: chest wall non-tender, lungs clear, normal breath sounds Abdomen: normal bowel sounds, non tender, soft Extremities: normal inspection Edema: no edema noted Arm (L), no edema noted Arm (R), no edema noted Leg (L), no edema noted Leg (R), no edema noted Pedal (L), no edema noted Pedal (R), no edema noted Generalized Neurologic: motor weakness Skin: normal pigmentation, warm/dry Zak Guaman DO Jan 05, 2019 08:40
[2019-01-05 08:44] LABS: BASOPHILS % (AUTO) 1.1 % (0.0-2.0); EOSINOPHILS % (AUTO) 4.5 % (0.0-3.0); HEMATOCRIT 33.4 % (37.0-47.0); HEMOGLOBIN 10.9 G/DL (12.0-16.0); LYMPHOCYTES % (AUTO) 41.3 % (20.0-45.0); MEAN CORPUSCULAR VOLUME 86 FL (80-99); MONOCYTES % (AUTO) 7.1 % (1.0-10.0); PLATELET COUNT 184 K/UL (150-450); RED BLOOD COUNT 3.89 M/UL (4.20-5.40); RED CELL DISTRIBUTION WIDTH 13.2 % (11.6-14.8); WHITE BLOOD COUNT 6.4 K/UL (4.8-10.8)
[2019-01-05] MEDS: Ziprasidone 20mg cap ORAL SCH ×2 (09:00→09:09)
[2019-01-05] MEDS: Levemir Flexpen SUBQ SCH (09:00)
[2019-01-05] MEDS: Heparin 5000 units/ml inj SUBQ SCH ×2 (09:00→09:13)
--- NOTE | 2019-01-05 09:00 | NUR ---
NURSE NOTES: Patient refused her po medications, she put the medications in her mouth but spit them out, and started crying. Rn tried to explained the risks and benefits but patient did not listen or answer to the questions. Will continue to monitor.
[2019-01-05 09:05] LABS: ANION GAP 6 mmol/L (5-15); BLOOD UREA NITROGEN 27 mg/dL (7-18); CALCIUM 9.7 MG/DL (8.5-10.1); CARBON DIOXIDE 27 MMOL/L (21-32); CHLORIDE 104 MMOL/L (98-107); CREATININE 1.1 MG/DL (0.55-1.30); POTASSIUM 4.6 MMOL/L (3.5-5.1); SODIUM 137 MMOL/L (136-145)
[2019-01-05 12:00] VITALS: BP_SYST 158; BP_DIAS 21; BP_DIAS 71
--- NOTE | 2019-01-05 12:29 | NUR ---
Social Service Note CHAVEZ spoke with [phone] with pending discharges. Once bed becomes available facility will contact SW or the unit with ETA of clinician. Will continue to follow up as needed. Addendum: 01/05/19 at 1243 by JULIAN PARMAR MSW CHAVEZ spoke with patient's son Ankit Escudero [phone] 01/04/19 regarding prior history. [facility] states patient was residing in a shared housing/room to rent home prior to placed at [facility]. [facility] patient's mental health disorder has gotten increasing worst as she has gotten older. Son doesn't believe patient would be able to leave independently. Son was under the assumption patient had both Medicare and Medi-natty. [facility] facility has not contacted him in applying for additional coverage. [facility] states he is in agreement with psych placement if required or patient returning to facility.
--- NOTE | 2019-01-05 13:17 | Pulmonology Progress Note ---
Assessment/Plan Problems: (1) Uncontrolled diabetes mellitus (2) Anemia (3) Dementia (4) History of hypertension Assessment/Plan doing better no new complains iv fluids sliding scale psych saw the pt already check HemA1c check urine cultures dvt prophylaxis. Subjective ROS Limited/Unobtainable: No Constitutional: Reports: no symptoms HEENT: Repors: no symptoms Respiratory: Reports: no symptoms Allergies: Coded Allergies: PALIPERIDONE (Unverified Allergy, Unknown, 08/09/18) Objective Last 24 Hour Vital Signs Date Time Temp Pulse Resp B/P (MAP) Pulse Ox O2 Delivery O2 Flow Rate FiO2 01/05/19 12:00 97.7 50 18 158/21 (66) 98 01/05/19 08:00 97.9 50 18 153/56 (88) 99 01/05/19 06:43 64 16 98 Room Air 21 01/05/19 04:00 98.2 78 18 122/72 (89) 01/05/19 00:00 98.5 57 20 120/76 (91) 01/05/19 00:00 98.2 78 18 122/72 (89) 01/04/19 21:00 Room Air 01/04/19 20:00 98.1 53 20 155/72 (99) 01/04/19 17:40 164/87 01/04/19 16:00 97.6 76 20 164/87 (112) 96 Intake and Output 01/04/19 01/05/19 19:00 07:00 Intake Total 360 ml Balance 360 ml Intake Oral 360 ml # Voids 3 3 General Appearance: WD/WN HEENT: normocephalic, atraumatic Respiratory/Chest: chest wall non-tender, lungs clear, normal breath sounds Breasts: no masses Cardiovascular: normal peripheral pulses, normal rate Abdomen: normal bowel sounds, soft, non tender Genitourinary: normal external genitalia Extremities: no clubbing Skin: no rash 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 Laboratory Tests 01/05/19 07:07: White Blood Count 6.4, Red Blood Count 3.89L, Hemoglobin 10.9L, Hematocrit 33.4L , Mean Corpuscular Volume 86, Mean Corpuscular Hemoglobin 28.0, Mean Corpuscular Hemoglobin Concent 32.6, Red Cell Distribution Width 13.2, Platelet Count 184, Mean Platelet Volume 8.2, Neutrophils (%) (Auto) 46.0, Lymphocytes (% ) (Auto) 41.3, Monocytes (%) (Auto) 7.1, Eosinophils (%) (Auto) 4.5H, Basophils (%) (Auto) 1.1, Sodium Level 137, Potassium Level 4.6, Chloride Level 104, Carbon Dioxide Level 27, Anion Gap 6, Blood Urea Nitrogen 27H, Creatinine 1.1, Estimat Glomerular Filtration Rate 49.4, Glucose Level 257H, Calcium Level 9.7 Current Medications Medications (Trade) Dose Ordered Sig/Arely Route PRN Reason Start Time Stop Time Status Last Admin Dose Admin Acetaminophen (Tylenol) 650 mg Q4H PRN ORAL fever (temp>100.5 F) 12/29/18 20:00 01/28/19 19:59 Aripiprazole (Abilify) 7.5 mg DAILY ORAL 12/30/18 09:00 01/29/19 08:59 01/05/19 09:10 Clonidine HCl (Catapres Tab) 0.1 mg Q4H PRN ORAL sbp more than 160 12/29/18 20:00 01/28/19 19:59 01/04/19 17:40 Dextrose (Dextrose 50%) 25 ml Q30M PRN IV Hypoglycemia 01/03/19 06:30 02/02/19 06:29 Dextrose (Dextrose 50%) 50 ml Q30M PRN IV Hypoglycemia 01/03/19 06:30 02/02/19 06:29 Divalproex Sodium (Depakote) 250 mg Q12HR ORAL 12/29/18 21:00 01/28/19 20:59 01/05/19 09:09 Escitalopram Oxalate (Lexapro) 10 mg DAILY ORAL 12/30/18 09:00 01/29/19 08:59 01/02/19 08:37 Heparin Sodium (Porcine) (Heparin 5000 units/ml) 5,000 units EVERY 12 HOURS SUBQ 12/29/18 21:00 01/28/19 20:59 01/04/19 20:31 Insulin Aspart (NovoLOG) BEFORE MEALS AND HS SUBQ 12/29/18 21:00 01/28/19 20:59 01/05/19 12:14 Insulin Detemir (Levemir) 14 units DAILY SUBQ 01/04/19 09:00 02/02/19 08:59 01/04/19 09:00 Lorazepam (Ativan) 1 mg Q6H PRN ORAL For Anxiety 12/30/18 05:15 01/06/19 05:14 01/03/19 12:36 Nateglinide (Starlix) 60 mg TIAC ORAL 12/31/18 06:30 01/30/19 06:29 01/05/19 12:12 Nitroglycerin (Ntg) 0.4 mg Q5M X 3 DOSES PRN SL Prn Chest Pain 12/29/18 20:00 01/28/19 19:59 Ondansetron HCl (Zofran) 4 mg Q6H PRN IVP Nausea & Vomiting 12/29/18 20:00 01/28/19 19:59 Polyethylene Glycol (Miralax) 17 gm HSPRN PRN ORAL Constipation 12/29/18 20:00 01/28/19 19:59 01/03/19 05:46 Sitagliptin Phosphate (Januvia) 100 mg ACBREAKFAST ORAL 12/31/18 06:30 01/30/19 06:29 01/02/19 06:33 Temazepam (Restoril) 15 mg HSPRN PRN ORAL Insomnia 01/04/19 14:15 01/11/19 14:14 Ziprasidone (Geodon) 60 mg TWICE A DAY ORAL 12/30/18 09:00 01/29/19 08:59 01/02/19 17:32 Randa Vigil MD Jan 05, 2019 13:17
--- NOTE | 2019-01-05 14:02 | NUR ---
MANAGER COMMUNITY NOTES RECEIVED A CALL FROM [facility] AND THEY ARE WILLING TO ACCEPT PATIENT TODAY IN ROOM SCU 116C.
--- NOTE | 2019-01-05 15:00 | NUR ---
NURSE NOTES: RN received a phone call Nilesh from [facility]. He stated that a clinician is on her way to evaluate the patient. RN made medical social worker and CM aware.
[2019-01-05 16:00] VITALS: BP 149/60
--- NOTE | 2019-01-05 17:36 | NUR ---
NURSE NOTES: Patient was evaluated by clinician Leti, she said she would take the patient. Original evaluation papers in the transfer packet. Patient is going to [address] [place] [id number] phone number is [phone] Psych Urgent care per Leti. Will arrange the transportation.
--- NOTE | 2019-01-05 18:00 | NUR ---
NURSE NOTES: Transfer report given to [facility] urgent care nurse and ambulance was arranged from [facility]. son Ankit Escudero was informed of the discharge to [facility]. family agreed.
[2019-01-05] MEDS ORDERED: CATAPRES0.1 MG ORAL (18:16)
[2019-01-05] MEDS ORDERED: NOVOLOG100 UNIT/5 (18:17)
[2019-01-05] MEDS ORDERED: LEVEMIR100 UNIT/1 SUBQ (18:18)
[2019-01-05] MEDS ORDERED: ATIVAN1 MG ORAL (18:19)
[2019-01-05] MEDS ORDERED: STARLIX60 MG ORAL (18:20)
[2019-01-05] MEDS ORDERED: NITROSTAT0.4 M1 SL (18:20)
[2019-01-05] MEDS ORDERED: ZOFRAN4 M3 ORAL (18:20)
[2019-01-05] MEDS ORDERED: MIRALAX17 G2 ORAL (18:21)
[2019-01-05] MEDS ORDERED: JANUVIA25 MG ORAL (18:21)
[2019-01-05] MEDS ORDERED: GEODON40 MG ORAL (18:22)
[2019-01-05] MEDS ORDERED: RESTORIL15 MG ORAL (18:22)
--- NOTE | 2019-01-05 18:59 | General Progress Note ---
Assessment/Plan Problem List: (1) Diabetes mellitus ICD Codes: E11.9 - Type 2 diabetes mellitus without complications SNOMED: 36289345 (2) History of hypertension ICD Codes: Z86.79 - Personal history of other diseases of the circulatory system SNOMED: 623869052 (3) Dementia ICD Codes: F03.90 - Unspecified dementia without behavioral disturbance SNOMED: 15974706 Qualifiers: Qualified Codes: F03.91 - Unspecified dementia with behavioral disturbance (4) Renal insufficiency ICD Codes: N28.9 - Disorder of kidney and ureter, unspecified SNOMED: 680172261, 358688109 Status: unchanged Assessment/Plan: continue Levemir to 14 units daily continue Januvia 100 mg daily continue Starlix 60 mg ac tid continue NISS ac / hs Subjective ROS Limited/Unobtainable: Yes Allergies: Coded Allergies: PALIPERIDONE (Unverified Allergy, Unknown, 08/09/18) Subjective events noted refusing most medications Item Value Date Time Bedside Blood Glucose 189 mg/dl H 01/05/19 1750 Bedside Blood Glucose 203 mg/dl H 01/05/19 1214 Bedside Blood Glucose 231 mg/dl H 01/05/19 0900 Bedside Blood Glucose 231 mg/dl H 01/05/19 0629 Objective Last 24 Hour Vital Signs Date Time Temp Pulse Resp B/P (MAP) Pulse Ox O2 Delivery O2 Flow Rate FiO2 01/05/19 16:00 97.6 50 18 149/60 (89) 95 01/05/19 12:00 97.7 50 18 158/71 (100) 98 01/05/19 08:00 97.9 50 18 153/56 (88) 99 01/05/19 06:43 64 16 98 Room Air 21 01/05/19 04:00 98.2 78 18 122/72 (89) 01/05/19 00:00 98.5 57 20 120/76 (91) 01/05/19 00:00 98.2 78 18 122/72 (89) 01/04/19 21:00 Room Air 01/04/19 20:00 98.1 53 20 155/72 (99) Intake and Output 01/04/19 01/05/19 19:00 07:00 Intake Total 360 ml Balance 360 ml Intake Oral 360 ml # Voids 3 3 Laboratory Tests 01/05/19 07:07: White Blood Count 6.4, Red Blood Count 3.89L, Hemoglobin 10.9L, Hematocrit 33.4L , Mean Corpuscular Volume 86, Mean Corpuscular Hemoglobin 28.0, Mean Corpuscular Hemoglobin Concent 32.6, Red Cell Distribution Width 13.2, Platelet Count 184, Mean Platelet Volume 8.2, Neutrophils (%) (Auto) 46.0, Lymphocytes (% ) (Auto) 41.3, Monocytes (%) (Auto) 7.1, Eosinophils (%) (Auto) 4.5H, Basophils (%) (Auto) 1.1, Sodium Level 137, Potassium Level 4.6, Chloride Level 104, Carbon Dioxide Level 27, Anion Gap 6, Blood Urea Nitrogen 27H, Creatinine 1.1, Estimat Glomerular Filtration Rate 49.4, Glucose Level 257H, Calcium Level 9.7 Height (Feet): 5 Height (Inches): 3.00 Weight (Pounds): 150 General Appearance: no apparent distress Neck: normal alignment Cardiovascular: normal rate Respiratory/Chest: lungs clear Abdomen: normal bowel sounds Pelvis: normal external exam Edema: no edema noted Arm (L), no edema noted Arm (R), no edema noted Leg (L), no edema noted Leg (R), no edema noted Pedal (L), no edema noted Pedal (R), no edema noted Generalized Objective Current Medications Medications (Trade) Dose Ordered Sig/Arely Route PRN Reason Start Time Stop Time Status Last Admin Dose Admin Acetaminophen (Tylenol) 650 mg Q4H PRN ORAL fever (temp>100.5 F) 12/29/18 20:00 01/28/19 19:59 Aripiprazole (Abilify) 7.5 mg DAILY ORAL 12/30/18 09:00 01/29/19 08:59 01/05/19 09:10 Clonidine HCl (Catapres Tab) 0.1 mg Q4H PRN ORAL sbp more than 160 12/29/18 20:00 01/28/19 19:59 01/04/19 17:40 Dextrose (Dextrose 50%) 25 ml Q30M PRN IV Hypoglycemia 01/03/19 06:30 02/02/19 06:29 Dextrose (Dextrose 50%) 50 ml Q30M PRN IV Hypoglycemia 01/03/19 06:30 02/02/19 06:29 Divalproex Sodium (Depakote) 250 mg Q12HR ORAL 12/29/18 21:00 01/28/19 20:59 01/05/19 09:09 Escitalopram Oxalate (Lexapro) 10 mg DAILY ORAL 12/30/18 09:00 01/29/19 08:59 01/02/19 08:37 Heparin Sodium (Porcine) (Heparin 5000 units/ml) 5,000 units EVERY 12 HOURS SUBQ 12/29/18 21:00 01/28/19 20:59 01/04/19 20:31 Insulin Aspart (NovoLOG) BEFORE MEALS AND HS SUBQ 12/29/18 21:00 01/28/19 20:59 01/05/19 17:50 Insulin Detemir (Levemir) 14 units DAILY SUBQ 01/04/19 09:00 02/02/19 08:59 01/04/19 09:00 Lorazepam (Ativan) 1 mg Q6H PRN ORAL For Anxiety 12/30/18 05:15 01/06/19 05:14 01/03/19 12:36 Nateglinide (Starlix) 60 mg TIAC ORAL 12/31/18 06:30 01/30/19 06:29 01/05/19 12:12 Nitroglycerin (Ntg) 0.4 mg Q5M X 3 DOSES PRN SL Prn Chest Pain 12/29/18 20:00 01/28/19 19:59 Ondansetron HCl (Zofran) 4 mg Q6H PRN IVP Nausea & Vomiting 12/29/18 20:00 01/28/19 19:59 Polyethylene Glycol (Miralax) 17 gm HSPRN PRN ORAL Constipation 12/29/18 20:00 01/28/19 19:59 01/03/19 05:46 Sitagliptin Phosphate (Januvia) 100 mg ACBREAKFAST ORAL 12/31/18 06:30 01/30/19 06:29 01/02/19 06:33 Temazepam (Restoril) 15 mg HSPRN PRN ORAL Insomnia 01/04/19 14:15 01/11/19 14:14 Ziprasidone (Geodon) 60 mg TWICE A DAY ORAL 12/30/18 09:00 01/29/19 08:59 01/02/19 17:32 Ryley Vasquez MD Jan 05, 2019 18:59
--- NOTE | 2019-01-05 19:37 | NUR ---
NURSE NOTES: endorsed to the next shift about the discharge to [facility] urgent care and original evaluation paper ()from [facility] is in the transfer packet and endorsed to Yefri to sent the paper with the patient.
--- NOTE | 2019-01-05 19:38 | NUR ---
HAND-OFF: Report given to SALVADOR Asif.
--- NOTE | 2019-01-05 19:39 | NUR ---
NURSE NOTES: Received patient in no apparent distress. A&OX1 with confusion. IV site patent and intact. Restraint on bilateral wrist, radial pulse present, skin intact. Patient is waiting discharge to [facility] Bed in lowest position. Call light within reach. Will continue to monitor.
[2019-01-05 20:24] VITALS: BP 161/64
--- NOTE | 2019-01-05 22:50 | NUR ---
NURSE NOTES: Patient discharged [facility] with stable condition. Picked up by ambulance staff. IV and ID band removed. Belongings were sent with patient.
--- NOTE | 2019-01-06 01:15 | Progress Note ---
DATE: 01/05/2019 SUBJECTIVE: This is a 68-year-old female patient with hyperglycemia, but she is extremely mood labile, agitated, irritable, , agitated with staff, intermittently refusing treatment. That is why she requires inpatient psych treatment. MENTAL STATUS EXAMINATION: This is a 68-year-old female patient. Appearance is disheveled. Attitude, irritable and agitated. Affect, guarded and restricted. Intellect, poor. Mood, depressed and anxious. Motor activity, psychomotor agitation. Attention span is poor. Orientation x2. Speech is pressured. Thought process, disorganized and illogical. Insight and judgment is poor. DIAGNOSIS: Schizoaffective, bipolar type. PLAN: Treat her with Geodon 60 mg twice a day, Depakote 250 mg twice a day, and Lexapro 10 mg a day. Provided her with 20 minutes of cognitive behavioral therapy to help identify automatic negative thoughts and help convert those negative thoughts to more positive thoughts to reduce depression, anxiety, mood lability and agitation and help her have a more adaptive behavioral pattern, and also transfer to [facility]. bed available, so we will transfer to [facility]. Twenty minutes of cognitive behavioral therapy provided. She is dangerous to others and dangerous to self, that is why she requires inpatient psych treatment. Ramya Vieira M.D. DR: IRENE JOB#: [id number] CC:
--- NOTE | 2019-01-06 12:39 | Discharge Summary ---
Discharge Summary Discharge Summary _ DATE OF ADMISSION: 12/29/2018 DATE OF DISCHARGE: 01/05/2019 DISCHARGED BY: Dr. Zak Guaman CONSULTANTS: Dr. Ramya Ty PsyD [facility] COURSE: Patient is a 68-year-old female from [facility], who was taken to ED due to elevated blood sugar. Patient has history of diabetes and dementia. Unable to give full history. Patient usually just oriented to self. On evaluation at the ED, patient was agitated. None behavioral restraints were used initially. Attempts for noninvasive measures were attempted, however, had been futile. She was then placed on behavioral restraints. She was given sedation. Blood work did not show any leukocytosis. Hemoglobin and hematocrit were stable. Electrolytes were normal. Glucose was elevated to 374. Troponin was negative. Urine toxicology screen was negative. Chest x-ray did not show any acute disease. She was then admitted for evaluation of hyperglycemia, dehydration and exacerbation of schizophrenia. Psychiatric evaluation was done. Patient had multiple psychiatric admissions. She was diagnosed with schizoaffective disorder. She was given Lexapro and Depakote. Zyprexa was discontinued and was replaced with Geodon. He was given Ativan as needed anxiety. She was given IV hydration. Blood glucose was monitored. She was placed on NovoLog sliding scale. She was given Januvia and Starlix. Levemir was eventually added. Hemoglobin A1c 8.1. Patient was medically stabilized. She was eventually transferred to [facility]. FINAL DIAGNOSES: Diabetes mellitus, [id number] Dementia Schizoaffective, bipolar type Hypertension Anemia Encephalopathy exacerbated by psychiatric disorder DISPOSITION: Patient was transferred to [facility]. DISCHARGE MEDICATIONS: Refer to Discharge Medication List. I have been assigned to complete a discharge summary on this account, I was not involved with the patient's management.--VIANAC Richey Jacqueline Robles NP Jan 06, 2019 12:39
== END 2019-01-05 22:50 | DRG 420 ==
LOC: EDBD 15:56 → EMR 16:34 → 4E 17:13 → OBSVTOIN 17:13 → EDBEDREQ 18:12 → 4E 12-31 01:25
DX: E11.65 Type 2 diabetes mellitus with hyperglycemia (principal); N17.0 Acute kidney failure with tubular necrosis; G93.40 Encephalopathy, unspecified; E46 Unspecified protein-calorie malnutrition; F03.90 Unspecified dementia, unspecified severity, without behavioral disturbance, psychotic disturbance, mood disturbance, and anxiety; Z79.4 Long term (current) use of insulin; Z88.8 Allergy status to other drugs, medicaments and biological substances; F25.0 Schizoaffective disorder, bipolar type; I10 Essential (primary) hypertension; D64.9 Anemia, unspecified; E78.5 Hyperlipidemia, unspecified; E86.0 Dehydration
CPT/HCPCS: 36415; 71045; 80048; 80053; 80061; 80164; 80307; 81003; 82550; 82962; 83036; 83690; 83735; 83880; 84100; 84443; 84484; 85025; 85610; 85651; 85730; 86140; 87081; 93005; 94664; 96361; 96372; 96374; 99284; J1815; S5561

== ENCOUNTER 2019-09-13 10:04 | Inpatient (IN) | payer MEDICARE, OTHER ==
[~2019-09-13] VITALS: Ht 165.1 cm; Wt 57.8 kg
[~2019-09-13 10:04] MED LIST changes: +ABILIFY15 MG ORAL; +DEPAKOTE250 MG PO; +GEODON40 MG ORAL; +LEXAPRO10 MG ORAL; +NITROSTAT0.4 M1 SL; +NOVOLOG100 UNIT/5; +VITAMIN D1000 UNI1 ORAL; +ZOFRAN4 M3 ORAL
--- NOTE | 2019-09-13 10:10 | NUR ---
ED Nurse Note: Pt brought in by ambulance from SNF d/t altered mental status. Per EMS and SNF, pt was climbing out of bed and "got stuck" in the bed. Pt's baseline mentation is A+Ox1, hx of dementia. Respirations even and unlabored on room air. Pt's speech garbled. Vitals stable as documented. Pt placed on monitored bed.
[2019-09-13] MEDS ORDERED: BUPROPION HCL100 MG ORAL (10:13)
[2019-09-13] MEDS ORDERED: COLACE100 MG ORAL (10:13)
[2019-09-13] MEDS ORDERED: COREG3.125 MG ORAL (10:13)
[2019-09-13] MEDS ORDERED: ASPIR 8181 MG ORAL (10:13)
[2019-09-13] MEDS ORDERED: ZYPREXA10 MG ORAL (10:13)
[2019-09-13 10:20] VITALS: BP 148/80
--- NOTE | 2019-09-13 10:30 | NUR ---
ED Nurse Note: Pt is very restless, kicking her legs, and pulling at devices. ED MD made aware.
--- NOTE | 2019-09-13 10:37 | Emergency Room Report ---
History of Present Illness General Chief Complaint: Altered Mental Status Source: Patient Present Illness HPI [age]-year-old female ANO x1 history of dementia presents with altered mental status x1 day patient was seen trying to get out of bed, no known aggravating relieving factors severity is moderate, constant, getting confused severity moderate patient presents for evaluation Allergies: Coded Allergies: PALIPERIDONE (Unverified Allergy, Unknown, 08/09/18) Patient History Past Medical History: see triage record Reviewed Nursing Documentation: PMH: Agreed; PSxH: Agreed Nursing Documentation-PMH Past Medical History: No History, Except For Hx Hypertension: Yes - HTN Hx COPD: Yes Hx Diabetes: Yes Hx Cancer: No - UTI Hx Dementia: Yes Hx Dysphasia: Yes Hx Weakness: Yes Review of Systems All Other Systems: negative except mentioned in HPI Physical Exam Vital Signs Date Time Temp Pulse Resp B/P (MAP) Pulse Ox O2 Delivery O2 Flow Rate FiO2 09/13/19 10:04 97.5 82 19 122/82 (95) 97 Room Air Sp02 EP Interpretation: reviewed, normal General Appearance: well appearing, no apparent distress, alert Head: normocephalic, atraumatic Eyes: bilateral eye PERRL, bilateral eye EOMI ENT: uvula midline, moist mucus membranes Neck: supple, thyroid normal, supple/symm/no masses Respiratory: lungs clear, no respiratory distress, no retraction, no accessory muscle use Cardiovascular #1: normal peripheral pulses, regular rate, rhythm, no edema, no gallop, no murmur Gastrointestinal: non tender, soft, no guarding, no rebound Musculoskeletal: normal inspection Neurologic: alert, other - Oriented x1 Psychiatric: mood/affect normal Skin: no rash, warm/dry Medical Decision Making Diagnostic Impression: Primary Impression: Altered mental status Qualified Codes: R41.82 - Altered mental status, unspecified Additional Impression: UTI (urinary tract infection) Qualified Codes: N39.0 - Urinary tract infection, site not specified ER Course 69-year-old female presents with altered mental status differential diagnosis includes stroke, UTI, occult infection Patient found to have a UTI, patient required multiple sedate of medications given her combative nature In route to being sent upstairs patient somehow escaped from her bed and was found on the floor however no evidence of head trauma CT scan negative, all joints could be ranged no evidence of fracture patient in no acute pain patient admitted to Patient admitted to [facility]. Patient given ceftriaxone for UTI Laboratory Tests Test 09/13/19 10:20 09/13/19 11:14 White Blood Count 10.5 K/UL (4.8-10.8) Red Blood Count 4.62 M/UL (4.20-5.40) Hemoglobin 12.5 G/DL (12.0-16.0) Hematocrit 38.4 % (37.0-47.0) Mean Corpuscular Volume 83 FL (80-99) Mean Corpuscular Hemoglobin 27.1 PG (27.0-31.0) Mean Corpuscular Hemoglobin Concent 32.6 G/DL (32.0-36.0) Red Cell Distribution Width 13.6 % (11.6-14.8) Platelet Count 262 K/UL (150-450) Mean Platelet Volume 8.2 FL (6.5-10.1) Neutrophils (%) (Auto) 67.8 % (45.0-75.0) Lymphocytes (%) (Auto) 23.2 % (20.0-45.0) Monocytes (%) (Auto) 5.9 % (1.0-10.0) Eosinophils (%) (Auto) 2.2 % (0.0-3.0) Basophils (%) (Auto) 1.0 % (0.0-2.0) Sodium Level 139 MMOL/L (136-145) Potassium Level 4.1 MMOL/L (3.5-5.1) Chloride Level 102 MMOL/L (98-107) Carbon Dioxide Level 24 MMOL/L (21-32) Anion Gap 13 mmol/L (5-15) Blood Urea Nitrogen 34 mg/dL (7-18) H Creatinine 1.8 MG/DL (0.55-1.30) H Estimate Glomerular Filtration Rate 27.9 mL/min (>60) Glucose Level 278 MG/DL (74-106) H Lactic Acid Level 1.40 mmol/L (0.4-2.0) Calcium Level 11.2 MG/DL (8.5-10.1) H Phosphorus Level 3.2 MG/DL (2.5-4.9) Magnesium Level 1.8 MG/DL (1.8-2.4) Total Bilirubin 0.3 MG/DL (0.2-1.0) Aspartate Amino Transferase (AST) 18 U/L (15-37) Alanine Aminotransferase (ALT) 25 U/L (12-78) Alkaline Phosphatase 97 U/L (46-116) Total Creatine Kinase 91 U/L (26-308) Creatine Kinase MB 1.1 NG/ML (0.0-3.6) Creatine Kinase MB Relative Index 1.2 Troponin I 0.012 ng/mL (0.000-0.056) Pro-B-Type Natriuretic Peptide 366 pg/mL (0-125) H Total Protein 7.5 G/DL (6.4-8.2) Albumin 3.3 G/DL (3.4-5.0) L Globulin 4.2 g/dL Albumin/Globulin Ratio 0.8 (1.0-2.7) L Lipase 78 U/L (73-393) Thyroid Stimulating Hormone (TSH) 0.465 uiU/mL (0.358-3.740) Free Thyroxine 1.27 NG/DL (0.76-1.46) Free Triiodothyronine 2.2 pg/mL (2.3-4.2) L Urine Color Pale yellow Urine Appearance Cloudy Urine pH 5 (4.5-8.0) Urine Specific [place] 1.010 (1.005-1.035) Urine Protein 3+ (NEGATIVE) H Urine Glucose (UA) Negative (NEGATIVE) Urine Ketones Negative (NEGATIVE) Urine Blood 2+ (NEGATIVE) H Urine Nitrite Negative (NEGATIVE) Urine Bilirubin Negative (NEGATIVE) Urine Urobilinogen Normal MG/DL (0.0-1.0) Urine Leukocyte Esterase 3+ (NEGATIVE) H Urine RBC 5-10 /HPF (0 - 2) H Urine WBC Tntc /HPF (0 - 2) H Urine Squamous Epithelial Cells Many /LPF (NONE/OCC) H Urine Bacteria Moderate /HPF (NONE) H EKG Diagnostic Results EKG Time: 09:15 Rhythm Strip Diag. Results Rhythm Strip Time: 11:11 EP Interpretation: yes Rate: 80 Rhythm: NSR, no PVC's, no ectopy Chest X-Ray Diagnostic Results Chest X-Ray Diagnostic Results : Chest X-Ray Ordered: Yes # of Views/Limited/Complete: 1 View Indication: Other - Cough EP Interpretation: Yes Interpretation: no consolidation, no effusion, no pneumothorax, no acute cardiopulmonary disease Impression: No acute disease Electronically Signed by: Christopher Roche MD CT/MRI/US Diagnostic Results CT/MRI/US Diagnostic Results : Impression Procedure: CT Head no Contrast Indications: Altered mental status x1 day Technique: Spiral acquisitions obtained through the brain. Angled axial and coronal 5 x 5 mm slices were reconstructed. Total dose length product 1072 mGycm. CTDI vol(s) 53 mGy. Dose reduction achieved using automated exposure control Comparison: None. Findings: There is an area of encephalomalacia in the left parietal lobe. There is age-related enlargement of the ventricles and extra axial CSF spaces. There is periventricular deep white matter low-attenuation consistent with chronic microvascular ischemic change There is an old lacunar infarct in the left basal ganglia. There is an old lacunar infarct in the left side of the midbrain. No acute intracranial hemorrhage or edema. No mass effect nor midline shift. The mastoids are clear. The calvarium is intact. There is calvarial hyperostosis. The visualized orbits and sinuses are unremarkable. Impression: Negative for acute intracranial bleed or mass effect Old left parietal infarct Old lacunar infarcts as described Other chronic and age-related changes as described The CT scanner at [facility] is accredited by the [employer] and the scans are performed using protocols designed to limit radiation exposure to as low as reasonably achievable to attain images of sufficient resolution adequate for diagnostic evaluation. Dictated By: Joseph Aguayo MD Electronically Signed By: Joseph Aguayo MD Signed Date/Time 09/13/19 1559 CC: Christopher Roche MD Last Vital Signs Date Time Temp Pulse Resp B/P (MAP) Pulse Ox O2 Delivery O2 Flow Rate FiO2 09/13/19 10:04 97.5 82 19 122/82 (95) 97 Room Air Disposition: ADMITTED INPATIENT Condition: Stable Referrals: PAUL DWYER (PCP) Christopher Roche MD Sep 13, 2019 10:37
[2019-09-13 10:39] LABS: EOSINOPHILS % (AUTO) 2.2 % (0.0-3.0); HEMATOCRIT 38.4 % (37.0-47.0); HEMOGLOBIN 12.5 G/DL (12.0-16.0); LYMPHOCYTES % (AUTO) 23.2 % (20.0-45.0); MEAN CORPUSCULAR VOLUME 83 FL (80-99); MONOCYTES % (AUTO) 5.9 % (1.0-10.0); NEUTROPHILS % (AUTO) 67.8 % (45.0-75.0); PLATELET COUNT 262 K/UL (150-450); RED BLOOD COUNT 4.62 M/UL (4.20-5.40); RED CELL DISTRIBUTION WIDTH 13.6 % (11.6-14.8); WHITE BLOOD COUNT 10.5 K/UL (4.8-10.8)
[2019-09-13] MEDS ORDERED: DiphenhydrAMINE 50mg/ml Inj IVP ONE ×2 (10:45→14:15)
[2019-09-13] MEDS ORDERED: Haloperidol 5mg/ml Inj IM ONE (10:45)
[2019-09-13] MEDS ORDERED: LORazepam Inj 2mg/ml 1ml IV ONE ×2 (10:45→14:15)
[2019-09-13 10:46] LABS: ANION GAP 13 mmol/L (5-15); BLOOD UREA NITROGEN 34 mg/dL (7-18); CALCIUM 11.2 MG/DL (8.5-10.1); CARBON DIOXIDE 24 MMOL/L (21-32); CHLORIDE 102 MMOL/L (98-107); CREATININE 1.8 MG/DL (0.55-1.30); POTASSIUM 4.1 MMOL/L (3.5-5.1); SODIUM 139 MMOL/L (136-145)
[2019-09-13 11:01] LABS: ALANINE AMINOTRANSFERASE 25 U/L (12-78); ALBUMIN 3.3 G/DL (3.4-5.0); ALBUMIN/GLOBULIN RATIO 0.8 (1.0-2.7); ALKALINE PHOSPHATASE 97 U/L (46-116); ASPARTATE AMINO TRANSFERASE 18 U/L (15-37); BILIRUBIN,TOTAL 0.3 MG/DL (0.2-1.0); CKMB 1.1 NG/ML (0.0-3.6); CREATINE KINASE 91 U/L (26-308); PHOSPHORUS 3.2 MG/DL (2.5-4.9)
[2019-09-13 11:27] LABS: APPEARANCE,URINE CLOUDY; BILIRUBIN, URINE NEGATIVE (NEGATIVE); COLOR,URINE PALE YELLOW; GLUCOSE, URINE (UA) NEGATIVE (NEGATIVE); KETONES,URINE NEGATIVE (NEGATIVE); LEUKOCYTE ESTERASE ,URINE 3+ (NEGATIVE); NITRITE,URINE NEGATIVE (NEGATIVE); PH,URINE 5 (4.5-8.0); PROTEIN,URINE 3+ (NEGATIVE); UROBILINOGEN,URINE NORMAL MG/DL (0.0-1.0)
[2019-09-13] MEDS ORDERED: ATIVAN4 MG/1 ML IJ (11:32)
--- NOTE | 2019-09-13 11:48 | Diagnostic Imaging Report ---
Indication: Cough Technique: One view of the chest Comparison: 12/29/2018 Findings: No acute infiltrates, effusions, or congestion. Tortuous calcified aorta. Normal heart size. Upper mediastinum unremarkable. No significant interim change Impression: No acute process.
[2019-09-13] MEDS ORDERED: cefTRIAXone 1 GM in NS 55 ML IVPB ONE (12:45)
--- NOTE | 2019-09-13 12:50 | NUR ---
ED Nurse Note: Dr. Orozco @ bedside
--- NOTE | 2019-09-13 13:20 | NUR ---
ED Nurse Note: Pt sleeping comfortably in bed with no signs of distress.
[2019-09-13] MEDS ORDERED: LORazepam Inj 2mg/ml 1ml IV PRN (13:30)
[2019-09-13] MEDS ORDERED: DiphenhydrAMINE 25mg Tab ORAL PRN (13:30)
[2019-09-13] MEDS ORDERED: Albuterol/Ipratropium 3ml neb HHN PRN (13:30)
--- NOTE | 2019-09-13 13:40 | NUR ---
ED Nurse Note: urinary incontinence x1. Pt cleaned up and linen changed. Pt starting to awake.
--- NOTE | 2019-09-13 13:42 | History and Physical ---
History of Present Illness General Date patient seen: Sep 13, 2019 Time patient seen: 12:40 Reason for Hospitalization: Altered Mental Status Present Illness HPI 69-year-old female history of moderate dementia, chronic schizophrenia, depression, anxiety, HTN, HLD, DM type 2, COPD, dysphagia, hypothyroidism, GERD presented from SNF with altered mental status x1 day patient was seen trying to get out of bed, no known aggravating relieving factors severity is moderate, constant, getting confused severity moderate patient presents for evaluation. In ED she was severely agitated and restless, got Ativan,Haldol,Benadryl with some improvement. Labs done here were significant for elevated creatinine of 1.8 and severe pyuria. CXR without acute disease. Patient referred for admission for for acute metabolic encephalopathy. Family history: Unable to obtain due to medical condition Social History: Unable to obtain due to medical condition Allergies: Coded Allergies: PALIPERIDONE (Unverified Allergy, Unknown, 08/09/18) Medication History Scheduled Amino Acids/Protein Hydrolys (Pro-Stat Liquid), 30 ML ORAL TWICE A DAY, ( Reported) Aripiprazole* (Abilify*), 7.5 MG ORAL DAILY, (Reported) Ascorbic Acid* (Vitamin C*), 500 MG ORAL DAILY, (Reported) Ascorbic Acid* (Vitamin C*), 500 MG ORAL DAILY, (Reported) Aspirin* (Aspir 81*), 81 MG ORAL DAILY, (Reported) Atorvastatin Calcium* (Atorvastatin Calcium*), 40 MG ORAL BEDTIME, (Reported) Bupropion Hcl* (Bupropion Hcl*), 100 MG ORAL THREE TIMES A DAY, (Reported) Carvedilol (Coreg), 3.125 MG ORAL EVERY 12 HOURS, (Reported) Cephalexin (Cephalexin), 500 MG ORAL Q12HR Cholecalciferol (Vitamin D3)* (Vitamin D*), 1,000 UNIT ORAL DAILY, (Reported) Divalproex Sodium* (Depakote*), 250 MG PO Q12HR, (Reported) Docusate Sodium* (Docusate Sodium*), 100 MG ORAL TWICE A DAY, (Reported) Docusate Sodium* (Colace*), 250 MG ORAL TWICE A DAY, (Reported) Escitalopram Oxalate* (Lexapro*), 10 MG ORAL DAILY, (Reported) Ferrous Sulfate* (Ferrous Sulfate*), 325 MG ORAL DAILY, (Reported) Insulin Detemir (Levemir), 16 UNITS SUBQ ACBREAKFAST, (Reported) Insulin Detemir (Levemir), 20 UNITS SUBQ BID, (Reported) Insulin Detemir (Levemir), 14 SUBQ DAILY, (Reported) Linagliptin (Tradjenta), 5 MG PO DAILY, (Reported) Lisinopril (Lisinopril*), 10 MG ORAL DAILY, (Reported) Lorazepam (Ativan), 1 MG IJ IM, (Reported) Magnesium Hydroxide (Pedia-Lax), 800 MG PO BID, (Reported) Multivitamin with Minerals (Multivitamins with Minerals), 1 TAB ORAL DAILY, ( Reported) Nateglinide* (Starlix*), 60 MG ORAL AC, (Reported) Olanzapine (Olanzapine), 15 MG ORAL BID Olanzapine* (Zyprexa*), 10 MG ORAL DAILY, (Reported) Sennosides (Senna), 17.2 MG PO QHS, (Reported) Sitagliptin* (Januvia*), 100 MG ORAL ACBREAKFAST, (Reported) Ziprasidone Hcl* (Geodon*), 60 MG ORAL TWICE A DAY, (Reported) Scheduled PRN Acetaminophen* (Acetaminophen 325MG Tablet*), 650 MG ORAL Q4H PRN for Mild Pain (Pain Scale 1-3), (Reported) Clonidine Hcl* (Catapres*), 0.1 MG ORAL EVERY 4 HOURS PRN for For High Blood Pressure, (Reported) Insulin Regular, Human* (Novolin R*), 0 SUBQ .SLIDING SCALE PRN for hyperglycemia, (Reported) Lorazepam* (Ativan*), 1 MG ORAL Q6HR PRN for For Anxiety, (Reported) Nitroglycerin (Nitrostat), 0.4 MG SL Q5M X3 DOSES PRN for CHEST PAIN, (Reported) Ondansetron* (Zofran*), 4 MG ORAL Q6H PRN for Nausea & Vomiting, (Reported) Polyethylene Glycol 3350* (Miralax*), 17 GM ORAL HS PRN for Constipation, ( Reported) Temazepam* (Restoril*), 15 MG ORAL BEDTIME PRN for Insomnia, (Reported) Miscellaneous Medications Insulin Aspart (Novolog), (Reported) Patient History Healthcare decision maker Resuscitation status Advanced Directive on File Review of Systems ROS Narrative Unable to obtain due to medical condition Physical Exam General Appearance: alert, confused HEENT: atraumatic, anicteric Neck: normal alignment, supple, normal inspection Respiratory/Chest: lungs clear, normal breath sounds, no respiratory distress, no accessory muscle use Cardiovascular/Chest: normal peripheral pulses, normal rate, regular rhythm Abdomen: non tender, soft, no organomegaly Extremities: non-tender, normal inspection, no calf tenderness 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 II-XII grossly normal, no motor/sensory deficits, alert, disoriented Last 24 Hour Vital Signs Date Time Temp Pulse Resp B/P (MAP) Pulse Ox O2 Delivery O2 Flow Rate FiO2 09/13/19 10:20 97.5 78 18 148/80 98 Room Air 09/13/19 10:20 78 18 Room Air 09/13/19 10:04 97.5 82 19 122/82 (95) 97 Room Air Laboratory Tests Test 09/13/19 10:20 09/13/19 11:14 White Blood Count 10.5 K/UL (4.8-10.8) Red Blood Count 4.62 M/UL (4.20-5.40) Hemoglobin 12.5 G/DL (12.0-16.0) Hematocrit 38.4 % (37.0-47.0) Mean Corpuscular Volume 83 FL (80-99) Mean Corpuscular Hemoglobin 27.1 PG (27.0-31.0) Mean Corpuscular Hemoglobin Concent 32.6 G/DL (32.0-36.0) Red Cell Distribution Width 13.6 % (11.6-14.8) Platelet Count 262 K/UL (150-450) Mean Platelet Volume 8.2 FL (6.5-10.1) Neutrophils (%) (Auto) 67.8 % (45.0-75.0) Lymphocytes (%) (Auto) 23.2 % (20.0-45.0) Monocytes (%) (Auto) 5.9 % (1.0-10.0) Eosinophils (%) (Auto) 2.2 % (0.0-3.0) Basophils (%) (Auto) 1.0 % (0.0-2.0) Sodium Level 139 MMOL/L (136-145) Potassium Level 4.1 MMOL/L (3.5-5.1) Chloride Level 102 MMOL/L (98-107) Carbon Dioxide Level 24 MMOL/L (21-32) Anion Gap 13 mmol/L (5-15) Blood Urea Nitrogen 34 mg/dL (7-18) H Creatinine 1.8 MG/DL (0.55-1.30) H Estimat Glomerular Filtration Rate 27.9 mL/min (>60) Glucose Level 278 MG/DL (74-106) H Lactic Acid Level 1.40 mmol/L (0.4-2.0) Calcium Level 11.2 MG/DL (8.5-10.1) H Phosphorus Level 3.2 MG/DL (2.5-4.9) Magnesium Level 1.8 MG/DL (1.8-2.4) Total Bilirubin 0.3 MG/DL (0.2-1.0) Aspartate Amino Transf (AST/SGOT) 18 U/L (15-37) Alanine Aminotransferase (ALT/SGPT) 25 U/L (12-78) Alkaline Phosphatase 97 U/L (46-116) Total Creatine Kinase 91 U/L (26-308) Creatine Kinase MB 1.1 NG/ML (0.0-3.6) Creatine Kinase MB Relative Index 1.2 Troponin I 0.012 ng/mL (0.000-0.056) Pro-B-Type Natriuretic Peptide 366 pg/mL (0-125) H Total Protein 7.5 G/DL (6.4-8.2) Albumin 3.3 G/DL (3.4-5.0) L Globulin 4.2 g/dL Albumin/Globulin Ratio 0.8 (1.0-2.7) L Lipase 78 U/L (73-393) Thyroid Stimulating Hormone (TSH) 0.465 uiU/mL (0.358-3.740) Free Thyroxine 1.27 NG/DL (0.76-1.46) Free Triiodothyronine 2.2 pg/mL (2.3-4.2) L Urine Color Pale yellow Urine Appearance Cloudy Urine pH 5 (4.5-8.0) Urine Specific [place] 1.010 (1.005-1.035) Urine Protein 3+ (NEGATIVE) H Urine Glucose (UA) Negative (NEGATIVE) Urine Ketones Negative (NEGATIVE) Urine Blood 2+ (NEGATIVE) H Urine Nitrite Negative (NEGATIVE) Urine Bilirubin Negative (NEGATIVE) Urine Urobilinogen Normal MG/DL (0.0-1.0) Urine Leukocyte Esterase 3+ (NEGATIVE) H Urine RBC 5-10 /HPF (0 - 2) H Urine WBC Tntc /HPF (0 - 2) H Urine Squamous Epithelial Cells Many /LPF (NONE/OCC) H Urine Bacteria Moderate /HPF (NONE) H Height (Feet): 5 Height (Inches): 5.00 Weight (Pounds): 130 Assessment/Plan Assessment/Plan: 69-year-old female history of moderate dementia, chronic schizophrenia, depression, anxiety, HTN, HLD, DM type 2, COPD, dysphagia, hypothyroidism, GERD presented from SNF with altered mental status #Acute metabolic encephalopathy due to UTI and BART #Moderate-severe baseline dementia #Chronic dysphagia #Chronic schizophrenia #Depression #Anxiety -admit to medical service -Continue ceftriaxone 1 gm q24h -Follow up urine cultures -Continue outpatient psychiatric meds, Dr. Miller consulted to adjust meds -Supportive care -Frequent orienting -Fall, aspiration precautions -ADMITTED ATTORNEYS eval -PT eval #BART -hold Lasix -IV 1/2 NS -BMP in AM #HTN -continue hydralazine and amlodipine #NIDDM -hold oral hypoglycemics -ISS for now #COPD, not in acute exacerbation -Duoneb prn #Hypothyroidism -continue levothyroxine I spent 70 minutes on this patient's case, and >50% was dedicated to counseling and/or care coordination. I spent an additional 35 minutes on review of medical records including prior medical records, consult notes, progress notes, procedures, imaging, labs, hemodynamics, and other clinical documentation. Reilly Morales MD Sep 13, 2019 13:42
--- NOTE | 2019-09-13 13:50 | NUR ---
ED Nurse Note: After giving phone report, came back to pt's room to find pt sitting on floor with back and head on the bed. Pt denies any pain. Skin assessed and no trauma/injury noted. ED MD made aware. CT head ordered.
--- NOTE | 2019-09-13 13:50 | NUR ---
ED Nurse Note: Report given to SALVADOR Call on 4E.
--- NOTE | 2019-09-13 14:31 | NUR ---
ED Nurse Note: Pt in radiology
--- NOTE | 2019-09-13 14:36 | NUR ---
ED Nurse Note: Pt back from CT
--- NOTE | 2019-09-13 14:41 | NUR ---
ED Nurse Note: Ct head negative, okay to send pt up floor per ED MD.
--- NOTE | 2019-09-13 14:45 | NUR ---
ED Nurse Note: Pt transferred safely to 4E. Pt has only clothing for belongings.
--- NOTE | 2019-09-13 15:15 | NUR ---
nurse notes received patient from ED via gurney, patient confused no sign of distress, HL right AC, Bilateral soft wrist restraint applied, admission routine care rendered, oriented to the unit, plan of care was discussed needs reinforcement, patient high risk for fall joshua meier
[2019-09-13 15:18] VITALS: BP 139/86
--- NOTE | 2019-09-13 16:04 | Diagnostic Imaging Report ---
Indications: Altered mental status x1 day Technique: Spiral acquisitions obtained through the brain. Angled axial and coronal 5 x 5 mm slices were reconstructed. Total dose length product 1072 mGycm. CTDI vol(s) 53 mGy. Dose reduction achieved using automated exposure control Comparison: None. Findings: There is an area of encephalomalacia in the left parietal lobe. There is age-related enlargement of the ventricles and extra axial CSF spaces. There is periventricular deep white matter low-attenuation consistent with chronic microvascular ischemic change There is an old lacunar infarct in the left basal ganglia. There is an old lacunar infarct in the left side of the midbrain. No acute intracranial hemorrhage or edema. No mass effect nor midline shift. The mastoids are clear. The calvarium is intact. There is calvarial hyperostosis. The visualized orbits and sinuses are unremarkable. Impression: Negative for acute intracranial bleed or mass effect Old left parietal infarct Old lacunar infarcts as described Other chronic and age-related changes as described The CT scanner at [facility] is accredited by the [employer] and the scans are performed using protocols designed to limit radiation exposure to as low as reasonably achievable to attain images of sufficient resolution adequate for diagnostic evaluation.
[2019-09-13] MEDS: NovoLOG Insulin Flexpen SUBQ SCH ×2 (17:16→21:14)
--- NOTE | 2019-09-13 19:35 | NUR ---
HAND-OFF: Report given to SALVADOR Storm RN.
--- NOTE | 2019-09-13 19:40 | NUR ---
NURSE NOTES: Patient in bed, awake, confused. Restraints noted, skin is intact. Kept clean and comfortable. bed in low and locked position. IV site noted, iv fluid is infusing. Abdomen is soft and non distended. Respiration is even and unlabored. NO s/s of pain or discomfort noted. Noted to have had a fall in E.R. Will change patients gown to yellow and socks. Neuro checks. Frequent visual checks noted. Call light is at bedside. Will continue plan of care.
[2019-09-13 20:00] VITALS: BP 134/89
[2019-09-13] MEDS: Atorvastatin 20mg tab ORAL SCH (21:11)
[2019-09-13] MEDS: Heparin 5000 units/ml inj SUBQ SCH (21:13)
[2019-09-14] VITALS: BP 138/71
--- NOTE | 2019-09-14 02:45 | Consultation ---
DATE OF CONSULTATION: 09/13/2019 CONSULTING PHYSICIAN: Nalini Miller M.D. HISTORY OF PRESENT ILLNESS: This is a 69-year-old female with a history of multiple medical issues including hypertension, diabetes, acute tubular necrosis, anemia, renal insufficiency, hypertension, and dementia, who has been admitted to the hospital for medical examination. The patient is confused, agitated. She has not been able to eat and has been more confused at baseline. The patient is not cooperative with the staff and is easily agitated, received a shot in the emergency room. PAST PSYCHIATRIC HISTORY: Dementia and psychotic disorder. PAST MEDICAL HISTORY: Hypertension, diabetes mellitus. ALLERGIES: Paliperidone. SUBSTANCE ABUSE HISTORY: No known history of illicit drug use or alcohol. MENTAL STATUS EXAMINATION: The patient is alert, confused, disoriented. Mood is agitated. Affect is flat. Thought process is concrete. Thought content, no suicidal or homicidal ideation. Cognition is impaired. Insight and judgement nonexistent. ASSESSMENT: Redding I Dementia with behavior disturbance. Redding II Deferred. Redding III Altered mental status. Redding IV Low. Redding V 20. PLAN: 1. We will start on Seroquel 25 t.i.d. 2. . 3. Discussed with the primary care physician. Nalini Miller M.D. DR: ABY JOB#: [id number] CC: JAMES
[2019-09-14 04:00] VITALS: BP 142/75
[2019-09-14 06:25] LABS: BASOPHILS % (AUTO) 1.2 % (0.0-2.0); EOSINOPHILS % (AUTO) 7.1 % (0.0-3.0); HEMATOCRIT 39.5 % (37.0-47.0); LYMPHOCYTES % (AUTO) 45.5 % (20.0-45.0); MEAN CORPUSCULAR VOLUME 82 FL (80-99); MONOCYTES % (AUTO) 8.1 % (1.0-10.0); NEUTROPHILS % (AUTO) 38.2 % (45.0-75.0); PLATELET COUNT 226 K/UL (150-450); RED BLOOD COUNT 4.82 M/UL (4.20-5.40); RED CELL DISTRIBUTION WIDTH 13.3 % (11.6-14.8); WHITE BLOOD COUNT 7.8 K/UL (4.8-10.8)
[2019-09-14] MEDS: NovoLOG Insulin Flexpen SUBQ SCH ×4 (06:30→21:16)
[2019-09-14 06:40] LABS: ANION GAP 12 mmol/L (5-15); BLOOD UREA NITROGEN 27 mg/dL (7-18); CALCIUM 10.8 MG/DL (8.5-10.1); CARBON DIOXIDE 24 MMOL/L (21-32); CHLORIDE 108 MMOL/L (98-107); CREATININE 1.3 MG/DL (0.55-1.30); POTASSIUM 4.5 MMOL/L (3.5-5.1); SODIUM 143 MMOL/L (136-145)
--- NOTE | 2019-09-14 07:00 | NUR ---
NURSE NOTES:Handoff received from SALVADOR Storm. Patient received awake and alert but confused and oriented to person only. Patient is on bilateral wrist restraints, with IV L FA 22g and R AC 20g, right FA IV is swollen, changed IV fluids to run in the left FA. Patient is on room air, no acute signs of distress noted, bed in the low and locked position with call light next to patient on the bed. Patient is situated close to the nursing station as patient is very high fall risk, patient has yellow gown, yellow socks and sign on the door stating patient is high fall risk. Informed floor staff that patient is high fall risk so that patient can be monitored by alll staff.
--- NOTE | 2019-09-14 07:07 | NUR ---
HAND-OFF: Report given to Laura Cantor.
[2019-09-14 08:00] VITALS: BP 149/76
[2019-09-14] MEDS ORDERED: OLANZapine 10mg tab ORAL SCH (09:00)
[2019-09-14] MEDS: cefTRIAXone 1 GM in NS 55 ML IVPB SCH (09:00)
[2019-09-14] MEDS: Ascorbic Acid 500mg tab ORAL SCH (09:05)
[2019-09-14] MEDS: Aspirin EC 81mg tab ORAL SCH (09:06)
[2019-09-14] MEDS: Heparin 5000 units/ml inj SUBQ SCH ×2 (09:07→21:16)
--- NOTE | 2019-09-14 09:35 | NUR ---
PT EVALUATION NOTE Patient seen for initial evaluation. Patient presents with generalized weakness which impairs patient's ability to perform mobility tasks safely. Patient requires min/mod assist for bed mobility and transfers with FWW. Attempted to take steps with FWW however patient unable. Patient will benefit from skilled inpatient PT intervention to address strength, balance and safety for increased level of funcitonal mobility. Recommend discharge to SNF once medically cleared by MD. Addendum: 09/14/19 at 1309 by LAURI CORBETT PT Amended: Links added.
--- NOTE | 2019-09-14 10:08 | NUR ---
CASE MANAGEMENT:INITIAL REVIEW 69 YR OLD FEMALE BIBA FROM [facility] CC;ALTERED MENTAL STATUS SI;ALTERED MENTAL STATUS. UTI. 97.5 82 18 148/80 93% ON RA BUN 34 CR 1.8 BG 278 CA 11.2 CXR = NEGATIVE, NO ACUTE PROCESS UA+ PROTEIN, BLOOD, LEUKOCYT, RBC, WBC, SQUAMOUS EPITH CELLS, BACTERIA URINE CULTRE = GRAM NEGATIVE BACILLUS [address] = Negative for acute intracranial bleed or mass effect IS;IVF NO BOLUS HALDOL IM ONCE ATIVAN IV ONCE BENADRYL IV ONCE ROCEPHIN IV ONCE ADMITTED TO MED SURG MED SURG STATUS PLAN OF CARE; IV ABX FALL & ASPIRATION PRECAUTIONS HOLD KAITLIN FORBES PRN DCP;FROM [facility] CONV
--- NOTE | 2019-09-14 11:07 | General Progress Note ---
Assessment/Plan Assessment/Plan: 69-year-old female history of moderate dementia, chronic schizophrenia, depression, anxiety, HTN, HLD, DM type 2, COPD, dysphagia, hypothyroidism, GERD presented from SNF with altered mental status #Acute metabolic encephalopathy due to gram negative UTI and BART #Moderate-severe baseline dementia #Chronic dysphagia #Chronic schizophrenia #Depression #Anxiety -continue inpatient level of care -Continue ceftriaxone 1 gm q24h -Follow up urine cultures -Continue outpatient psychiatric meds, Dr. Miller consulted to adjust meds -Supportive care -Frequent orienting -Fall, aspiration precautions -Trial off restraints -SOIL EXPERT eval -PT eval #BART, resolving -hold Lasix -cont IV / NS -monitor BMP #HTN -continue hydralazine and amlodipine #NIDDM -hold oral hypoglycemics -ISS for now #COPD, not in acute exacerbation -Duoneb prn #Hypothyroidism -continue levothyroxine I spent 35 minutes on this patient's case, and >50% was dedicated to counseling and/or care coordination. Subjective Date patient seen: Sep 14, 2019 Time patient seen: 09:00 ROS Limited/Unobtainable: Yes Cardiovascular: Denies: chest pain Respiratory: Denies: cough Gastrointestinal/Abdominal: Denies: abdominal pain Allergies: Coded Allergies: PALIPERIDONE (Unverified Allergy, Unknown, 08/09/18) Subjective Follow up for acute metabolic encephalopathy superimposed on dementia, BART, gram negative UTI Less agitation overnight, more interactive although still with baseline dementia. Objective Last 24 Hour Vital Signs Date Time Temp Pulse Resp B/P (MAP) Pulse Ox O2 Delivery O2 Flow Rate FiO2 09/14/19 09:06 71 149/76 09/14/19 08:36 Room Air 09/14/19 08:02 71 16 98 Room Air 21 09/14/19 08:00 98.2 61 14 149/76 (100) 95 09/14/19 04:00 98.1 56 18 142/75 (97) 98 09/14/19 00:00 97.2 69 18 138/71 (93) 96 09/13/19 21:12 78 134/89 09/13/19 21:00 Room Air 09/13/19 20:00 97.6 78 18 134/89 (104) 93 09/13/19 15:26 Room Air 09/13/19 15:18 97.7 86 18 139/86 (103) 98 09/13/19 14:45 97.0 76 18 138/85 98 Room Air Intake and Output 09/13/19 09/14/19 19:00 07:00 Intake Total 225 ml 825 ml Balance 225 ml 825 ml IV Total 225 ml 825 ml # Voids 1 2 # Bowel Movements 1 Laboratory Tests 09/13/19 11:14: Urine Color Pale yellow, Urine Appearance Cloudy, Urine pH 5, Urine Specific Trent 1.010, Urine Protein 3+H, Urine Glucose (UA) Negative, Urine Ketones Negative, Urine Blood 2+H, Urine Nitrite Negative, Urine Bilirubin Negative, Urine Urobilinogen Normal, Urine Leukocyte Esterase 3+H, Urine RBC 5-10H, Urine WBC TntcH, Urine Squamous Epithelial Cells ManyH, Urine Bacteria ModerateH 09/14/19 06:00: White Blood Count 7.8, Red Blood Count 4.82, Hemoglobin 13.0, Hematocrit 39.5, Mean Corpuscular Volume 82, Mean Corpuscular Hemoglobin 27.0, Mean Corpuscular Hemoglobin Concent 33.0, Red Cell Distribution Width 13.3, Platelet Count 226, Mean Platelet Volume 8.0, Neutrophils (%) (Auto) 38.2L, Lymphocytes (%) (Auto) 45.5H, Monocytes (%) (Auto) 8.1, Eosinophils (%) (Auto) 7.1H, Basophils (%) ( Auto) 1.2, Sodium Level 143, Potassium Level 4.5, Chloride Level 108H, Carbon Dioxide Level 24, Anion Gap 12, Blood Urea Nitrogen 27H, Creatinine 1.3, Estimat Glomerular Filtration Rate 40.6, Glucose Level 72#L, Calcium Level 10.8H Height (Feet): 5 Height (Inches): 5.00 Weight (Pounds): 127 General Appearance: no apparent distress, alert Neck: non-tender, normal alignment Cardiovascular: normal rate, regular rhythm Respiratory/Chest: lungs clear, normal breath sounds Abdomen: non tender, soft Extremities: normal range of motion, non-tender, normal inspection Reilly Morales MD Sep 14, 2019 11:07
--- NOTE | 2019-09-14 11:50 | NUR ---
NURSE NOTES: 0900 IV medication not administered as patient does not have IV access, still attempting to gain IV access.
[2019-09-14 12:00] VITALS: BP 139/59
--- NOTE | 2019-09-14 12:44 | NUR ---
NURSE NOTES: Unable to get IV access for patient, had charge and another nurse try but still unable to obtain access for patient. automation consultant informed DR Reyes that patient does not have IV access so cannot received IV antibiotic or IV fluids.
--- NOTE | 2019-09-14 12:56 | NUR ---
CHARGE NURSE NOTE: Spoke with that pt does not have IV line. He is waiting for Blood culture result. No new orders given.
--- NOTE | 2019-09-14 13:38 | NUR ---
ST NOTES: REFERRED FOR SWALLOW EVAL BY DR AGUILAR, SEE FULL REPORT. 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 NO POLST/AD REGARDING TUBE FEEDINGS IF NEEDS. ? DIET AT SNF. NOW ON [facility] SOFT GROUND DIET WITH THIN LIQUIDS W/O REPORTED PROBLEMS PER CLINICAL PHARMACY COORDINATOR SALVE AND 100% INTAKE. SPEECH IS VERY DYSARTHRIC AND NEEDS REPETITION TO UNDERSTAND EVEN IN CONTEXT. SHE IS CONFUSED. INITIAL IMPRESSIONS: S/S OF AT LEAST A MILD/MODERATE OROPHARYNGEAL DYSPHAGIA WITH INCREASED TRANSIT TIMES POOR FOLLOWING ORAL COMMANDS AND DID NOT COUGH TO COMMAND. VOICE IS SOFT BUT CLEAR. HAS TARDIVE DYSKINESIA (LIKELY FROM PSYCH MEDS) MOVING HER TONGUE AND MOUTH CONTINUOUSLY W/O PO INTAKE GIVEN THIN LIQUIDS VIA STRAW SEQUENTIAL SIPS, NO OVERT S/S OF ASPIRATION AND ABLE TO SWALLOW 3 0Z W/O OVERT ASP AND VITAL SIGNS ADEQUATE AT 18 BPM. GIVEN PUREED, TENDS TO CHEW BOLUS AND SWALLOW WITH FAIR HYOLARYNGEAL EXCURSION WITHIN 5 SECONDS W/O ORAL RESIDUE NOR OVERT ASPIRATION WILL HOLD ON MASTICATED SOLIDS SINCE IS EDENTULOUS AND SHE HAD A SMALL PIECE OF GROUND MEAT THAT SHE WAS POCKETING FROM LUNCH PRIOR TO THE EXAM. DIFFICULT TO TELL WHERE IT WAS IN HER MOUTH SINCE SHE WAS MOVING IT AROUND WITH HER TONGUE. WITH RN, PATIENT UNABLE TO SWALLOW PILLS WHOLE AND WOULD HOLD IT IN HER MOUTH MOVING IT WITH HER TONGUE. ABLE TO SWALLOW CRUSHED MEDS WITH APPLESAUCE. HAS SILENT ASPIRATION RISK DUE TO DEMENTIA BUT LUNGS ARE CLEAR NOW AND HAS BEEN ON A DIET/LIQUIDS SINCE ADMIT. NO NEED FOR ORAL SUCTION. GOOD INTAKE RECOMMENDATIONS: COMPLETE MOD BARIUM SWALLOW STUDY DOWNGRADE TO PUREED AND CONTINUE WITH THIN LIQUIDS WITH POSTED PRECAUTIONS AND ONE TO ONE FEEDING CRUSH CRUSHABLE MEDS SKILLED DYSPHAGIA MANAGEMENT AND TX AND COG-COM EVAL/TX EDUCATED/TRAINED STAFF IN POSTED PRECAUTIONS.
--- NOTE | 2019-09-14 15:00 | NUR ---
ED Nurse Note: Wasted 1 mg of ativan IV in the pyxsis with Aissatou Charge nurse as a witness. Pyxsis still showing "witnessed waste required." Called pharmacistIdalia and let her know about the issue. She said she will write a note about it, but it cannot be fixed in the pyxsis.
[2019-09-14 16:00] VITALS: BP 143/79
--- NOTE | 2019-09-14 19:23 | NUR ---
HAND-OFF: Report given to SALVADOR parker.Endorsed that patient is high fall risk to allow continued close supervision on patient.
[2019-09-14 20:00] VITALS: BP 151/76
--- NOTE | 2019-09-14 20:39 | NUR ---
NURSE NOTES: Patient in bed, awake. Bed in low and locked position. Bed alarm on. Patient on yellow socks, will change to yellow gown. Patient is confused. Respiration is even and unlabored. NO s/s of pain or discomfort noted. Abdomen is soft and non distended. Skin is warm and dry to touch. Call light is at bedside. Restraints noted, site is clean, intact. Frequent visual checks. Will continue plan of care.
--- NOTE | 2019-09-14 20:45 | NUR ---
NURSE NOTES: Patient noted without IV access. Primary MD aware. Will attempt to reinsert.
[2019-09-14] MEDS: Atorvastatin 20mg tab ORAL SCH (21:15)
--- NOTE | 2019-09-14 23:00 | NUR ---
NURSE NOTES: Attempted to reinsert IV, unable to attain iv site. Patient is stable. No s/s of distress noted. Will do frequent checks. Call light is at bedside. Will continue plan of care.
[2019-09-15] VITALS: BP 115/69
--- NOTE | 2019-09-15 00:05 | Psych Consult Progress Note ---
Psychiatry Progress Note Psychiatry Progress Note Medications Current Medications Medications (Trade) Dose Ordered Sig/Arely Route PRN Reason Start Time Stop Time Status Last Admin Dose Admin Acetaminophen (Tylenol) 650 mg Q4H PRN ORAL Mild Pain (Pain Scale 1-3) 09/13/19 13:30 10/13/19 13:29 Albuterol/ Ipratropium (Albuterol/ Ipratropium) 3 ml Q6H PRN HHN Shortness of Breath 09/13/19 13:30 09/18/19 13:29 Aripiprazole (Abilify) 7.5 mg DAILY ORAL 09/14/19 09:00 10/29/19 08:59 09/14/19 09:06 Ascorbic Acid (Vitamin C) 500 mg DAILY ORAL 09/14/19 09:00 10/14/19 08:59 09/14/19 09:05 Aspirin (Ecotrin) 81 mg DAILY ORAL 09/14/19 09:00 10/29/19 08:59 09/14/19 09:06 Atorvastatin Calcium (Lipitor) 40 mg BEDTIME ORAL 09/13/19 21:00 10/13/19 20:59 09/14/19 21:15 Bupropion HCl (Wellbutrin) 100 mg THREE TIMES A DAY ORAL 09/13/19 18:00 10/13/19 17:59 09/14/19 17:02 Carvedilol (Coreg) 3.125 mg EVERY 12 HOURS ORAL 09/13/19 21:00 10/13/19 20:59 09/14/19 21:15 Ceftriaxone Sodium 1 gm/ Sodium Chloride 55 ml @ 110 mls/hr Q24HRS IVPB 09/14/19 09:00 09/21/19 08:59 Dextrose (Dextrose 50%) 25 ml Q30M PRN IV Hypoglycemia 09/13/19 13:30 10/13/19 13:29 Dextrose (Dextrose 50%) 50 ml Q30M PRN IV Hypoglycemia 09/13/19 13:30 10/13/19 13:29 Diphenhydramine HCl (Benadryl) 25 mg Q6H PRN ORAL Itching/Pruritis 09/13/19 13:30 10/13/19 13:29 Divalproex Sodium (Depakote) 250 mg Q12HR ORAL 09/13/19 21:00 10/13/19 20:59 09/14/19 21:15 Escitalopram Oxalate (Lexapro) 10 mg DAILY ORAL 09/14/19 09:00 10/14/19 08:59 09/14/19 09:05 Heparin Sodium (Porcine) (Heparin 5000 units/ml) 5,000 units EVERY 12 HOURS SUBQ 09/13/19 21:00 10/28/19 20:59 09/14/19 21:16 Insulin Aspart (NovoLOG) BEFORE MEALS AND HS SUBQ 09/13/19 16:30 10/13/19 16:29 09/14/19 21:16 Ondansetron HCl (Zofran) 4 mg Q6H PRN IVP Nausea & Vomiting 09/13/19 13:30 10/13/19 13:29 Quetiapine Fumarate (SEROqueL) 25 mg TID ORAL 09/13/19 18:00 10/28/19 17:59 09/14/19 17:02 Sodium Chloride 1,000 ml @ 75 mls/hr [id number] IV 09/13/19 13:51 10/13/19 13:50 09/14/19 06:15 Temazepam (Restoril) 15 mg BEDTIME PRN ORAL Insomnia 09/13/19 13:30 09/20/19 13:29 Neurological/Psychiatric: Reports: anxiety, depressed, emotional problems Allergies: Coded Allergies: PALIPERIDONE (Unverified Allergy, Unknown, 08/09/18) Objective Data Height (Feet): 5 Height (Inches): 5.00 Weight (Pounds): 127 General Appearance: alert, confused, agitated Additional Comments: confused, disoriented. Mood is agitated. Affect is flat. Thought process is concrete. Thought content, no suicidal or homicidal ideation. Cognition is impaired. Insight and judgement nonexistent. ASSESSMENT: Mylo I Dementia with behavior disturbance. Mylo II Deferred. Mylo III Altered mental status. Mylo IV Low. Mylo V 20. PLAN: 1. We will start on Seroquel 25 t.iNalini Osorio MD Sep 15, 2019 00:05
[2019-09-15 04:00] VITALS: BP 117/67
[2019-09-15] MEDS: NovoLOG Insulin Flexpen SUBQ SCH ×4 (05:29→22:20)
[2019-09-15 06:19] LABS: BASOPHILS % (AUTO) 1.3 % (0.0-2.0); EOSINOPHILS % (AUTO) 4.5 % (0.0-3.0); HEMATOCRIT 36.7 % (37.0-47.0); HEMOGLOBIN 12.1 G/DL (12.0-16.0); LYMPHOCYTES % (AUTO) 39.2 % (20.0-45.0); MEAN CORPUSCULAR VOLUME 82 FL (80-99); MONOCYTES % (AUTO) 6.4 % (1.0-10.0); NEUTROPHILS % (AUTO) 48.5 % (45.0-75.0); PLATELET COUNT 219 K/UL (150-450); RED BLOOD COUNT 4.45 M/UL (4.20-5.40); RED CELL DISTRIBUTION WIDTH 13.6 % (11.6-14.8); WHITE BLOOD COUNT 8.5 K/UL (4.8-10.8)
[2019-09-15 06:34] LABS: ANION GAP 11 mmol/L (5-15); BLOOD UREA NITROGEN 30 mg/dL (7-18); CARBON DIOXIDE 24 MMOL/L (21-32); CHLORIDE 105 MMOL/L (98-107); CREATININE 1.5 MG/DL (0.55-1.30); POTASSIUM 4.6 MMOL/L (3.5-5.1); SODIUM 140 MMOL/L (136-145)
--- NOTE | 2019-09-15 07:01 | NUR ---
HAND-OFF: Report given to Laura Poe.
--- NOTE | 2019-09-15 07:02 | NUR ---
NURSE NOTES: Report received from Emeterio FRANCO. Patient is awake and alert x 2. Patient currently in restraints due to patient safety, no order renewal needed at this time. Patient is able to move extremities, has good circulation, and no edema noted. Patient on room air, not in respiratory distress, no complaints at this time. No IV access noted. MD aware per previous nurse Emeterio. Bed is locked and in lowest position. Alarm on. Will continue to follow plan of care.
[2019-09-15 08:00] VITALS: BP 154/77
[2019-09-15] MEDS: cefTRIAXone 1 GM in NS 55 ML IVPB SCH (09:00)
[2019-09-15] MEDS: Aspirin EC 81mg tab ORAL SCH ×2 (09:00→09:02)
[2019-09-15] MEDS: Ascorbic Acid 500mg tab ORAL SCH (09:00)
[2019-09-15] MEDS: Heparin 5000 units/ml inj SUBQ SCH ×2 (09:04→22:19)
--- NOTE | 2019-09-15 09:15 | NUR ---
NURSE NOTES: Attempted to administer patient's medication. Patient refused to take medication. Patient stated that " I don't need the medication.". Jean Pierre FRANCO educated patient on reasoning for medication. Patient continued to refuse. Jean Pierre RN tried to reorient patient, patient only alert to self and sometimes place. Unable to reorient patient. Patient continued to refuse medication. Charge nurse Oneyda yost.
--- NOTE | 2019-09-15 10:00 | NUR ---
NURSE NOTES: Attempted to place IV in patient. Patient non cooperative. Charge Nurse and Primary MD aware.
--- NOTE | 2019-09-15 10:48 | General Progress Note ---
Assessment/Plan Assessment/Plan: 69-year-old female history of moderate dementia, chronic schizophrenia, depression, anxiety, HTN, HLD, DM type 2, COPD, dysphagia, hypothyroidism, GERD presented from SNF with altered mental status #Acute metabolic encephalopathy due to #ESBL E. Coli UTI #Moderate-severe baseline dementia #Chronic dysphagia #Chronic schizophrenia #Depression #Anxiety -continue inpatient level of care -Stop ceftriaxone, start meropenem, ID consulted -Follow up urine cultures -Continue outpatient psychiatric meds, Dr. Miller consulted to adjust meds -Supportive care -Frequent orienting -Fall, aspiration precautions -Trial off restraints -TINNER HELPER eval -PT eval #BART, resolving -cont to hold Lasix -cont IV 1/2 NS -monitor BMP #HTN -continue hydralazine and amlodipine #NIDDM -hold oral hypoglycemics -ISS for now #COPD, not in acute exacerbation -Duoneb prn #Hypothyroidism -continue levothyroxine I spent 35 minutes on this patient's case, and >50% was dedicated to counseling and/or care coordination. Subjective Date patient seen: Sep 15, 2019 Time patient seen: 08:55 ROS Limited/Unobtainable: Yes Cardiovascular: Reports: chest pain Respiratory: Reports: cough Gastrointestinal/Abdominal: Reports: abdominal pain Allergies: Coded Allergies: PALIPERIDONE (Unverified Allergy, Unknown, 08/09/18) Subjective Follow up for acute metabolic encephalopathy superimposed on dementia, BART, ESBL E. coli UTI Objective Last 24 Hour Vital Signs Date Time Temp Pulse Resp B/P (MAP) Pulse Ox O2 Delivery O2 Flow Rate FiO2 09/15/19 09:00 Room Air 09/15/19 08:00 97.3 62 16 154/77 (102) 97 09/15/19 07:31 62 20 97 Room Air 21 09/15/19 04:00 97.3 59 18 117/67 (84) 96 09/15/19 00:00 97.7 63 18 115/69 (84) 94 09/14/19 21:15 66 151/76 09/14/19 21:00 Room Air 09/14/19 20:00 97.8 66 16 151/76 (101) 96 09/14/19 16:00 97.8 54 18 143/79 (100) 95 09/14/19 12:00 96.9 64 14 139/59 (85) 95 Intake and Output 09/14/19 09/15/19 19:00 07:00 Intake Total 960 ml 240 ml Balance 960 ml 240 ml Intake Oral 960 ml Other 240 ml # Voids 2 3 Laboratory Tests 09/15/19 05:50: White Blood Count 8.5, Red Blood Count 4.45, Hemoglobin 12.1, Hematocrit 36.7L, Mean Corpuscular Volume 82, Mean Corpuscular Hemoglobin 27.3, Mean Corpuscular Hemoglobin Concent 33.1, Red Cell Distribution Width 13.6, Platelet Count 219, Mean Platelet Volume 7.8, Neutrophils (%) (Auto) 48.5, Lymphocytes (%) (Auto) 39.2, Monocytes (%) (Auto) 6.4, Eosinophils (%) (Auto) 4.5H, Basophils (%) (Auto ) 1.3, Sodium Level 140, Potassium Level 4.6, Chloride Level 105, Carbon Dioxide Level 24, Anion Gap 11, Blood Urea Nitrogen 30H, Creatinine 1.5H, Estimat Glomerular Filtration Rate 34.4, Glucose Level 108H, Calcium Level 10.0 Height (Feet): 5 Height (Inches): 5.00 Weight (Pounds): 127 General Appearance: no apparent distress, alert Neck: normal alignment, supple Cardiovascular: normal rate, regular rhythm Respiratory/Chest: lungs clear, normal breath sounds, no respiratory distress Reilly Morales MD Sep 15, 2019 10:48
[2019-09-15] MEDS ORDERED: Haloperidol 5mg/ml Inj IM ONE (11:15)
--- NOTE | 2019-09-15 11:15 | NUR ---
CHARGE NURSE NOTE: NO IV line. Pt is on IV antibiotics. 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 Today pt does not allow to try to put IV line, confused, restless. BP is running high (last bp 154/77). Pt refused her po meds. Spoke with , he does not want to order clonidine patch. Haldol 5 mg IM ordered.
[2019-09-15 12:00] VITALS: BP 141/84
[2019-09-15] MEDS: Meropenem 1 GM in NS 55 ML IVPB SCH ×2 (12:00→23:45)
[2019-09-15] MEDS: LORazepam Inj 2mg/ml 1ml IM PRN (12:19)
[2019-09-15] MEDS ORDERED: Piperacillin/Tazobactam 3.375 GM in NS 110 ML IVPB SCH (13:00)
--- NOTE | 2019-09-15 14:04 | Infectious Diseases Prog Note ---
Assessment/Plan Assessment/Plan Full consult dictated: A) 1) esbl e.coli uti 2) pmh noted 3) allergies - nkda P) 1) agree with meropenem 2) monitor clinically 3) thank you Subjective Allergies: Coded Allergies: PALIPERIDONE (Unverified Allergy, Unknown, 08/09/18) Objective Vital Signs Last 24 Hour Vital Signs Date Time Temp Pulse Resp B/P (MAP) Pulse Ox O2 Delivery O2 Flow Rate FiO2 09/15/19 12:00 97.4 80 17 141/84 (103) 94 09/15/19 09:00 Room Air 09/15/19 08:00 97.3 62 16 154/77 (102) 97 09/15/19 07:31 62 20 97 Room Air 21 09/15/19 04:00 97.3 59 18 117/67 (84) 96 09/15/19 00:00 97.7 63 18 115/69 (84) 94 09/14/19 21:15 66 151/76 09/14/19 21:00 Room Air 09/14/19 20:00 97.8 66 16 151/76 (101) 96 09/14/19 16:00 97.8 54 18 143/79 (100) 95 Height (Feet): 5 Height (Inches): 5.00 Weight (Pounds): 127 Microbiology Date/Time Source Procedure Growth Status 09/13/19 11:14 Urine,Clean Catch Urine Culture - Final Escherichia Coli - Esbl Complete Laboratory Tests Test 09/15/19 05:50 White Blood Count 8.5 K/UL (4.8-10.8) Red Blood Count 4.45 M/UL (4.20-5.40) Hemoglobin 12.1 G/DL (12.0-16.0) Hematocrit 36.7 % (37.0-47.0) L Mean Corpuscular Volume 82 FL (80-99) Mean Corpuscular Hemoglobin 27.3 PG (27.0-31.0) Mean Corpuscular Hemoglobin Concent 33.1 G/DL (32.0-36.0) Red Cell Distribution Width 13.6 % (11.6-14.8) Platelet Count 219 K/UL (150-450) Mean Platelet Volume 7.8 FL (6.5-10.1) Neutrophils (%) (Auto) 48.5 % (45.0-75.0) Lymphocytes (%) (Auto) 39.2 % (20.0-45.0) Monocytes (%) (Auto) 6.4 % (1.0-10.0) Eosinophils (%) (Auto) 4.5 % (0.0-3.0) H Basophils (%) (Auto) 1.3 % (0.0-2.0) Sodium Level 140 MMOL/L (136-145) Potassium Level 4.6 MMOL/L (3.5-5.1) Chloride Level 105 MMOL/L (98-107) Carbon Dioxide Level 24 MMOL/L (21-32) Anion Gap 11 mmol/L (5-15) Blood Urea Nitrogen 30 mg/dL (7-18) H Creatinine 1.5 MG/DL (0.55-1.30) H Estimat Glomerular Filtration Rate 34.4 mL/min (>60) Glucose Level 108 MG/DL (74-106) H Calcium Level 10.0 MG/DL (8.5-10.1) Current Medications Medications (Trade) Dose Ordered Sig/Arely Route PRN Reason Start Time Stop Time Status Last Admin Dose Admin Acetaminophen (Tylenol) 650 mg Q4H PRN ORAL Mild Pain (Pain Scale 1-3) 09/13/19 13:30 10/13/19 13:29 Albuterol/ Ipratropium (Albuterol/ Ipratropium) 3 ml Q6H PRN HHN Shortness of Breath 09/13/19 13:30 09/18/19 13:29 Ascorbic Acid (Vitamin C) 500 mg DAILY ORAL 09/14/19 09:00 10/14/19 08:59 09/14/19 09:05 Aspirin (Ecotrin) 81 mg DAILY ORAL 09/14/19 09:00 10/29/19 08:59 09/14/19 09:06 Atorvastatin Calcium (Lipitor) 40 mg BEDTIME ORAL 09/13/19 21:00 10/13/19 20:59 09/14/19 21:15 Carvedilol (Coreg) 3.125 mg EVERY 12 HOURS ORAL 09/13/19 21:00 10/13/19 20:59 09/14/19 21:15 Dextrose (Dextrose 50%) 25 ml Q30M PRN IV Hypoglycemia 09/13/19 13:30 10/13/19 13:29 Dextrose (Dextrose 50%) 50 ml Q30M PRN IV Hypoglycemia 09/13/19 13:30 10/13/19 13:29 Diphenhydramine HCl (Benadryl) 25 mg Q6H PRN ORAL Itching/Pruritis 09/13/19 13:30 10/13/19 13:29 Escitalopram Oxalate (Lexapro) 10 mg DAILY ORAL 09/14/19 09:00 10/14/19 08:59 09/14/19 09:05 Heparin Sodium (Porcine) (Heparin 5000 units/ml) 5,000 units EVERY 12 HOURS SUBQ 09/13/19 21:00 10/28/19 20:59 09/15/19 09:04 Insulin Aspart (NovoLOG) BEFORE MEALS AND HS SUBQ 09/13/19 16:30 10/13/19 16:29 09/14/19 21:16 Lorazepam (Ativan 2mg/ml 1ml) 1 mg Q4H PRN IM For Anxiety 09/15/19 12:15 09/22/19 12:14 09/15/19 12:19 Meropenem 1 gm/ Sodium Chloride 55 ml @ 110 mls/hr Q12H IVPB 09/15/19 12:00 09/20/19 11:59 Ondansetron HCl (Zofran) 4 mg Q6H PRN IVP Nausea & Vomiting 09/13/19 13:30 10/13/19 13:29 Quetiapine Fumarate (SEROqueL) 25 mg TID ORAL 09/13/19 18:00 10/28/19 17:59 09/15/19 08:59 Sodium Chloride 1,000 ml @ 75 mls/hr [id number] IV 09/13/19 13:51 10/13/19 13:50 09/14/19 06:15 Temazepam (Restoril) 15 mg BEDTIME PRN ORAL Insomnia 09/13/19 13:30 09/20/19 13:29 Brigida Marquis MD Sep 15, 2019 14:04
--- NOTE | 2019-09-15 14:04 | NUR ---
ST NOTES: SWALLOW STATUS: PER RN AND PT, THE PATIENT WANTS PANCAKES AND SHE WAS UPSET ABOUT TODAY. SINCE PATIENT POCKETED MEAT (ON [facility] SOFT GROUND) DIET YESTERDAY, SHE WAS DOWNGRADED TO PUREED DIET. GIVEN PO TRIAL OF SALTINE CRACKER, SHE CHEWED FOR 30 SECONDS WHICH IS COMPOUNDED BY HER TARDIVE DYSKINESIA (REPETITIVE CHEWING AND TONGUE MOVING BEHAVIOR). WHEN TOLD TO SWALLOW, SHE SWALLOWED W/O ORAL RESIDUE LEFT IN HER MOUTH NOR OVERT ASPIRATION. SHE IS ALSO ASKING FOR ENCHILADAS. GOOD INTAKE FOR CURRENT DIET. EDUCATED/TRAINED STAFF IN POSTED ASPIRATION PRECAUTIONS. PLAN: WILL KEEP HER ON PUREED DIET BUT WILL ALLOW HER TO HAVE PANCAKE FOR BREAKFAST SUPERVISED ONLY USING ASPIRATION PRECAUTIONS.
--- NOTE | 2019-09-15 15:00 | NUR ---
NURSE NOTES: Ativan and Haldol given. Patient more calm and cooperative. Attempted to place IV. Could not gain access after attempted by two nurses. Called ICU. ICU does not have an available to nurse to come at this time.
[2019-09-15 16:00] VITALS: BP 160/78
--- NOTE | 2019-09-15 19:27 | NUR ---
HAND-OFF: Report given to Elena FRANCO. Endorsed that patient is a high fall risk. Endorsed that patient has no IV access but still needs access for medications.
[2019-09-15 20:00] VITALS: BP 156/73
[2019-09-15] MEDS ORDERED: GLUCOTROL10 MG ORAL (20:05)
[2019-09-15] MEDS ORDERED: COLACE250 MG ORAL (20:05)
[2019-09-15] MEDS ORDERED: HUMALOG100 UNIT/1 SUBQ (20:05)
[2019-09-15] MEDS ORDERED: METFORMIN HCL500 M1 ORAL (20:05)
[2019-09-15] MEDS ORDERED: BISACODYL10 M1 RC (20:05)
[2019-09-15] MEDS ORDERED: MULTIVITAMINS1 EAC2 ORAL (20:05)
[2019-09-15] MEDS ORDERED: MILK OF MA400 MG/51 ORAL (20:05)
[2019-09-15] MEDS ORDERED: FUROSEMIDE40 MG ORAL (20:05)
[2019-09-15] MEDS ORDERED: FLEET ENEMA133 ML RECTAL (20:05)
[2019-09-15] MEDS ORDERED: QUETIAPINE FUM300 MG ORAL (20:05)
[2019-09-15] MEDS ORDERED: ACETAMINOPHEN500 M3 ORAL (20:05)
[2019-09-15] MEDS ORDERED: CRANBERRY450 M5 PO (20:05)
[2019-09-15] MEDS ORDERED: HYDRALAZINE HCL25 M1 ORAL (20:05)
[2019-09-15] MEDS ORDERED: LEVOTHYROXINE75 MCG ORAL (20:05)
[2019-09-15] MEDS ORDERED: ATORVASTATIN CA10 MG ORAL (20:05)
[2019-09-15] MEDS ORDERED: AMLODIPINE BESYL5 MG ORAL (20:05)
[2019-09-15] MEDS ORDERED: DEPAKOTE ER500 MG ORAL (20:05)
[2019-09-15] MEDS: Atorvastatin 20mg tab ORAL SCH (22:19)
--- NOTE | 2019-09-15 22:42 | NUR ---
NURSE NOTES: Patient in bed, awake. Patient is confused. No s/s distress noted. No s/s of pain or discomfort noted. Bilateral soft wrist restraints noted, site is clean, intact, assessed every two hours. Incontinence care done. Bed in lowest position, call light within reach, bed alarm on. Will continue plan of care.
--- NOTE | 2019-09-15 23:41 | Psych Consult Progress Note ---
Psychiatry Progress Note Psychiatry Progress Note Medications Current Medications Medications (Trade) Dose Ordered Sig/Arely Route PRN Reason Start Time Stop Time Status Last Admin Dose Admin Acetaminophen (Tylenol) 650 mg Q4H PRN ORAL Mild Pain (Pain Scale 1-3) 09/13/19 13:30 10/13/19 13:29 Albuterol/ Ipratropium (Albuterol/ Ipratropium) 3 ml Q6H PRN HHN Shortness of Breath 09/13/19 13:30 09/18/19 13:29 Ascorbic Acid (Vitamin C) 500 mg DAILY ORAL 09/14/19 09:00 10/14/19 08:59 09/14/19 09:05 Aspirin (Ecotrin) 81 mg DAILY ORAL 09/14/19 09:00 10/29/19 08:59 09/14/19 09:06 Atorvastatin Calcium (Lipitor) 40 mg BEDTIME ORAL 09/13/19 21:00 10/13/19 20:59 09/15/19 22:19 Carvedilol (Coreg) 3.125 mg EVERY 12 HOURS ORAL 09/13/19 21:00 10/13/19 20:59 09/15/19 22:18 Dextrose (Dextrose 50%) 25 ml Q30M PRN IV Hypoglycemia 09/13/19 13:30 10/13/19 13:29 Dextrose (Dextrose 50%) 50 ml Q30M PRN IV Hypoglycemia 09/13/19 13:30 10/13/19 13:29 Diphenhydramine HCl (Benadryl) 25 mg Q6H PRN ORAL Itching/Pruritis 09/13/19 13:30 10/13/19 13:29 Escitalopram Oxalate (Lexapro) 10 mg DAILY ORAL 09/14/19 09:00 10/14/19 08:59 09/14/19 09:05 Heparin Sodium (Porcine) (Heparin 5000 units/ml) 5,000 units EVERY 12 HOURS SUBQ 09/13/19 21:00 10/28/19 20:59 09/15/19 22:19 Insulin Aspart (NovoLOG) BEFORE MEALS AND HS SUBQ 09/13/19 16:30 10/13/19 16:29 09/15/19 22:20 Lorazepam (Ativan 2mg/ml 1ml) 1 mg Q4H PRN IM For Anxiety 09/15/19 12:15 09/22/19 12:14 09/15/19 12:19 Meropenem 1 gm/ Sodium Chloride 55 ml @ 110 mls/hr Q12H IVPB 09/15/19 12:00 09/20/19 11:59 Ondansetron HCl (Zofran) 4 mg Q6H PRN IVP Nausea & Vomiting 09/13/19 13:30 10/13/19 13:29 Quetiapine Fumarate (SEROqueL) 25 mg TID ORAL 09/13/19 18:00 10/28/19 17:59 09/15/19 17:03 Sodium Chloride 1,000 ml @ 75 mls/hr [id number] IV 09/13/19 13:51 10/13/19 13:50 09/14/19 06:15 Temazepam (Restoril) 15 mg BEDTIME PRN ORAL Insomnia 09/13/19 13:30 09/20/19 13:29 Neurological/Psychiatric: Reports: anxiety, depressed, emotional problems Allergies: Coded Allergies: PALIPERIDONE (Unverified Allergy, Unknown, 08/09/18) Objective Data Height (Feet): 5 Height (Inches): 5.00 Weight (Pounds): 127 General Appearance: alert, confused, moderate distress, agitated Appearance: disheveled Behavior Mannerisms: poor eye contact Mental Status Exam - Affect: constricted Mental Status Exam - Mood: depressed, anxious Speech: dysarthric Mental Status Exam - Thought P: illogical Mental Status Exam - Thought C: delusions (specify) Additional Comments: confused, disoriented. Mood is agitated. Affect is flat. Thought process is concrete. Thought content, no suicidal or homicidal ideation. Cognition is impaired. Insight and judgement nonexistent. ASSESSMENT: [place] I Dementia with behavior disturbance. [place] II Deferred. [place] III Altered mental status. [place] IV Low. [place] V 20. PLAN: 1. We will start on Seroquel 25 t.Nalini Weinstein MD Sep 15, 2019 23:41
[2019-09-16 00:34] VITALS: BP 154/76
[2019-09-16 04:00] VITALS: BP 160/72
[2019-09-16] MEDS: NovoLOG Insulin Flexpen SUBQ SCH ×4 (06:13→20:23)
[2019-09-16 06:46] LABS: ANION GAP 9 mmol/L (5-15); BLOOD UREA NITROGEN 25 mg/dL (7-18); CALCIUM 9.9 MG/DL (8.5-10.1); CARBON DIOXIDE 27 MMOL/L (21-32); CHLORIDE 107 MMOL/L (98-107); CREATININE 1.4 MG/DL (0.55-1.30); POTASSIUM 4.4 MMOL/L (3.5-5.1); SODIUM 142 MMOL/L (136-145)
[2019-09-16 06:57] LABS: BASOPHILS % (AUTO) 1.1 % (0.0-2.0); EOSINOPHILS % (AUTO) 5.6 % (0.0-3.0); HEMATOCRIT 34.5 % (37.0-47.0); HEMOGLOBIN 11.4 G/DL (12.0-16.0); LYMPHOCYTES % (AUTO) 41.5 % (20.0-45.0); MEAN CORPUSCULAR VOLUME 82 FL (80-99); NEUTROPHILS % (AUTO) 44.8 % (45.0-75.0); PLATELET COUNT 229 K/UL (150-450); RED BLOOD COUNT 4.19 M/UL (4.20-5.40); RED CELL DISTRIBUTION WIDTH 13.7 % (11.6-14.8)
--- NOTE | 2019-09-16 07:00 | NUR ---
HAND-OFF: Report given to ANGEL MENDES RN. FALL PREVETATIVE MEASURES MAINTAINED AND ENDORSED TO ONCOMING RN.
--- NOTE | 2019-09-16 07:14 | NUR ---
NURSE NOTES: Report received from Elena FRANCO. Patient is currently asleep in bed. Does not appear to be in respiratory distress. Patient noted to be in restraints. Pulses present. No edema noted. Restraints due to be renewed today at 1447. Patient currently has no IV access. Was endorsed that patient is a hard stick, and several nurses have tried over the past couple of shifts. Bed locked, alarmed, and in lowest position. Will continue to follow plan of care.
--- NOTE | 2019-09-16 07:45 | NUR ---
NURSE NOTES: Called radiology in regards to obtaining IV access. Several failed attempts to gain IV access since Saturday September 14, 2019. Was informed if have time a radiologist tech will be sent to place IV.
[2019-09-16 08:00] VITALS: BP 172/86
[2019-09-16] MEDS: Aspirin EC 81mg tab ORAL SCH (08:45)
[2019-09-16] MEDS: Ascorbic Acid 500mg tab ORAL SCH (08:45)
[2019-09-16] MEDS: Heparin 5000 units/ml inj SUBQ SCH ×2 (08:46→20:21)
--- NOTE | 2019-09-16 09:21 | General Progress Note ---
Assessment/Plan Assessment/Plan: 69-year-old female history of moderate dementia, chronic schizophrenia, depression, anxiety, HTN, HLD, DM type 2, COPD, dysphagia, hypothyroidism, GERD presented from SNF with altered mental status #Acute metabolic encephalopathy due to #ESBL E. Coli UTI #Moderate-severe baseline dementia #Chronic dysphagia #Chronic schizophrenia #Depression #Anxiety -continue inpatient level of care -continue meropenem per ID recs -Follow up urine cultures -Started Seroquel per ID recs -Supportive care -Frequent orienting -Fall, aspiration precautions -PHYSICAL SCIENCE AIDE eval -PT eval #BART, resolving -cont to hold Lasix -stop IV fluids -monitor BMP #HTN, variable control -continue amlodipine and Coreg #NIDDM -hold oral hypoglycemics -ISS for now #COPD, not in acute exacerbation -Duoneb prn #Hypothyroidism -continue levothyroxine I spent 35 minutes on this patient's case, and >50% was dedicated to counseling and/or care coordination. Subjective Date patient seen: Sep 16, 2019 Time patient seen: 08:07 ROS Limited/Unobtainable: Yes Allergies: Coded Allergies: PALIPERIDONE (Unverified Allergy, Unknown, 08/09/18) Subjective Follow up for acute metabolic encephalopathy superimposed on dementia, BART, ESBL E. coli UTI Intermittent agitation, started on Seroquel tid by Psychiatry yesterday. Objective Last 24 Hour Vital Signs Date Time Temp Pulse Resp B/P (MAP) Pulse Ox O2 Delivery O2 Flow Rate FiO2 09/16/19 07:35 62 16 96 Room Air 21 09/16/19 04:00 97.5 60 18 160/72 (101) 98 09/16/19 00:34 97.7 60 18 154/76 (102) 96 09/15/19 22:40 Room Air 09/15/19 22:18 81 156/73 09/15/19 20:36 75 18 95 Room Air 21 09/15/19 20:00 97.7 81 18 156/73 (100) 96 09/15/19 16:48 Room Air 09/15/19 16:00 97.3 74 16 160/78 (105) 98 09/15/19 12:00 97.4 80 17 141/84 (103) 94 09/15/19 09:00 Room Air Intake and Output 09/15/19 09/16/19 19:00 07:00 Intake Total 600 ml Balance 600 ml Intake Oral 600 ml # Voids 2 1 # Bowel Movements 3 Laboratory Tests 09/16/19 05:40: White Blood Count 7.0, Red Blood Count 4.19L, Hemoglobin 11.4L, Hematocrit 34.5L , Mean Corpuscular Volume 82, Mean Corpuscular Hemoglobin 27.2, Mean Corpuscular Hemoglobin Concent 33.0, Red Cell Distribution Width 13.7, Platelet Count 229, Mean Platelet Volume 8.0, Neutrophils (%) (Auto) 44.8L, Lymphocytes ( %) (Auto) 41.5, Monocytes (%) (Auto) 7.0, Eosinophils (%) (Auto) 5.6H, Basophils (%) (Auto) 1.1, Sodium Level 142, Potassium Level 4.4, Chloride Level 107, Carbon Dioxide Level 27, Anion Gap 9, Blood Urea Nitrogen 25H, Creatinine 1.4H, Estimat Glomerular Filtration Rate 37.2, Glucose Level 138H, Calcium Level 9.9 Height (Feet): 5 Height (Inches): 5.00 Weight (Pounds): 127 General Appearance: alert, confused Neck: normal alignment, supple Cardiovascular: normal rate, regular rhythm Respiratory/Chest: lungs clear, normal breath sounds Abdomen: non tender, soft Rielly Morales MD Sep 16, 2019 09:21
[2019-09-16 12:00] VITALS: BP 148/78
[2019-09-16] MEDS: Meropenem 1 GM in NS 55 ML IVPB SCH (12:00)
--- NOTE | 2019-09-16 12:19 | NUR ---
NURSE NOTES: Paged Doctor Nahum in regards for an order for radiology to place IV line.
[2019-09-16 16:00] VITALS: BP 148/78
--- NOTE | 2019-09-16 16:31 | NUR ---
CASE MANAGEMENT:REVIEW 09/16/19 SI:ALTERED MENTAL STATUS. UTI. 98.0 73 20 148/78 98% ON RA H/H 11.4/34.5 BUN 25 CREAT 1.4 BG 138 IS;IV MEROPENEM BID NORVASC PO QD SEROQUEL PO TID HEPARIN SQ BID COREG PO BID ASPIRIN PO QD LEXAPRO PO QD LIPITOR PO QHS \: 4E MED SURG STATUS PLAN: PATIENT NEEDS PICC LINE D/T DIFFICULT ACCESS DCP: LYNN CONV
--- NOTE | 2019-09-16 19:10 | NUR ---
NURSE NOTES: Received patient on bed awake, verbally responsive. with bilateral soft wrist restraints. no injury noted. per previous nurse there is no iv line and he put an order for radiology to put on iv access. per karen, he renewed the restraints today. no iv line. bed locked and in lowest position. call light and light button within easy reach. will continue plan of care.
--- NOTE | 2019-09-16 19:17 | NUR ---
HAND-OFF: Report given to Waleska FRANCO.
[2019-09-16 20:00] VITALS: BP 126/68
[2019-09-16] MEDS: Atorvastatin 20mg tab ORAL SCH (20:20)
--- NOTE | 2019-09-16 20:46 | Infectious Diseases Prog Note ---
Assessment/Plan Assessment/Plan Full consult dictated: A) 1) esbl e.coli uti 2) pmh noted 3) allergies - nkda P) 1) IM ertapenem, no iv access, picc line ordered 2) monitor clinically 3) d/w pharmacy 4) will f/u Subjective Allergies: Coded Allergies: PALIPERIDONE (Unverified Allergy, Unknown, 08/09/18) Objective Vital Signs Last 24 Hour Vital Signs Date Time Temp Pulse Resp B/P (MAP) Pulse Ox O2 Delivery O2 Flow Rate FiO2 09/16/19 20:20 75 126/68 09/16/19 16:00 98.0 73 20 148/78 (101) 96 09/16/19 12:00 97.0 73 20 148/78 (101) 96 09/16/19 10:20 69 172/86 09/16/19 09:00 Room Air 09/16/19 08:46 69 172/86 09/16/19 08:00 97.4 69 20 172/86 (114) 96 09/16/19 07:35 62 16 96 Room Air 21 09/16/19 04:00 97.5 60 18 160/72 (101) 98 09/16/19 00:34 97.7 60 18 154/76 (102) 96 09/15/19 22:40 Room Air 09/15/19 22:18 81 156/73 Height (Feet): 5 Height (Inches): 5.00 Weight (Pounds): 127 Laboratory Tests Test 09/16/19 05:40 White Blood Count 7.0 K/UL (4.8-10.8) Red Blood Count 4.19 M/UL (4.20-5.40) L Hemoglobin 11.4 G/DL (12.0-16.0) L Hematocrit 34.5 % (37.0-47.0) L Mean Corpuscular Volume 82 FL (80-99) Mean Corpuscular Hemoglobin 27.2 PG (27.0-31.0) Mean Corpuscular Hemoglobin Concent 33.0 G/DL (32.0-36.0) Red Cell Distribution Width 13.7 % (11.6-14.8) Platelet Count 229 K/UL (150-450) Mean Platelet Volume 8.0 FL (6.5-10.1) Neutrophils (%) (Auto) 44.8 % (45.0-75.0) L Lymphocytes (%) (Auto) 41.5 % (20.0-45.0) Monocytes (%) (Auto) 7.0 % (1.0-10.0) Eosinophils (%) (Auto) 5.6 % (0.0-3.0) H Basophils (%) (Auto) 1.1 % (0.0-2.0) Sodium Level 142 MMOL/L (136-145) Potassium Level 4.4 MMOL/L (3.5-5.1) Chloride Level 107 MMOL/L (98-107) Carbon Dioxide Level 27 MMOL/L (21-32) Anion Gap 9 mmol/L (5-15) Blood Urea Nitrogen 25 mg/dL (7-18) H Creatinine 1.4 MG/DL (0.55-1.30) H Estimat Glomerular Filtration Rate 37.2 mL/min (>60) Glucose Level 138 MG/DL (74-106) H Calcium Level 9.9 MG/DL (8.5-10.1) Current Medications Medications (Trade) Dose Ordered Sig/Arely Route PRN Reason Start Time Stop Time Status Last Admin Dose Admin Acetaminophen (Tylenol) 650 mg Q4H PRN ORAL Mild Pain (Pain Scale 1-3) 09/13/19 13:30 10/13/19 13:29 Albuterol/ Ipratropium (Albuterol/ Ipratropium) 3 ml Q6H PRN HHN Shortness of Breath 09/13/19 13:30 09/18/19 13:29 Amlodipine Besylate (Norvasc) 2.5 mg DAILY ORAL 09/16/19 09:30 10/16/19 09:29 09/16/19 10:20 Ascorbic Acid (Vitamin C) 500 mg DAILY ORAL 09/14/19 09:00 10/14/19 08:59 09/16/19 08:45 Aspirin (Ecotrin) 81 mg DAILY ORAL 09/14/19 09:00 10/29/19 08:59 09/16/19 08:45 Atorvastatin Calcium (Lipitor) 40 mg BEDTIME ORAL 09/13/19 21:00 10/13/19 20:59 09/16/19 20:20 Carvedilol (Coreg) 3.125 mg EVERY 12 HOURS ORAL 09/13/19 21:00 4/9/20 20:59 09/16/19 20:20 Dextrose (Dextrose 50%) 25 ml Q30M PRN IV Hypoglycemia 09/13/19 13:30 10/13/19 13:29 Dextrose (Dextrose 50%) 50 ml Q30M PRN IV Hypoglycemia 09/13/19 13:30 10/13/19 13:29 Diphenhydramine HCl (Benadryl) 25 mg Q6H PRN ORAL Itching/Pruritis 09/13/19 13:30 10/13/19 13:29 Escitalopram Oxalate (Lexapro) 10 mg DAILY ORAL 09/14/19 09:00 10/14/19 08:59 09/16/19 08:45 Heparin Sodium (Porcine) (Heparin 5000 units/ml) 5,000 units EVERY 12 HOURS SUBQ 09/13/19 21:00 10/28/19 20:59 09/16/19 08:46 Insulin Aspart (NovoLOG) BEFORE MEALS AND HS SUBQ 09/13/19 16:30 10/13/19 16:29 09/16/19 20:23 Lorazepam (Ativan 2mg/ml 1ml) 1 mg Q4H PRN IM For Anxiety 09/15/19 12:15 09/22/19 12:14 09/15/19 12:19 Meropenem 1 gm/ Sodium Chloride 55 ml @ 110 mls/hr Q12H IVPB 09/15/19 12:00 09/20/19 11:59 Ondansetron HCl (Zofran) 4 mg Q6H PRN IVP Nausea & Vomiting 09/13/19 13:30 10/13/19 13:29 Quetiapine Fumarate (SEROqueL) 25 mg TID ORAL 09/13/19 18:00 10/28/19 17:59 09/16/19 17:03 Temazepam (Restoril) 15 mg BEDTIME PRN ORAL Insomnia 09/13/19 13:30 09/20/19 13:29 Brigida Marquis MD Sep 16, 2019 20:46
[2019-09-16] MEDS ORDERED: Ertapenem (INVanz) 1gm Inj IM SCH (22:30)
--- NOTE | 2019-09-16 23:00 | Consultation ---
DATE OF CONSULTATION: 09/16/2019 INFECTIOUS DISEASES CONSULTATION CONSULTING PHYSICIAN: Brigida Marquis M.D. ATTENDING PHYSICIAN: Miguelito Zurita M.D. REFERRING PHYSICIAN: Reilly Morales M.D. REASON FOR CONSULTATION: Complicated UTI, specifically ESBL E. coli UTI. HISTORY OF PRESENT ILLNESS: This is a 69-year-old female who presents to [facility] with altered mental status. Workup shows that her urinalysis had too many to count white blood cells and moderate bacteria. Urine culture with greater than 100,000 ESBL E. coli. The patient also is colonized with MRSA. Chest x-ray was negative. Infectious Diseases consultation requested for antibiotic management for the patient's complicated UTI and also had altered mental status. The patient at this point removing the IV access. I believe PICC line has been ordered. The patient was on meropenem, but has not received it per nursing staff. This was started yesterday. But again, the patient has not received meropenem. Discussed with pharmacy and we have IM ertapenem available and until we get PICC line access, we will give the patient IM ertapenem 1 gram daily. This will cover the ESBL coli UTI. MAR was noted. Notes were noted. Notes were reviewed. Case discussed with RN. Case discussed with pharmacy. REVIEW OF SYSTEMS: CONSTITUTIONAL: Generalized fatigue. No focal weakness. She is alert, responsive, weak. She came with altered mental status. She currently has no fever, chills, night sweats. HEAD AND NECK: No head pain, neck pain, neck stiffness. No headache, thrush, or dysphagia. CARDIAC: No chest pain or palpitations. GASTROINTESTINAL: No nausea, vomiting, abdominal pain, or diarrhea. GENITOURINARY: She has no Marrufo. No CVA tenderness. She does have dysuria and frequency. PULMONARY: No congestion, shortness of breath, , secretions. SKIN: No rash or itching. EXTREMITIES: No extremity pain. NEUROLOGIC: No seizures. Generalized fatigue. No focal weakness. PAST MEDICAL HISTORY: The patient's past medical history includes history of following: The patient has a past medical history of dementia, chronic schizophrenia, depression, anxiety, hypertension, hyperlipidemia, type 2 diabetes mellitus, COPD, dysphagia, hypothyroidism, GERD ALLERGIES: Paliperidone. No antibiotic allergies. SOCIAL HISTORY: Negative for smoking, alcohol, drug abuse. FAMILY HISTORY: Noncontributory. Negative for exposure to tuberculosis or cancer. MEDICATIONS: Upon reviewing the MAR, the patient is on following medications. I put her IM ertapenem. She was on IV meropenem, which I did discontinued until she gets IV access. Other medications upon reviewing the MAR, she is on amlodipine, lorazepam, ascorbic acid, aspirin, Lexapro, heparin, atorvastatin, carvedilol, quetiapine, insulin, albuterol, acetaminophen, Zofran, diphenhydramine, temazepam, intravenous fluids. Outside medications were noted and reconciliated. PHYSICAL EXAMINATION: VITAL SIGNS: Temperature 98.0, pulse rate 72, respiratory rate 20, blood pressure 148/70, saturation 96%. GENERAL: Alert and responsive, did come with altered mental status. HEAD AND NECK: Oral exam, no thrush. Eye exam, no icterus. Normocephalic. Neck is supple. HEART: Regular. No obvious gallop or murmur. ABDOMEN: Soft. Positive bowel sounds. Nontender. LUNGS: Clear bilaterally. No rhonchi or rales. SKIN: No rash. MUSCULOSKELETAL: No effusion. Legs are without cellulitis. PERIPHERAL VASCULAR: No cyanosis or gangrene. GENITOURINARY: No Marrufo. No CVA tenderness. LINES: Line sites without phlebitis. She has no IV access. NEUROLOGIC: Generalized weakness. Alert, responsive, nonfocal. LABORATORY DATA: White count 7.4, hemoglobin 11.4. Creatinine 1.4. UA too many count white blood cells, moderate bacteria. Urine culture greater than 100,000, ESBL E. coli. Sensitives are noted. It was resistant to Bactrim. It was sensitive to Macrobid, Zosyn, ertapenem, imipenem, and also amikacin. MRSA screen is positive. IMAGING STUDIES: Chest x-ray was negative for infiltrate as reviewed and noted. ASSESSMENT AND PLAN: 1. The patient has complicated ESBL E.coli UTI with altered mental status. The patient is refusing IV access at this time. PICC line has been ordered. I cannot give Macrobid in this patient since the patient has renal insufficiency and is contraindicated. However, we can give IM ertapenem or Invanz, pending IV access. She has not received any doses of the meropenem. We will start again IM ertapenem 1 gram daily until we get IV access for the complicated ESBL E coli UTI. Case discussed with pharmacy. 2. MRSA colonization and isolation. 3. Dementia. 4. Altered mental status. 5. Schizophrenia, depression, anxiety. 6. Hypertension. 7. Hyperlipidemia. 8. Diabetes. 9. COPD. 10. Dysphagia. 11. Hypothyroidism. 12. GERD. 13. Elevated creatinine. 14. Allergies to paliperidone. 15. Social history is negative. 16. Family history is noncontributory. 17. MAR was noted. 18. Case was discussed with RN. 19. Continue treatment per primary consultants. 20. Orders were noted and entered. Brigida Marquis M.D. DR: Rodri JOB#: [id number] CC:
--- NOTE | 2019-09-16 23:07 | NUR ---
administered ertapenem 1 gm IM as ordered. Supervised with the charge nurse. Addendum: 09/16/19 at 2309 by Jazz Coronel RN NURSE NOTES:
[2019-09-17] VITALS: BP 137/67
--- NOTE | 2019-09-17 02:30 | Progress Note ---
DATE: 09/16/2019 SUBJECTIVE: The patient is calmer. More manageable. The patient does not have any IV access. The patient is receiving the citalopram and Lexapro. MENTAL STATUS EXAMINATION: The patient is Confused. Disoriented. Mood is anxious. Affect is flat. Thought process, disorganized. Thought content, no suicidal or homicidal ideation. ASSESSMENT: Dementia with behavior disturbance. PLAN: 1. Lexapro. 2. Seroquel. 3. Discussed with Dr. Marquis, the infectious disease physician. Nalini Miller M.D. DR: ELLIS JOB#: [id number] CC: JAMES
[2019-09-17 04:00] VITALS: BP 144/70
[2019-09-17] MEDS: NovoLOG Insulin Flexpen SUBQ SCH ×4 (06:21→20:47)
[2019-09-17 06:56] LABS: BASOPHILS % (AUTO) 1.3 % (0.0-2.0); EOSINOPHILS % (AUTO) 5.3 % (0.0-3.0); HEMATOCRIT 36.3 % (37.0-47.0); LYMPHOCYTES % (AUTO) 41.6 % (20.0-45.0); MEAN CORPUSCULAR VOLUME 83 FL (80-99); NEUTROPHILS % (AUTO) 44.9 % (45.0-75.0); PLATELET COUNT 208 K/UL (150-450); RED BLOOD COUNT 4.38 M/UL (4.20-5.40); RED CELL DISTRIBUTION WIDTH 13.3 % (11.6-14.8); WHITE BLOOD COUNT 7.4 K/UL (4.8-10.8)
--- NOTE | 2019-09-17 07:20 | NUR ---
HAND-OFF: Report given to joshua maloney.endorsed that the pt is fall risk.advised to observe fall precautions.
[2019-09-17 07:22] LABS: ALBUMIN 2.7 G/DL (3.4-5.0); ALBUMIN/GLOBULIN RATIO 0.7 (1.0-2.7); ALKALINE PHOSPHATASE 85 U/L (46-116); ANION GAP 8 mmol/L (5-15); ASPARTATE AMINO TRANSFERASE 15 U/L (15-37); BILIRUBIN,TOTAL 0.3 MG/DL (0.2-1.0); BLOOD UREA NITROGEN 25 mg/dL (7-18); CARBON DIOXIDE 26 MMOL/L (21-32); CHLORIDE 104 MMOL/L (98-107); CREATININE 1.4 MG/DL (0.55-1.30); POTASSIUM 5.2 MMOL/L (3.5-5.1); SODIUM 138 MMOL/L (136-145)
[2019-09-17 07:31] LABS: ALANINE AMINOTRANSFERASE 16 U/L (12-78)
--- NOTE | 2019-09-17 07:47 | NUR ---
NURSE NOTES: Patient awake, alert x2, confused; sitting high lopez position and eating breakfast; on room air, no sing of distress and shortness of breath; no sing of chest pain; Bilateral Wrist restrain in place; NO IV ACCESS, according to the report from WaleskaRN, MD Sidhu, ordered radiology to put the IV, AM shift from previous day, 09/16/19 tried the several attempt to reach Radiology; will followup with that; side rails up x2, breaks engaged, bed at lowest position, bed alarm up, call light within reach; will keep monitoring.
[2019-09-17 08:00] VITALS: BP 120/76
[2019-09-17] MEDS: Ascorbic Acid 500mg tab ORAL SCH (08:58)
[2019-09-17] MEDS: Heparin 5000 units/ml inj SUBQ SCH ×2 (08:59→20:48)
[2019-09-17] MEDS: Aspirin EC 81mg tab ORAL SCH (08:59)
--- NOTE | 2019-09-17 09:48 | NUR ---
RD ASSESSMENT & RECOMMENDATIONS SEE CARE ACTIVITY FOR COMPLETE ASSESSMENT DAILY ESTIMATED NEEDS: Needs based on DM/ 57kg 25-30 kcals/kg 6295-9170 total kcals 1-1.5 g protein/kg 58-87 g total protein 25-30 mL/kg 6511-8697 total fluid mLs NUTRITION DIAGNOSIS: * Swallowing difficulty R/T dysphagia as evidenced by pt on pureed moist texture diet per GEOLOGY TEACHER rec. CURRENT DIET:CCHO med, pureed moist w/ thin liquids PO DIET RECOMMENDATIONS: CCHO LOW/ texture per GEOLOGY TEACHER ADDITIONAL RECOMMENDATIONS: * Calibrated bedscale wt * Monitor for continued good PO intake * Monitor BGs, for hyper and hypoglycemia. .
[2019-09-17 12:00] VITALS: BP 154/74
[2019-09-17] MEDS: LORazepam Inj 2mg/ml 1ml IM PRN (15:44)
[2019-09-17 16:00] VITALS: BP 146/78
--- NOTE | 2019-09-17 16:30 | NUR ---
NURSE NOTES: Several attempts done to try to get an IV on this patient by primary nurse and Charge nurse, Dayo; I also try to get hold of radiology, spoke to Laz, from radiology regarding to try to get an IV on this patient per MD Sidhu; however Laz said they do PICC placement not IV. Will keep trying.
--- NOTE | 2019-09-17 16:54 | NUR ---
NURSE NOTES: left msg to leroy and krista pierson for consent picc. await call
--- NOTE | 2019-09-17 17:34 | General Progress Note ---
Assessment/Plan Problem List: (1) Altered mental status ICD Codes: R41.82 - Altered mental status, unspecified SNOMED: 019771606 Qualifiers: Qualified Codes: R41.82 - Altered mental status, unspecified (2) Dementia ICD Codes: F03.90 - Unspecified dementia without behavioral disturbance SNOMED: 05190388 (3) Uncontrolled diabetes mellitus ICD Codes: E11.65 - Type 2 diabetes mellitus with hyperglycemia SNOMED: 66116427, 640351462 (4) Dehydration ICD Codes: E86.0 - Dehydration SNOMED: 93062799 (5) HTN (hypertension) ICD Codes: I10 - Essential (primary) hypertension SNOMED: 21427963 (6) Acute encephalopathy ICD Codes: G93.40 - Encephalopathy, unspecified SNOMED: 63034761, 764226613 (7) UTI (urinary tract infection) ICD Codes: N39.0 - Urinary tract infection, site not specified SNOMED: 61442678 Qualifiers: Qualified Codes: N39.0 - Urinary tract infection, site not specified (8) Anemia ICD Codes: D64.9 - Anemia, unspecified SNOMED: 431968248 Status: stable Assessment/Plan: 69-year-old female history of moderate dementia, chronic schizophrenia, depression, anxiety, HTN, HLD, DM type 2, COPD, dysphagia, hypothyroidism, GERD presented from SNF with altered mental status #Acute metabolic encephalopathy due to #ESBL E. Coli UTI #Moderate-severe baseline dementia #Chronic dysphagia #Chronic schizophrenia #Depression #Anxiety -continue inpatient level of care -continue meropenem per ID recs -Follow up urine cultures -Started Seroquel per ID recs -Supportive care -Frequent orienting -Fall, aspiration precautions -DUCT MAKER eval -PT eval #BART, resolving -cont to hold Lasix -stop IV fluids -monitor BMP #HTN, variable control -continue amlodipine and Coreg #NIDDM -hold oral hypoglycemics -ISS for now #COPD, not in acute exacerbation -Duoneb prn #Hypothyroidism -continue levothyroxine Extra 36 mins spent on chart reivew, including labs, meds, imaging and prior physician documentation. Time of note doesn't reflect time of encounter. Subjective Date patient seen: Sep 17, 2019 Allergies: Coded Allergies: PALIPERIDONE (Unverified Allergy, Unknown, 08/09/18) Subjective resting comfortably. Objective Last 24 Hour Vital Signs Date Time Temp Pulse Resp B/P (MAP) Pulse Ox O2 Delivery O2 Flow Rate FiO2 09/17/19 16:00 98.7 74 18 146/78 (100) 97 09/17/19 12:00 98.1 69 18 154/74 (100) 96 09/17/19 09:00 Room Air 09/17/19 08:58 65 120/76 09/17/19 08:58 65 120/76 09/17/19 08:00 65 16 95 Room Air 21 09/17/19 08:00 97.8 65 18 120/76 (91) 96 09/17/19 04:00 98.9 82 20 144/70 (94) 96 09/17/19 01:56 69 16 97 Room Air 21 09/17/19 00:00 98.6 69 19 137/67 (90) 97 09/16/19 21:00 Room Air 09/16/19 20:20 75 126/68 09/16/19 20:00 98.8 75 18 126/68 (87) 98 Intake and Output 09/16/19 09/17/19 19:00 07:00 Intake Total 1080 ml 480 ml Output Total 30 ml Balance 1080 ml 450 ml Intake Oral 1080 ml 480 ml Output Urine Total 30 ml # Voids 5 2 # Bowel Movements 2 1 Laboratory Tests 09/17/19 05:40: White Blood Count 7.4, Red Blood Count 4.38, Hemoglobin 12.0, Hematocrit 36.3L, Mean Corpuscular Volume 83, Mean Corpuscular Hemoglobin 27.3, Mean Corpuscular Hemoglobin Concent 33.0, Red Cell Distribution Width 13.3, Platelet Count 208, Mean Platelet Volume 7.7, Neutrophils (%) (Auto) 44.9L, Lymphocytes (%) (Auto) 41.6, Monocytes (%) (Auto) 7.0, Eosinophils (%) (Auto) 5.3H, Basophils (%) (Auto ) 1.3, Sodium Level 138, Potassium Level 5.2H, Chloride Level 104, Carbon Dioxide Level 26, Anion Gap 8, Blood Urea Nitrogen 25H, Creatinine 1.4H, Estimat Glomerular Filtration Rate 37.2, Glucose Level 149H, Calcium Level 10.0 , Total Bilirubin 0.3, Aspartate Amino Transf (AST/SGOT) 15, Alanine Aminotransferase (ALT/SGPT) 16, Alkaline Phosphatase 85, Total Protein 6.4, Albumin 2.7L, Globulin 3.7, Albumin/Globulin Ratio 0.7L Height (Feet): 5 Height (Inches): 5.00 Weight (Pounds): 127 General Appearance: no apparent distress Neck: supple Cardiovascular: normal rate, regular rhythm Respiratory/Chest: lungs clear, normal breath sounds Abdomen: non tender, soft Sharon Jessica M.D. Sep 17, 2019 17:33
--- NOTE | 2019-09-17 19:08 | NUR ---
HAND-OFF: Report given to SALVADOR Wakefield.
--- NOTE | 2019-09-17 19:10 | NUR ---
NURSE NOTES: Received report from SALVADOR Mead. Patient covered self with a blanket, breathing unlabored on room air without apparent distress at this time. No s/s of pain or discomfort noted at this time. No IV access. Awaiting for family members to call back for PICC line placement consent. On bilateral soft wrist restraint for high-risk of fall and patient safety. Pulses present, skin warm to touch and intact. Bed placed with HOB elevated and at the lowest with alarm, brake, and siderails up. Will continue to monitor and provide care as ordered. Addendum: 09/17/19 at 1948 by Cathie Wakefield RN aware of no IV access.
[2019-09-17 20:00] VITALS: BP 115/65
--- NOTE | 2019-09-17 20:09 | NUR ---
NURSE NOTES: Patient unable to sign the consent for PICC line placement. Was not able to reach Milo Escudero (Son, Next of Kin) at this time for PICC line placement consent. Phone number did not allow to leave a voice message. Reached Ankit Escudero (Son, Person to Notify). Received a telephone consent from Ankit Escudero (Son, Person to Notify). 2 RN witnessed. Received a new number for Milo Escudero ([phone]) from Ankit Escudero. Attempted to reach, but was not able to reach at this time.
[2019-09-17] MEDS: Atorvastatin 20mg tab ORAL SCH (20:44)
[2019-09-17] MEDS: Ertapenem (INVanz) 1gm Inj IM SCH (21:58)
[2019-09-17] MEDS: Lidocaine 1% MPF 10mg/ml 5ml IM SCH (21:58)
[2019-09-17] MEDS ORDERED: Ertapenem (INVanz) 1gm Inj IM SCH (22:30)
[2019-09-18] VITALS: BP 104/72
[2019-09-18 04:00] VITALS: BP 125/68
[2019-09-18] MEDS: NovoLOG Insulin Flexpen SUBQ SCH ×4 (06:00→21:25)
--- NOTE | 2019-09-18 06:37 | NUR ---
NURSE NOTES: Provided proper incontinence care throughout the shift. Patient tolerated well. Will continue to monitor.
--- NOTE | 2019-09-18 07:18 | NUR ---
HAND-OFF: Report given to SALVADOR Mead. Plan of care endorsed. Informed about the puffy bilateral upper arms.
--- NOTE | 2019-09-18 07:19 | NUR ---
NURSE NOTES: Patient asleep; on room air, no sing of distress and shortness of breath; no sing of chest pain; Bilateral wrist strain in place, skin warm to touch, pulse present; Bilateral hands puffy, elevated with pillow, NO IV access, [facility] for [facility] line placement; patient fall risk, side rails up x2, breaks engaged, bed alarm on, bed at lowest position; call light within reach; nursing attendant notified that patient risk for fall; will keep monitoring.
[2019-09-18 08:00] VITALS: BP 127/71
[2019-09-18] MEDS: Aspirin EC 81mg tab ORAL SCH (08:30)
[2019-09-18] MEDS: Ascorbic Acid 500mg tab ORAL SCH (08:30)
[2019-09-18] MEDS: Heparin 5000 units/ml inj SUBQ SCH ×2 (08:32→21:22)
[2019-09-18 12:00] VITALS: BP 136/86
[2019-09-18 16:00] VITALS: BP 131/82
--- NOTE | 2019-09-18 16:32 | General Progress Note ---
Assessment/Plan Problem List: (1) Altered mental status ICD Codes: R41.82 - Altered mental status, unspecified SNOMED: 372765469 Qualifiers: Qualified Codes: R41.82 - Altered mental status, unspecified (2) Dementia ICD Codes: F03.90 - Unspecified dementia without behavioral disturbance SNOMED: 96188900 (3) Uncontrolled diabetes mellitus ICD Codes: E11.65 - Type 2 diabetes mellitus with hyperglycemia SNOMED: 85001212, 177935773 (4) Dehydration ICD Codes: E86.0 - Dehydration SNOMED: 13601054 (5) HTN (hypertension) ICD Codes: I10 - Essential (primary) hypertension SNOMED: 04883592 (6) Acute encephalopathy ICD Codes: G93.40 - Encephalopathy, unspecified SNOMED: 58643945, 873271138 (7) UTI (urinary tract infection) ICD Codes: N39.0 - Urinary tract infection, site not specified SNOMED: 22939530 Qualifiers: Qualified Codes: N39.0 - Urinary tract infection, site not specified (8) Anemia ICD Codes: D64.9 - Anemia, unspecified SNOMED: 715712690 Status: stable Assessment/Plan: 69-year-old female history of moderate dementia, chronic schizophrenia, depression, anxiety, HTN, HLD, DM type 2, COPD, dysphagia, hypothyroidism, GERD presented from SNF with altered mental status #Acute metabolic encephalopathy due to #ESBL E. Coli UTI #Moderate-severe baseline dementia #Chronic dysphagia #Chronic schizophrenia #Depression #Anxiety -continue inpatient level of care -continue meropenem per ID recs -Follow up urine cultures -Started Seroquel per ID recs -Supportive care -Frequent orienting -Fall, aspiration precautions -VASCULAR RADIOLOGIST eval -PT eval #BART, resolving -cont to hold Lasix -stop IV fluids -monitor BMP #HTN, variable control -continue amlodipine and Coreg #NIDDM -hold oral hypoglycemics -ISS for now #COPD, not in acute exacerbation -Duoneb prn #Hypothyroidism -continue levothyroxine Time spent: 37 mins, >50% on counseling, coordination of care. Time of note doesn't reflect time of encounter. Subjective Date patient seen: Sep 18, 2019 ROS Limited/Unobtainable: Yes - nonverbal Allergies: Coded Allergies: PALIPERIDONE (Unverified Allergy, Unknown, 08/09/18) Subjective resting comfortably. no acute o/n events. Objective Last 24 Hour Vital Signs Date Time Temp Pulse Resp B/P (MAP) Pulse Ox O2 Delivery O2 Flow Rate FiO2 09/18/19 16:00 97.9 92 19 131/82 (98) 98 09/18/19 12:00 98.5 92 19 136/86 (103) 98 09/18/19 09:00 Room Air 09/18/19 08:31 88 127/71 09/18/19 08:30 88 127/71 09/18/19 08:00 97.6 88 18 127/71 (89) 97 09/18/19 07:00 78 16 94 Room Air 21 09/18/19 04:00 97.2 85 17 125/68 (87) 95 09/18/19 00:00 98.1 93 17 104/72 (83) 96 09/17/19 21:00 Room Air 09/17/19 20:46 93 132/63 09/17/19 20:00 97.9 96 17 115/65 (82) 94 Intake and Output 09/17/19 09/18/19 19:00 07:00 Intake Total 820 ml Balance 820 ml Intake Oral 820 ml # Voids 2 # Bowel Movements 1 Height (Feet): 5 Height (Inches): 5.00 Weight (Pounds): 127 General Appearance: no apparent distress Neck: supple Cardiovascular: normal rate, regular rhythm Respiratory/Chest: lungs clear, normal breath sounds Abdomen: non tender, soft Sharon Jessica M.D. Sep 18, 2019 16:32
[2019-09-18] MEDS: LORazepam Inj 2mg/ml 1ml IM PRN (17:57)
--- NOTE | 2019-09-18 19:13 | NUR ---
HAND-OFF: Report given to SALVADOR Ohara. Endorsed to nurse that patient is risk for fall; patine is safe and sleepy;
--- NOTE | 2019-09-18 19:30 | NUR ---
NURSE NOTES: Received patient asleep,no SOB, on bilateral soft wrist restraints, bed low, alarm on.
--- NOTE | 2019-09-18 20:10 | Infectious Diseases Prog Note ---
Assessment/Plan Assessment/Plan ASSESSMENT AND PLAN: 1. esbl e.coli uti, ams, complicated uti - ertapenem - IM - day # 3 - pick line to be placed tomorrow, d/w RN - clinically stable - surveillance urinalysis, monitor labs 2. MRSA colonization and isolation. 3. Dementia. 4. Altered mental status. 5. Schizophrenia, depression, anxiety. 6. Hypertension. 7. Hyperlipidemia. 8. Diabetes. 9. COPD. 10. Dysphagia. 11. Hypothyroidism. 12. GERD. 13. Elevated creatinine. 14. Allergies to paliperidone. 15. Social history is negative. 16. Family history is noncontributory. 17. MAR was noted. 18. Case was discussed with RN. 19. Continue treatment per primary consultants. 20. Orders were noted and entered. Subjective Constitutional: Denies: fever HEENT: Denies: congestion Respiratory: Denies: shortness of breath Cardiovascular: Denies: chest pain Gastrointestinal/Abdominal: Denies: nausea, vomiting, diarrhea Genitourinary: Reports: other Neurologic: Denies: headache Psychiatric: Denies: depression Skin: Denies: rash Hematologic: Denies: bleeding Musculoskeletal: Denies: pain Allergies: Coded Allergies: PALIPERIDONE (Unverified Allergy, Unknown, 08/09/18) Objective Vital Signs Last 24 Hour Vital Signs Date Time Temp Pulse Resp B/P (MAP) Pulse Ox O2 Delivery O2 Flow Rate FiO2 09/18/19 16:00 97.9 92 19 131/82 (98) 98 09/18/19 12:00 98.5 92 19 136/86 (103) 98 09/18/19 09:00 Room Air 09/18/19 08:31 88 127/71 09/18/19 08:30 88 127/71 09/18/19 08:00 97.6 88 18 127/71 (89) 97 09/18/19 07:00 78 16 94 Room Air 21 09/18/19 04:00 97.2 85 17 125/68 (87) 95 09/18/19 00:00 98.1 93 17 104/72 (83) 96 09/17/19 21:00 Room Air 09/17/19 20:46 93 132/63 Height (Feet): 5 Height (Inches): 5.00 Weight (Pounds): 127 General Appearance: no acute distress HEENT: normocephalic, atraumatic, anicteric, mucous membranes moist Respiratory/Chest: lungs clear, normal breath sounds, no respiratory distress, no accessory muscle use Cardiovascular: normal rate, regular rhythm, no gallop/murmur Abdomen: normal bowel sounds, soft, non tender, no organomegaly, non distended Genitourinary: other - no hickey Extremities: no cyanosis Skin: no rash Neurologic/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 Tortuous calcified aorta. Normal heart size. Upper mediastinum unremarkable. No significant interim change Impression: No acute process. Microbiology Date/Time Source Procedure Growth Status 09/13/19 13:30 Nasal Nares MRSA Culture - Final Staphylococcus Aureus - Mrsa Complete 09/13/19 11:14 Urine,Clean Catch Urine Culture - Final Escherichia Coli - Esbl Complete 09/13/19 13:30 Rectum - Final NO CARBAPENEM-RESISTANT ENTEROBACTERI... Complete Labs Test 09/16/19 05:40 09/17/19 05:40 White Blood Count 7.0 K/UL (4.8-10.8) 7.4 K/UL (4.8-10.8) Red Blood Count 4.19 M/UL (4.20-5.40) 4.38 M/UL (4.20-5.40) Hemoglobin 11.4 G/DL (12.0-16.0) 12.0 G/DL (12.0-16.0) Hematocrit 34.5 % (37.0-47.0) 36.3 % (37.0-47.0) Mean Corpuscular Volume 82 FL (80-99) 83 FL (80-99) Mean Corpuscular Hemoglobin 27.2 PG (27.0-31.0) 27.3 PG (27.0-31.0) Mean Corpuscular Hemoglobin Concent 33.0 G/DL (32.0-36.0) 33.0 G/DL (32.0-36.0) Red Cell Distribution Width 13.7 % (11.6-14.8) 13.3 % (11.6-14.8) Platelet Count 229 K/UL (150-450) 208 K/UL (150-450) Mean Platelet Volume 8.0 FL (6.5-10.1) 7.7 FL (6.5-10.1) Neutrophils (%) (Auto) 44.8 % (45.0-75.0) 44.9 % (45.0-75.0) Lymphocytes (%) (Auto) 41.5 % (20.0-45.0) 41.6 % (20.0-45.0) Monocytes (%) (Auto) 7.0 % (1.0-10.0) 7.0 % (1.0-10.0) Eosinophils (%) (Auto) 5.6 % (0.0-3.0) 5.3 % (0.0-3.0) Basophils (%) (Auto) 1.1 % (0.0-2.0) 1.3 % (0.0-2.0) Sodium Level 142 MMOL/L (136-145) 138 MMOL/L (136-145) Potassium Level 4.4 MMOL/L (3.5-5.1) 5.2 MMOL/L (3.5-5.1) Chloride Level 107 MMOL/L (98-107) 104 MMOL/L (98-107) Carbon Dioxide Level 27 MMOL/L (21-32) 26 MMOL/L (21-32) Anion Gap 9 mmol/L (5-15) 8 mmol/L (5-15) Blood Urea Nitrogen 25 mg/dL (7-18) 25 mg/dL (7-18) Creatinine 1.4 MG/DL (0.55-1.30) 1.4 MG/DL (0.55-1.30) Estimat Glomerular Filtration Rate 37.2 mL/min (>60) 37.2 mL/min (>60) Glucose Level 138 MG/DL (74-106) 149 MG/DL (74-106) Calcium Level 9.9 MG/DL (8.5-10.1) 10.0 MG/DL (8.5-10.1) Total Bilirubin 0.3 MG/DL (0.2-1.0) Aspartate Amino Transf (AST/SGOT) 15 U/L (15-37) Alanine Aminotransferase (ALT/SGPT) 16 U/L (12-78) Alkaline Phosphatase 85 U/L (46-116) Total Protein 6.4 G/DL (6.4-8.2) Albumin 2.7 G/DL (3.4-5.0) Globulin 3.7 g/dL Albumin/Globulin Ratio 0.7 (1.0-2.7) Current Medications Medications (Trade) Dose Ordered Sig/Arely Route PRN Reason Start Time Stop Time Status Last Admin Dose Admin Acetaminophen (Tylenol) 650 mg Q4H PRN ORAL Mild Pain (Pain Scale 1-3) 09/13/19 13:30 10/13/19 13:29 Amlodipine Besylate (Norvasc) 10 mg DAILY ORAL 09/18/19 09:00 10/18/19 08:59 09/18/19 08:30 Ascorbic Acid (Vitamin C) 500 mg DAILY ORAL 09/14/19 09:00 10/14/19 08:59 09/18/19 08:30 Aspirin (Ecotrin) 81 mg DAILY ORAL 09/14/19 09:00 10/29/19 08:59 09/18/19 08:30 Atorvastatin Calcium (Lipitor) 40 mg BEDTIME ORAL 09/13/19 21:00 10/13/19 20:59 09/17/19 20:44 Carvedilol (Coreg) 3.125 mg EVERY 12 HOURS ORAL 09/13/19 21:00 10/13/19 20:59 09/18/19 08:31 Chlorhexidine Gluconate (Estefania-Hex 2%) 1 applic DAILY@1999 TOPIC 09/19/19 20:00 10/19/19 19:59 Dextrose (Dextrose 50%) 25 ml Q30M PRN IV Hypoglycemia 09/13/19 13:30 10/13/19 13:29 Dextrose (Dextrose 50%) 50 ml Q30M PRN IV Hypoglycemia 09/13/19 13:30 10/13/19 13:29 Diphenhydramine HCl (Benadryl) 25 mg Q6H PRN ORAL Itching/Pruritis 09/13/19 13:30 10/13/19 13:29 Ertapenem (INVanz) 1 gm Q24H IM 09/17/19 22:30 09/22/19 22:29 09/17/19 21:58 Escitalopram Oxalate (Lexapro) 10 mg DAILY ORAL 09/14/19 09:00 10/14/19 08:59 09/18/19 08:31 Heparin Sodium (Porcine) (Heparin 5000 units/ml) 5,000 units EVERY 12 HOURS SUBQ 09/13/19 21:00 10/28/19 20:59 09/18/19 08:32 Heparin Sodium/ Sodium Chloride (Heparin 1000 units/500ml Premix) 1,000 unit ONCE PRN IV picc line placement 09/19/19 10:00 09/19/19 10:01 Insulin Aspart (NovoLOG) BEFORE MEALS AND HS SUBQ 09/13/19 16:30 10/13/19 16:29 09/18/19 17:41 Lidocaine (Xylocaine 1% MPF 5ml) 3.2 ml Q24H IM 09/17/19 22:30 10/17/19 22:29 09/17/19 21:58 Lidocaine HCl (Xylocaine 1% 30ml) 30 ml ONCE PRN INJ picc line placement 09/19/19 10:00 09/19/19 10:01 Lorazepam (Ativan 2mg/ml 1ml) 1 mg Q4H PRN IM For Anxiety 09/15/19 12:15 09/22/19 12:14 09/18/19 17:57 Ondansetron HCl (Zofran) 4 mg Q6H PRN IVP Nausea & Vomiting 09/13/19 13:30 10/13/19 13:29 Quetiapine Fumarate (SEROqueL) 25 mg TID ORAL 09/13/19 18:00 10/28/19 17:59 09/18/19 17:41 Temazepam (Restoril) 15 mg BEDTIME PRN ORAL Insomnia 09/13/19 13:30 09/20/19 13:29 Brigida Marquis MD Sep 18, 2019 20:10
[2019-09-18 20:34] VITALS: BP 134/67
[2019-09-18] MEDS: Atorvastatin 20mg tab ORAL SCH (21:20)
[2019-09-18] MEDS: Ertapenem (INVanz) 1gm Inj IM SCH (23:15)
[2019-09-18] MEDS: Lidocaine 1% MPF 10mg/ml 5ml IM SCH (23:15)
[2019-09-19] VITALS (7 sets, daily range): BP systolic 108–160; BP diastolic 54–80
[2019-09-19] MEDS: NovoLOG Insulin Flexpen SUBQ SCH ×4 (06:16→21:00)
[2019-09-19 06:39] LABS: BASOPHILS % (AUTO) 1.2 % (0.0-2.0); EOSINOPHILS % (AUTO) 4.8 % (0.0-3.0); HEMATOCRIT 31.6 % (37.0-47.0); HEMOGLOBIN 10.3 G/DL (12.0-16.0); LYMPHOCYTES % (AUTO) 50.7 % (20.0-45.0); MEAN CORPUSCULAR VOLUME 82 FL (80-99); MONOCYTES % (AUTO) 7.4 % (1.0-10.0); NEUTROPHILS % (AUTO) 35.8 % (45.0-75.0); PLATELET COUNT 208 K/UL (150-450); RED BLOOD COUNT 3.83 M/UL (4.20-5.40); RED CELL DISTRIBUTION WIDTH 13.2 % (11.6-14.8)
--- NOTE | 2019-09-19 07:25 | NUR ---
HAND-OFF: Report given to Amanda Walker RN.
--- NOTE | 2019-09-19 07:28 | NUR ---
NURSE NOTES: Received patient in bed asleep. Bilateral soft wrist restraints on, pulses palpable, no skin issues noted on wrists. NO SOB or acute distress. For PICC line insertion, consent in chart. HOB elevated. Bed locked in lowest position, alarm on. Call light within reach. Will continue plan of care.
[2019-09-19 08:10] LABS: ALANINE AMINOTRANSFERASE 18 U/L (12-78); ALBUMIN 2.4 G/DL (3.4-5.0); ALBUMIN/GLOBULIN RATIO 0.7 (1.0-2.7); ALKALINE PHOSPHATASE 84 U/L (46-116); ANION GAP 9 mmol/L (5-15); ASPARTATE AMINO TRANSFERASE 27 U/L (15-37); BILIRUBIN,TOTAL 0.1 MG/DL (0.2-1.0); BLOOD UREA NITROGEN 26 mg/dL (7-18); CARBON DIOXIDE 26 MMOL/L (21-32); CHLORIDE 110 MMOL/L (98-107); CREATININE 1.4 MG/DL (0.55-1.30); POTASSIUM 5.1 MMOL/L (3.5-5.1); SODIUM 145 MMOL/L (136-145)
[2019-09-19] MEDS: Ascorbic Acid 500mg tab ORAL SCH (08:52)
[2019-09-19] MEDS: LORazepam Inj 2mg/ml 1ml IM PRN (08:53)
[2019-09-19] MEDS: Aspirin EC 81mg tab ORAL SCH (08:56)
[2019-09-19] MEDS: Heparin 5000 units/ml inj SUBQ SCH ×2 (08:56→20:34)
[2019-09-19] MEDS ORDERED: Lidocaine 1% Plain 30 ml INJ PRN (10:00)
[2019-09-19] MEDS ORDERED: Heparin1,000 units/500ml Premix(Conc:2 units/ml) IV PRN (10:00)
--- NOTE | 2019-09-19 12:51 | NUR ---
DISCHARGE PLANNING PATIENT HAS BEEN REFERRED BACK TO [facility] [place] P: [phone] F: [phone] Addendum: 09/19/19 at 1452 by AKSHAT CHILDERS LVN LVN PATIENT ACCEPTED TO RETURN TO [facility] SN[facility] Addendum: 09/19/19 at 1459 by AKSHAT CHILDERS LVN LVN BLS AMBULANCE TRANSPORTATION SET ON WILL CALL WITH [facility] @ EXT [phone]
--- NOTE | 2019-09-19 14:36 | NUR ---
NURSE NOTES: Patient transported down for PICC line insertion.
--- NOTE | 2019-09-19 15:25 | NUR ---
RADIOLOGY NOTE: RIGHT UPPER EXTREMITY PICC PLACED.
--- NOTE | 2019-09-19 15:31 | Discharge Summary ---
Discharge Summary Hospital Course Date of Admission Sep 13, 2019 at 13:10 Date of Discharge 09/19/2019 Admitting Diagnosis AMS HPI Dory Cooper is a 69 year old female who was admitted on Sep 13, 2019 at 13: 10 for Altered Mental Status Hospital Course 69-year-old female history of moderate dementia, chronic schizophrenia, depression, anxiety, HTN, HLD, DM type 2, COPD, dysphagia, hypothyroidism, GERD presented from SNF with altered mental status #Acute metabolic encephalopathy due to #ESBL E. Coli UTI #Moderate-severe baseline dementia #Chronic dysphagia #Chronic schizophrenia #Depression #Anxiety -per ID, continue ertapenem for x 1 week on d/c. -Continue seroquel. -Frequent orienting -Fall, aspiration precautions #BART - resolved #CKD3 Baseline ~1.3 -monitor BMP #HTN, variable control -continue amlodipine and Coreg #NIDDM -hold oral hypoglycemics -ISS for now #COPD, not in acute exacerbation -Duoneb prn #Hypothyroidism -continue levothyroxine Time of note doesn't reflect time of encounter. Discharge Medications Continued Medications: Acetaminophen* (Acetaminophen 325MG Tablet*) 325 Mg Tablet 650 MG ORAL Q4H PRN for Mild Pain/Temp > 100.5 MDD 3 GM, TAB Acetaminophen* (Acetaminophen Extra Strength*) 500 Mg Tablet 1000 MG ORAL Q4HR PRN for Moderate Pain (Pain Scale 4-6), TAB 0 Refills Amlodipine Besylate* (Amlodipine Besylate*) 5 Mg Tablet 5 MG ORAL DAILY for HYPERTENSION, TAB HOLD FOR SBP<110, HR<60 Aspirin* (Aspir 81*) 81 Mg Tablet.dr 81 MG ORAL DAILY for CVA PPX, TAB Atorvastatin Calcium* (Lipitor*) 10 Mg Tablet 10 MG ORAL BEDTIME for HYPERLIPIDEMIA, TAB Bisacodyl (Bisacodyl) 10 Mg Supp.rect 10 MG RC DAILY PRN for Constipation, SUPP IF MILK OF MAGNESIA IS INEFFECTIVE Bupropion Hcl* (Bupropion Hcl*) 100 Mg Tablet 100 MG ORAL BID for MDD, TAB Carvedilol (Coreg) 3.125 Mg Tablet 3.125 MG ORAL EVERY 12 HOURS for HTN, TAB HOLD FOR SBP <110, HR < 60 Cranberry Fruit (Cranberry) 450 Mg Tablet 900 MG PO BID for UTI PPX, TAB Divalproex Sodium* (Depakote Er*) 500 Mg Tab.er.24h 500 MG ORAL DAILY for BIPOLAR DISORDER, TAB Docusate Sodium (Docusate Sodium) 250 Mg Capsule 250 MG ORAL DAILY for BOWEL MANAGEMENT, CAP HOLD FOR LOOSE BOWEL MOVEMENT Ferrous Sulfate* (Ferrous Sulfate*) 325 Mg Tablet 325 MG ORAL DAILY for ANEMIA, TAB Furosemide* (Lasix*) 40 Mg Tablet 40 MG ORAL TWICE A DAY for HYPERTENSION, TAB 0 Refills HOLD FOR SBP<110, HR<60 Glipizide* (Glucotrol*) 10 Mg Tablet 10 MG ORAL QHS for DIABETES MELLITUS, TAB 0 Refills HOLD FOR BS < 100 Hydralazine Hcl* (Hydralazine Hcl*) 25 Mg Tablet 25 MG ORAL BID for HYPERTENSION, TAB 0 Refills HOLD FOR SBP <110, HR <60 Levothyroxine Sodium* (Levothyroxine Sodium*) 75 Mcg Tablet 75 MCG ORAL DAILY for HYPOTHYROIDISM, TAB Take in the morning on an empty stomach, at least 30 minutes before food. Linagliptin (Tradjenta) 5 Mg Tablet 5 MG PO DAILY for DIABETES MELLITUS, TAB Magnesium Hydroxide* (Milk Of Magnesia*) 400 Mg/5 Ml Oral.susp 30 ML ORAL QHS PRN for Constipation, ML IF STOOL SOFTENERS INEFFECTIVE Metformin Hcl* (Metformin Hcl*) 500 Mg Tablet 500 MG ORAL TWICE A DAY for DIABETES MELLITUS, TAB WITH MEALS Multivitamins* (Multivitamins*) 1 Each Tablet 1 TAB ORAL DAILY for SUPPLEMENT, TAB 0 Refills Na Phos,M-B/Na Phos,Di-Ba* (Fleet Enema*) 133 Ml Enema 133 ML RECTAL EVERY OTHER DAY PRN for Constipation, ML 0 Refills IF DULCOLAX IS INEFFECTIVE Olanzapine* (Zyprexa*) 10 Mg Tablet 10 MG ORAL BID for SCHIZOPHRENIA, #30 TAB 0 Refills Quetiapine Fumarate (Quetiapine Fumarate) 300 Mg Tablet 300 MG ORAL QHS for SCHIZOPHRENIA, TAB Discharge Condition Upon Discharge: stable Discharge Vital Signs Last Vital Signs Date Time Temp Pulse Resp B/P (MAP) Pulse Ox O2 Delivery O2 Flow Rate FiO2 09/19/19 12:00 98.2 68 18 108/62 (77) 95 09/19/19 09:00 Room Air 09/18/19 07:00 21 Discharge Disposition Patient was discharged to Discharge Diagnoses: (1) Altered mental status (2) Dehydration (3) HTN (hypertension) (4) ATN (acute tubular necrosis) (5) UTI (urinary tract infection) Sharon Jessica M.D. Sep 19, 2019 15:31
--- NOTE | 2019-09-19 15:35 | Brief Operative Note ---
Immediate Post Operative Note Operative Note Pre-op Diagnosis: needs iron melter IV access Procedure: PICC Post-op Diagnosis: same as pre-op Surgeon: Tanner De Leon Anesthesia: local Specimen: none Complications: none Fluids: none Implant(s) used?: No Joseph De Leon MD Sep 19, 2019 15:35
--- NOTE | 2019-09-19 15:35 | NUR ---
NURSE NOTES: Patient back from PICC line insertion. PICC line placed on right upper arm.
[2019-09-19] MEDS ORDERED: INVANZ1 G1 IVPB (16:50)
--- NOTE | 2019-09-19 19:10 | NUR ---
NURSE NOTES: Received patient in bed. Bilateral soft wrist restraints on, pulses palpable, no skin issues noted on wrists. NO SOB or acute distress. PICC line intact. HOB elevated. Bed locked in lowest position, alarm on. Call light within reach. Will continue plan of care.
--- NOTE | 2019-09-19 19:56 | NUR ---
HAND-OFF: Report given to elsa. Patient ready for discharge once BP is stable. Report given to Sharonda FRANCO from [facility].
[2019-09-19] MEDS ORDERED: Dyna-Hex 2% Top Sol 2oz TOPIC SCH (20:00)
[2019-09-19] MEDS: Atorvastatin 20mg tab ORAL SCH (20:30)
--- NOTE | 2019-09-19 21:00 | NUR ---
NURSE NOTES: Noted BP 156/68. Received order clonodine 0.1mg once po from [facility]. MD said if sbp <150 is ok to discharge.
--- NOTE | 2019-09-19 22:00 | NUR ---
NURSE NOTES: Pt refused clonidine. Doesn't open her mouth. Will continue to monitor.
[2019-09-19] MEDS ORDERED: Ertapenem 1gm in NS 55ml IVPB SCH (22:30)
--- NOTE | 2019-09-19 23:30 | NUR ---
NURSE NOTES: BP 116/56 noted. Called ambulance and [facility] conv. to give a report. Report given to SALVADOR Toro. Waiting for ambulance.
[2019-09-20] VITALS: BP 116/62
--- NOTE | 2019-09-20 00:30 | NUR ---
NURSE NOTES: Pt is discharged with stable condition to [facility]. [facility] at bedside. Belongings lists reviewed. ID band removed. DC instruction given.
--- NOTE | 2019-09-20 14:26 | Diagnostic Imaging Report ---
. Indications: Needs long-term IV access Technique: Ultrasound confirms patent compressible right distal vein. Total sterile technique, including sterile probe cover and sterile gel, hat, mask, sterile gown, large sterile drape, and preparation with 2% chlorhexidine utilized. Local anesthesia with 1% lidocaine. Under real-time ultrasound guidance, puncture basilic vein using 21-gauge needle, documented and archived, passage 0.018 guidewire under direct fluoroscopy, which was used to determine appropriate catheter length, exchange for 4 [place] peel-away sheath. 4 [place] Bard dual-lumen power PICC cut to 43 cm. It was inserted through the peel-away sheath. Peel-away sheath and guidewire removed. Catheter fixed to the skin. Both catheter ports aspirated and flushed. Patient tolerated procedure well, without immediate complication. Digital radiograph documents satisfactory catheter tip position, at the cavoatrial junction. Total fluoroscopy time 10 point seconds. Total dose area product 0.8 mGym2 Total number of images: 1 Impression: Successful placement of right arm PICC under sonographic and fluoroscopic guidance, as described above.
== END 2019-09-20 00:30 | DRG 689 ==
LOC: EDBD 10:04 → EMR 10:30 → 4E 13:10 → EDBEDREQ 13:35 → 4E 09-18 11:41
PROC: 02HV33Z Insertion of Infusion Device into Superior Vena Cava, Percutaneous Approach (ICD-10-PCS; principal; 2019-09-19)
DX: N39.0 Urinary tract infection, site not specified (principal); G93.41 Metabolic encephalopathy; N17.0 Acute kidney failure with tubular necrosis; F03.91 Unspecified dementia, unspecified severity, with behavioral disturbance; Z16.12 Extended spectrum beta lactamase (ESBL) resistance; Z88.8 Allergy status to other drugs, medicaments and biological substances; F20.9 Schizophrenia, unspecified; F32.9 Major depressive disorder, single episode, unspecified; J44.9 Chronic obstructive pulmonary disease, unspecified; E03.9 Hypothyroidism, unspecified; F41.9 Anxiety disorder, unspecified; Z22.322 Carrier or suspected carrier of Methicillin resistant Staphylococcus aureus; R13.10 Dysphagia, unspecified; B96.20 Unspecified Escherichia coli [E. coli] as the cause of diseases classified elsewhere
CPT/HCPCS: 36415; 36569; 70450; 71045; 76937; 80048; 80053; 81003; 82550; 82553; 82962; 83605; 83690; 83735; 83880; 84100; 84439; 84443; 84481; 84484; 85025; 87081; 87086; 87181; 93005; 94664; 96361; 96365; 96372; 96375; 99285; J1815; J7030